=== PATIENT | female | born 1945 | race Caucasian/White ===

== ENCOUNTER → 2016-03-22 | Outpatient (CLI) | payer MEDICARE ==
[2016-03-22 18:31] LABS: Creatine Kinase 44 U/L (30-135)
[2016-03-22 18:34] LABS: Rheumatoid Factor, Qnt <9 IU/mL (<12)
[2016-03-22 19:25] LABS: Vitamin B12 >1000 pg/mL
== END | disposition home or self-care (01) ==
LOC: RADXRMAIN 17:35
PROVIDERS: ATTEND Psychiatry & Neurology Neurology
DX: G62.9 Polyneuropathy, unspecified (principal)
CPT/HCPCS: 82550; 82607; 83036; 84165; 84443; 85652; 86431; 86618

== ENCOUNTER 2016-10-11 14:30 | Emergency (ER) | payer MEDICARE ==
[2016-10-11 15:09] VITALS: RESP 18
--- NOTE | 2016-10-11 15:27 | ED ---
Lower Extremity Injury HPI - General Chief Complaint: Extremity Injury, Lower Stated Complaint: R foot injury Time Seen by Provider: 10/11/16 15:07 Source: patient Mode of arrival: ambulatory Limitations: no limitations - History of Present Illness Initial Comments: 70-year-old female patient presents to emergency department today for evaluation of right fifth toe injury. Patient states that she was walking through her house yesterday when she stubbed it on a table leg. Patient states she has been having pain in that toe since. She states it is painful to walk. She denies any other injuries or concerns. Denies any numbness or tingling. Denies any previous injury to the foot. Patient denies any headache, dizziness , neck pain, chest pain, shortness of breath, abdominal pain, nausea, vomiting, ,fever, or chills. - Related Data Home Medications Medication Instructions Recorded Confirmed Gabapentin 600 mg PO QID 12/26/13 01/21/16 Levothyroxine Sodium [Levoxyl] 50 mcg PO QAM 12/26/13 01/21/16 Simvastatin [Zocor] 20 mg PO HS 12/26/13 01/21/16 Venlafaxine HCl ER [Effexor XR] 150 mg PO DAILY 12/26/13 01/21/16 clonazePAM [KlonoPIN] 0.5 mg PO BID 12/26/13 01/21/16 Cholecalciferol [Vitamin D3] 2,000 unit PO DAILY 11/11/14 01/21/16 Ziprasidone [Geodon] 60 mg PO HS 11/11/14 01/21/16 Mirabegron [Myrbetriq] 50 mg PO DAILY 04/29/15 01/21/16 Calcium Carb-Vit D 500Mg-200Un 1 tab PO BID 11/16/15 01/21/16 [Oscal 500+D] Clobetasol Propionate [Temovate 1 applic TOPICAL BID 11/16/15 01/21/16 0.05% Cream] Ferrous Sulfate [Iron (65 MG 325 mg PO BID 11/16/15 01/21/16 Elemental)] HYDROcodone/APAP 7.5-325MG [[place] 1 tab PO DAILY PRN 11/16/15 01/21/16 7.5-325] Metoprolol Succinate (ER) [Toprol 50 mg PO DAILY 11/16/15 01/21/16 XL] fentaNYL 50MCG/HR PATCH [Duragesic 1 patch TRANSDERM Q72H 11/16/15 01/21/16 50MCG/HR] Biotin( Unknown Dose) 1 tab PO DAILY 01/20/16 01/21/16 Cyanocobalamin [Vitamin B-12] 500 mcg PO DAILY 01/20/16 01/21/16 Multivitamins, Thera [Multivitamin] 1 tab PO DAILY 01/20/16 01/21/16 Previous Rx's Medication Instructions Recorded Cevimeline [Evoxac] 30 mg PO TID cap 11/14/14 Aspirin 81 mg PO DAILY #1 chewable 11/16/15 Allergies Allergy/AdvReac Type Severity Reaction Status Date / Time No Known Allergies Allergy Verified 10/11/16 15:09 Review of Systems ROS Statement: Those systems with pertinent positive or pertinent negative responses have been documented in the HPI. ROS Other: All systems not noted in ROS Statement are negative. Past Medical History Past Medical History: Cancer, Deep Vein Thrombosis (DVT), Fibromyalgia, Hyperlipidemia, Hypertension, Sleep Apnea/CPAP/BIPAP, Thyroid Disorder Additional Past Medical History / Comment(s): HX PARALYZED LT VOCAL CORD, CA OF DALIA EARLOBES, HEART MURMUR, DIVERTICULOSIS, ANEMIA, BLOOD CLOTS DALIA LUNGS AND LEFT AXILLA (NOV 2014),ENVIRONMENTAL ALLERGIES., Hx. of Basal cell CANCER LEFT EARLOBE. Urinary Urgency. Last adm. Hx. of open area on tailbone, states is completely healed. Chipped bone in ankle. History of Any Multi-Drug Resistant Organisms: None Reported Past Surgical History: Hysterectomy, Orthopedic Surgery Additional Past Surgical History / Comment(s): COLONOSCOPY, REPAIR OF PATENT DUCTUS AT 18MOS OF AGE,LAMICECTOMY,FIBROID REMOVED FROM ABDOMINAL AREA, Basal cell REMOVED FROM RIGHT EAR LOBE. Past Anesthesia/Blood Transfusion Reactions: No Reported Reaction Past Psychological History: No Psychological Hx Reported Smoking Status: Unknown if ever smoked Past Alcohol Use History: None Reported Past Drug Use History: None Reported - Past Family History Mother Family Medical History: No Reported History Sister(s) Family Medical History: Diabetes Mellitus General Exam Limitations: no limitations General appearance: alert, in no apparent distress Eye exam: Present: normal appearance, PERRL, EOMI. Absent: scleral icterus, conjunctival injection, periorbital swelling ENT exam: Present: normal exam, mucous membranes moist Neck exam: Present: normal inspection. Absent: tenderness, meningismus, lymphadenopathy Respiratory exam: Present: normal lung sounds bilaterally. Absent: respiratory distress, wheezes, rales, rhonchi, stridor Cardiovascular Exam: Present: regular rate, normal rhythm, normal heart sounds. Absent: systolic murmur, diastolic murmur, rubs, gallop, clicks GI/Abdominal exam: Present: soft, normal bowel sounds. Absent: distended, tenderness, guarding, rebound, rigid Extremities exam: Present: normal inspection, full ROM, tenderness (Right fifth toe tenderness, right fifth metatarsal tenderness. Skin pink, warm, and dry. Cap refill is less than 3 seconds.), normal capillary refill. Absent: pedal edema, joint swelling, calf tenderness Neurological exam: Present: alert, oriented X3, CN II-XII intact Psychiatric exam: Present: normal affect, normal mood Skin exam: Present: warm, dry, intact, normal color. Absent: rash Course Vital Signs 10/11/16 15:06 Temperature 98.0 F Pulse Rate 61 Respiratory 18 Rate Blood Pressure 104/56 O2 Sat by Pulse 97 Oximetry Medical Decision Making - Medical Decision Making 70-year-old female presented for evaluation of right fifth toe injury. X-ray was completed and did show a minimally displaced distal phalanx fracture of the fifth digit. Did beatris tape the fourth and fifth toes together. Skin after beatris taping was pink, warm, and dry. Cap refill remained less than 3 seconds. Did give patient orthopedics for follow-up. Instructed to take Tylenol for pain control. Recommended ice and elevation. Instructed to return for any new , worsening, or concerning symptoms. Patient verbalized understanding and agreed with this plan. - Radiology Data Radiology results: report reviewed, image reviewed Complete x-ray of the right foot shows diffuse osteopenia and severe arthropathy hypertrophic changes at the first MTP joint. There is a deformity of the distal phalanx of the fifth digit. Impression by Dr. vega states to Leela for minimally displaced fracture distal phalanx of digit. Disposition Clinical Impression: Fracture of fifth toe, right, closed Disposition: HOME SELF-CARE Condition: Good Instructions: Toe Fracture (ED) Additional Instructions: Keep the toe beatris taped. Elevate and ice. Take [id number] Tylenol for pain control. Follow up with orthopedics in 1-2 days for recheck. Return for any new, worsening, or concerning symptoms. Referrals: Mario Gabriel DO [Primary Care Provider] - 1-2 days Wilfred Sarah DO [Doctor of Osteopathic Medicine] - 1-2 days Time of Disposition: 15:51
--- NOTE | 2016-10-11 15:40 | XR ---
EXAMINATION TYPE: XR foot complete RT DATE OF EXAM: 10/11/2016 COMPARISON: NONE HISTORY: Right fifth digit pain TECHNIQUE: Three views are submitted. FINDINGS: Diffuse osteopenia and severe arthropathy and hypertrophic change first MTP joint. There is a deformity of the distal phalanx fifth digit. IMPRESSION: 1. Correlate for minimally displaced fracture distal phalanx fifth digit.
[2016-10-11 15:58] VITALS: BP 112/68; PULSE 74; TEMP 98.2
== END 2016-10-11 15:58 | disposition home or self-care (01) ==
LOC: EC 14:30
DX: S92.531A Displaced fracture of distal phalanx of right lesser toe(s), initial encounter for closed fracture (principal); Z86.718 Personal history of other venous thrombosis and embolism; E07.9 Disorder of thyroid, unspecified; E78.5 Hyperlipidemia, unspecified; M79.7 Fibromyalgia; I10 Essential (primary) hypertension; Z85.828 Personal history of other malignant neoplasm of skin; Z79.899 Other long term (current) drug therapy; W22.03XA Walked into furniture, initial encounter; Y93.01 Activity, walking, marching and hiking; Y92.009 Unspecified place in unspecified non-institutional (private) residence as the place of occurrence of the external cause
CPT/HCPCS: 99283

== ENCOUNTER 2016-12-08 15:39 | Emergency (ER) | payer MEDICARE ==
[2016-12-08] MEDS ORDERED: methylPREDNISolone SOD SUCCI 125 MG/2 ML VIAL IV STA (16:36)
[2016-12-08] MEDS ORDERED: ALBUTEROL NEBULIZED 2.5 MG/3 ML INHALATION STA (16:39)
[2016-12-08] MEDS ORDERED: IPRATROPIUM-ALBUTEROL 3 ML NEB INHALATION STA (16:39)
[2016-12-08] MEDS ORDERED: ASPIRIN 81 MG PO STA (16:39)
--- NOTE | 2016-12-08 16:54 | ED ---
General Adult HPI - General Chief complaint: Upper Respiratory Infection Stated complaint: Cough Time Seen by Provider: 12/08/16 16:21 Source: patient Mode of arrival: ambulatory Limitations: no limitations - History of Present Illness Initial comments: Patient is a 71-year-old female with a previous history of skin cancer, and bilateral PEs presents with a chief complaint of cough and congestion. Patient states that this is been going on for about 3 days. She states that over the course of the 3 days, her cough has remained the same. Patient cannot identify any inciting factors, she states that she was at her primary care doctor's office but was not around anybody particularly sick. She states that her cough is nonproductive, and coarse. He cannot identify any aggravating or alleviating factors. She states that she does have pleuritic type chest pain when she coughs. She denies any exertional dyspnea. She further denies any nausea, vomiting, lightheadedness, diaphoresis. Patient states that she is currently not on any anticoagulation therapy, and states that she was only on it for 6 months. - Related Data Home Medications Medication Instructions Recorded Confirmed Gabapentin 600 mg PO TID 12/26/13 12/08/16 Levothyroxine Sodium [Levoxyl] 50 mcg PO QAM 12/26/13 12/08/16 Simvastatin [Zocor] 20 mg PO HS 12/26/13 12/08/16 clonazePAM [KlonoPIN] 0.5 mg PO BID 12/26/13 12/08/16 Cholecalciferol [Vitamin D3] 2,000 unit PO DAILY 11/11/14 12/08/16 Mirabegron [Myrbetriq] 50 mg PO DAILY 04/29/15 12/08/16 Calcium Carb-Vit D 500Mg-200Un 1 tab PO BID 11/16/15 12/08/16 [Oscal 500+D] Ferrous Sulfate [Iron (65 MG 325 mg PO BID 11/16/15 12/08/16 Elemental)] HYDROcodone/APAP 7.5-325MG [[place] 1 tab PO DAILY PRN 11/16/15 12/08/16 7.5-325] Metoprolol Succinate (ER) [Toprol 25 mg PO DAILY 11/16/15 12/08/16 XL] fentaNYL 50MCG/HR PATCH [Duragesic 1 patch TRANSDERM Q72H 11/16/15 12/08/16 50MCG/HR] Cyanocobalamin [Vitamin B-12] 500 mcg PO DAILY 01/20/16 12/08/16 Multivitamins, Thera [Multivitamin] 1 tab PO DAILY 01/20/16 12/08/16 Furosemide [Lasix] 20 mg PO DAILY 12/08/16 12/08/16 Ziprasidone HCl [Geodon] 80 mg PO HS 12/08/16 12/08/16 Previous Rx's Medication Instructions Recorded Cevimeline [Evoxac] 30 mg PO TID cap 11/14/14 Aspirin 81 mg PO DAILY #1 chewable 11/16/15 Albuterol Inhaler [Ventolin Hfa 1 - 2 puff INHALATION Q6HR PRN #1 12/08/16 Inhaler] inhaler Azithromycin 250 mg PO DAILY #6 tab 12/08/16 predniSONE 50 mg PO DAILY #4 tablet 12/08/16 Allergies Allergy/AdvReac Type Severity Reaction Status Date / Time No Known Allergies Allergy Verified 12/08/16 16:02 Review of Systems ROS Statement: Those systems with pertinent positive or pertinent negative responses have been documented in the HPI. ROS Other: All systems not noted in ROS Statement are negative. Constitutional: Reports: chills. Denies: fever Eyes: Denies: vision change ENT: Reports: congestion Respiratory: Reports: cough. Denies: dyspnea Cardiovascular: Denies: chest pain, dyspnea on exertion Endocrine: Denies: fatigue Gastrointestinal: Denies: abdominal pain, nausea, vomiting Genitourinary: Denies: dysuria Musculoskeletal: Denies: back pain Skin: Denies: rash Neurological: Denies: headache Past Medical History Past Medical History: Cancer, Deep Vein Thrombosis (DVT), Fibromyalgia, Hyperlipidemia, Hypertension, Sleep Apnea/CPAP/BIPAP, Thyroid Disorder Additional Past Medical History / Comment(s): HX PARALYZED LT VOCAL CORD, CA OF DALIA EARLOBES, HEART MURMUR, DIVERTICULOSIS, ANEMIA, BLOOD CLOTS DALIA LUNGS AND LEFT AXILLA (NOV 2014),ENVIRONMENTAL ALLERGIES., Hx. of Basal cell CANCER LEFT EARLOBE. Urinary Urgency. Last adm. Hx. of open area on tailbone, states is completely healed. Chipped bone in ankle. History of Any Multi-Drug Resistant Organisms: None Reported Past Surgical History: Hysterectomy, Orthopedic Surgery Additional Past Surgical History / Comment(s): COLONOSCOPY, REPAIR OF PATENT DUCTUS AT 18MOS OF AGE,LAMICECTOMY,FIBROID REMOVED FROM ABDOMINAL AREA, Basal cell REMOVED FROM RIGHT EAR LOBE. Past Anesthesia/Blood Transfusion Reactions: No Reported Reaction Past Psychological History: Anxiety, Depression Smoking Status: Former smoker Past Alcohol Use History: None Reported Past Drug Use History: None Reported - Past Family History Mother Family Medical History: No Reported History Sister(s) Family Medical History: Diabetes Mellitus General Exam Limitations: no limitations General appearance: alert, in no apparent distress Head exam: Present: atraumatic, normocephalic Eye exam: Present: normal appearance ENT exam: Present: normal oropharynx, mucous membranes moist Respiratory exam: Present: wheezes (Patient has bilateral wheezes, and right sided rhonchi.), rhonchi Cardiovascular Exam: Present: regular rate, normal rhythm GI/Abdominal exam: Present: soft. Absent: distended, tenderness Rectal exam: Present: deferred Extremities exam: Present: normal inspection Back exam: Present: normal inspection Neurological exam: Present: alert, oriented X3 Psychiatric exam: Present: normal affect, normal mood Skin exam: Present: warm, dry, intact Course Vital Signs 12/08/16 12/08/16 12/08/16 15:59 16:09 16:47 Temperature 98.4 F Pulse Rate 82 78 Respiratory 16 18 Rate Blood Pressure 117/60 O2 Sat by Pulse 94 L Oximetry 12/08/16 17:17 Temperature Pulse Rate 78 Respiratory Rate Blood Pressure O2 Sat by Pulse Oximetry Medical Decision Making - Medical Decision Making Patient presents with a chief complaint of cough and congestion. History and physical examination most consistent with bronchitis or pneumonia however given the patient's previous medical history PE, we'll send cardiac lab work as well. Patient will have a d-dimer. Currently she is a well score of 1.5 only secondary to previously diagnosed PE. 7:35 PM Level evaluation of this patient is unremarkable. D-dimer is elevated at 1.27 therefore patient will go for computed tomography scan of the chest, and bilateral lower extremity Dopplers. CT was negative for PE. Lower extremity Doppler fails to show evidence of DVTs. On reexamination, patient states that she is feeling improved. She'll be prescribed 4 more days of steroids, and a Z- Inderjit. She is instructed to follow-up with primary care in 4-5 days, or return to the emergency department if her symptoms worsen or change in any way. All of her questions are answered to the best my ability, the patient is stable for discharge - Lab Data Result diagrams: 12/08/16 17:15 12/08/16 17:15 Lab Results 12/08/16 12/08/16 12/08/16 Range/Units 17:15 17:15 17:15 WBC 5.5 (3.8-10.6) k/uL RBC 4.25 (3.80-5.40) m/uL Hgb 13.1 (11.4-16.0) gm/dL Hct 40.7 (34.0-46.0) % MCV 95.6 (80.0-100.0) fL MCH 30.9 (25.0-35.0) pg MCHC 32.3 (31.0-37.0) g/dL RDW 13.0 (11.5-15.5) % Plt Count 355 (150-450) k/uL Neutrophils % 67 % Lymphocytes % 16 % Monocytes % 8 % Eosinophils % 4 % Basophils % 1 % Neutrophils # 3.7 (1.3-7.7) k/uL Lymphocytes # 0.9 L (1.0-4.8) k/uL Monocytes # 0.5 (0-1.0) k/uL Eosinophils # 0.2 (0-0.7) k/uL Basophils # 0.0 (0-0.2) k/uL D-Dimer (<0.60) mg/L FEU Sodium 140 (137-145) mmol/L Potassium 4.9 (3.5-5.1) mmol/L Chloride 103 (98-107) mmol/L Carbon Dioxide 25 (22-30) mmol/L Anion Gap 12 mmol/L BUN 19 H (7-17) mg/dL Creatinine 1.00 (0.52-1.04) mg/dL Est GFR (MDRD) Af Amer >60 (>60 ml/min/1.73 sqM) Est GFR (MDRD) Non-Af 55 (>60 ml/min/1.73 sqM) Glucose 88 (74-99) mg/dL Calcium 9.7 (8.4-10.2) mg/dL Total Bilirubin 0.9 (0.2-1.3) mg/dL AST 46 H (14-36) U/L ALT 35 (9-52) U/L Alkaline Phosphatase 54 (38-126) U/L Total Creatine Kinase 81 (30-135) U/L CK-MB (CK-2) 1.3 (0.0-2.4) ng/mL CK-MB (CK-2) Rel Index 1.6 Troponin I <0.012 (0.000-0.034) ng/mL NT-Pro-B Natriuret Pep pg/mL Total Protein 7.5 (6.3-8.2) g/dL Albumin 4.3 (3.5-5.0) g/dL 12/08/16 12/08/16 Range/Units 17:15 17:15 WBC (3.8-10.6) k/uL RBC (3.80-5.40) m/uL Hgb (11.4-16.0) gm/dL Hct (34.0-46.0) % MCV (80.0-100.0) fL MCH (25.0-35.0) pg MCHC (31.0-37.0) g/dL RDW (11.5-15.5) % Plt Count (150-450) k/uL Neutrophils % % Lymphocytes % % Monocytes % % Eosinophils % % Basophils % % Neutrophils # (1.3-7.7) k/uL Lymphocytes # (1.0-4.8) k/uL Monocytes # (0-1.0) k/uL Eosinophils # (0-0.7) k/uL Basophils # (0-0.2) k/uL D-Dimer 1.27 H (<0.60) mg/L FEU Sodium (137-145) mmol/L Potassium (3.5-5.1) mmol/L Chloride (98-107) mmol/L Carbon Dioxide (22-30) mmol/L Anion Gap mmol/L BUN (7-17) mg/dL Creatinine (0.52-1.04) mg/dL Est GFR (MDRD) Af Amer (>60 ml/min/1.73 sqM) Est GFR (MDRD) Non-Af (>60 ml/min/1.73 sqM) Glucose (74-99) mg/dL Calcium (8.4-10.2) mg/dL Total Bilirubin (0.2-1.3) mg/dL AST (14-36) U/L ALT (9-52) U/L Alkaline Phosphatase (38-126) U/L Total Creatine Kinase (30-135) U/L CK-MB (CK-2) (0.0-2.4) ng/mL CK-MB (CK-2) Rel Index Troponin I (0.000-0.034) ng/mL NT-Pro-B Natriuret Pep 669 pg/mL Total Protein (6.3-8.2) g/dL Albumin (3.5-5.0) g/dL Disposition Clinical Impression: Bronchitis Disposition: HOME SELF-CARE Condition: Good Instructions: Upper Respiratory Infection (ED) Prescriptions: Albuterol Inhaler [Ventolin Hfa Inhaler] 1 - 2 puff INHALATION Q6HR PRN #1 inhaler PRN Reason: shortness of breath Azithromycin 250 mg PO DAILY #6 tab predniSONE 50 mg PO DAILY #4 tablet Referrals: Mario Gabriel DO [Primary Care Provider] - 1-2 days
[2016-12-08 17:29] LABS: Basophils % (A) 1 %; CHCM 31.5; Eosinophils # (A) 0.2 k/uL (0-0.7); Eosinophils % (A) 4 %; HCT 40.7 % (34.0-46.0); HGB 13.1 gm/dL (11.4-16.0); Luc # (Auto) 0.24; Luc % (Auto) 4; Lymphocytes # (A) 0.9 k/uL (1.0-4.8); Lymphocytes % (A) 16 %; MCH 30.9 pg (25.0-35.0); MCHC 32.3 g/dL (31.0-37.0); MCV 95.6 fL (80.0-100.0); Mean Platelet Volume 6.6; Monocytes # (A) 0.5 k/uL (0-1.0); Monocytes % (A) 8 %; Neutrophils # (A) 3.7 k/uL (1.3-7.7); Neutrophils % (A) 67 %; RBC 4.25 m/uL (3.80-5.40); WBC 5.5 k/uL (3.8-10.6); WBC (Perox) 5.45
[2016-12-08 17:37] LABS: ALT 35 U/L (9-52); AST 46 U/L (14-36); Alkaline Phosphatase 54 U/L (38-126); Anion Gap 12 mmol/L; Blood Urea Nitrogen 19 mg/dL (7-17); Calcium 9.7 mg/dL (8.4-10.2); Carbon Dioxide 25 mmol/L (22-30); Chloride 103 mmol/L (98-107); Glucose 88 mg/dL (74-99); Non-African American GFR(MDRD) 55 (>60 ml/min/1.73 sqM); Potassium 4.9 mmol/L (3.5-5.1); Sodium 140 mmol/L (137-145); Total Bilirubin 0.9 mg/dL (0.2-1.3); Total Protein 7.5 g/dL (6.3-8.2)
[2016-12-08] MEDS ORDERED: RX INFO: IV CONTRAST WAS GIVEN 1 EACH MISC MISCELLANE PRN (17:40)
[2016-12-08 17:45] LABS: Creatine Kinase 81 U/L (30-135)
[2016-12-08 17:58] LABS: Creatine Kinase MB 1.3 ng/mL (0.0-2.4); Troponin I <0.012 ng/mL (0.000-0.034)
--- NOTE | 2016-12-08 18:35 | XR ---
EXAMINATION TYPE: XR chest 2V DATE OF EXAM: 12/08/2016 HISTORY: difficulty breathing. REFERENCE: Previous study dated 01/29/2016. FINDINGS: The heart is upper limits of normal in size. There is chronic interstitial change. There is mild vascular congestion. Pleural spaces are clear. IMPRESSION: 1. BORDERLINE CARDIOMEGALY. 2. CHRONIC INTERSTITIAL CHANGE. 3. VASCULAR CONGESTION.
--- NOTE | 2016-12-08 18:45 | CT ---
EXAMINATION TYPE: CT chest angio for PE DATE OF EXAM: 12/08/2016 COMPARISON: NONE HISTORY: Cough and shortness of breath. History of DVT in the Left arm CT DLP: 432 mGycm Automated exposure control for dose reduction was used. CONTRAST: CT Chest for pulmonary embolism performed with with IV Contrast, patient injected with 80 mL of Visip aque 320. FINDINGS: There is atelectasis at the lung bases. There is some groundglass opacity in the apical pos terior segment of the left upper lobe and the posterior segment of the right upper lobe. This may be secondary to alveolitis or pneumonitis. There is no significant axillary, internal mammary, mediastinal or hilar adenopathy. There is no pleu ral or pericardial fluid. There is no evidence of pulmonary embolus. The aortic root is upper limits of normal in size. There is no evidence of aortic dissection. The heart is mildly enlarged. The right main pulmonary artery is prominent. I could not exclude some degree of pulmonary artery hypertension. There are gallstones within the gallbladder. No bony destructive lesion is seen. IMPRESSION: 1. This examination is negative for pulmonary embolus. 2. Cardiomegaly. 3. I could not exclude some degree of pulmonary artery hypertension. 4. Scattered groundglass opacities may reflect ongoing alveolitis or pneumonitis. 5. Cholelithiasis.
--- NOTE | 2016-12-08 19:27 | US ---
EXAMINATION TYPE: US venous doppler duplex LE BI DATE OF EXAM: 12/08/2016 7:14 PM COMPARISON: NONE CLINICAL HISTORY: Pain. SIDE PERFORMED: Bilateral TECHNIQUE: The lower extremity deep venous system is examined utilizing real time linear array sonog thais with graded compression, doppler sonography and color-flow sonography. VESSELS IMAGED: External Iliac Vein (EIV) Common Femoral Vein Deep Femoral Vein Greater Saphenous Vein * Femoral Vein Popliteal Vein Small Saphenous Vein * Proximal Calf Veins (* superficial vessels) Right Leg: Negative for DVT Left Leg: Negative for DVT No evidence of DVT bilateral legs There is no evidence of a popliteal fossa lesion. IMPRESSION: THIS EXAMINATION IS NEGATIVE FOR DVT IN BOTH LEGS.
[2016-12-08 19:50] VITALS: BP 118/84; PULSE 63; RESP 16; TEMP 97.5
== END 2016-12-08 19:49 | disposition home or self-care (01) ==
LOC: EC 15:39
DX: J40 Bronchitis, not specified as acute or chronic (principal); R07.81 Pleurodynia; M79.7 Fibromyalgia; E78.5 Hyperlipidemia, unspecified; I10 Essential (primary) hypertension; E07.9 Disorder of thyroid, unspecified; D64.9 Anemia, unspecified; F41.9 Anxiety disorder, unspecified; F32.9 Major depressive disorder, single episode, unspecified; Z86.718 Personal history of other venous thrombosis and embolism; Z85.828 Personal history of other malignant neoplasm of skin; Z87.891 Personal history of nicotine dependence; Z79.899 Other long term (current) drug therapy
CPT/HCPCS: 99284 ×2; 96374 ×2; 36415; 94640; 93005; 85379; 83880; 80053; 82550; 82553; 84484; 85025; 71020; 93970; 71275; J2930; Q9967

== ENCOUNTER → 2017-03-02 | Outpatient (CLI) | payer MEDICARE ==
[2017-03-02 17:12] LABS: ALT 40 U/L (9-52); AST 47 U/L (14-36); Albumin 5.2 g/dL (3.5-5.0); Alkaline Phosphatase 60 U/L (38-126); Anion Gap 13 mmol/L; Blood Urea Nitrogen 27 mg/dL (7-17); Calcium 10.5 mg/dL (8.4-10.2); Carbon Dioxide 32 mmol/L (22-30); Chloride 98 mmol/L (98-107); Glucose 101 mg/dL (74-99); Potassium 4.9 mmol/L (3.5-5.1); Sodium 143 mmol/L (137-145); Total Bilirubin 0.6 mg/dL (0.2-1.3); Total Protein 8.7 g/dL (6.3-8.2)
--- NOTE | 2017-03-03 08:05 | CT ---
EXAMINATION TYPE: CT angio chest DATE OF EXAM: 03/02/2017 COMPARISON: 12/23/2016 HISTORY: Thoracic Aorta Aneurysm CT DLP: 404.5 mGycm. Automated Exposure Control for Dose Reduction was Utilized. CONTRAST: CTA scan of the thorax is performed with IV Contrast, patient injected with 80 mL of Visipaque 320, p ulmonary embolism protocol. MIP Images are created on CT scanner and reviewed. FINDINGS: LUNGS: The lungs are grossly clear, there is no concerning parenchymal mass or nodule identified. L inear pleural parenchymal scarring is seen at the left lung base. There is no pleural effusion or pne umothorax seen. The tracheobronchial tree is patent. MEDIASTINUM: No intramural hematoma is seen on the unenhanced images. The ascending thoracic aorta is upper limits of normal size measuring 3.7 cm, unchanged from the exam of 2015. The aortic root at th e sinotubular junction measures 3.4 cm and is within normal limits. The descending thoracic aorta roland sures 2.6 cm and is also within normal limits. There is a normal anatomic branch pattern of the great vessels. There is satisfactory enhancement of the pulmonary artery and its branches, there is no CT evidence for pulmonary embolism. The main pulmonary artery is within normal limits measuring 2.8 cm. The right main pulmonary artery is again enlarged measuring up to 3.0 cm. There are no greater than 1 cm hilar or mediastinal lymph nodes. No cardiomegaly or pericardial effusion is seen. Moderate thr ee-vessel coronary artery calcifications are present. OTHER: Incidental note is made of a mild pectus excavatum deformity. Incidental note is again made of cholelithiasis in the upper abdomen. Old fracture deformities of lateral right mid to lower ribs are demonstrated. IMPRESSION: 1. Redemonstration of ascending thoracic aorta ectasia measuring 3.7 cm, unchanged in caliber dating back to 2014. Note this does not fit criteria for ascending thoracic aortic aneurysm. 2. Findings again suggestive of pulmonary arterial hypertension. 3. Cholelithiasis.
== END | disposition home or self-care (01) ==
LOC: RADCTMAIN 16:21
PROVIDERS: ATTEND Internal Medicine Interventional Cardiology
DX: I77.810 Thoracic aortic ectasia (principal); I10 Essential (primary) hypertension; I35.0 Nonrheumatic aortic (valve) stenosis
CPT/HCPCS: 83880; 80053; 71275; 36415; Q9967

== ENCOUNTER → 2017-04-12 | Outpatient (CLI) | payer MEDICARE ==
--- NOTE | 2017-04-12 13:39 | XR ---
EXAMINATION TYPE: XR foot complete LT DATE OF EXAM: 04/12/2017 CLINICAL HISTORY: Nonhealing wound in heel. Pain per order. TECHNIQUE: Frontal, lateral, and oblique images of the left foot are obtained. COMPARISON: None FINDINGS: Osseous structures are demineralized. There is no acute fracture/dislocation evident in the left foot. Flexion in toes is present. The joint spaces in the left foot appear within normal li mits. No suspicious cortical destruction or periosteal reaction is seen with particular attention to calcaneus. The overlying soft tissue appears unremarkable. IMPRESSION: There is no radiographic evidence for acute osteomyelitis.
== END | disposition home or self-care (01) ==
LOC: RADXRMAIN 13:19
PROVIDERS: ATTEND Family Medicine
DX: M79.672 Pain in left foot (principal)

== ENCOUNTER 2017-06-02 12:22 | Emergency (ER) | payer MEDICARE ==
[2017-06-02] MEDS ORDERED: IPRATROPIUM-ALBUTEROL 3 ML NEB INHALATION STA (12:45)
--- NOTE | 2017-06-02 12:49 | ED ---
URI HPI - General Chief Complaint: Upper Respiratory Infection Stated Complaint: Pneumonia Time Seen by Provider: 06/02/17 12:25 Source: patient, EMS, RN notes reviewed Mode of arrival: EMS Limitations: no limitations - History of Present Illness Initial Comments: This a 71-year-old female presents emergency department via EMS chief complaint cough congestion. Patient states she's been sick for last 5-6 days once or primary care physician was placed on an antibiotic prescription that she does not know what it was. Patient states she's been taking medications and has not felt any better. Patient was visited today by her visiting nurse who recommended for the hospital which was not feeling better. She denies chest pain or any current shortness of breath. Patient reports no fever or chills at home which she has low-grade temp here. Patient denies any history of asthma or COPD. Patient denies any sick contacts. Patient does state that she's been treated for an ulcer on her heel and this is why visiting nurse comes to her house. - Related Data Home Medications Medication Instructions Recorded Confirmed Gabapentin 600 mg PO QID 12/26/13 06/02/17 Levothyroxine Sodium [Levoxyl] 50 mcg PO QAM 12/26/13 06/02/17 Simvastatin [Zocor] 20 mg PO HS 12/26/13 06/02/17 clonazePAM [KlonoPIN] 0.5 mg PO BID PRN 12/26/13 06/02/17 Ferrous Sulfate [Iron (65 MG 325 mg PO TID 11/16/15 06/02/17 Elemental)] HYDROcodone/APAP 7.5-325MG [[place] 1 tab PO DAILY PRN 11/16/15 06/02/17 7.5-325] fentaNYL 50MCG/HR PATCH [Duragesic 1 patch TRANSDERM Q72H 11/16/15 06/02/17 50MCG/HR] Ziprasidone HCl [Geodon] 80 mg PO HS 12/08/16 06/02/17 Biotin 5 mg PO DAILY 06/02/17 06/02/17 Magnesium Citrate 100 mg PO DAILY 06/02/17 06/02/17 Metoprolol Tartrate [Lopressor] 50 mg PO DAILY 06/02/17 06/02/17 Mirabegron [Myrbetriq] 50 mg PO DAILY 06/02/17 06/02/17 Venlafaxine HCl [Effexor XR] 150 mg PO DAILY 06/02/17 06/02/17 Previous Rx's Medication Instructions Recorded Cevimeline [Evoxac] 30 mg PO TID cap 11/14/14 Aspirin 81 mg PO DAILY #1 chewable 11/16/15 Allergies Allergy/AdvReac Type Severity Reaction Status Date / Time No Known Allergies Allergy Verified 06/02/17 13:04 Review of Systems ROS Statement: Those systems with pertinent positive or pertinent negative responses have been documented in the HPI. ROS Other: All systems not noted in ROS Statement are negative. Past Medical History Past Medical History: Cancer, Deep Vein Thrombosis (DVT), Fibromyalgia, Hyperlipidemia, Hypertension, Pneumonia, Sleep Apnea/CPAP/BIPAP, Thyroid Disorder Additional Past Medical History / Comment(s): HX PARALYZED LT VOCAL CORD, CA OF DALIA EARLOBES, HEART MURMUR, DIVERTICULOSIS, ANEMIA, BLOOD CLOTS DALIA LUNGS AND LEFT AXILLA (NOV 2014),ENVIRONMENTAL ALLERGIES., Hx. of Basal cell CANCER LEFT EARLOBE. Urinary Urgency. Last adm. Hx. of open area on tailbone, states is completely healed. Chipped bone in ankle. History of Any Multi-Drug Resistant Organisms: None Reported Past Surgical History: Hysterectomy, Orthopedic Surgery Additional Past Surgical History / Comment(s): COLONOSCOPY, REPAIR OF PATENT DUCTUS AT 18MOS OF AGE,LAMICECTOMY,FIBROID REMOVED FROM ABDOMINAL AREA, Basal cell REMOVED FROM RIGHT EAR LOBE. Past Anesthesia/Blood Transfusion Reactions: No Reported Reaction Past Psychological History: Anxiety, Depression Smoking Status: Former smoker Past Alcohol Use History: None Reported Past Drug Use History: None Reported - Past Family History Mother Family Medical History: No Reported History Sister(s) Family Medical History: Diabetes Mellitus General Exam Limitations: no limitations General appearance: alert, in no apparent distress Head exam: Present: atraumatic, normocephalic, normal inspection Eye exam: Present: normal appearance, PERRL, EOMI. Absent: scleral icterus, conjunctival injection, periorbital swelling ENT exam: Present: normal exam, normal oropharynx, mucous membranes moist Neck exam: Present: normal inspection, full ROM. Absent: tenderness, meningismus, lymphadenopathy Respiratory exam: Present: wheezes, rhonchi. Absent: normal lung sounds bilaterally, respiratory distress, rales, stridor Cardiovascular Exam: Present: regular rate, normal rhythm, normal heart sounds. Absent: systolic murmur, diastolic murmur, rubs, gallop, clicks Course Vital Signs 06/02/17 06/02/17 06/02/17 12:29 14:00 14:08 Temperature 99.7 F H Pulse Rate 74 74 77 Respiratory 18 Rate Blood Pressure 114/56 O2 Sat by Pulse 95 Oximetry Medical Decision Making - Medical Decision Making 71-year-old female presented emergency from for cough congestion. Patient has influenza A. Patient's symptoms have been present for 5-7 days. Patient will follow-up with primary care physician. She does feel improved after breathing treatment here. Patient states that she does not want an inhaler to go home with. Patient agrees to be discharged and states that she feels comfortable going home at this time. - Lab Data Result diagrams: 06/02/17 13:05 06/02/17 13:05 Lab Results 06/02/17 06/02/17 06/02/17 Range/Units 13:05 13:05 13:05 WBC (3.8-10.6) k/uL RBC (3.80-5.40) m/uL Hgb (11.4-16.0) gm/dL Hct (34.0-46.0) % MCV (80.0-100.0) fL MCH (25.0-35.0) pg MCHC (31.0-37.0) g/dL RDW (11.5-15.5) % Plt Count (150-450) k/uL Neutrophils % % Lymphocytes % % Monocytes % % Eosinophils % % Basophils % % Neutrophils # (1.3-7.7) k/uL Lymphocytes # (1.0-4.8) k/uL Monocytes # (0-1.0) k/uL Eosinophils # (0-0.7) k/uL Basophils # (0-0.2) k/uL PT (9.0-12.0) sec INR (<1.2) APTT (22.0-30.0) sec Sodium 145 (137-145) mmol/L Potassium 3.6 (3.5-5.1) mmol/L Chloride 100 (98-107) mmol/L Carbon Dioxide 28 (22-30) mmol/L Anion Gap 17 mmol/L BUN 19 H (7-17) mg/dL Creatinine 0.90 (0.52-1.04) mg/dL Est GFR (CKD-EPI)AfAm 75 (>60 ml/min/1.73 sqM) Est GFR (CKD-EPI)NonAf 65 (>60 ml/min/1.73 sqM) Glucose 97 (74-99) mg/dL Plasma Lactic Acid Rudy (0.7-2.0) mmol/L Calcium 9.6 (8.4-10.2) mg/dL Magnesium 2.1 (1.6-2.3) mg/dL Total Bilirubin 0.6 (0.2-1.3) mg/dL AST 29 (14-36) U/L ALT 25 (9-52) U/L Alkaline Phosphatase 65 (38-126) U/L Troponin I (0.000-0.034) ng/mL NT-Pro-B Natriuret Pep 339 pg/mL Total Protein 7.0 (6.3-8.2) g/dL Albumin 4.1 (3.5-5.0) g/dL Influenza Type A RNA Detected H (Not Detectd) Influenza Type B (PCR) Not Detected (Not Detectd) 06/02/17 06/02/17 06/02/17 Range/Units 13:05 13:05 13:05 WBC 8.3 (3.8-10.6) k/uL RBC 4.50 (3.80-5.40) m/uL Hgb 13.9 (11.4-16.0) gm/dL Hct 39.0 (34.0-46.0) % MCV 86.7 (80.0-100.0) fL MCH 30.9 (25.0-35.0) pg MCHC 35.7 (31.0-37.0) g/dL RDW 12.4 (11.5-15.5) % Plt Count 321 (150-450) k/uL Neutrophils % 75 % Lymphocytes % 15 % Monocytes % 6 % Eosinophils % 1 % Basophils % 0 % Neutrophils # 6.2 (1.3-7.7) k/uL Lymphocytes # 1.2 (1.0-4.8) k/uL Monocytes # 0.5 (0-1.0) k/uL Eosinophils # 0.1 (0-0.7) k/uL Basophils # 0.0 (0-0.2) k/uL PT 9.8 (9.0-12.0) sec INR 1.0 (<1.2) APTT 22.9 (22.0-30.0) sec Sodium (137-145) mmol/L Potassium (3.5-5.1) mmol/L Chloride (98-107) mmol/L Carbon Dioxide (22-30) mmol/L Anion Gap mmol/L BUN (7-17) mg/dL Creatinine (0.52-1.04) mg/dL Est GFR (CKD-EPI)AfAm (>60 ml/min/1.73 sqM) Est GFR (CKD-EPI)NonAf (>60 ml/min/1.73 sqM) Glucose (74-99) mg/dL Plasma Lactic Acid Rudy (0.7-2.0) mmol/L Calcium (8.4-10.2) mg/dL Magnesium (1.6-2.3) mg/dL Total Bilirubin (0.2-1.3) mg/dL AST (14-36) U/L ALT (9-52) U/L Alkaline Phosphatase (38-126) U/L Troponin I <0.012 (0.000-0.034) ng/mL NT-Pro-B Natriuret Pep pg/mL Total Protein (6.3-8.2) g/dL Albumin (3.5-5.0) g/dL Influenza Type A RNA (Not Detectd) Influenza Type B (PCR) (Not Detectd) 06/02/17 Range/Units 13:05 WBC (3.8-10.6) k/uL RBC (3.80-5.40) m/uL Hgb (11.4-16.0) gm/dL Hct (34.0-46.0) % MCV (80.0-100.0) fL MCH (25.0-35.0) pg MCHC (31.0-37.0) g/dL RDW (11.5-15.5) % Plt Count (150-450) k/uL Neutrophils % % Lymphocytes % % Monocytes % % Eosinophils % % Basophils % % Neutrophils # (1.3-7.7) k/uL Lymphocytes # (1.0-4.8) k/uL Monocytes # (0-1.0) k/uL Eosinophils # (0-0.7) k/uL Basophils # (0-0.2) k/uL PT (9.0-12.0) sec INR (<1.2) APTT (22.0-30.0) sec Sodium (137-145) mmol/L Potassium (3.5-5.1) mmol/L Chloride (98-107) mmol/L Carbon Dioxide (22-30) mmol/L Anion Gap mmol/L BUN (7-17) mg/dL Creatinine (0.52-1.04) mg/dL Est GFR (CKD-EPI)AfAm (>60 ml/min/1.73 sqM) Est GFR (CKD-EPI)NonAf (>60 ml/min/1.73 sqM) Glucose (74-99) mg/dL Plasma Lactic Acid Rudy 1.1 (0.7-2.0) mmol/L Calcium (8.4-10.2) mg/dL Magnesium (1.6-2.3) mg/dL Total Bilirubin (0.2-1.3) mg/dL AST (14-36) U/L ALT (9-52) U/L Alkaline Phosphatase (38-126) U/L Troponin I (0.000-0.034) ng/mL NT-Pro-B Natriuret Pep pg/mL Total Protein (6.3-8.2) g/dL Albumin (3.5-5.0) g/dL Influenza Type A RNA (Not Detectd) Influenza Type B (PCR) (Not Detectd) Disposition Clinical Impression: Influenza Disposition: HOME SELF-CARE Condition: Stable Instructions: Influenza (ED) Additional Instructions: Please return to the Emergency Department if symptoms worsen or any other concerns. Referrals: Mario Gabriel DO [Primary Care Provider] - 1-2 days Kelly Lynn MD [STAFF PHYSICIAN] - 1-2 days Time of Disposition: 14:26
[2017-06-02 13:22] LABS: Basophils % (A) 0 %; Eosinophils # (A) 0.1 k/uL (0-0.7); Eosinophils % (A) 1 %; HGB 13.9 gm/dL (11.4-16.0); Lymphocytes # (A) 1.2 k/uL (1.0-4.8); Lymphocytes % (A) 15 %; MCH 30.9 pg (25.0-35.0); MCHC 35.7 g/dL (31.0-37.0); MCV 86.7 fL (80.0-100.0); Mean Platelet Volume 6.7; Monocytes # (A) 0.5 k/uL (0-1.0); Monocytes % (A) 6 %; Neutrophils # (A) 6.2 k/uL (1.3-7.7); Neutrophils % (A) 75 %; Platelet Count 321 k/uL (150-450); RDW 12.4 % (11.5-15.5); WBC 8.3 k/uL (3.8-10.6)
[2017-06-02 13:30] LABS: Partial Thromboplastin Time 22.9 sec (22.0-30.0); Prothrombin Time 9.8 sec (9.0-12.0)
[2017-06-02 13:31] LABS: Albumin 4.1 g/dL (3.5-5.0); Calcium 9.6 mg/dL (8.4-10.2); Magnesium 2.1 mg/dL (1.6-2.3); Potassium 3.6 mmol/L (3.5-5.1); Total Bilirubin 0.6 mg/dL (0.2-1.3)
--- NOTE | 2017-06-02 13:58 | XR ---
EXAMINATION TYPE: XR chest 2V DATE OF EXAM: 06/02/2017 COMPARISON: Prior chest x-ray 12/08/2016 HISTORY: Cough TECHNIQUE: Frontal and lateral views of the chest are obtained. FINDINGS: There is no focal air space opacity, pleural effusion, or pneumothorax seen. The cardiac silhouette size is stable. Prominent lung volumes are present in the pulmonary artery remains increa sed in size, the aorta is dense. There may be a spinal curvature. The osseous structures are intact. IMPRESSION: Correlate for pulmonary artery hypertension.
[2017-06-02] MEDS ORDERED: HYDROcodone/APAP 7.5-325MG 1 EACH TAB PO ONE (14:01)
[2017-06-02 14:12] VITALS: PULSE 77
[2017-06-02 15:05] VITALS: BP 108/57; RESP 16; TEMP 98.2
== END 2017-06-02 15:04 | disposition home or self-care (01) ==
LOC: EC 12:22
DX: J10.1 Influenza due to other identified influenza virus with other respiratory manifestations (principal); E78.5 Hyperlipidemia, unspecified; E07.9 Disorder of thyroid, unspecified; I10 Essential (primary) hypertension; F32.9 Major depressive disorder, single episode, unspecified; F41.9 Anxiety disorder, unspecified; Z86.2 Personal history of diseases of the blood and blood-forming organs and certain disorders involving the immune mechanism; Z87.891 Personal history of nicotine dependence; Z79.891 Long term (current) use of opiate analgesic; Z79.899 Other long term (current) drug therapy
CPT/HCPCS: 36415; 71046; 80053; 83605; 83735; 83880; 84484; 85025; 85610; 85730; 87040; 87502; 94640; 99284

== ENCOUNTER 2017-06-23 11:28 | Inpatient (IN) | payer MEDICARE ==
--- NOTE | 2017-06-23 12:26 | ED ---
General Adult HPI - General Chief complaint: Neuro Symptoms/Deficit Stated complaint: Confusion Time Seen by Provider: 06/23/17 12:02 Source: patient Mode of arrival: wheelchair Limitations: no limitations - History of Present Illness Initial comments: Leeann is a 71 yo female who presents to the ED today for evaluation of confusion. Patient lives at home and cares for herself, however she also has a visiting nurse who provides wound care for her stage 2 sacral ulcer. presents to the emergency department today after being evaluated by her home health care nurse who expressed concern that the patient seemed confused and had dilated pupils. Patient reports that she is not quite feeling like herself. She denies any headache, vision change, sore throat, chest pain, cough , shortness of breath, abdominal pain, nausea, vomiting, change in bowel or bladder habits she denies any weakness in one side of the body or the other. She does complain of pain in her sacral decubitus ulcer, however this is unchanged recently. Patient denies any recent change in her medications, she reports that she manages her own medications and believes that she has been compliant with her medications as prescribed. - Related Data Home Medications Medication Instructions Recorded Confirmed Gabapentin 600 mg PO QID 12/26/13 06/23/17 Levothyroxine Sodium [Levoxyl] 50 mcg PO QAM 12/26/13 06/23/17 Simvastatin [Zocor] 20 mg PO HS 12/26/13 06/23/17 clonazePAM [KlonoPIN] 0.5 mg PO BID PRN 12/26/13 06/23/17 Ferrous Sulfate [Iron (65 MG 325 mg PO TID 11/16/15 06/23/17 Elemental)] HYDROcodone/APAP 7.5-325MG [[place] 1 tab PO DAILY PRN 11/16/15 06/23/17 7.5-325] fentaNYL 50MCG/HR PATCH [Duragesic 1 patch TRANSDERM Q72H 11/16/15 06/23/17 50MCG/HR] Biotin 5 mg PO DAILY 06/02/17 06/23/17 Magnesium Citrate 100 mg PO DAILY 06/02/17 06/23/17 Metoprolol Tartrate [Lopressor] 50 mg PO DAILY 06/02/17 06/23/17 Mirabegron [Myrbetriq] 50 mg PO DAILY 06/02/17 06/23/17 Venlafaxine HCl [Effexor XR] 150 mg PO DAILY 06/02/17 06/23/17 Ziprasidone [Geodon] 60 mg PO DAILY 06/23/17 06/23/17 Previous Rx's Medication Instructions Recorded Cevimeline [Evoxac] 30 mg PO TID cap 11/14/14 Aspirin 81 mg PO DAILY #1 chewable 11/16/15 Allergies Allergy/AdvReac Type Severity Reaction Status Date / Time No Known Allergies Allergy Verified 06/23/17 12:30 Review of Systems ROS Statement: Those systems with pertinent positive or pertinent negative responses have been documented in the HPI. ROS Other: All systems not noted in ROS Statement are negative. Constitutional: Denies: fever Eyes: Denies: eye pain, vision change ENT: Denies: ear pain, throat pain Respiratory: Denies: cough, dyspnea Cardiovascular: Denies: chest pain, palpitations Endocrine: Denies: fatigue Gastrointestinal: Denies: abdominal pain, nausea, vomiting, diarrhea, constipation Genitourinary: Denies: urgency, dysuria, frequency Skin: Reports: other (stage 2 sacral decubitus ulcer ). Denies: rash Neurological: Denies: headache, weakness Psychiatric: Denies: anxiety, depression Hematological/Lymphatic: Denies: easy bleeding, easy bruising Past Medical History Past Medical History: Cancer, Deep Vein Thrombosis (DVT), Fibromyalgia, Hyperlipidemia, Hypertension, Pneumonia, Sleep Apnea/CPAP/BIPAP, Thyroid Disorder Additional Past Medical History / Comment(s): HX PARALYZED LT VOCAL CORD, CA OF DALIA EARLOBES, HEART MURMUR, DIVERTICULOSIS, ANEMIA, BLOOD CLOTS DALIA LUNGS AND LEFT AXILLA (NOV 2014),ENVIRONMENTAL ALLERGIES., Hx. of Basal cell CANCER LEFT EARLOBE. Urinary Urgency. Last adm. Hx. of open area on tailbone, states is completely healed. Chipped bone in ankle. History of Any Multi-Drug Resistant Organisms: None Reported Past Surgical History: Hysterectomy, Orthopedic Surgery Additional Past Surgical History / Comment(s): COLONOSCOPY, REPAIR OF PATENT DUCTUS AT 18MOS OF AGE,LAMICECTOMY,FIBROID REMOVED FROM ABDOMINAL AREA, Basal cell REMOVED FROM RIGHT EAR LOBE. Past Anesthesia/Blood Transfusion Reactions: No Reported Reaction Past Psychological History: Anxiety, Depression Smoking Status: Former smoker Past Alcohol Use History: None Reported Past Drug Use History: None Reported - Past Family History Mother Family Medical History: No Reported History Sister(s) Family Medical History: Diabetes Mellitus General Exam Limitations: no limitations General appearance: alert Head exam: Present: atraumatic, normocephalic Eye exam: Present: normal appearance, PERRL (Pupils 5mm and reactive) ENT exam: Present: normal exam Neck exam: Present: normal inspection Respiratory exam: Absent: respiratory distress Cardiovascular Exam: Present: systolic murmur (blowing holosystolic murmur) GI/Abdominal exam: Absent: soft, distended Rectal exam: Present: normal inspection, other Back exam: Present: normal inspection Neurological exam: Present: alert, oriented X3 (Oriented to person, place, time , date, events leading to arrival in the ER, however states she feels confused ) Psychiatric exam: Present: normal affect Skin exam: Present: warm, dry, normal color Course Vital Signs 06/23/17 06/23/17 06/23/17 11:34 13:11 13:43 Temperature 98.6 F Pulse Rate 102 H 115 H 121 H Respiratory 16 20 18 Rate Blood Pressure 112/58 153/70 153/70 O2 Sat by Pulse 97 96 96 Oximetry 06/23/17 14:46 Temperature Pulse Rate 106 H Respiratory 18 Rate Blood Pressure 163/66 O2 Sat by Pulse 96 Oximetry EKG Findings - EKG Comments: EKG Findings:: EKG at 12:06 PM - rate 102, rhythm sinus tachycardia, left axis deviation with evidence of LVH, normal intervals, QTc 521, no acute ST elevations or depressions. Medical Decision Making - Medical Decision Making Patient was seen and evaluated, history was obtained from the patient Patient reports concern that she may be mildly confused, patient is alert and oriented to person, place, day and date. She understands events leading up to hospitalization and has a thorough understanding of her medical history and medications. However she reports that she is feeling off. Home health Care nurse expressed concern with patient's pupils appeared dilated and she seemed confused. Considering the patient's constellation of confusion, pupillary dilation and tachycardia I do have concern for anticholinergic toxidrome In addition considering the patient's history of a sacral decubitus ulcer in mental status change there is concern for infection as underlying cause, a broad range of labs were ordered Labs with multiple electrolyte abnormalities, JUAN, UTI Lactated ringers ordered for rehydration Rocephin for UTI Patient complaining that she feels hot, remains afebrile but appears red and flushed - remain concerned that the patient is experiencing an anticholinergic toxidrome secondary to polypharmacy likely related to Geodon, Effexor and her bladder antispasmodic medication. Patient care was discussed with Dr. Azar who agrees that the patient is likely suffering from mental status change due to polypharmacy and agrees with plan for IV fluid rehydration, antibiotics for urinary tract infection, repeat labs in the morning admission with a consult to psychiatry to evaluate the patient's medications. I expressed to Dr. Azar my concern that the patient may not be safe to care for herself at home. He agrees and states that he will discuss this with psych. - Lab Data Result diagrams: 06/23/17 12:54 06/23/17 12:54 Lab Results 06/23/17 06/23/17 06/23/17 Range/Units 12:54 12:54 12:54 WBC 8.8 (3.8-10.6) k/uL RBC 4.63 (3.80-5.40) m/uL Hgb 14.0 (11.4-16.0) gm/dL Hct 40.7 (34.0-46.0) % MCV 87.8 (80.0-100.0) fL MCH 30.2 (25.0-35.0) pg MCHC 34.4 (31.0-37.0) g/dL RDW 13.0 (11.5-15.5) % Plt Count 382 (150-450) k/uL Neutrophils % 86 % Lymphocytes % 8 % Monocytes % 5 % Eosinophils % 0 % Basophils % 0 % Neutrophils # 7.5 (1.3-7.7) k/uL Lymphocytes # 0.7 L (1.0-4.8) k/uL Monocytes # 0.4 (0-1.0) k/uL Eosinophils # 0.0 (0-0.7) k/uL Basophils # 0.0 (0-0.2) k/uL Sodium 151 H (137-145) mmol/L Potassium 3.3 L (3.5-5.1) mmol/L Chloride 109 H (98-107) mmol/L Carbon Dioxide 17 L (22-30) mmol/L Anion Gap 25 mmol/L BUN 47 H (7-17) mg/dL Creatinine 1.20 H (0.52-1.04) mg/dL Est GFR (CKD-EPI)AfAm 53 (>60 ml/min/1.73 sqM) Est GFR (CKD-EPI)NonAf 46 (>60 ml/min/1.73 sqM) Glucose 118 H (74-99) mg/dL Plasma Lactic Acid Rudy 2.0 (0.7-2.0) mmol/L Calcium 10.5 H (8.4-10.2) mg/dL Magnesium 2.8 H (1.6-2.3) mg/dL Total Bilirubin 0.7 (0.2-1.3) mg/dL AST 55 H (14-36) U/L ALT 25 (9-52) U/L Alkaline Phosphatase 70 (38-126) U/L Total Protein 7.5 (6.3-8.2) g/dL Albumin 4.7 (3.5-5.0) g/dL Urine Color Urine Appearance (Clear) Urine pH (5.0-8.0) Ur Specific [place] (1.001-1.035) Urine Protein (Negative) Urine Glucose (UA) (Negative) Urine Ketones (Negative) Urine Blood (Negative) Urine Nitrite (Negative) Urine Bilirubin (Negative) Urine Urobilinogen (<2.0) mg/dL Ur Leukocyte Esterase (Negative) Urine RBC (0-5) /hpf Urine WBC (0-5) /hpf Ur Squamous Epith Cells (0-4) /hpf Urine Bacteria (None) /hpf WBC Casts (0) /lpf Urine Mucus (None) /hpf Urine Opiates Screen (NotDetected) Ur Oxycodone Screen (NotDetected) Urine Methadone Screen (NotDetected) Ur Propoxyphene Screen (NotDetected) Ur Barbiturates Screen (NotDetected) U Tricyclic Antidepress (NotDetected) Ur Phencyclidine Scrn (NotDetected) Ur Amphetamines Screen (NotDetected) U Methamphetamines Scrn (NotDetected) U Benzodiazepines Scrn (NotDetected) Urine Cocaine Screen (NotDetected) U Marijuana (THC) Screen (NotDetected) 06/23/17 06/23/17 Range/Units 12:54 12:54 WBC (3.8-10.6) k/uL RBC (3.80-5.40) m/uL Hgb (11.4-16.0) gm/dL Hct (34.0-46.0) % MCV (80.0-100.0) fL MCH (25.0-35.0) pg MCHC (31.0-37.0) g/dL RDW (11.5-15.5) % Plt Count (150-450) k/uL Neutrophils % % Lymphocytes % % Monocytes % % Eosinophils % % Basophils % % Neutrophils # (1.3-7.7) k/uL Lymphocytes # (1.0-4.8) k/uL Monocytes # (0-1.0) k/uL Eosinophils # (0-0.7) k/uL Basophils # (0-0.2) k/uL Sodium (137-145) mmol/L Potassium (3.5-5.1) mmol/L Chloride (98-107) mmol/L Carbon Dioxide (22-30) mmol/L Anion Gap mmol/L BUN (7-17) mg/dL Creatinine (0.52-1.04) mg/dL Est GFR (CKD-EPI)AfAm (>60 ml/min/1.73 sqM) Est GFR (CKD-EPI)NonAf (>60 ml/min/1.73 sqM) Glucose (74-99) mg/dL Plasma Lactic Acid Rudy (0.7-2.0) mmol/L Calcium (8.4-10.2) mg/dL Magnesium (1.6-2.3) mg/dL Total Bilirubin (0.2-1.3) mg/dL AST (14-36) U/L ALT (9-52) U/L Alkaline Phosphatase (38-126) U/L Total Protein (6.3-8.2) g/dL Albumin (3.5-5.0) g/dL Urine Color Yellow Urine Appearance Clear (Clear) Urine pH 6.0 (5.0-8.0) Ur Specific [place] 1.019 (1.001-1.035) Urine Protein 1+ H (Negative) Urine Glucose (UA) Negative (Negative) Urine Ketones 2+ H (Negative) Urine Blood Moderate H (Negative) Urine Nitrite Negative (Negative) Urine Bilirubin Negative (Negative) Urine Urobilinogen <2.0 (<2.0) mg/dL Ur Leukocyte Esterase Moderate H (Negative) Urine RBC 5 (0-5) /hpf Urine WBC 9 H (0-5) /hpf Ur Squamous Epith Cells 1 (0-4) /hpf Urine Bacteria Rare H (None) /hpf WBC Casts 3 (0) /lpf Urine Mucus Rare H (None) /hpf Urine Opiates Screen Detected H (NotDetected) Ur Oxycodone Screen Not Detected (NotDetected) Urine Methadone Screen Not Detected (NotDetected) Ur Propoxyphene Screen Not Detected (NotDetected) Ur Barbiturates Screen Not Detected (NotDetected) U Tricyclic Antidepress Not Detected (NotDetected) Ur Phencyclidine Scrn Not Detected (NotDetected) Ur Amphetamines Screen Not Detected (NotDetected) U Methamphetamines Scrn Not Detected (NotDetected) U Benzodiazepines Scrn Not Detected (NotDetected) Urine Cocaine Screen Not Detected (NotDetected) U Marijuana (THC) Screen Not Detected (NotDetected) Disposition Clinical Impression: Medication reaction, Anticholinergic syndrome, Mental status change, UTI ( urinary tract infection), Hypernatremia, Hypermagnesemia Disposition: ADMITTED IP TO THIS HOSP Condition: Good Is patient prescribed a controlled substance at d/c from ED?: No Decision Date: 06/23/17 Decision Time: 14:31
[2017-06-23 13:10] LABS: Basophils % (A) 0 %; Eosinophils % (A) 0 %; HCT 40.7 % (34.0-46.0); Lymphocytes # (A) 0.7 k/uL (1.0-4.8); Lymphocytes % (A) 8 %; MCH 30.2 pg (25.0-35.0); MCHC 34.4 g/dL (31.0-37.0); MCV 87.8 fL (80.0-100.0); Mean Platelet Volume 6.4; Monocytes # (A) 0.4 k/uL (0-1.0); Monocytes % (A) 5 %; Neutrophils # (A) 7.5 k/uL (1.3-7.7); Neutrophils % (A) 86 %; Platelet Count 382 k/uL (150-450); RBC 4.63 m/uL (3.80-5.40); WBC 8.8 k/uL (3.8-10.6)
[2017-06-23 13:15] LABS: Appearance,Urine Clear (Clear); Bacteria,Urine Rare /hpf; Bilirubin,Urine Negative (Negative); Blood,Urine Moderate (Negative); Color,Urine Yellow; Glucose,Urine (UA) Negative (Negative); Ketones,Urine 2+ (Negative); Leukocyte Esterase,Urine Moderate (Negative); Mucus,Urine Rare /hpf; Nitrite,Urine Negative (Negative); Protein,Urine 1+ (Negative); RBC,Urine 5 /hpf (0-5); Specific Gravity,Urine 1.019 (1.001-1.035); Squamous Epithelial Cell,Urine 1 /hpf (0-4); Urobilinogen,Urine <2.0 mg/dL (<2.0); WBC,Urine 9 /hpf (0-5); White Blood Cell Casts,Urine 3 /lpf (0)
[2017-06-23 13:16] LABS: Albumin 4.7 g/dL (3.5-5.0); Calcium 10.5 mg/dL (8.4-10.2); Magnesium 2.8 mg/dL (1.6-2.3); Potassium 3.3 mmol/L (3.5-5.1); Total Bilirubin 0.7 mg/dL (0.2-1.3); Total Protein 7.5 g/dL (6.3-8.2)
[2017-06-23 13:31] LABS: Amphetamine Screen,Urine Not Detected (NotDetected); Barbiturate Screen,Urine Not Detected (NotDetected); Benzodiazepines Screen,Urine Not Detected (NotDetected); Cocaine Screen,Urine Not Detected (NotDetected); Methadone Screen, Urine Not Detected (NotDetected); Opiate Screen,Urine Detected (NotDetected); Oxycodone Screen, Urine Not Detected (NotDetected); Phencyclidine Screen,Urine Not Detected (NotDetected); Tricyclic Antidepressant,Urine Not Detected (NotDetected); Urn Cannabinoid Scrn Not Detected (NotDetected)
[2017-06-23] MEDS ORDERED: cefTRIAXone IN SWFI 1,000 MG/10 ML SYRINGE IVP STA (13:49)
[2017-06-23] MEDS ORDERED: LACTATED RINGERS 1,000 ML IV ONE (13:49)
[2017-06-23] MEDS ORDERED: NALOXONE 0.4 MG/ML 1 ML VIAL IV PRN (14:26)
[2017-06-23] MEDS ORDERED: HYDROcodone/APAP 7.5-325MG 1 EACH TAB PO ONE (14:40)
--- NOTE | 2017-06-23 16:48 | P.CN ---
Psychiatric Consult - . Consult date: 06/23/17 Consult:: 06/23/17 16:28 Identification: Patient is a 71-year-old female who presented to the emergency room for confusion Reason for Consult: Consult was requested for confusion, polypharmacy and safety at home History of Present Illness: Patient's chart was reviewed, the patient was seen and interviewed in her room no family members were present. Patient states that her visiting nurse thought she was confused and suggested that she come to the emergency room. Patient states that she has been confused for 2 days but cannot describe to me what she means by confusion. Patient states that she is taking Geodon and Effexor for pain. Patient states that she has never been treated for depression or anxiety and states that she's never been treated for any psychiatric problems. She states these medications were prescribed by her primary care physician to target her pain. Patient states that she is also on a fentanyl patch for her pain. Patient currently denies that she is having any visual hallucinations, there is no evidence of any psychotic symptoms as the patient denies auditory hallucinations and no paranoid delusions were elicited from the patient. Patient denies that she's ever been treated for any psychiatric problems in the past and has never been admitted to an inpatient psychiatric unit or seen by a psychiatrist. Patient denies any current suicidal ideation and denies any prior suicide attempts. Patient states to me that she was taking these medications for her pain which she cannot tell me why she has so much pain. Patient is a fair to poor historian but in reviewing her record she has been on these medications Geodon and Effexor when she was last seen in the emergency room in May of this year. Patient is also prescribed Klonopin 0.5 mg twice a day when necessary patient states that she uses it infrequently, patient was also on hydrocodone as well as a fentanyl patch at that visit in May. Past Psychiatric History: Patient denies any history of inpatient admissions, outpatient psychiatric care and denies being treated for any psychiatric disorder. Patient denies any suicide attempts Past Medical/Surgical History: Patient has a history of cancer, she could not tell me where or what kind, hyperlipidemia, hypertension, thyroid disorder, DVT and sleep apnea and she states that she no longer uses a CPAP machine. She is status post hysterectomy. Patient states she has a lot of pain and per the record patient has a diagnosis of fibromyalgia. Family History: Patient denies any family history of psychiatric disorders, alcohol or drug use disorders and no completed suicides Social History: Patient states both of her parents are as is her only sibling a sister. 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 She states she is single and has never been and has no children as well as has no extended family at this time. Patient states she lives in her own home and was driving but was feeling shaky and hasn't been recently. She states she does not cook for herself and uses [employer]. Patient states she has not been drinking much water recently. Substance Use History: Patient denies any alcohol, drug use currently or in the past and no tobacco use history Legal History: Patient has no legal history Mental status: Appearance/Attitude: Patient is a very thin female lying on her side complaining of pain during the interview, she makes intermittent eye contact and was cooperative Behavior: Patient did not exhibit any psychomotor agitation or psychomotor retardation Speech/Language: Patient's speech was spontaneous, normal volume and rhythm and she was coherent Thought Process: There was some evidence of thought blocking, patient was goal- directed there is no evidence of loose associations or flight of ideas Thought Content: Patient denied auditory or visual hallucinations and no delusions or paranoid ideation were elicited. Patient states that she is in pain and was requesting that her medication not be discontinued stating that the Geodon was for her pain and that she needed it because it was effective. Patient continued to discuss the fact that her pain is unknown relenting and that she was wearing a fentanyl patch for her pain is well. Patient states that she does not cook for herself and never has, she states that she lives alone and has been for her finances. She states that recently a visiting nurse has been coming to the house to assist her with wound care for a left heel wound Suicidal/Homicidal Ideation: Patient denies any current suicidal or homicidal ideation Sensorium/Cognition: Patient is alert and oriented to person, name of the hospital and city, she knew the year but not the month or season and she knew that the president was Michele. Patient was able to do one serial 7 stated she could not continue doing subtraction. Patient states that she has problem with her memory and states she's been confused for the last 2 days but could not elaborate on what she has been confused about. Further cognitive testing was not done at this time Mood/Affect: Patient's mood was anxious and her affect was appropriate to her mood Insight/Judgment: Patient's insight and judgment were not assessed Assessment: Patient presents to the hospital with a complaint of 2 days of confusion noticed by the visiting nurse. Patient lives alone and has no family states she has one friend who lives near her. Patient denies any prior psychiatric history, she does not endorse any symptoms of depression, no symptoms of psychosis and no visual hallucinations. Patient states that she is being given medication Geodon and Effexor for pain. Patient is unable to tell me why she is in so much pain, per the chart the patient does have a history of fibromyalgia. Patient's UDS was positive for opiates and no evidence of benzodiazepines the patient states she has not been taking the Klonopin on a regular basis. Patient reports no prior history of psychiatric treatment, no psychiatric admissions and no history of suicide attempts. Both the Geodon and Effexor have very little anti-cholinergic side effects, patient is on myrbetric which will have anticholinergic side effects. It is unclear what the cause of this patient's confusion is other than polypharmacy with benzodiazepines, opiate pain medication, and unclear indication for the use of Geodon. Certainly Effexor can be used to assist with the treatment of pain in fibromyalgia. Diagnosis: Delirium secondary to multiple etiologies Plan: I would agree with discontinuing the patient's Geodon and Effexor, with the abrupt discontinuation of Effexor the patient may have some discontinuation symptoms that will be similar to having the flu. This does not mean that we cannot abruptly discontinue it however. I will follow the patient to reassess her need for any psychotropic medication, at this time the patient denies a history of any psychiatric disorders and her only complaint has been pain, and states that this is the reason she is been given these medications. Regarding the patient's safety at home at this time I am unable to assess that due to the patient's confusion and an inability to participate fully in the interview. Patient does not require inpatient psychiatric admission at this time as there is no evidence of a psychotic process, or suicidal or homicidal ideation. I will follow the patient and assess her need for psychotropic medication if any. 06/23/17 16:32 06/23/17 16:43
[2017-06-23] MEDS: ATORVASTATIN 10 MG TAB PO SCH (21:14)
[2017-06-23] MEDS: clonazePAM 0.5 MG TAB PO PRN (21:14)
[2017-06-23] MEDS: CEVIMELINE 30 MG CAP PO SCH (22:47)
[2017-06-23] MEDS: SODIUM CHLORIDE 0.45% 1,000 ML IV SCH (22:47)
--- NOTE | 2017-06-23 23:29 | HP ---
HISTORY AND PHYSICAL DATE OF ADMISSION: 06/23/2017 PRESENTING COMPLAINT: Acute confusion. HISTORY OF PRESENTING COMPLAINT: This is a 71-year-old patient of Dr. Gabriel. Chronic stable medical conditions include fibromyalgia, hyperlipidemia, hypertension, sleep apnea, hypothyroid, left paralyzed vocal cord, aortic stenosis, history of PE. The patient was brought in by a friend being somewhat confused. During the interview patient is rather shaky, jittery, able to answer some questions, but sometimes going off, not able to obtain more detailed history. The patient keeps switching. She talks about a fentanyl patch, then she wants Madison, then she talks about Geodon. REVIEW OF SYSTEMS: CONSTITUTIONAL: Tired. HEENT: Slight blurry vision. RESPIRATORY: None. CARDIOVASCULAR: None. GASTROINTESTINAL: None. GENITOURINARY: None. MUSCULOSKELETAL: None. DERMATOLOGICAL: None. HEMATOLOGIC: None. LYMPHATIC: None. PSYCHIATRY: As above. NEUROLOGICAL: Some tremulousness. PAST MEDICAL HISTORY: DVT, fibromyalgia, hypertension, hyperlipidemia, sleep apnea, hypothyroid, paralyzed left vocal cord, diverticulosis, bilateral PE , environmental allergies, sacral ulcer. 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 PAST PSYCH HISTORY: Anxiety, depression. The patient smoked for about 10 years, stopped in 1970s. No alcohol. The patient never . FAMILY HISTORY: Diabetes. HOME MEDICATIONS: 1. Zocor 20 mg q.h.s. 2. Madison 7.5 one tablet daily p.r.n. 3. Geodon 60 mg p.o. daily. 4. Effexor XR 150 mg p.o. daily. 5. Magnesium citrate 100 mg p.o. daily. 6. Ferrous sulfate 325 p.o. t.i.d. 7. Fentanyl 50 mcg patch every 72 hours. 8. 50 mg p.o. daily. 9. Lopressor 50 mg p.o. daily. 10.Levoxyl 50 mcg p.o. daily. 11.Gabapentin 600 mg q.i.d. 12.Evoxac 30 mg t.i.d. 13.Klonopin 0.5 p.o. b.i.d. p.r.n. 14.Biotin 5 mg a day. 15.Aspirin 81 mg a day. ALLERGIES: None. EXAMINATION: Temperature 98.6, pulse 102, respirations 16, blood pressure 112/58, pulse ox 97% on room air. GENERAL APPEARANCE: Thin built, lying in bed, slightly anxious-appearing. EYES: Pupils slightly dilated. Conjunctivae normal. HEENT: External nose and ears normal. Oral cavity normal. NECK: JVD not raised. Mass not palpable. RESPIRATORY: Effort normal. LUNGS: Fair air entry. CARDIOVASCULAR: First and second sounds normal. No edema. ABDOMEN: Soft, nontender. Liver and spleen not palpable. LYMPHATIC: No lymph nodes palpable in neck or axillae. PSYCHIATRY: The patient is very anxious, jittery, but able to answer questions. NEUROLOGICAL: Pupils dilated to 3. Questionable stiffness in the limbs. INVESTIGATION: White count 8.8, hemoglobin 14. Sodium 151, potassium 3.3, BUN 47, creatinine 1.20. Calcium 10.5. ASSESSMENT: 1. Hypernatremia, likely from free water deficit. 2. Acute renal failure, likely from prerenal. 3. Metabolic acidosis from renal failure. 4. Acute delirium, likely metabolic. 5. Probably side effect of gabapentin in the setting of renal failure. 6. Chronic fibromyalgia. 7. Hyperlipidemia. 8. Hypertension. 9. Hypothyroid. 10.Paralyzed left vocal cord. 11.Diverticulosis. PLAN: The patient will be hydrated. Will hold off the evening dose of gabapentin and cut back to 100 mg 3 times a day. Other medications will be continued. Psychiatry will be consulted with emphasis on side effects of any other medications. Will send off a CPK. Care was discussed with the patient. MMODL / IJN: [id number] /
[2017-06-24] MEDS: LEVOTHYROXINE 50 MCG TAB PO SCH (05:51)
[2017-06-24] MEDS: SODIUM CHLORIDE 0.45% 1,000 ML IV SCH ×2 (05:54→14:07)
[2017-06-24] MEDS: VENLAFAXINE HCL ER 150 MG CAP PO SCH (08:26)
[2017-06-24] MEDS: CEVIMELINE 30 MG CAP PO SCH ×3 (08:26→21:01)
[2017-06-24] MEDS: ZIPRASIDONE 60 MG CAP PO SCH (08:26)
[2017-06-24] MEDS: GABAPENTIN 100 MG CAP PO SCH ×4 (08:26→21:58)
[2017-06-24] MEDS: METOPROLOL TARTRATE 50 MG TAB PO SCH (08:27)
[2017-06-24] MEDS: NON-FORMULARY DRUG (Mirabegron [Myrbetriq] 50 MG) PO SCH (08:27)
[2017-06-24] MEDS: ASPIRIN 81 MG PO SCH (08:27)
[2017-06-24] MEDS: MAGNESIUM OXIDE 400 MG TAB PO SCH (08:27)
[2017-06-24 09:17] LABS: Basophils % (A) 0 %; Eosinophils % (A) 0 %; HGB 12.4 gm/dL (11.4-16.0); Lymphocytes # (A) 1.5 k/uL (1.0-4.8); Lymphocytes % (A) 17 %; MCH 29.4 pg (25.0-35.0); MCHC 33.5 g/dL (31.0-37.0); Mean Platelet Volume 6.6; Monocytes # (A) 0.6 k/uL (0-1.0); Monocytes % (A) 6 %; Neutrophils # (A) 6.2 k/uL (1.3-7.7); Neutrophils % (A) 73 %; Platelet Count 404 k/uL (150-450); RBC 4.21 m/uL (3.80-5.40); WBC 8.5 k/uL (3.8-10.6)
[2017-06-24 10:01] LABS: Calcium 9.6 mg/dL (8.4-10.2); Magnesium 2.2 mg/dL (1.6-2.3)
[2017-06-24] MEDS ORDERED: Potassium Replacement Protocol 1 EACH MISC MISCELLANE PRN ×2 (10:28→15:55)
[2017-06-24] MEDS: HYDROcodone/APAP 7.5-325MG 1 EACH TAB PO PRN (10:45)
[2017-06-24] MEDS: clonazePAM 0.5 MG TAB PO PRN ×2 (10:46→23:24)
[2017-06-24] MEDS: POTASSIUM CHLORIDE ER 20 MEQ TAB.ER PO SCH ×2 (11:23→12:16)
[2017-06-24] MEDS ORDERED: ASPIRIN 325 MG TAB PO STA (16:39)
[2017-06-24] MEDS ORDERED: POTASSIUM CHLORIDE ER 20 MEQ TAB.ER PO SCH (17:00)
[2017-06-24 19:22] LABS: Troponin I 0.509 ng/mL (0.000-0.034)
[2017-06-24] MEDS ORDERED: HEPARIN SODIUM,PORCINE 5,000 UNIT/ML 1 ML VIAL IV ONE (20:05)
[2017-06-24] MEDS ORDERED: HEPARIN SODIUM,PORCINE 5,000 UNIT/ML 1 ML VIAL IV PRN (20:05)
[2017-06-24] MEDS ORDERED: HEPARIN SOD,PORK IN 0.45% NACL 25,000 UNIT in 0.45% NACL 1 500ML.BAG IV SCH (21:00)
[2017-06-24 21:45] LABS: Basophils % (A) 0 %; Eosinophils # (A) 0.1 k/uL (0-0.7); Eosinophils % (A) 1 %; HCT 31.8 % (34.0-46.0); HGB 10.7 gm/dL (11.4-16.0); Lymphocytes # (A) 2.1 k/uL (1.0-4.8); Lymphocytes % (A) 23 %; MCHC 33.6 g/dL (31.0-37.0); MCV 89.2 fL (80.0-100.0); Mean Platelet Volume 7.5; Monocytes # (A) 0.8 k/uL (0-1.0); Monocytes % (A) 9 %; Neutrophils # (A) 5.8 k/uL (1.3-7.7); Neutrophils % (A) 64 %; Platelet Count 299 k/uL (150-450); RBC 3.56 m/uL (3.80-5.40); RDW 13.3 % (11.5-15.5); WBC 9.1 k/uL (3.8-10.6)
[2017-06-24] MEDS: ATORVASTATIN 10 MG TAB PO SCH (21:55)
[2017-06-24 21:56] LABS: INR 1.1 (<1.2); Partial Thromboplastin Time 21.4 sec (22.0-30.0); Prothrombin Time 10.4 sec (9.0-12.0)
--- NOTE | 2017-06-24 22:29 | PN ---
PROGRESS NOTE DATE OF SERVICE: 06/24/2017 PRESENTING COMPLAINT: Acute confusion. INTERVAL HISTORY: This patient presented with acute delirium, including felt to be toxicity with Neurontin in the setting of acute renal failure. This morning patient is doing much better. Per Psychiatry, Geodon and Effexor were held. Earlier today, patient complained of chest pain. I ordered a further workup, including EGD and troponin. REVIEW OF SYSTEMS: Done for constitutional, cardiovascular, GI, pulmonary; relevant findings as above. CURRENT MEDICATIONS: Reviewed. The patient states her pain is well controlled. EXAMINATION: Temperature 98, pulse 80, respirations 16, blood pressure 130/66, pulse ox 97% on room air. GENERAL APPEARANCE: Sitting on bed, far more comfortable, communicating. EYES: Pupils equal. Conjunctivae normal. HEENT: External appearance of nose and ears normal. Oral cavity normal. NECK: JVD not raised. Mass not palpable. RESPIRATORY: Effort normal. Lungs are clear. CARDIOVASCULAR: First and second sounds normal. No edema. ABDOMEN: Soft. Liver and spleen not palpable. PSYCHIATRY: The patient is far more comfortable today, answering questions more appropriately today. NEUROLOGICAL: None. INVESTIGATIONS: Potassium 3, repeat was 3.4, BUN 25, creatinine 0.80. Calcium down to 9.6. Urine culture negative. 1. Hyponatremia, likely from free water deficit, now improved. 2. Acute renal failure, likely prerenal, improving. 3. Metabolic acidosis from renal failure. 4. Acute delirium, multifactorial, improved. 5. Probably side effect of gabapentin in setting of renal failure. 6. Chronic fibromyalgia. 7. Hyperlipidemia. 8. Essential hypertension. 9. Hypothyroid. 10.Paralyzed left vocal cord. 11.Colonic diverticulosis, asymptomatic. PLAN: Will go up on gabapentin to 200 mg 3 times a day a day. The patient seems to be doing well on the current medications. The patient's troponin does come back slightly up; hence, patient was transferred to telemetry. Cardiology was consulted. Follow. MMODL / IJN: [id number] /
[2017-06-24] MEDS: CEPHALEXIN 250 MG CAP PO SCH (22:42)
[2017-06-24] MEDS: NITROGLYCERIN OINT 1 INCH/GM PACKET TOPICAL SCH (22:42)
[2017-06-25 03:46] LABS: Basophils % (A) 0 %; Eosinophils # (A) 0.1 k/uL (0-0.7); Eosinophils % (A) 2 %; HCT 33.1 % (34.0-46.0); HGB 10.8 gm/dL (11.4-16.0); Lymphocytes # (A) 2.5 k/uL (1.0-4.8); Lymphocytes % (A) 31 %; MCH 29.3 pg (25.0-35.0); MCHC 32.7 g/dL (31.0-37.0); MCV 89.8 fL (80.0-100.0); Mean Platelet Volume 6.8; Monocytes # (A) 0.5 k/uL (0-1.0); Monocytes % (A) 7 %; Neutrophils # (A) 4.7 k/uL (1.3-7.7); Neutrophils % (A) 58 %; Platelet Count 289 k/uL (150-450); RBC 3.69 m/uL (3.80-5.40); RDW 13.3 % (11.5-15.5); WBC 8.1 k/uL (3.8-10.6)
[2017-06-25 03:59] LABS: Calcium 8.4 mg/dL (8.4-10.2); Potassium 3.7 mmol/L (3.5-5.1)
[2017-06-25] MEDS: LEVOTHYROXINE 50 MCG TAB PO SCH (06:15)
[2017-06-25] MEDS: NITROGLYCERIN OINT 1 INCH/GM PACKET TOPICAL SCH ×3 (08:15→21:28)
[2017-06-25] MEDS: clonazePAM 0.5 MG TAB PO PRN ×2 (08:16→21:27)
[2017-06-25] MEDS: GABAPENTIN 100 MG CAP PO SCH ×3 (08:17→21:28)
[2017-06-25] MEDS: ZIPRASIDONE 60 MG CAP PO SCH (08:18)
[2017-06-25] MEDS: METOPROLOL TARTRATE 50 MG TAB PO SCH (08:18)
[2017-06-25] MEDS: CEVIMELINE 30 MG CAP PO SCH ×3 (08:18→21:28)
[2017-06-25] MEDS: MAGNESIUM OXIDE 400 MG TAB PO SCH (08:18)
[2017-06-25] MEDS: CEPHALEXIN 250 MG CAP PO SCH ×3 (08:18→21:28)
[2017-06-25] MEDS: VENLAFAXINE HCL ER 150 MG CAP PO SCH (08:18)
[2017-06-25] MEDS: ASPIRIN 81 MG PO SCH (08:18)
[2017-06-25] MEDS: NON-FORMULARY DRUG (Mirabegron [Myrbetriq] 50 MG) PO SCH (08:23)
--- NOTE | 2017-06-25 12:58 | CONS ---
CONSULTATION ATTENDING: Dr. Gabriel. Mrs. Nathan is a 71-year-old female who presented to the hospital with change in mental status that was thought to be related to gabapentin. Cardiology consultation was requested because of an episode of chest discomfort yesterday and a drop in the blood pressure. She had some discomfort lying in bed left-sided that lasted for about an hour subsequently resolved. Her breathing was stable. She had a hypotension that resolved. She denies any dizziness palpitation. She denies any syncope. No PND, orthopnea, or peripheral edema. She has a known history of thoracic aortic aneurysm that has been stable and history of aortic stenosis. She had an abnormal myocardial perfusion imaging in December of 2015 and underwent cardiac catheterization. She has a history of PDA closure as a child. Her cardiac catheterization performed in January 2016 revealed mild coronary disease with a dominant left system with evidence of significant aortic stenosis and a preserved left ventricular size and systolic function. Patient has been followed regarding her aortic valve and that has been stable. Her blood pressure at this time is stable and her symptoms have resolved. Her coronary risk factors are remarkable for hypertension and hyperlipidemia. She is nondiabetic, nonsmoker. MEDICATION: At home include aspirin, metoprolol tartrate 50 mg daily, simvastatin 20 mg daily. REVIEW OF SYSTEMS: Respiratory system: She has no recent wheezing or cough. No history of documented obstructive lung disease. GI system: No recent GI bleed. No peptic ulcer disease. system: No dysuria or hematuria. Nervous system: No history of seizure. Musculoskeletal: She has a history of fibromyalgia. PHYSICAL EXAMINATION: A 71-year-old female, alert, oriented, no apparent distress. Blood pressure 148/60 with a heart rate in 90s. HEAD: Normocephalic. Eyes sclerae icteric. Neck good upstroke. No bruit. LUNGS: Clear to auscultation. Heart regular rate and rhythm S1, S2. No S3 with systolic murmur ejection type heard at the base and 2/6 early peaking. No diastolic murmur. ABDOMEN: Soft, nontender. EXTREMITIES: No edema. LAB DATA: Revealed on admission, hemoglobin of 14, BUN and creatinine 47, 1.2. Potassium 3.3. Her sodium was 151 on presentation, her. Her troponin 0.509 and 0.450. Her BUN and creatinine down to 20 and 0.8, and sodium is 143. Her hemoglobin this morning is 10.8. Her EKG on presentation revealed sinus mechanism with nonspecific ST-T wave changes. Repeat EKG done yesterday revealed no acute changes. IMPRESSION: 1. Mild elevation of troponin of unclear etiology. Patient has no history of significant coronary artery disease. She had a transient hypotension. Some of her symptoms could be related to the aortic stenosis. 2. Change in mental status, improving. 3. History of aortic stenosis. 4. Status post PDA closure. 5. History of aortic aneurysm, thoracic, stable. 6. History of fibromyalgia. RECOMMENDATION: From the cardiac standpoint, I will stop her heparin at this time. I will continue on the aspirin. We will obtain an echocardiogram with Doppler to further evaluate her aortic valve and depending on those findings, further recommendations will be made. Thank you for this consult. We will follow with you. MMODL / IJN: [id number] /
[2017-06-25] MEDS: HYDROcodone/APAP 7.5-325MG 1 EACH TAB PO PRN (21:27)
[2017-06-25] MEDS: ATORVASTATIN 20 MG TAB PO SCH (21:28)
--- NOTE | 2017-06-25 22:10 | PN ---
PROGRESS NOTE DATE OF SERVICE: June 25, 2017. PRESENTING COMPLAINT: Chest pain. INTERVAL HISTORY: This patient presented with acute delirium, felt to be toxicity with Neurontin, dose of which was cut back in the setting of acute renal failure. The patient remarkably improved. The patient has done well even though Geodon and Effexor was continued. The patient had some chest pain and some troponin leak. Cardiology was consulted for the same, [facility]. No further episodes. REVIEW OF SYSTEMS: Done for constitutional, cardiovascular, GI, pulmonary and relevant findings as above. CURRENT MEDICATIONS: Reviewed. PHYSICAL EXAMINATION: Temperature 96.7, pulse 57, respiratory 14, blood pressure 98/50, pulse ox 97% on room air. General appearance: Lying in bed, comfortable. Eyes pupils equal. Conjunctivae normal. HEENT: External appearance of nose and ears normal. Oral cavity normal. Neck JVD not raised. Mass not palpable. Respiratory effort: Lungs are clear. Cardiovascular 1st and 2nd sounds normal. No edema. ABDOMEN: Soft, nontender. Liver and spleen not palpable. Psychiatry: Alert and oriented x3. Mood and affect comfortable. INVESTIGATIONS: White count 8.1, hemoglobin 10.8, potassium 3.7, creatinine 0.8. Troponin 0.5, 0.4. EKG nonspecific changes. ASSESSMENT: 1. Hypernatremia likely from free water deficit improved. 2. Acute renal failure likely prerenal, resolved. 3. Metabolic acidosis from renal failure. 4. Acute delirium multifactorial, primarily from Neurontin toxicity, improved. 5. Neurontin toxicity in the setting of acute renal failure. 6. Chronic fibromyalgia. 7. Hyperlipidemia. 8. Essential hypertension. 9. Hypothyroid. 10.Paralyzed left vocal cord. 11.Colonic diverticulosis asymptomatic. 12.Chest pain with some troponin leak, being followed by Cardiology. PLAN: The patient's Neurontin was increased today to 200 mg 3 times a day. We will keep her on the current dose. Care was discussed with the patient. Follow with Cardiology. Otherwise patient doing much better. She feels she is otherwise mentally back to her baseline. MMODL / IJN: [id number] /
[2017-06-26] MEDS: LEVOTHYROXINE 50 MCG TAB PO SCH (06:12)
[2017-06-26 06:25] LABS: Basophils % (A) 0 %; Eosinophils # (A) 0.3 k/uL (0-0.7); Eosinophils % (A) 3 %; HCT 33.1 % (34.0-46.0); Lymphocytes # (A) 2.6 k/uL (1.0-4.8); Lymphocytes % (A) 29 %; MCH 30.1 pg (25.0-35.0); MCHC 33.1 g/dL (31.0-37.0); Mean Platelet Volume 6.7; Monocytes # (A) 0.5 k/uL (0-1.0); Monocytes % (A) 6 %; Neutrophils # (A) 5.4 k/uL (1.3-7.7); Neutrophils % (A) 59 %; Platelet Count 303 k/uL (150-450); RBC 3.64 m/uL (3.80-5.40); RDW 13.5 % (11.5-15.5); WBC 9.2 k/uL (3.8-10.6)
[2017-06-26 06:35] LABS: Anion Gap 8 mmol/L; Blood Urea Nitrogen 15 mg/dL (7-17); Carbon Dioxide 25 mmol/L (22-30); Chloride 111 mmol/L (98-107); Glucose 91 mg/dL (74-99); Potassium 4.2 mmol/L (3.5-5.1); Sodium 144 mmol/L (137-145)
[2017-06-26] MEDS: CEPHALEXIN 250 MG CAP PO SCH ×3 (08:15→21:54)
[2017-06-26] MEDS: GABAPENTIN 100 MG CAP PO SCH ×3 (08:15→21:54)
[2017-06-26] MEDS: ZIPRASIDONE 60 MG CAP PO SCH (08:15)
[2017-06-26] MEDS: VENLAFAXINE HCL ER 150 MG CAP PO SCH (08:15)
[2017-06-26] MEDS: CEVIMELINE 30 MG CAP PO SCH ×3 (08:15→21:54)
[2017-06-26] MEDS: METOPROLOL TARTRATE 50 MG TAB PO SCH (08:15)
[2017-06-26] MEDS: ASPIRIN 81 MG PO SCH (08:15)
[2017-06-26] MEDS: clonazePAM 0.5 MG TAB PO PRN (08:16)
[2017-06-26] MEDS: NITROGLYCERIN OINT 1 INCH/GM PACKET TOPICAL SCH ×3 (08:21→22:54)
[2017-06-26] MEDS: NON-FORMULARY DRUG (Mirabegron [Myrbetriq] 50 MG) PO SCH (10:29)
--- NOTE | 2017-06-26 11:28 | ECHOF ---
Referral Reason: MEASUREMENTS -------- HEIGHT: 157.5 cm WEIGHT: 56.7 kg BP: 135/59 RVIDd: 2.4 cm (< 3.3) IVSd: 1.3 cm (0.6 - 1.1) LVIDd: 3.7 cm (3.9 - 5.3) LVPWd: 1.3 cm (0.6 - 1.1) IVSs: 1.7 cm LVIDs: 2.2 cm LVPWs: 1.5 cm LA Diam: 3.2 cm (2.7 - 3.8) LAESV Index (A-L): 28.10 ml/m Ao Diam: 3.0 cm (2.0 - 3.7) MV EXCURSION: 10.716 mm (> 18.000) MV EF SLOPE: 51 mm/s (70 - 150) EPSS: 0.6 cm MV E Dandre: 1.21 m/s MV DecT: 212 ms MV A Dandre: 1.10 m/s MV E/A Ratio: 1.11 AV maxP.84 mmHg AV meanP.12 mmHg RAP: 5.00 mmHg RVSP: 33.59 mmHg FINDINGS -------- Sinus rhythm. This was a technically adequate study. The left ventricular size is normal. There is mild concentric left ventricular hypertrophy. Overa ll left ventricular systolic function is normal with, an EF between 55 - 60 %. The right ventricle is normal in size. Normal LA size by volume 22+/-6 ml/m2. The right atrium is normal in size. There is moderate to severe aortic valve sclerosis. There is severe aortic stenosis present. Peak /mean gradient across the Aortic Valve is 67.84mmHg / 44.12mmHg. The mitral valve leaflets are mildly thickened. Mild mitral annular calcification present. Mild m itral regurgitation is present. Mild tricuspid regurgitation present. There is borderline pulmonary hypertension. The right ventr icular systolic pressure, as measured by Doppler, is 33.59mmHg. The pulmonic valve was not well visualized. The aortic root size is normal. Normal inferior vena cava with normal inspiratory collapse consistent with estimated right atrial pre ssure of 5 mmHg. There is no pericardial effusion. CONCLUSIONS -------- 1. Sinus rhythm. 2. This was a technically adequate study. 3. The left ventricular size is normal. 4. There is mild concentric left ventricular hypertrophy. 5. Overall left ventricular systolic function is normal with, an EF between 55 - 60 %. 6. The right ventricle is normal in size. 7. Normal LA size by volume 22+/-6 ml/m2. 8. The right atrium is normal in size. 9. There is moderate to severe aortic valve sclerosis. 10. There is severe aortic stenosis present. 11. Peak/mean gradient across the Aortic Valve is 67.84mmHg / 44.12mmHg. 12. The mitral valve leaflets are mildly thickened. 13. Mild mitral annular calcification present. 14. Mild mitral regurgitation is present. 15. Mild tricuspid regurgitation present. 16. There is borderline pulmonary hypertension. 17. The right ventricular systolic pressure, as measured by Doppler, is 33.59mmHg. 18. The pulmonic valve was not well visualized. 19. The aortic root size is normal. 20. Normal inferior vena cava with normal inspiratory collapse consistent with estimated right atrial pressure of 5 mmHg. 21. There is no pericardial effusion. CUT OFF TENDER GLASS: Juana Pena RDCS
[2017-06-26] MEDS: MAGNESIUM OXIDE 400 MG TAB PO SCH (15:14)
--- NOTE | 2017-06-26 15:22 | P.PN ---
Progress Note - Text Progress Note Date: 06/26/17 Interval History: Patient is a 71-year-old female who is being seen in follow- up after consultation on Monday when she was admitted. Patient has been restarted on her Geodon and Effexor. She states she was placed on Geodon for nerves but cannot describe any further what she meant by that and has been on it for 1-2 years. Patient states she is on Effexor because she was low but again is unable to elaborate further. When I asked her if she had been depressed in the past, having suicidal ideation she did not endorse any of the symptoms. Patient states that she is feeling better. She states that she has never attempted suicide and has no current suicidal thoughts. Patient has no idea why she is on Geodon and Effexor. 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 She does not cook using [employer] and lost 30 pounds on it. Patient did not endorse any prior psychiatric history or treatment. Mental Status: Appearance/Attitude: Patient is lying on her side a hospital bed in no acute distress, makes good eye contact and is cooperative Behavior: Patient does not exhibit any psychomotor agitation and there is still some evidence of psychomotor slowing when she is responding to questions Speech/Language: Patient's speech is spontaneous but not elaborative, in a soft voice with normal rhythm and she is coherent Thought Process: Patient is goal-directed but her responses are brief and non- elaborative Thought Content: Patient denies auditory or visual hallucinations no delusions or paranoid ideation were elicited. Patient states she was placed on Geodon for her nerves but cannot tell me what that means and states that she was placed on Effexor for feeling low but again cannot describe what she means by that. Patient states that she is also unaware of how she had the ulcer on her heel and denies that she was staying in bed or lying on a couch during the day. Patient states that she is been able to pay her own bills, drive a car as well as do chores around the house however the patient has not been cooking for self using [employer] and lost 30 pounds on the system. Patient did not endorse any symptoms of depression. Suicidal/Homicidal Ideation: Patient denies any current suicidal or homicidal ideation. Sensorium/Cognition: Patient is alert and oriented to person, place and date she was unable to do serial sevens again only subtracting one set. Patient could recall 3 objects after 5 minutes. Mood/Affect: Patient's mood is pleasant and her affect is appropriate Insight/Judgment: Patient's insight and judgment are limited Assessment: Patient states that she does need assistance at home, but is unable to tell me and what fashion as she states that she is been taking care of the chores at home and still driving. Patient was restarted on her Geodon and Effexor and it is still unclear to me why these medications were ever started as the patient states that they were started for nerves and her feeling low. Patient is unable to endorse any symptoms of a major depression currently or in the past. Patient has no evidence of any psychotic symptoms. It is unclear to me if the patient is capable of caring for herself without any assistance in the home, she is unable to tell me how she got the ulcer on her foot. Plan: Consideration of home health if the patient does not go to a subacute rehab to assess how well she is able to care for herself in her own home. Patient is stating that she is doing well now that her meds have been restarted. We will sign off the case as patient states she is feeling well and there is no evidence of a psychotic process, depressive symptoms or manic symptoms.
--- NOTE | 2017-06-26 15:34 | P.PN ---
Subjective Progress Note Date: 06/26/17 This is 71-year-old female who presented to the hospital with mental status changes that was initially thought to be secondary to use of gabapentin. Cardiology consultation was requested because of an episode of chest discomfort as well as a drop in blood pressure. Breathing overall has been stable, she denied any dizziness or palpitations, no syncope, patient does have a history of aortic stenosis. Patient had an abnormal myocardial perfusion imaging in December 2015 and underwent a cardiac catheterization at that time. Cardiac catheterization revealed mild coronary artery disease with evidence of significant aortic stenosis and a preserved left ventricular systolic function. And examined this morning, denies any chest discomfort, breathing is stable. Blood pressure 134/60 with a heart rate in the 70s, 100% on room air. White blood cell count 9.2, hemoglobin 11.0, platelet count 303. Sodium 144, potassium 4.2, BUN 15, creatinine 0.6. Echocardiogram with Doppler study was performed which revealed an ejection fraction of 55-60%. Moderate to severe aortic valve sclerosis with severe aortic stenosis. Peak/mean gradient across aortic valve is 67.84 mmhg/44.12 mmhg . Objective - Vital Signs Vital signs: Vital Signs Temp 97.0 F L 06/26/17 12:00 Pulse 61 06/26/17 12:00 Resp 16 06/26/17 12:00 BP 99/45 06/26/17 12:00 Pulse Ox 96 06/26/17 12:00 Intake & Output 06/25/17 06/26/17 06/26/17 18:59 06:59 18:59 Intake Total 362.128 290 240 Output Total 300 Balance 62.128 290 240 Weight 57.1 kg Intake: Intake, IV Titration 122.128 Amount Heparin Sod,Pork in 0.45% 122.128 NaCl 25,000 unit In 0.45 % NaCl 1 500ml.bag @ 12 UNITS/KG/HR 13.06 mls/hr IV .Q24H YANET Rx#: [id number] Oral 240 290 240 Output: Urine 300 Other: Voiding Method Bedside Commode Bedside Commode # Voids 1 2 0 # Bowel Movements 0 0 - Exam PHYSICAL EXAMINATION: HEENT: Head is atraumatic, normocephalic. Pupils equal, round. Neck is supple. There is no elevated jugular venous pressure. HEART EXAMINATION: Heart S1 and S2 systolic ejection murmur is heard. CHEST EXAMINATION: Lungs are clear to auscultation and precussion. No chest wall tenderness is noted on palpation or with deep breathing. ABDOMEN: Soft, nontender. Bowel sounds are heard. No organomegaly noted. EXTREMITIES: 2+ peripheral pulses with no evidence of peripheral edema and no calf tenderness noted. NEUROLOGIC patient is awake, alert and oriented -3. . - Labs CBC & Chem 7: 06/26/17 05:55 06/26/17 05:55 Labs: Abnormal Lab Results - Last 24 Hours (Table) 06/26/17 06/26/17 Range/Units 05:55 05:55 RBC 3.64 L (3.80-5.40) m/uL Hgb 11.0 L (11.4-16.0) gm/dL Hct 33.1 L (34.0-46.0) % Chloride 111 H (98-107) mmol/L Microbiology - Last 24 Hours (Table) 06/23/17 12:54 Blood Culture - Preliminary Blood No Growth after 72 hours Assessment and Plan Plan: Assessment and plan #1 mental status changes, improving #2 mild elevation of troponin, unclear etiology. Patient did have cardiac catheterization in 2016 which did not reveal any significant obstructive coronary artery disease. She did have a transient episode of hypotension which could be the cause. Patient also has severe aortic stenosis. #3 severe aortic stenosis #4 status post PDA closure #5 history of aortic aneurysm, thoracic, stable Plan From cardiology's perspective patient may be discharged once cleared by primary. We will make her a two-week follow-up appointment with Dr. Miranda in the office post discharge. DNP note has been reviewed, I agree with a documented findings and plan of care. Patient was seen and examined.
[2017-06-26] MEDS: ATORVASTATIN 20 MG TAB PO SCH (20:07)
--- NOTE | 2017-06-26 22:05 | PN ---
PROGRESS NOTE DATE OF SERVICE: 06/26/2017 PRESENTING COMPLAINT: Chest pain. INTERVAL HISTORY: Patient presented with acute delirium, felt to be toxicity from Neurontin in the setting of renal failure. Patient has done well. Tolerating Geodon and Effexor rather well. Patient was found to have severe aortic stenosis; to follow up with Cardiology as an outpatient. Patient is now pending placement to rehab. REVIEW OF SYSTEMS: Done for constitutional, cardiovascular, GI, pulmonary; relevant findings as above. CURRENT MEDICATIONS: Reviewed. PHYSICAL EXAMINATION: Temperature 97, pulse 64, respiration 16, blood pressure 99/45, pulse ox 96% on room air. GENERAL APPEARANCE: Lying in bed, awake. EYES: Pupils equal. Conjunctivae normal. HEENT: External appearance of nose and ears normal. Oral cavity normal. NECK: JVD not raised. Mass not palpable. RESPIRATORY: Effort normal. Lungs are clear. CARDIOVASCULAR: First and second sounds normal. No edema. ABDOMEN: Soft, nontender. Liver and spleen not palpable. PSYCHIATRY: Alert and oriented x3. Mood and affect normal. INVESTIGATIONS: White count 9.2, potassium 4.2. Two-D echo shows severe aortic stenosis. ASSESSMENT: 1. Hypernatremia, likely from free water deficit, resolved. 2. Acute renal failure, likely prerenal, resolved. 3. Metabolic acidosis from renal failure, improved. 4. Acute delirium, multifactorial, primarily from Neurontin toxicity, improved. 5. Neurontin toxicity in the setting of acute renal failure. 6. Chronic fibromyalgia. 7. Severe aortic stenosis, likely non-rheumatic. 8. Hyperlipidemia. 9. Essential hypertension. 10.Hypothyroid. 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 12.Chronic diverticulosis, asymptomatic. PLAN: Cardiology will follow the patient as an outpatient. Will keep the patient on the current dose of Neurontin. Patient to be continued on Geodon and Effexor. Looking at inpatient placement. Given the half-life of Geodon and patient was actually sleepy this morning after breakfast when she got the Geodon, will cut back the dose to 20 mg twice a day as opposed to daily dose of 60 mg once a day. MMODL / IJN: [id number] /
[2017-06-27] MEDS: LEVOTHYROXINE 50 MCG TAB PO SCH (06:28)
[2017-06-27 07:47] LABS: Basophils % (A) 0 %; Eosinophils # (A) 0.2 k/uL (0-0.7); Eosinophils % (A) 2 %; HCT 33.9 % (34.0-46.0); HGB 11.3 gm/dL (11.4-16.0); Lymphocytes % (A) 22 %; MCH 30.2 pg (25.0-35.0); MCHC 33.4 g/dL (31.0-37.0); MCV 90.5 fL (80.0-100.0); Mean Platelet Volume 7.2; Monocytes # (A) 0.6 k/uL (0-1.0); Monocytes % (A) 7 %; Neutrophils # (A) 6.1 k/uL (1.3-7.7); Neutrophils % (A) 66 %; Platelet Count 317 k/uL (150-450); RBC 3.74 m/uL (3.80-5.40); RDW 13.3 % (11.5-15.5); WBC 9.2 k/uL (3.8-10.6)
[2017-06-27] MEDS: CEVIMELINE 30 MG CAP PO SCH ×3 (07:59→20:31)
[2017-06-27] MEDS: METOPROLOL TARTRATE 50 MG TAB PO SCH (07:59)
[2017-06-27] MEDS: VENLAFAXINE HCL ER 150 MG CAP PO SCH (07:59)
[2017-06-27] MEDS: MAGNESIUM OXIDE 400 MG TAB PO SCH (07:59)
[2017-06-27] MEDS: clonazePAM 0.5 MG TAB PO PRN (07:59)
[2017-06-27] MEDS: ASPIRIN 81 MG PO SCH (08:00)
[2017-06-27] MEDS: GABAPENTIN 100 MG CAP PO SCH ×3 (08:00→20:31)
[2017-06-27] MEDS: ZIPRASIDONE 20 MG CAP PO SCH ×2 (08:00→20:31)
[2017-06-27] MEDS: NON-FORMULARY DRUG (Mirabegron [Myrbetriq] 50 MG) PO SCH (08:00)
[2017-06-27] MEDS: CEPHALEXIN 250 MG CAP PO SCH ×3 (08:00→20:31)
[2017-06-27] MEDS: NITROGLYCERIN OINT 1 INCH/GM PACKET TOPICAL SCH ×2 (08:00→16:09)
[2017-06-27 08:01] LABS: Anion Gap 9 mmol/L; Blood Urea Nitrogen 19 mg/dL (7-17); Calcium 8.9 mg/dL (8.4-10.2); Carbon Dioxide 27 mmol/L (22-30); Chloride 106 mmol/L (98-107); Glucose 90 mg/dL (74-99); Potassium 4.1 mmol/L (3.5-5.1); Sodium 142 mmol/L (137-145)
[2017-06-27] MEDS: HYDROcodone/APAP 7.5-325MG 1 EACH TAB PO PRN (09:44)
--- NOTE | 2017-06-27 16:17 | P.PN ---
Progress Note - Text Progress Note Date: 06/27/17 Interval History: Patient is a 71-year-old female who I was asked to reconsult on as the patient had been agreeing to go to rehab from the hospital but now is saying that she will not. When I spoke with the patient today she told me that she can't go to rehab because she has 2 dogs at home. She states that her dogs are being cared for by the neighbors currently. Patient again could not tell me why she has an ulcer on her heel or her coccyx, she states no one knows why she has them. Patient states that she is not able to drive currently, she does not cook for herself she uses [employer], she states she is not able to go shopping on her own and stated that she was walking here in the halls but was accompanied by staff. When I asked the patient if she would go to rehab and thinks that it would be beneficial she said that she thought that it would be helpful but doesn't want to go because of her 2 dogs. Patient stated that she doesn't spend a lot of time lying around at home but could not tell me what she did with her time at home. Mental Status: Appearance/Attitude: Patient is a thin female lying in bed in no acute distress makes good eye contact and was cooperative Behavior: Patient does not exhibit any psychomotor agitation or retardation Speech/Language: Patient responds to questions, she speaks in a soft voice normal rhythm and is coherent Thought Process: Patient responds briefly to questions with little elaboration is no evidence of loose association or flight of ideas Thought Content: Patient denies auditory or visual hallucinations and no delusions or paranoid ideation were elicited. Patient is unable to explain to me how she will be able to care for herself at home since she is unable to drive , unable to go shopping on her own, has been walking in the hospital using a walker but with a staff member present. Patient states that she doesn't know why she has the decubitus ulcer on her heel or on her coccyx and states that she doesn't spend a lot of time lying around at home. Patient states that she is not able to drive at this time. She felt that going to rehab would be beneficial but doesn't want to go due to her 2 dogs. She states that her dogs are being cared for by her neighbors currently. Suicidal/Homicidal Ideation: Patient denies any current suicidal or homicidal ideation Sensorium/Cognition: Patient is alert and she was given a [place] cognitive assessment with a total score 24 out of 30, patient could not recall more than 2 objects out of 5, she had difficulty again with serial sevens performing only one subtraction, she could not name more than 5 words that began with the letter F in 1 minute. Mood/Affect: Patient's mood is pleasant and her affect is appropriate Insight/Judgment: Patient is not able to manipulate medical information, she agrees that she requires rehabilitation as she is not able to drive, go shopping , but states that she can't go to rehab because of her 2 dogs. Patient is unable to tell me how she will resolve her inability to care for herself at home and the fact that we've and with the visiting nurse she returned to the hospital. Assessment: Patient has evidence of impairment with her delayed recall, she is unable to tell me how she is going to caring for herself without being able to drive, not being able to go shopping and stated that she ambulates here with a walker and a staff member present and states she can hold onto [place] at home. Patient is agreeable that rehabilitation would be beneficial for her but is declining due to the fact that she has dogs at home. Patient is unable to tell me how she will be able to care for herself at home, she had a visiting nurse prior to her admission and required another admission due to confusion. Patient also is unable to tell me how she has 2 decubitus ulcers stating that she is not lying on her recliner or in her bed all day long. Plan: Patient does require rehabilitation to improve her level of functioning and assess whether she is able to care for herself independently, patient has 2 decubitus ulcers and even with the visiting nurse required readmission, she states she is not able to drive, she is not able to shop for herself and has not been cooking for herself. Patient is refusing to go to rehab due to her dogs but agrees that she does need rehab. She was confused on admission and it is unclear how well she was functioning at home. I would recommend a guardian be appointed, that the patient go to rehabilitation and the patient can be assessed at that time about her ability to live independently. I spoke with the child welfare social worker regarding the patient's concern about her dogs, her statement that a neighbor was caring for them at this time.
[2017-06-27] MEDS: ATORVASTATIN 20 MG TAB PO SCH (20:31)
--- NOTE | 2017-06-27 20:59 | PN ---
PROGRESS NOTE DATE OF SERVICE: 06/27/2017 PRESENTING COMPLAINT: Tired. INTERVAL HISTORY: This patient presented with acute delirium, felt to be toxicity from Neurontin in the setting of renal failure. The patient's renal failure since has resolved. The patient's dose of Geodon was cut back a bit yesterday. The patient is somewhat tired and not able also a lot of questions in detail. The patient also found severe aortic stenosis and follows as an outpatient. REVIEW OF SYSTEMS: Done for constitutional, cardiovascular, GI, pulmonary; relevant findings as above. CURRENT MEDICATIONS: Reviewed. 1. Geodon dose has been cut back further to 20 mg twice a day. 2. The patient is also on Effexor and. 3. Evoxac. EXAMINATION: Temperature 98.2 pulse 62, respirations 16, blood pressure 114/53, pulse ox 95% on room AIR. GENERAL APPEARANCE: Lying in bed, awake, tired-appearing. EYES: Pupils equal. Conjunctivae normal. HEENT: External nose and ears normal. Oral cavity normal. NECK: JVD not raised. Mass not palpable. RESPIRATORY: Effort normal. Lungs are clear. CARDIOVASCULAR: First and second heart sounds normal. No edema. ABDOMEN: Soft, nontender. Liver and spleen not palpable. PSYCHIATRY: The patient is awake answering questions, but sometimes gets held back on detailed answers. See more in psych evaluation. INVESTIGATIONS: White count 9.2, hemoglobin 11.3. Potassium 4.1. ASSESSMENT: 1. Hyponatremia, likely from free water deficit, resolved. 2. Acute renal failure, likely prerenal, resolved. 3. Metabolic acidosis from renal failure. 4. Acute delirium, multifactorial, including that from Neurontin, improved. 5. Neurontin toxicity in the setting of acute renal failure. 6. Chronic fibromyalgia. 7. Severe aortic stenosis, likely nonrheumatic, for outpatient followup. 8. Hyperlipidemia. 9. Essential hypertension. 10.Hypothyroid. 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 12.Chronic diverticulosis, asymptomatic. PLAN: Patient was seen by Dr. Schwartz earlier and because of concern of her decision-making capacity at this point, she has asked for a legal guardian. The patient's dose of Geodon has been cut back. I think the patient's dose of Duragesic patch is rather significant for her age. Will cut back the dose of the same. MMODL / IJN: [id number] /
[2017-06-28] MEDS: LEVOTHYROXINE 50 MCG TAB PO SCH (06:03)
[2017-06-28 08:27] LABS: Basophils % (A) 0 %; Eosinophils # (A) 0.3 k/uL (0-0.7); Eosinophils % (A) 3 %; Lymphocytes # (A) 2.4 k/uL (1.0-4.8); Lymphocytes % (A) 23 %; MCH 29.7 pg (25.0-35.0); MCHC 32.4 g/dL (31.0-37.0); MCV 91.6 fL (80.0-100.0); Mean Platelet Volume 7.4; Monocytes # (A) 0.7 k/uL (0-1.0); Monocytes % (A) 7 %; Neutrophils # (A) 6.9 k/uL (1.3-7.7); Neutrophils % (A) 66 %; Platelet Count 351 k/uL (150-450); RBC 4.05 m/uL (3.80-5.40); RDW 13.6 % (11.5-15.5); WBC 10.5 k/uL (3.8-10.6)
[2017-06-28 08:41] LABS: Anion Gap 11 mmol/L; Blood Urea Nitrogen 21 mg/dL (7-17); Calcium 9.1 mg/dL (8.4-10.2); Carbon Dioxide 25 mmol/L (22-30); Chloride 105 mmol/L (98-107); Glucose 87 mg/dL (74-99); Potassium 4.1 mmol/L (3.5-5.1); Sodium 141 mmol/L (137-145)
[2017-06-28] MEDS: GABAPENTIN 100 MG CAP PO SCH ×3 (08:52→21:02)
[2017-06-28] MEDS: HYDROcodone/APAP 7.5-325MG 1 EACH TAB PO PRN (08:52)
[2017-06-28] MEDS: MAGNESIUM OXIDE 400 MG TAB PO SCH (08:53)
[2017-06-28] MEDS: CEVIMELINE 30 MG CAP PO SCH ×3 (08:53→21:03)
[2017-06-28] MEDS: ASPIRIN 81 MG PO SCH (08:53)
[2017-06-28] MEDS: CEPHALEXIN 250 MG CAP PO SCH ×3 (08:53→21:03)
[2017-06-28] MEDS: ZIPRASIDONE 20 MG CAP PO SCH ×2 (08:53→21:03)
[2017-06-28] MEDS: VENLAFAXINE HCL ER 150 MG CAP PO SCH (08:53)
[2017-06-28] MEDS: METOPROLOL TARTRATE 50 MG TAB PO SCH (08:53)
[2017-06-28] MEDS: NON-FORMULARY DRUG (Mirabegron [Myrbetriq] 50 MG) PO SCH (08:54)
[2017-06-28 12:44] VITALS: BMI 23.0
--- NOTE | 2017-06-28 12:44 | CDI ---
Last Revision, February 2017 Documentation Clarification Form Date: 06/28/2017 12:41:00 PM From: Zulema HairstonMartinJANELL, CCDS Admit Date: 06/23/2017 2:29:00 PM Patient Name: Leeann Walls Visit Number: [id number] Discharge Date: ATTENTION: The Clinical Documentation Specialists (CDI) and [facility] Coding Staff appreciate your assistance in clarifying documentation. Please respond to the clarification below the line at the bottom and electronically sign. The CDI & [facility] Coding staff will review the response and follow-up if needed. Please note: Queries are made part of the Legal Health Record. If you have any questions, please contact the author of this message via ITS. Dr. Len Azar: There is conflicting documentation in the record. Per the History & Physical: the patient is admitted with hypernatremia, likely from free water deficit. Per the 06/27 Attending Progress Note: the patient is diagnosed with hyponatremia , likely from free water deficit, resolved. Clinical Indicators: Patient presented to the ED with confusion and dilated pupils. Lives alone, has VN for wound care to Stage II sacral ulcer. There was concern for anticholinergic medication reaction. Lab findings: Na 151 on admission. Na 141 06/28. Treatment: IV fluids, IV Rocephin. Psych consult. In your professional opinion, can you please clarify: Hypernatremia Hyponatremia Other, please specify Unable to determine Please continue to document in your progress notes and discharge summary in order to capture severity of illness and risk of mortality. Include clinical findings that support your diagnosis. MTDD
[2017-06-28] MEDS: clonazePAM 0.5 MG TAB PO PRN (18:49)
--- NOTE | 2017-06-28 19:15 | PN ---
PROGRESS NOTE DATE OF SERVICE: June 28, 2017. PRESENT COMPLAINT: Tired. INTERVAL HISTORY: The patient presented with acute delirium, felt to be toxicity from Neurontin, and acute renal failure. The patient overall is much better. As per Psychiatry patient is lacking decision-making capacity awaiting a court-appointed guardian. The patient also diagnosed with severe aortic stenosis for outpatient followup. The patient is comfortable tolerating a diet. REVIEW OF SYSTEMS: Done for constitutional, cardiovascular, GI, pulmonary; relevant findings as above. CURRENT MEDICATIONS: Reviewed. EXAMINATION: Temperature 98.7, pulse 66, respiratory rate 16, blood pressure 106/55, pulse ox 93% on room air. General appearance: Lying in bed, awake. Eyes pupils equal. Conjunctivae normal. HEENT external appearance of nose and ears normal. Oral cavity normal. Neck JVD not raised. Mass not palpable. Respiratory effort normal. Lungs are clear. Cardiovascular 1st and 2nd sounds normal. No edema. ABDOMEN: Soft, nontender. Liver and spleen not palpable. Psychiatry: Awake, answering questions. INVESTIGATIONS: White count 10.5, hemoglobin 12, potassium 4.1. ASSESSMENT: 1. Hypernatremia likely from free water deficit present on admission resolved. 2. Not hyponatremia as documented before. 3. Acute renal failure likely prerenal resolved. 4. Metabolic acidosis from renal failure. 5. Acute delirium multifactorial including that from Neurontin, improved. 6. Neurontin toxicity in the setting of acute renal failure. 7. Chronic fibromyalgia. 8. Severe aortic stenosis, likely nonrheumatic for outpatient followup. 9. Hyperlipidemia. 10.Essential hypertension. 11.Hypothyroid. 12.Paralyzed left vocal cord. 13.Chronic diverticulosis asymptomatic. 14.Lacking decision-making capacity per Psychiatry. PLAN: Continue current medication and treatment plan. Awaiting court-appointed legal guardian. This will happen on Monday. MMODL / IJN: [id number] /
[2017-06-28] MEDS: ATORVASTATIN 20 MG TAB PO SCH (21:03)
[2017-06-29] MEDS: LEVOTHYROXINE 50 MCG TAB PO SCH (06:10)
[2017-06-29 07:10] LABS: Basophils % (A) 0 %; Eosinophils # (A) 0.4 k/uL (0-0.7); Eosinophils % (A) 3 %; HCT 34.5 % (34.0-46.0); HGB 11.3 gm/dL (11.4-16.0); Lymphocytes # (A) 2.6 k/uL (1.0-4.8); Lymphocytes % (A) 25 %; MCH 29.5 pg (25.0-35.0); MCHC 32.7 g/dL (31.0-37.0); MCV 90.4 fL (80.0-100.0); Mean Platelet Volume 6.5; Monocytes # (A) 0.6 k/uL (0-1.0); Monocytes % (A) 6 %; Neutrophils # (A) 6.4 k/uL (1.3-7.7); Neutrophils % (A) 62 %; Platelet Count 368 k/uL (150-450); RBC 3.82 m/uL (3.80-5.40); RDW 13.7 % (11.5-15.5); WBC 10.3 k/uL (3.8-10.6)
[2017-06-29] MEDS: HYDROcodone/APAP 7.5-325MG 1 EACH TAB PO PRN (08:10)
[2017-06-29] MEDS: CEVIMELINE 30 MG CAP PO SCH ×3 (08:12→21:27)
[2017-06-29] MEDS: CEPHALEXIN 250 MG CAP PO SCH ×3 (08:12→21:27)
[2017-06-29] MEDS: ASPIRIN 81 MG PO SCH (08:12)
[2017-06-29] MEDS: METOPROLOL TARTRATE 50 MG TAB PO SCH (08:13)
[2017-06-29] MEDS: MAGNESIUM OXIDE 400 MG TAB PO SCH (08:13)
[2017-06-29] MEDS: NON-FORMULARY DRUG (Mirabegron [Myrbetriq] 50 MG) PO SCH (08:13)
[2017-06-29] MEDS: GABAPENTIN 100 MG CAP PO SCH ×3 (08:13→21:27)
[2017-06-29] MEDS: ZIPRASIDONE 20 MG CAP PO SCH ×2 (08:14→21:27)
[2017-06-29] MEDS: VENLAFAXINE HCL ER 150 MG CAP PO SCH (08:14)
[2017-06-29] MEDS: clonazePAM 0.5 MG TAB PO PRN ×2 (09:59→21:30)
[2017-06-29] MEDS ORDERED: MAGNESIUM CITRATE 296 ML BOTTLE PO ONE (15:59)
--- NOTE | 2017-06-29 20:43 | PN ---
PROGRESS NOTE DATE OF SERVICE: 06/29/17 PRESENTING COMPLAINT: Tired. INTERVAL HISTORY: This patient presented initially with acute delirium, felt to be toxicity from Neurontin and acute renal failure. The patient overall doing much better. Per psychiatry patient lacking decision-making capacity. Awaiting a court-appointed guardian on Monday. Because of tiredness, patient dose of Duragesic patch was cut back. The patient has been up and about in the hallway. Doing better. Tolerating a diet. REVIEW OF SYSTEMS: Done for constitutional, cardiovascular, GI, pulmonary; relevant findings as above. CURRENT MEDICATIONS: Reviewed. EXAMINATION: Temperature 98, pulse 67, respiratory 18, blood pressure 94/54, pulse ox 96% on room air. General appearance: Lying in bed, comfortable. Eyes pupils equal. Conjunctivae normal. HEENT external appearance of nose and ears normal. Oral cavity normal. Neck JVD not raised. Mass not palpable. Respiratory effort lungs are clear. Cardiovascular 1st and 2nd sounds normal. No edema. ABDOMEN: Soft, nontender. Liver and spleen not palpable. Psychiatry awake, able to carry out a conversation. INVESTIGATIONS: White count 10.3. ASSESSMENT: 1. Hyponatremia, likely from free water deficit present on admission, resolved. 2. Not hyponatremia as documented earlier that was a typo. 3. Acute renal failure likely prerenal resolved. 4. Metabolic renal failure improved. 5. Acute delirium multifactorial including that from Neurontin toxicity present on admission, greatly resolved. 6. Neurontin toxicity in the setting of acute renal failure. 7. Chronic fibromyalgia. 8. Severe aortic stenosis, likely nonrheumatic for outpatient followup. 9. Hyperlipidemia. 10.Essential hypertension. 11.Hypothyroid. 12.Paralyzed left vocal cord. 13.Chronic diverticulosis, asymptomatic. 14.Lacking decision-making capacity per Psychiatry. Awaiting a court-appointed guardian. PLAN: Continue current medication and treatment plan. Care was discussed with the patient. MMODL / IJN: [id number] /
[2017-06-29] MEDS: ATORVASTATIN 20 MG TAB PO SCH (21:27)
[2017-06-30] MEDS: LEVOTHYROXINE 50 MCG TAB PO SCH (06:03)
[2017-06-30] MEDS: NON-FORMULARY DRUG (Mirabegron [Myrbetriq] 50 MG) PO SCH (08:40)
[2017-06-30] MEDS: VENLAFAXINE HCL ER 150 MG CAP PO SCH (08:42)
[2017-06-30] MEDS: GABAPENTIN 100 MG CAP PO SCH ×3 (08:42→21:18)
[2017-06-30] MEDS: METOPROLOL TARTRATE 50 MG TAB PO SCH (08:42)
[2017-06-30] MEDS: ZIPRASIDONE 20 MG CAP PO SCH ×2 (08:42→21:18)
[2017-06-30] MEDS: CEPHALEXIN 250 MG CAP PO SCH ×3 (08:42→21:18)
[2017-06-30] MEDS: ASPIRIN 81 MG PO SCH (08:42)
[2017-06-30] MEDS: CEVIMELINE 30 MG CAP PO SCH ×3 (08:42→21:18)
[2017-06-30] MEDS: MAGNESIUM OXIDE 400 MG TAB PO SCH (08:42)
[2017-06-30] MEDS: HYDROcodone/APAP 7.5-325MG 1 EACH TAB PO PRN (08:43)
[2017-06-30] MEDS: clonazePAM 0.5 MG TAB PO PRN (14:39)
--- NOTE | 2017-06-30 14:56 | P.PN ---
Progress Note - Text Progress Note Date: 06/30/17 Interval History: Patient is a 71-year-old female, height been following her and Dr. saleem asked me to return to reevaluate the patient. Patient was seen today and she reports that she's feeling much better and continues to insist that she is ready to go home. She states that she wants to get back to her dogs because she feels that she is damaging one of them psychologically. Patient states that she has been walking in the halls with a walker but with someone with her but has been able to go to the bathroom on her own. Patient states that she has been eating only so-so because the food doesn't taste good. She reports that she is sleeping fairly well. Patient stated to me that she has been practicing her serial sevens and wanted to show me that she could do them. She does not think that she needs to go to any rehab facility. Mental Status: Appearance/Attitude: Patient is lying in a hospital bed, makes good eye contact and is cooperative Behavior: Patient does not exhibit any psychomotor agitation or retardation. Speech/Language: Patient's speech is spontaneous of normal volume and rhythm and she is coherent Thought Process: Patient is goal-directed there is no evidence of loose association or flight of ideas Thought Content: Patient denies auditory or visual hallucinations and there is no evidence of any delusional or paranoid ideation. Patient states that she continues to want to go home and not go to rehab because of HER-2 dogs, stating that she is causing psychological damage to one of them. Patient states that she has been eating only so-so because food doesn't taste good. Patient states that she has been walking in the hallway using a walker but someone has been accompanying her. Patient states that she is sleeping fairly well. Suicidal/Homicidal Ideation: Patient denies suicidal or homicidal ideation at this time Sensorium/Cognition: Patient is alert and oriented to person, place, and time and she was able to perform serial sevens today but states that she is been practicing for me. When patient was asked to recall 3 objects patient could only recall 2. Patient continues to insist that she can return home due to causing psychological damage to one of her dogs, stating that she is able to care for herself. Mood/Affect: Patient's mood was pleasant and her affect was appropriate Insight/Judgment: Patient's insight and judgment are fair, patient reports that she is able to care for herself without assistance and needs to return home to be able to care for HER-2 dogs. Assessment: Patient and I again discussed her decubitus ulcers and she stated that she spends time during the day in a recliner and sleeps flat on her back at night. Patient insists that she is able to care for her activities of daily living on her own and states she needs to return home to care for HER-2 dogs. Patient has been walking to the bathroom by herself but when she is ambulating in the [place] with a walker someone his assisting her. Patient states she's only been eating so-so because things aren't tasting well. Patient discussed with me that maybe she should on a temporary basis have someone living with her to help her. Plan: Patient's mentation has continued to improve, as she has been practicing serial sevens she continues to have some difficulties with her memory, however the patient continues to insist that she is able to care for herself, she is walking with a walker in the hospital with someone with her and she does not feel that any subacute rehab would be beneficial for her, does not see the need to improve her strength. Patient reports that she is only eating so-so in the hospital. I continue to recommend that the patient go to subacute rehab so that her level of functioning can be assessed, as well her ability to live independently can be assessed. Guardianship hearing is on Monday, I discussed this with the patient.
--- NOTE | 2017-06-30 19:02 | PN ---
PROGRESS NOTE DATE OF SERVICE: 06/30/2017 PRESENTING COMPLAINT: Tired. INTERVAL HISTORY: Patient initially presented with acute delirium, felt to be toxicity from Neurontin and acute renal failure. I also decreased the patient's Duragesic patch. Patient has been rather comfortable, walking in the hallway, doing better, tolerating a diet. Insisting on going home. She does not want to get a legal guardian. Requesting to be assessed again by psychiatrist Dr. Schwartz. REVIEW OF SYSTEMS: Done for constitutional, cardiovascular, GI, pulmonary; relevant findings as above. CURRENT MEDICATIONS: Reviewed. PHYSICAL EXAMINATION: Temperature 98.1, pulse 58, respiration 18, blood pressure 135/61, pulse ox 98% on room air. GENERAL APPEARANCE: Sitting up, eating lunch. Comfortable. EYES: Pupils equal. Conjunctivae normal. HEENT: External appearance of nose and ears normal. Oral cavity normal. NECK: JVD not raised. Mass not palpable. RESPIRATORY: Effort normal. Lungs are clear. CARDIOVASCULAR: First and second sounds normal. No edema. ABDOMEN: Soft, nontender. Liver and spleen not palpable/ PSYCHIATRY: Awake. Able to rather recently carry out a simple conversation. INVESTIGATIONS: No blood work from today. ASSESSMENT: 1. Hypernatremia, likely from free water deficit, present on admission, resolved. 2. Acute renal failure, likely prerenal, resolved. 3. Metabolic encephalopathy from renal failure, improved. 4. Acute delirium, multifactorial, including from Neurontin toxicity, present on admission, resolved. 5. Neurontin toxicity in the setting of acute renal failure. 6. Chronic fibromyalgia. 7. Severe aortic stenosis, likely non-rheumatic, with outpatient followup. 8. Hyperlipidemia. 9. Essential hypertension. 10.Hypothyroid. 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 12.Chronic diverticulosis, asymptomatic. 13.Decision-making capacity lacking as per Dr. Schwartz from Psychiatry. Patient is awaiting a court hearing on Monday. PLAN: As per patient request, I did speak to Dr. Schwartz to re-evaluate the patient to see about her decision-making capacity. In the meantime, continue medication and treatment plan. The patient clinically otherwise is stable. MMODL / IJN: [id number] /
[2017-06-30] MEDS: HYDROcodone/APAP 5-325MG 1 EACH TAB PO PRN (19:46)
[2017-06-30] MEDS: ATORVASTATIN 20 MG TAB PO SCH (21:18)
[2017-07-01] MEDS: LEVOTHYROXINE 50 MCG TAB PO SCH (06:21)
[2017-07-01] MEDS: HYDROcodone/APAP 5-325MG 1 EACH TAB PO PRN ×2 (08:22→17:09)
[2017-07-01] MEDS: METOPROLOL TARTRATE 50 MG TAB PO SCH (08:23)
[2017-07-01] MEDS: CEPHALEXIN 250 MG CAP PO SCH ×3 (08:23→22:43)
[2017-07-01] MEDS: GABAPENTIN 100 MG CAP PO SCH ×3 (08:23→22:42)
[2017-07-01] MEDS: MAGNESIUM OXIDE 400 MG TAB PO SCH (08:23)
[2017-07-01] MEDS: CEVIMELINE 30 MG CAP PO SCH ×3 (08:23→22:42)
[2017-07-01] MEDS: ASPIRIN 81 MG PO SCH (08:23)
[2017-07-01] MEDS: NON-FORMULARY DRUG (Mirabegron [Myrbetriq] 50 MG) PO SCH (08:24)
[2017-07-01] MEDS: VENLAFAXINE HCL ER 150 MG CAP PO SCH (08:24)
[2017-07-01] MEDS: ZIPRASIDONE 20 MG CAP PO SCH ×2 (08:24→22:42)
[2017-07-01 09:12] VITALS: RESP 16
--- NOTE | 2017-07-01 10:03 | P.HPIM ---
History of Present Illness Patient is 71-year-old female was brought to the emergency department with compensative shortness of breath. Patient is saturating well now does have good air entry into bilateral lung mcghee no wheezing was appreciated. Patient is found to have influenza B was diagnosed as pneumonia in the right lower lung mcghee although patient does not have any bronchophony egophony or crackles on clinical exam. No chest x-rays available will obtain a chest x-ray a chest x- ray doesn't show any pneumonic process patient will be discharged on doxycycline and patient does have complaints of fever chills cough with the a little brownish sputum production. Symptoms has been going on since last on her way here from [place]. Patient appears to have influenza bronchitis although Tamiflu will not help because of the symptom duration which is longer than 48 hours. Although there is a concern for secondary bacterial bronchitis, patient will be discharged on that setting as the and will be discontinued. It appears patient's main concern is cough. Review of Systems REVIEW OF SYSTEMS: CONSTITUTIONAL: No fever, no malaise, no fatigue. HEENT: No recent visual problems or hearing problems. Denied any sore throat. CARDIOVASCULAR: No chest pain, orthopnea, PND, no palpitations, no syncope. PULMONARY: As mentioned in HPI GASTROINTESTINAL: No diarrhea, no nausea, no vomiting, no abdominal pain. Normoactive bowel sounds. NEUROLOGICAL: No headaches, no weakness, no numbness. HEMATOLOGICAL: Denies any bleeding or petechiae. GENITOURINARY: Denies any burning micturition, frequency, or urgency. MUSCULOSKELETAL/RHEUMATOLOGICAL: Denies any joint pain, swelling, or any muscle pain. ENDOCRINE: Denies any polyuria or polydipsia. The rest of the 14-point review of systems is negative. 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 SACRAL ULCER, HAD PNE VACCINE AFTER AGE 65 NOT SURE OF DATE AND DR BENITO SHORT UNABLE TO VERIFY DATE. History of Any Multi-Drug Resistant Organisms: None Reported Past Surgical History: Heart Catheterization, Hysterectomy, Orthopedic Surgery Additional Past Surgical History / Comment(s): COLONOSCOPY, REPAIR OF PATENT DUCTUS AT 18MOS OF AGE,LAMICECTOMY,UTERINE FIBROID REMOVED , Basal cell REMOVED FROM RIGHT EAR LOBE. RT KNEE SX, LASIK EYE SX, Past Anesthesia/Blood Transfusion Reactions: No Reported Reaction Past Psychological History: Anxiety, Depression Smoking Status: Former smoker Past Alcohol Use History: None Reported Additional Past Alcohol Use History / Comment(s): QUIT SMOKING IN S SMOKED FOR APPROX. 10 YEARS. SMOKED 1PPD Past Drug Use History: None Reported - Past Family History Mother Family Medical History: No Reported History Sister(s) Family Medical History: Diabetes Mellitus Medications and Allergies Home Medications Medication Instructions Recorded Confirmed Type Gabapentin 600 mg PO QID 12/26/13 06/23/17 History Levothyroxine Sodium [Levoxyl] 50 mcg PO QAM 12/26/13 06/23/17 History Simvastatin [Zocor] 20 mg PO HS 12/26/13 06/23/17 History clonazePAM [KlonoPIN] 0.5 mg PO BID PRN 12/26/13 06/23/17 History Cevimeline [Evoxac] 30 mg PO TID cap 11/14/14 06/23/17 Rx Aspirin 81 mg PO DAILY #1 chewable 11/16/15 06/23/17 Rx Ferrous Sulfate [Iron (65 MG 325 mg PO TID 11/16/15 06/23/17 History Elemental)] HYDROcodone/APAP 7.5-325MG [[place] 1 tab PO DAILY PRN 11/16/15 06/23/17 History 7.5-325] fentaNYL 50MCG/HR PATCH [Duragesic 1 patch TRANSDERM Q72H 11/16/15 06/23/17 History 50MCG/HR] Biotin 5 mg PO DAILY 06/02/17 06/23/17 History Magnesium Citrate 100 mg PO DAILY 06/02/17 06/23/17 History Metoprolol Tartrate [Lopressor] 50 mg PO DAILY 06/02/17 06/23/17 History Mirabegron [Myrbetriq] 50 mg PO DAILY 06/02/17 06/23/17 History Venlafaxine HCl [Effexor XR] 150 mg PO DAILY 06/02/17 06/23/17 History Ziprasidone [Geodon] 60 mg PO DAILY 06/23/17 06/23/17 History Allergies Allergy/AdvReac Type Severity Reaction Status Date / Time No Known Allergies Allergy Verified 06/23/17 12:30 Physical Exam Vitals: Vital Signs Temp Pulse Resp BP BP Pulse Ox 07/01/17 08:05 98.0 F 81 16 123/70 96 06/30/17 20:44 98.0 F 62 18 120/58 94 L 06/30/17 14:25 98.2 F 66 18 123/58 93 L Intake and Output 06/30/17 07/01/17 07/01/17 22:59 06:59 14:59 Other: Voiding Method Toilet Toilet # Voids 2 2 PHYSICAL EXAMINATION: GENERAL: The patient is alert and oriented x3, not in any acute distress. Well developed, well nourished. HEENT: Pupils are round and equally reacting to light. EOMI. No scleral icterus. No conjunctival pallor. Normocephalic, atraumatic. Patient does have mild pharyngeal erythema without any transudate or exudate. No thyromegaly. CARDIOVASCULAR: S1 and S2 present. No murmurs, rubs, or gallops. PULMONARY: Chest is clear to auscultation, no wheezing or crackles. ABDOMEN: Soft, nontender, nondistended, normoactive bowel sounds. No palpable organomegaly. MUSCULOSKELETAL: No joint swelling or deformity. EXTREMITIES: No cyanosis, clubbing, or pedal edema. NEUROLOGICAL: Gross neurological examination did not reveal any focal deficits. SKIN: No rashes. Results CBC & Chem 7: 06/29/17 06:46 06/28/17 07:48 Thrombosis Risk Factor Assmnt - Choose All That Apply Each Risk Factor Represents 2 Points: Age 61-74 years Each Risk Factor Represents 3 Points: History of DVT/PE Thrombosis Risk Factor Assessment Total Risk Factor Score: 5 Thrombosis Risk Factor Assessment Level: High Risk Assessment and Plan Plan: -Bronchitis: Secondary to influenza my suspicion is low for bacterial pneumonia. -Shortness of breath secondary to bronchitis, cannot completely rule out secondary bacterial infection. -Hypertension -Hyperlipidemia -Hypothyroidism -Hypokalemia: Secondary to Lasix potassium will be supplemented will be discharged on 10 mg of oral potassium supplementation because patient is taking 20 mg of Lasix at home Patient will be discharged today on doxycycline albuterol inhaler
--- NOTE | 2017-07-01 10:08 | P.PN ---
Subjective Patient was admitted secondary to acute delirium and Neurontin toxicity and acute renal failure all of which improved. Patient is presently clinically doing well confusion improved patient is also being treated for urinary tract infection. Patient is awaiting hailing from the Court for competency. Psychiatry is addressing her competency issues. Objective - Vital Signs Vital signs: Vital Signs Temp 98.0 F 07/01/17 08:05 Pulse 81 07/01/17 08:05 Resp 16 07/01/17 08:05 BP 123/70 07/01/17 08:05 Pulse Ox 96 07/01/17 08:05 Intake & Output 06/30/17 07/01/17 07/01/17 18:59 06:59 18:59 Other: Voiding Method Toilet Toilet # Voids 4 2 # Bowel Movements 1 - Exam PHYSICAL EXAMINATION: GENERAL: The patient is alert and oriented x3, not in any acute distress. Well developed, well nourished. HEENT: Pupils are round and equally reacting to light. EOMI. No scleral icterus. No conjunctival pallor. Normocephalic, atraumatic. No pharyngeal erythema. No thyromegaly. CARDIOVASCULAR: S1 and S2 present. No murmurs, rubs, or gallops. PULMONARY: Chest is clear to auscultation, no wheezing or crackles. ABDOMEN: Soft, nontender, nondistended, normoactive bowel sounds. No palpable organomegaly. MUSCULOSKELETAL: No joint swelling or deformity. EXTREMITIES: No cyanosis, clubbing, or pedal edema. NEUROLOGICAL: Gross neurological examination did not reveal any focal deficits. SKIN: No rashes. - Labs CBC & Chem 7: 06/29/17 06:46 06/28/17 07:48 Assessment and Plan Plan: -Metabolic encephalopathy secondary to hypernatremia and dehydration which improved -Acute renal failure prerenal L azotemia which improved. -Hypernatremia: Hypokalemia which improved now -Neurontin toxicity which resolved -Fibromyalgia -History of severe aortic stenosis -Hyperlipidemia -Hypertension Abdomen hypothyroidism -Diverticulosis history
[2017-07-01] MEDS: clonazePAM 0.5 MG TAB PO PRN (20:00)
[2017-07-01] MEDS: ATORVASTATIN 20 MG TAB PO SCH (20:01)
[2017-07-02] MEDS: LEVOTHYROXINE 50 MCG TAB PO SCH (06:16)
[2017-07-02] MEDS: HYDROcodone/APAP 5-325MG 1 EACH TAB PO PRN ×2 (06:16→15:34)
[2017-07-02] MEDS: GABAPENTIN 100 MG CAP PO SCH ×3 (08:42→21:10)
[2017-07-02] MEDS: MAGNESIUM OXIDE 400 MG TAB PO SCH (08:42)
[2017-07-02] MEDS: ZIPRASIDONE 20 MG CAP PO SCH ×2 (08:42→21:11)
[2017-07-02] MEDS: ASPIRIN 81 MG PO SCH (08:42)
[2017-07-02] MEDS: VENLAFAXINE HCL ER 150 MG CAP PO SCH (08:42)
[2017-07-02] MEDS: METOPROLOL TARTRATE 50 MG TAB PO SCH (08:42)
[2017-07-02] MEDS: CEPHALEXIN 250 MG CAP PO SCH ×3 (08:43→21:10)
[2017-07-02] MEDS: NON-FORMULARY DRUG (Mirabegron [Myrbetriq] 50 MG) PO SCH (08:43)
[2017-07-02] MEDS: CEVIMELINE 30 MG CAP PO SCH ×3 (08:43→21:10)
[2017-07-02] MEDS ORDERED: SENNOSIDES 8.6 MG TAB PO STA (10:58)
--- NOTE | 2017-07-02 11:00 | P.PN ---
Subjective Patient was admitted secondary to acute delirium and Neurontin toxicity and acute renal failure all of which improved. Patient is presently clinically doing well confusion improved patient is also being treated for urinary tract infection. Patient is awaiting hailing from the Court for competency. Psychiatry is addressing her competency issues. 07/02/2017 Patient mental status improved significantly today and patient is alert oriented 3, in my opinion patient is not incompetent patient can make her own decisions clearly. Patient is willing to go to subacute rehabilitation. Constitutional: Denied any fatigue denied any fever. Cardio vascular: denied any chest pain, palpitations Gastrointestinal denied any nausea vomiting Pulmonary: Denied any shortness of breath cough Neurologic denied any new focal deficits Objective - Vital Signs Vital signs: Vital Signs Temp 99.7 F H 07/02/17 08:00 Pulse 89 07/02/17 08:00 Resp 16 07/02/17 08:00 BP 102/63 07/02/17 08:00 Pulse Ox 97 07/02/17 08:00 Intake & Output 07/01/17 07/02/17 07/02/17 18:59 06:59 18:59 Intake Total 400 350 Balance 400 350 Weight 57.1 kg Intake: Oral 400 350 Other: Voiding Method Toilet Toilet # Voids 1 - Exam PHYSICAL EXAMINATION: GENERAL: The patient is alert and oriented x3, not in any acute distress. Well developed, well nourished. HEENT: Pupils are round and equally reacting to light. EOMI. No scleral icterus. No conjunctival pallor. Normocephalic, atraumatic. No pharyngeal erythema. No thyromegaly. CARDIOVASCULAR: S1 and S2 present. No murmurs, rubs, or gallops. PULMONARY: Chest is clear to auscultation, no wheezing or crackles. ABDOMEN: Soft, nontender, nondistended, normoactive bowel sounds. No palpable organomegaly. MUSCULOSKELETAL: No joint swelling or deformity. EXTREMITIES: No cyanosis, clubbing, or pedal edema. NEUROLOGICAL: Gross neurological examination did not reveal any focal deficits. SKIN: No rashes. - Labs CBC & Chem 7: 06/29/17 06:46 06/28/17 07:48 Assessment and Plan Plan: -Metabolic encephalopathy secondary to hypernatremia and dehydration which improved. Patient has significant improvement even since yesterday and I believe patient is totally competent to make her own decisions -Acute renal failure prerenal azotemia which improved. -Hypernatremia: Hypokalemia which improved now -Neurontin toxicity which resolved -Fibromyalgia -History of severe aortic stenosis -Hyperlipidemia -Hypertension Abdomen hypothyroidism -Diverticulosis history
[2017-07-02] MEDS: clonazePAM 0.5 MG TAB PO PRN ×2 (11:47→19:16)
[2017-07-02] MEDS: ATORVASTATIN 20 MG TAB PO SCH (21:10)
[2017-07-03] MEDS: HYDROcodone/APAP 5-325MG 1 EACH TAB PO PRN ×3 (00:27→16:34)
[2017-07-03] MEDS: LEVOTHYROXINE 50 MCG TAB PO SCH (06:14)
[2017-07-03] MEDS: MAGNESIUM OXIDE 400 MG TAB PO SCH (08:33)
[2017-07-03] MEDS: CEVIMELINE 30 MG CAP PO SCH ×2 (08:33→16:36)
[2017-07-03] MEDS: CEPHALEXIN 250 MG CAP PO SCH ×2 (08:34→16:36)
[2017-07-03] MEDS: GABAPENTIN 100 MG CAP PO SCH ×2 (08:34→16:36)
[2017-07-03] MEDS: ASPIRIN 81 MG PO SCH (08:34)
[2017-07-03] MEDS: ZIPRASIDONE 20 MG CAP PO SCH (08:34)
[2017-07-03] MEDS: NON-FORMULARY DRUG (Mirabegron [Myrbetriq] 50 MG) PO SCH (08:34)
[2017-07-03] MEDS: METOPROLOL TARTRATE 50 MG TAB PO SCH (08:34)
[2017-07-03] MEDS: VENLAFAXINE HCL ER 150 MG CAP PO SCH (08:34)
[2017-07-03 09:17] LABS: HCT 40.7 % (34.0-46.0); HGB 13.2 gm/dL (11.4-16.0); MCH 30.2 pg (25.0-35.0); MCHC 32.5 g/dL (31.0-37.0); MCV 92.8 fL (80.0-100.0); Mean Platelet Volume 6.7; Platelet Count 440 k/uL (150-450); RBC 4.38 m/uL (3.80-5.40); RDW 13.6 % (11.5-15.5)
[2017-07-03 09:49] LABS: Calcium 9.8 mg/dL (8.4-10.2); Potassium 3.7 mmol/L (3.5-5.1)
[2017-07-03] MEDS: clonazePAM 0.5 MG TAB PO PRN (10:39)
--- NOTE | 2017-07-03 14:41 | P.DS ---
Providers Date of admission: 06/23/17 14:29 Attending physician: Len Azar Consults: 06/23/17 14:27 Consult Physician Urgent Consulting Provider: Luisana Schwartz Consult Reason/Comments: anticholinergic effects of polypharmacy, concern for patient safety at home Do you want consulting provider notified?: Yes 06/24/17 19:52 Consult Physician Stat Consulting Provider: Michele Miranda Consult Reason/Comments: elevated troponin Do you want consulting provider notified?: Yes Primary care physician: Mario [facility] Course: Patient was admitted secondary to acute delirium and Neurontin toxicity and acute renal failure all of which improved. Patient is presently clinically doing well confusion improved patient is also being treated for urinary tract infection. Patient is awaiting hailing from the Court for competency. Psychiatry is addressing her competency issues. 07/02/2017 Patient mental status improved significantly today and patient is alert oriented 3, in my opinion patient is not incompetent patient can make her own decisions clearly. Patient is willing to go to subacute rehabilitation. 07/03/2017 Patient's delirium is secondary to excessive narcotics and opiates, my suspicion is low that patient has urinary tract infection and patient anyways completed course of antibiotics for UTI. Coated denied guardianship for the patient. Patient is competent to make her own durations patient right now is not requiring any subacute rehabilitation either. Patient will be discharged home with home care although patient is high risk for readmission extensive counseling regarding excessive narcotic use was provided but my suspicion is that patient may use opiates and narcotics at home again. Cutting down the dose of fentanyl although she is requesting me to increase the dose of fentanyl to 75 from 50. Patient does not appear to be in significant pain at this time Neurontin dose was decreased to 200 3 times a day. GENERAL: The patient is alert and oriented x3, not in any acute distress. Well developed, well nourished. HEENT: Pupils are round and equally reacting to light. EOMI. No scleral icterus. No conjunctival pallor. Normocephalic, atraumatic. No pharyngeal erythema. No thyromegaly. CARDIOVASCULAR: S1 and S2 present. No murmurs, rubs, or gallops. PULMONARY: Chest is clear to auscultation, no wheezing or crackles. ABDOMEN: Soft, nontender, nondistended, normoactive bowel sounds. No palpable organomegaly. MUSCULOSKELETAL: No joint swelling or deformity. EXTREMITIES: No cyanosis, clubbing, or pedal edema. NEUROLOGICAL: Gross neurological examination did not reveal any focal deficits. SKIN: No rashes. Assessment and Plan Plan: -My suspicion is low that the patient has metabolic encephalopathy patient has toxic encephalopathy secondary to excessive narcotic use. Patient has significant improvement even since yesterday and I believe patient is totally competent to make her own decisions -Acute renal failure prerenal azotemia which improved. -Hypernatremia: Hypokalemia which improved now -Neurontin toxicity which resolved -Fibromyalgia -History of severe aortic stenosis -Hyperlipidemia -Hypertension Abdomen hypothyroidism -Diverticulosis history Patient Condition at Discharge: Good Plan - Discharge Summary Discharge Rx Participant: Yes New Discharge Prescriptions: New fentaNYL 25MCG/HR PATCH [Duragesic 25MCG/HR] 1 patch TRANSDERM Q72H #1 patch Gabapentin [Neurontin] 200 mg PO TID #30 cap Ziprasidone [Geodon] 20 mg PO BID #20 cap Continue clonazePAM [KlonoPIN] 0.5 mg PO BID PRN PRN Reason: Anxiety Levothyroxine Sodium [Levoxyl] 50 mcg PO QAM Simvastatin [Zocor] 20 mg PO HS Cevimeline [Evoxac] 30 mg PO TID cap HYDROcodone/APAP 7.5-325MG [[place] 7.5-325] 1 tab PO DAILY PRN PRN Reason: Pain Ferrous Sulfate [Iron (65 MG Elemental)] 325 mg PO TID Aspirin 81 mg PO DAILY #1 chewable Biotin 5 mg PO DAILY Magnesium Citrate 100 mg PO DAILY Metoprolol Tartrate [Lopressor] 50 mg PO DAILY Mirabegron [Myrbetriq] 50 mg PO DAILY Venlafaxine HCl [Effexor XR] 150 mg PO DAILY Discontinued Gabapentin 600 mg PO QID fentaNYL 50MCG/HR PATCH [Duragesic 50MCG/HR] 1 patch TRANSDERM Q72H Ziprasidone [Geodon] 60 mg PO DAILY Discharge Medication List Levothyroxine Sodium [Levoxyl] 50 mcg PO QAM 12/26/13 [History] Simvastatin [Zocor] 20 mg PO HS 12/26/13 [History] clonazePAM [KlonoPIN] 0.5 mg PO BID PRN 12/26/13 [History] Cevimeline [Evoxac] 30 mg PO TID cap 09/11/15 [Rx] Aspirin 81 mg PO DAILY #1 chewable 11/16/15 [Rx] Ferrous Sulfate [Iron (65 MG Elemental)] 325 mg PO TID 11/16/15 [History] HYDROcodone/APAP 7.5-325MG [[place] 7.5-325] 1 tab PO DAILY PRN 11/16/15 [History] Biotin 5 mg PO DAILY 06/02/17 [History] Magnesium Citrate 100 mg PO DAILY 06/02/17 [History] Metoprolol Tartrate [Lopressor] 50 mg PO DAILY 06/02/17 [History] Mirabegron [Myrbetriq] 50 mg PO DAILY 06/02/17 [History] Venlafaxine HCl [Effexor XR] 150 mg PO DAILY 06/02/17 [History] Gabapentin [Neurontin] 200 mg PO TID #30 cap 07/03/17 [Rx] Ziprasidone [Geodon] 20 mg PO BID #20 cap 07/03/17 [Rx] fentaNYL 25MCG/HR PATCH [Duragesic 25MCG/HR] 1 patch TRANSDERM Q72H #1 patch [Rx] Follow up Appointment(s)/Referral(s): Mario Gabriel DO [Primary Care Provider] - 3 Days Patient Instructions/Handouts: Altered Mental Status (GEN) Activity/Diet/Wound Care/Special Instructions: Home Care - Visiting Nurse - [phone] Discharge Disposition: HOME WITH HOME HEALTH SERVICES
[2017-07-03 15:34] VITALS: BP 126/61; PULSE 69; TEMP 98.2
== END 2017-07-03 17:25 | disposition home health service (06) | DRG 682 ==
LOC: EC 11:28 → 5MS5E 14:29 → 4MS4W 14:52 → 6SEL 06-24 20:42 → 5MS5E 06-26 16:35
PROVIDERS: ADMIT Hospitalist; ATTEND Hospitalist
DX: N17.9 Acute kidney failure, unspecified (principal); G92 Toxic encephalopathy; L89.152 Pressure ulcer of sacral region, stage 2; E87.0 Hyperosmolality and hypernatremia; I95.9 Hypotension, unspecified; E87.2 Acidosis; F05 Delirium due to known physiological condition; E83.41 Hypermagnesemia; J38.00 Paralysis of vocal cords and larynx, unspecified; N39.0 Urinary tract infection, site not specified; I35.0 Nonrheumatic aortic (valve) stenosis; M79.7 Fibromyalgia; E03.9 Hypothyroidism, unspecified; E78.5 Hyperlipidemia, unspecified; G47.30 Sleep apnea, unspecified; K57.30 Diverticulosis of large intestine without perforation or abscess without bleeding; F32.9 Major depressive disorder, single episode, unspecified; F41.9 Anxiety disorder, unspecified; I10 Essential (primary) hypertension; R77.8 Other specified abnormalities of plasma proteins; T40.2X5A Adverse effect of other opioids, initial encounter; E87.6 Hypokalemia; T42.6X5A Adverse effect of other antiepileptic and sedative-hypnotic drugs, initial encounter; L89.609 Pressure ulcer of unspecified heel, unspecified stage; R01.1 Cardiac murmur, unspecified; Z86.79 Personal history of other diseases of the circulatory system; Z87.891 Personal history of nicotine dependence; Z83.3 Family history of diabetes mellitus; Z86.711 Personal history of pulmonary embolism; Z86.718 Personal history of other venous thrombosis and embolism; Z85.828 Personal history of other malignant neoplasm of skin; Z90.710 Acquired absence of both cervix and uterus; Z79.899 Other long term (current) drug therapy; Z79.82 Long term (current) use of aspirin; Z79.891 Long term (current) use of opiate analgesic
CPT/HCPCS: 36415; 80048; 80053; 80306; 81001; 82550; 82553; 83605; 83735; 84132; 84484; 85025; 85027; 85610; 85730; 87040; 87086; 93005; 93306; 96361; 96374; 99285

== ENCOUNTER 2017-09-25 18:40 | Observation (INO) | payer MEDICARE ==
[2017-09-25] MEDS ORDERED: SODIUM CHLORIDE 0.9% 1,000 ML IV STA ×2 (19:39)
--- NOTE | 2017-09-25 19:42 | ED ---
General Adult HPI - General Chief complaint: Recheck/Abnormal Lab/Rx Stated complaint: Shaky, cannot walk Time Seen by Provider: 09/25/17 19:24 Source: patient, family, RN notes reviewed Mode of arrival: wheelchair Limitations: no limitations - History of Present Illness Initial comments: This is a 71-year-old female was brought in for evaluation and falling. She states that 3 days ago she fell after she got up her knees buckled. She states she fell on her left shoulder she complains left shoulder scapular area pain. Just complains some pain in her right knee. She states she's afraid to get up she is afraid she will fall again she's had decreased oral intake that she has been able to use the bathroom at home. No fevers chills sweats are reported at this time. She does have a history of urinary tract infections and believes she may have another one. She does states she did have some shakes. - Related Data Home Medications Medication Instructions Recorded Confirmed Levothyroxine Sodium [Levoxyl] 50 mcg PO QAM 12/26/13 06/23/17 Simvastatin [Zocor] 20 mg PO HS 12/26/13 06/23/17 clonazePAM [KlonoPIN] 0.5 mg PO BID PRN 12/26/13 06/23/17 Ferrous Sulfate [Iron (65 MG 325 mg PO TID 11/16/15 06/23/17 Elemental)] HYDROcodone/APAP 7.5-325MG [[place] 1 tab PO DAILY PRN 11/16/15 06/23/17 7.5-325] Biotin 5 mg PO DAILY 06/02/17 06/23/17 Magnesium Citrate 100 mg PO DAILY 06/02/17 06/23/17 Metoprolol Tartrate [Lopressor] 50 mg PO DAILY 06/02/17 06/23/17 Mirabegron [Myrbetriq] 50 mg PO DAILY 06/02/17 06/23/17 Venlafaxine HCl [Effexor XR] 150 mg PO DAILY 06/02/17 06/23/17 Previous Rx's Medication Instructions Recorded Cevimeline [Evoxac] 30 mg PO TID cap 11/14/14 Aspirin 81 mg PO DAILY #1 chewable 11/16/15 Gabapentin [Neurontin] 200 mg PO TID #30 cap 07/03/17 Ziprasidone [Geodon] 20 mg PO BID #20 cap 07/03/17 fentaNYL 25MCG/HR PATCH [Duragesic 1 patch TRANSDERM Q72H #1 patch 07/03/17 25MCG/HR] Allergies Allergy/AdvReac Type Severity Reaction Status Date / Time lidocaine [From LidoPatch] Allergy Rash/Hives Verified 09/25/17 19:07 menthol [From LidoPatch] Allergy Rash/Hives Verified 09/25/17 19:07 Review of Systems ROS Statement: Those systems with pertinent positive or pertinent negative responses have been documented in the HPI. ROS Other: All systems not noted in ROS Statement are negative. 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 SACRAL ULCER, HAD PNE VACCINE AFTER AGE 65 NOT SURE OF DATE AND DR BENITO SHORT UNABLE TO VERIFY DATE. History of Any Multi-Drug Resistant Organisms: None Reported Past Surgical History: Heart Catheterization, Hysterectomy, Orthopedic Surgery Additional Past Surgical History / Comment(s): COLONOSCOPY, REPAIR OF PATENT DUCTUS AT 18MOS OF AGE,LAMICECTOMY,UTERINE FIBROID REMOVED , Basal cell REMOVED FROM RIGHT EAR LOBE. RT KNEE SX, LASIK EYE SX, Past Anesthesia/Blood Transfusion Reactions: No Reported Reaction Past Psychological History: Anxiety, Depression Smoking Status: Former smoker Past Alcohol Use History: None Reported Past Drug Use History: None Reported - Past Family History Mother Family Medical History: No Reported History Sister(s) Family Medical History: Diabetes Mellitus General Exam - General Exam Comments Initial Comments: Is a well-developed asthenic appearing female who is awake alert oriented 3 Limitations: no limitations General appearance: alert, in no apparent distress Head exam: Present: atraumatic, normocephalic, normal inspection Eye exam: Present: normal appearance, PERRL, EOMI. Absent: scleral icterus, conjunctival injection, periorbital swelling ENT exam: Present: mucous membranes dry Neck exam: Present: normal inspection. Absent: tenderness, meningismus, lymphadenopathy Respiratory exam: Present: normal lung sounds bilaterally. Absent: respiratory distress, wheezes, rales, rhonchi, stridor Cardiovascular Exam: Present: regular rate, normal rhythm, normal heart sounds. Absent: systolic murmur, diastolic murmur, rubs, gallop, clicks GI/Abdominal exam: Present: soft, normal bowel sounds. Absent: distended, tenderness, guarding, rebound, rigid Extremities exam: Present: full ROM, tenderness (Tenderness palpation over the left shoulder and left scapula no step-off or crepitation small area of ecchymosis noted over the posterior lateral shoulder.), normal capillary refill. Absent: pedal edema, joint swelling, calf tenderness Back exam: Present: normal inspection Neurological exam: Present: alert, oriented X3, CN II-XII intact Psychiatric exam: Present: normal affect, normal mood Skin exam: Present: warm, dry, intact, normal color. Absent: rash Course Vital Signs 09/25/17 09/25/17 19:03 20:55 Temperature 98.2 F Pulse Rate 75 75 Respiratory 18 16 Rate Blood Pressure 95/59 148/85 O2 Sat by Pulse 97 100 Oximetry EKG Findings - EKG Results: EKG: interpreted by ERMRob, sinus rhythm (Sinus rhythm rate 71. Interval 158 QRS duration 90 QT since QTC 420/465 left exodeviation nonspecific septal changes.) Medical Decision Making - Medical Decision Making Reevaluation patient reveals she still feels shaky additionally she feels weak and still has some dysuria. Thus far lab work is not shown evidence of UTI though she does have evidence of urethritis. After discussion with the patient family patient be admitted for observation tonight with IV fluids IV antibiotics. - Lab Data Result diagrams: 09/25/17 19:52 09/25/17 19:52 Lab Results 09/25/17 09/25/17 09/25/17 Range/Units 19:52 19:52 19:52 WBC 9.0 (3.8-10.6) k/uL RBC 4.69 (3.80-5.40) m/uL Hgb 12.6 (11.4-16.0) gm/dL Hct 39.4 (34.0-46.0) % MCV 84.0 (80.0-100.0) fL MCH 27.0 (25.0-35.0) pg MCHC 32.1 (31.0-37.0) g/dL RDW 12.3 (11.5-15.5) % Plt Count 355 (150-450) k/uL Neutrophils % 72 % Lymphocytes % 17 % Monocytes % 7 % Eosinophils % 2 % Basophils % 0 % Neutrophils # 6.4 (1.3-7.7) k/uL Lymphocytes # 1.5 (1.0-4.8) k/uL Monocytes # 0.6 (0-1.0) k/uL Eosinophils # 0.2 (0-0.7) k/uL Basophils # 0.0 (0-0.2) k/uL Sodium 139 (137-145) mmol/L Potassium 4.2 (3.5-5.1) mmol/L Chloride 100 (98-107) mmol/L Carbon Dioxide 31 H (22-30) mmol/L Anion Gap 8 mmol/L BUN 34 H (7-17) mg/dL Creatinine 1.00 (0.52-1.04) mg/dL Est GFR (CKD-EPI)AfAm 66 (>60 ml/min/1.73 sqM) Est GFR (CKD-EPI)NonAf 57 (>60 ml/min/1.73 sqM) Glucose 85 (74-99) mg/dL Calcium 9.4 (8.4-10.2) mg/dL Magnesium 2.3 (1.6-2.3) mg/dL Total Bilirubin 0.2 (0.2-1.3) mg/dL AST 24 (14-36) U/L ALT 27 (9-52) U/L Alkaline Phosphatase 60 (38-126) U/L Total Creatine Kinase 27 L (30-135) U/L CK-MB (CK-2) 0.9 (0.0-2.4) ng/mL CK-MB (CK-2) Rel Index 3.3 Troponin I <0.012 (0.000-0.034) ng/mL Total Protein 6.5 (6.3-8.2) g/dL Albumin 4.0 (3.5-5.0) g/dL Urine Color Urine Appearance (Clear) Urine pH (5.0-8.0) Ur Specific [place] (1.001-1.035) Urine Protein (Negative) Urine Glucose (UA) (Negative) Urine Ketones (Negative) Urine Blood (Negative) Urine Nitrite (Negative) Urine Bilirubin (Negative) Urine Urobilinogen (<2.0) mg/dL Ur Leukocyte Esterase (Negative) Urine RBC (0-5) /hpf Urine WBC (0-5) /hpf Ur Squamous Epith Cells (0-4) /hpf Urine Mucus (None) /hpf 09/25/17 Range/Units 20:49 WBC (3.8-10.6) k/uL RBC (3.80-5.40) m/uL Hgb (11.4-16.0) gm/dL Hct (34.0-46.0) % MCV (80.0-100.0) fL MCH (25.0-35.0) pg MCHC (31.0-37.0) g/dL RDW (11.5-15.5) % Plt Count (150-450) k/uL Neutrophils % % Lymphocytes % % Monocytes % % Eosinophils % % Basophils % % Neutrophils # (1.3-7.7) k/uL Lymphocytes # (1.0-4.8) k/uL Monocytes # (0-1.0) k/uL Eosinophils # (0-0.7) k/uL Basophils # (0-0.2) k/uL Sodium (137-145) mmol/L Potassium (3.5-5.1) mmol/L Chloride (98-107) mmol/L Carbon Dioxide (22-30) mmol/L Anion Gap mmol/L BUN (7-17) mg/dL Creatinine (0.52-1.04) mg/dL Est GFR (CKD-EPI)AfAm (>60 ml/min/1.73 sqM) Est GFR (CKD-EPI)NonAf (>60 ml/min/1.73 sqM) Glucose (74-99) mg/dL Calcium (8.4-10.2) mg/dL Magnesium (1.6-2.3) mg/dL Total Bilirubin (0.2-1.3) mg/dL AST (14-36) U/L ALT (9-52) U/L Alkaline Phosphatase (38-126) U/L Total Creatine Kinase (30-135) U/L CK-MB (CK-2) (0.0-2.4) ng/mL CK-MB (CK-2) Rel Index Troponin I (0.000-0.034) ng/mL Total Protein (6.3-8.2) g/dL Albumin (3.5-5.0) g/dL Urine Color Yellow Urine Appearance Clear (Clear) Urine pH 6.5 (5.0-8.0) Ur Specific [place] 1.011 (1.001-1.035) Urine Protein Negative (Negative) Urine Glucose (UA) Negative (Negative) Urine Ketones Negative (Negative) Urine Blood Negative (Negative) Urine Nitrite Negative (Negative) Urine Bilirubin Negative (Negative) Urine Urobilinogen <2.0 (<2.0) mg/dL Ur Leukocyte Esterase Trace H (Negative) Urine RBC <1 (0-5) /hpf Urine WBC 2 (0-5) /hpf Ur Squamous Epith Cells <1 (0-4) /hpf Urine Mucus Rare H (None) /hpf - Radiology Data Radiology results: report reviewed (I did review the imaging and reports no acute findings are seen.), image reviewed Disposition Clinical Impression: Dehydration, Urethritis, Failure to thrive Disposition: ADMITTED IP TO THIS [facility] Condition: Stable Referrals: Mario Gabriel DO [Primary Care Provider] - 1-2 days
[2017-09-25 20:03] LABS: Basophils % (A) 0 %; Eosinophils # (A) 0.2 k/uL (0-0.7); Eosinophils % (A) 2 %; HCT 39.4 % (34.0-46.0); HGB 12.6 gm/dL (11.4-16.0); Lymphocytes # (A) 1.5 k/uL (1.0-4.8); Lymphocytes % (A) 17 %; MCHC 32.1 g/dL (31.0-37.0); Monocytes # (A) 0.6 k/uL (0-1.0); Monocytes % (A) 7 %; Neutrophils # (A) 6.4 k/uL (1.3-7.7); Neutrophils % (A) 72 %; Platelet Count 355 k/uL (150-450); RBC 4.69 m/uL (3.80-5.40); RDW 12.3 % (11.5-15.5)
[2017-09-25 20:17] LABS: Calcium 9.4 mg/dL (8.4-10.2); Magnesium 2.3 mg/dL (1.6-2.3); Potassium 4.2 mmol/L (3.5-5.1); Total Bilirubin 0.2 mg/dL (0.2-1.3); Total Protein 6.5 g/dL (6.3-8.2)
[2017-09-25 20:19] LABS: Creatine Kinase 27 U/L (30-135)
[2017-09-25 20:31] LABS: Creatine Kinase MB 0.9 ng/mL (0.0-2.4); Troponin I <0.012 ng/mL (0.000-0.034)
--- NOTE | 2017-09-25 20:42 | XR ---
EXAMINATION TYPE: XR chest 2V DATE OF EXAM: 09/25/2017 COMPARISON: 06/02/2017 HISTORY: Weakness TECHNIQUE: Frontal and lateral views of the chest are obtained. FINDINGS: There is no heart failure nor confluent pneumonic infiltrate. Thoracic aorta is atheromato us. There is no pleural effusion. Bony thorax is intact. IMPRESSION: No active cardiopulmonary disease. No change.
--- NOTE | 2017-09-25 20:43 | XR ---
EXAMINATION TYPE: XR shoulder complete LT DATE OF EXAM: 09/25/2017 COMPARISON: NONE HISTORY: Weakness and shaking fall. TECHNIQUE: 3 views FINDINGS: There is no fracture nor dislocation. Joint spaces are normal. There are no pathologic calc ifications. IMPRESSION: Negative left shoulder exam.
--- NOTE | 2017-09-25 20:44 | XR ---
EXAMINATION TYPE: XR scapula LT DATE OF EXAM: 09/25/2017 COMPARISON: NONE HISTORY: Weakness and shaking TECHNIQUE: 2 views FINDINGS: There is no fracture nor dislocation. Glenohumeral joint is anatomic. IMPRESSION: Negative left scapula exam.
[2017-09-25 21:05] LABS: Appearance,Urine Clear (Clear); Bilirubin,Urine Negative (Negative); Blood,Urine Negative (Negative); Color,Urine Yellow; Glucose,Urine (UA) Negative (Negative); Ketones,Urine Negative (Negative); Leukocyte Esterase,Urine Trace (Negative); Mucus,Urine Rare /hpf; Nitrite,Urine Negative (Negative); PH, Urine 6.5 (5.0-8.0); Protein,Urine Negative (Negative); RBC,Urine <1 /hpf (0-5); Specific Gravity,Urine 1.011 (1.001-1.035); Squamous Epithelial Cell,Urine <1 /hpf (0-4); Urobilinogen,Urine <2.0 mg/dL (<2.0); WBC,Urine 2 /hpf (0-5)
[2017-09-25] MEDS ORDERED: NALOXONE 0.4 MG/ML 1 ML VIAL IV PRN (21:48)
[2017-09-25] MEDS ORDERED: ONDANSETRON 4 MG/2 ML VIAL IVP PRN (21:48)
[2017-09-25] MEDS ORDERED: cefTRIAXone IN SWFI 1,000 MG/10 ML SYRINGE IVP STA (21:48)
--- NOTE | 2017-09-25 21:48 | ED ---
Medical Decision Making - Lab Data Result diagrams: 09/25/17 19:52 09/25/17 19:52 Lab Results 09/25/17 09/25/17 09/25/17 Range/Units 19:52 19:52 19:52 WBC 9.0 (3.8-10.6) k/uL RBC 4.69 (3.80-5.40) m/uL Hgb 12.6 (11.4-16.0) gm/dL Hct 39.4 (34.0-46.0) % MCV 84.0 (80.0-100.0) fL MCH 27.0 (25.0-35.0) pg MCHC 32.1 (31.0-37.0) g/dL RDW 12.3 (11.5-15.5) % Plt Count 355 (150-450) k/uL Neutrophils % 72 % Lymphocytes % 17 % Monocytes % 7 % Eosinophils % 2 % Basophils % 0 % Neutrophils # 6.4 (1.3-7.7) k/uL Lymphocytes # 1.5 (1.0-4.8) k/uL Monocytes # 0.6 (0-1.0) k/uL Eosinophils # 0.2 (0-0.7) k/uL Basophils # 0.0 (0-0.2) k/uL Sodium 139 (137-145) mmol/L Potassium 4.2 (3.5-5.1) mmol/L Chloride 100 (98-107) mmol/L Carbon Dioxide 31 H (22-30) mmol/L Anion Gap 8 mmol/L BUN 34 H (7-17) mg/dL Creatinine 1.00 (0.52-1.04) mg/dL Est GFR (CKD-EPI)AfAm 66 (>60 ml/min/1.73 sqM) Est GFR (CKD-EPI)NonAf 57 (>60 ml/min/1.73 sqM) Glucose 85 (74-99) mg/dL Calcium 9.4 (8.4-10.2) mg/dL Magnesium 2.3 (1.6-2.3) mg/dL Total Bilirubin 0.2 (0.2-1.3) mg/dL AST 24 (14-36) U/L ALT 27 (9-52) U/L Alkaline Phosphatase 60 (38-126) U/L Total Creatine Kinase 27 L (30-135) U/L CK-MB (CK-2) 0.9 (0.0-2.4) ng/mL CK-MB (CK-2) Rel Index 3.3 Troponin I <0.012 (0.000-0.034) ng/mL Total Protein 6.5 (6.3-8.2) g/dL Albumin 4.0 (3.5-5.0) g/dL Urine Color Urine Appearance (Clear) Urine pH (5.0-8.0) Ur Specific [place] (1.001-1.035) Urine Protein (Negative) Urine Glucose (UA) (Negative) Urine Ketones (Negative) Urine Blood (Negative) Urine Nitrite (Negative) Urine Bilirubin (Negative) Urine Urobilinogen (<2.0) mg/dL Ur Leukocyte Esterase (Negative) Urine RBC (0-5) /hpf Urine WBC (0-5) /hpf Ur Squamous Epith Cells (0-4) /hpf Urine Mucus (None) /hpf 09/25/17 Range/Units 20:49 WBC (3.8-10.6) k/uL RBC (3.80-5.40) m/uL Hgb (11.4-16.0) gm/dL Hct (34.0-46.0) % MCV (80.0-100.0) fL MCH (25.0-35.0) pg MCHC (31.0-37.0) g/dL RDW (11.5-15.5) % Plt Count (150-450) k/uL Neutrophils % % Lymphocytes % % Monocytes % % Eosinophils % % Basophils % % Neutrophils # (1.3-7.7) k/uL Lymphocytes # (1.0-4.8) k/uL Monocytes # (0-1.0) k/uL Eosinophils # (0-0.7) k/uL Basophils # (0-0.2) k/uL Sodium (137-145) mmol/L Potassium (3.5-5.1) mmol/L Chloride (98-107) mmol/L Carbon Dioxide (22-30) mmol/L Anion Gap mmol/L BUN (7-17) mg/dL Creatinine (0.52-1.04) mg/dL Est GFR (CKD-EPI)AfAm (>60 ml/min/1.73 sqM) Est GFR (CKD-EPI)NonAf (>60 ml/min/1.73 sqM) Glucose (74-99) mg/dL Calcium (8.4-10.2) mg/dL Magnesium (1.6-2.3) mg/dL Total Bilirubin (0.2-1.3) mg/dL AST (14-36) U/L ALT (9-52) U/L Alkaline Phosphatase (38-126) U/L Total Creatine Kinase (30-135) U/L CK-MB (CK-2) (0.0-2.4) ng/mL CK-MB (CK-2) Rel Index Troponin I (0.000-0.034) ng/mL Total Protein (6.3-8.2) g/dL Albumin (3.5-5.0) g/dL Urine Color Yellow Urine Appearance Clear (Clear) Urine pH 6.5 (5.0-8.0) Ur Specific [place] 1.011 (1.001-1.035) Urine Protein Negative (Negative) Urine Glucose (UA) Negative (Negative) Urine Ketones Negative (Negative) Urine Blood Negative (Negative) Urine Nitrite Negative (Negative) Urine Bilirubin Negative (Negative) Urine Urobilinogen <2.0 (<2.0) mg/dL Ur Leukocyte Esterase Trace H (Negative) Urine RBC <1 (0-5) /hpf Urine WBC 2 (0-5) /hpf Ur Squamous Epith Cells <1 (0-4) /hpf Urine Mucus Rare H (None) /hpf Disposition Clinical Impression: Dehydration, Urethritis, Failure to thrive, Shoulder contusion, Fall Disposition: ADMITTED IP TO THIS [facility] Condition: Stable Referrals: Mario Gabriel DO [Primary Care Provider] - 1-2 days
[2017-09-25] MEDS ORDERED: HYDROcodone/APAP 7.5-325MG 1 EACH TAB PO PRN (21:50)
[2017-09-25] MEDS ORDERED: clonazePAM 0.5 MG TAB PO PRN (21:50)
[2017-09-25] MEDS ORDERED: SODIUM CHLORIDE 0.9% 500 ML IV STA (21:52)
[2017-09-25] MEDS: GABAPENTIN 100 MG CAP PO SCH (23:20)
[2017-09-25] MEDS: CEVIMELINE 30 MG CAP PO SCH (23:20)
[2017-09-25] MEDS: FERROUS SULFATE 325 MG TAB PO SCH (23:20)
[2017-09-26] MEDS: SODIUM CHLORIDE 0.9% 1,000 ML IV SCH (01:59)
[2017-09-26] MEDS: LEVOTHYROXINE 50 MCG TAB PO SCH (06:45)
[2017-09-26] MEDS ORDERED: cefTRIAXone IN SWFI 1,000 MG/10 ML SYRINGE IVP SCH (09:00)
[2017-09-26] MEDS ORDERED: NON-FORMULARY DRUG (Biotin [Biotin] 5 MG) PO SCH (09:00)
[2017-09-26] MEDS ORDERED: VENLAFAXINE HCL ER 150 MG CAP PO SCH ×2 (09:00→21:00)
[2017-09-26] MEDS: LORATADINE 10 MG TAB PO SCH (09:01)
[2017-09-26] MEDS: GABAPENTIN 100 MG CAP PO SCH ×3 (09:02→21:42)
[2017-09-26] MEDS: CEVIMELINE 30 MG CAP PO SCH ×3 (09:02→21:41)
[2017-09-26] MEDS: FERROUS SULFATE 325 MG TAB PO SCH ×3 (09:02→21:41)
[2017-09-26] MEDS: ZIPRASIDONE 20 MG CAP PO SCH ×2 (09:03→21:41)
[2017-09-26] MEDS: METOPROLOL TARTRATE 50 MG TAB PO SCH ×2 (09:07→09:23)
[2017-09-26] MEDS: ASPIRIN 81 MG PO SCH (09:07)
[2017-09-26] MEDS: Mirabegron [Myrbetriq] PO SCH (09:08)
--- NOTE | 2017-09-26 14:57 | P.HPIM ---
History of Present Illness 71-year-old admitted with complaints of fall and knee knees buckling patient underwent evaluation with scapular, shoulder, chest x-ray without any significant abnormality patient was comparing of dysuria because of which patient was believed to have urinary tract infection although urease is not impressive for UTI. Patient was started on anti-medics which will be discontinued. Patient was comparing of shoulder pain. Patient is bit dehydrated with elevated BUN/creatinine although creatinine is 1 be in his 34 patient was started on IV fluids will be continued will obtain PT and OT consultation possibility of discharge tomorrow if antibiotics will be discontinued. Review of Systems REVIEW OF SYSTEMS: CONSTITUTIONAL: No fever, no malaise, no fatigue. HEENT: No recent visual problems or hearing problems. Denied any sore throat. CARDIOVASCULAR: No chest pain, orthopnea, PND, no palpitations, no syncope. PULMONARY: No shortness of breath, no cough, no hemoptysis. GASTROINTESTINAL: No diarrhea, no nausea, no vomiting, no abdominal pain. Normoactive bowel sounds. NEUROLOGICAL: No headaches, no weakness, no numbness. HEMATOLOGICAL: Denies any bleeding or petechiae. GENITOURINARY: Denies any burning micturition, frequency, or urgency. MUSCULOSKELETAL/RHEUMATOLOGICAL: Denies any joint pain, swelling, or any muscle pain. ENDOCRINE: Denies any polyuria or polydipsia. The rest of the 14-point review of systems is negative. 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 SACRAL ULCER, HAD PNE VACCINE AFTER AGE 65 NOT SURE OF DATE AND DR BENITO SHORT UNABLE TO VERIFY DATE. 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 RT KNEE SX, LASIK EYE SX, Past Anesthesia/Blood Transfusion Reactions: No Reported Reaction Past Psychological History: Anxiety, Depression Smoking Status: Former smoker Past Alcohol Use History: None Reported Additional Past Alcohol Use History / Comment(s): QUIT SMOKING IN 1970'S SMOKED FOR APPROX. 10 YEARS. SMOKED 1PPD Past Drug Use History: None Reported - Past Family History Mother Family Medical History: No Reported History Sister(s) Family Medical History: Diabetes Mellitus Medications and Allergies Home Medications Medication Instructions Recorded Confirmed Type Simvastatin [Zocor] 20 mg PO HS 12/26/13 09/25/17 History Cevimeline [Evoxac] 30 mg PO TID cap 11/14/14 09/25/17 Rx Aspirin 81 mg PO DAILY #1 chewable 11/16/15 09/25/17 Rx Ferrous Sulfate [Iron (65 MG 325 mg PO BID 11/16/15 09/25/17 History Elemental)] Biotin 5 mg PO DAILY 06/02/17 09/25/17 History Mirabegron [Myrbetriq] 50 mg PO HS 06/02/17 09/25/17 History Ziprasidone [Geodon] 20 mg PO BID #20 cap 07/03/17 09/25/17 Rx Furosemide [Lasix] 20 mg PO DAILY 09/25/17 09/25/17 History Gabapentin [Neurontin] 300 mg PO TID 09/25/17 09/25/17 History L.acidoph,Paracasei, B.lactis 1 cap PO DAILY 09/25/17 09/25/17 History [Probiotic] Levothyroxine Sodium [Synthroid] 75 mcg PO DAILY 09/25/17 09/25/17 History Meloxicam 15 mg PO HS 09/25/17 09/25/17 History hydrOXYzine PAMOATE [Vistaril] 50 mg PO QID 09/25/17 09/25/17 History Beyond [employer]otics Ultra Blend 1 cap PO DAILY 09/26/17 History Grown [employer] Powder 1 scoop PO DAILY 09/26/17 History Loratadine [Claritin] 10 mg PO DAILY 09/26/17 09/26/17 History Metoprolol Succinate (ER) [Toprol 25 mg PO DAILY 09/26/17 09/26/17 History Xl] [place] Xl 4 cap PO DAILY 09/26/17 09/26/17 History fentaNYL 75MCG/HR PATCH [Duragesic 1 patch TRANSDERM Q72H 09/26/17 09/26/17 History 75MCG/HR] Allergies Allergy/AdvReac Type Severity Reaction Status Date / Time lidocaine [From LidoPatch] Allergy Rash/Hives Verified 09/25/17 21:52 menthol [From LidoPatch] Allergy Rash/Hives Verified 09/25/17 21:52 Physical Exam Vitals: Vital Signs Temp Pulse Pulse Resp BP BP Pulse Ox 09/26/17 05:54 97.0 F L 76 18 113/51 94 L 09/26/17 01:38 97.1 F L 74 16 127/67 93 L 09/25/17 20:55 75 16 148/85 100 09/25/17 19:03 98.2 F 75 18 95/59 97 Intake and Output 09/25/17 09/26/17 09/26/17 22:59 06:59 14:59 Intake Total 120 Balance 120 Intake: Oral 120 Other: Voiding Method Bedside Commode # Voids 1 3 # Bowel Movements 1 Weight 54.431 kg PHYSICAL EXAMINATION: GENERAL: The patient is alert and oriented x3, not in any acute distress. Well developed, well nourished. HEENT: Pupils are round and equally reacting to light. EOMI. No scleral icterus. No conjunctival pallor. Normocephalic, atraumatic. No pharyngeal erythema. No thyromegaly. CARDIOVASCULAR: S1 and S2 present. No murmurs, rubs, or gallops. PULMONARY: Chest is clear to auscultation, no wheezing or crackles. ABDOMEN: Soft, nontender, nondistended, normoactive bowel sounds. No palpable organomegaly. MUSCULOSKELETAL: No joint swelling or deformity. EXTREMITIES: No cyanosis, clubbing, or pedal edema. NEUROLOGICAL: Gross neurological examination did not reveal any focal deficits. SKIN: No rashes. Results CBC & Chem 7: 09/25/17 19:52 09/25/17 19:52 Labs: Abnormal Lab Results - Last 24 Hours (Table) 09/25/17 09/25/17 09/25/17 Range/Units 19:52 19:52 20:49 Carbon Dioxide 31 H (22-30) mmol/L BUN 34 H (7-17) mg/dL Total Creatine Kinase 27 L (30-135) U/L Ur Leukocyte Esterase Trace H (Negative) Urine Mucus Rare H (None) /hpf Thrombosis Risk Factor Assmnt - Choose All That Apply Any of the Below Risk Factors Present?: No Other Risk Factors: Yes Each Risk Factor Represents 2 Points: Age 61-74 years Other congenital or acquired thrombophilia - If yes, enter type in comment: No Thrombosis Risk Factor Assessment Total Risk Factor Score: 2 Thrombosis Risk Factor Assessment Level: Low Risk Assessment and Plan Plan: -Fall: Secondary to generalized deconditioning probably osteoarthritis. Patient will need physical therapy PT and OT was consulted. There may be a contribution of mild dehydration. My suspicion is extremely low that patient has urinary tract infection and medics will be discontinued -Possible mild acute renal failure prerenal azotemia expected to improve with IV fluids -Fibromyalgia -History of severe aortic stenosis next and-hyperlipidemia -Hypertension next line-hypothyroidism -Diverticulosis history. -Depression continue the venlafaxine
[2017-09-26] MEDS ORDERED: ATORVASTATIN 10 MG TAB PO SCH (21:00)
[2017-09-26] MEDS: ACETAMINOPHEN TAB 325 MG TAB PO PRN (21:43)
[2017-09-26 23:16] VITALS: TEMP 97.1
[2017-09-27] MEDS: LEVOTHYROXINE 50 MCG TAB PO SCH (06:32)
[2017-09-27] MEDS: SODIUM CHLORIDE 0.9% 1,000 ML IV SCH ×3 (06:33→09:21)
[2017-09-27] MEDS: ACETAMINOPHEN TAB 325 MG TAB PO PRN (06:34)
[2017-09-27] MEDS: CEVIMELINE 30 MG CAP PO SCH ×2 (08:39→15:27)
[2017-09-27] MEDS: ASPIRIN 81 MG PO SCH (08:39)
[2017-09-27] MEDS: LORATADINE 10 MG TAB PO SCH (08:39)
[2017-09-27] MEDS: GABAPENTIN 100 MG CAP PO SCH ×2 (08:39→15:27)
[2017-09-27] MEDS: ZIPRASIDONE 20 MG CAP PO SCH (08:39)
[2017-09-27] MEDS: FERROUS SULFATE 325 MG TAB PO SCH ×2 (08:39→15:27)
[2017-09-27] MEDS: Mirabegron [Myrbetriq] PO SCH (08:40)
[2017-09-27 08:46] VITALS: BP 147/74; PULSE 72; RESP 18
[2017-09-27] MEDS ORDERED: METOPROLOL TARTRATE 25 MG TAB PO SCH (09:00)
--- NOTE | 2017-09-27 16:03 | P.DS ---
Providers Date of admission: 09/25/17 21:47 Attending physician: Aviva Johnson Primary care physician: [facility] Course: Patient was admitted secondary to fall from generalized weakness declined to go to subacute rehab PT and OT here evaluated the patient patient is okay with home intermediate and home PT which will be provided to the patient patient will follow with PCP. Patient was using diuretic therapy at home for bilateral pedal edema, patient has mild acute renal failure secondary to intravascular depletion and dehydration because of which I'm discontinuing Lasix patient was asked to his compression socks for pedal edema. PHYSICAL EXAMINATION: GENERAL: The patient is alert and oriented x3, not in any acute distress. Well developed, well nourished. HEENT: Pupils are round and equally reacting to light. EOMI. No scleral icterus. No conjunctival pallor. Normocephalic, atraumatic. No pharyngeal erythema. No thyromegaly. CARDIOVASCULAR: S1 and S2 present. No murmurs, rubs, or gallops. PULMONARY: Chest is clear to auscultation, no wheezing or crackles. ABDOMEN: Soft, nontender, nondistended, normoactive bowel sounds. No palpable organomegaly. MUSCULOSKELETAL: No joint swelling or deformity. EXTREMITIES: No cyanosis, clubbing, or pedal edema. NEUROLOGICAL: Gross neurological examination did not reveal any focal deficits. SKIN: No rashes. Assessment and Plan Plan: -Fall: Secondary to generalized deconditioning probably osteoarthritis. -Possible mild acute renal failure prerenal azotemia expected to improve with IV fluids -Fibromyalgia -History of severe aortic stenosis -hyperlipidemia -Hypertension -hypothyroidism -Diverticulosis history. -Depression continue the venlafaxine Patient Condition at Discharge: Stable Plan - Discharge Summary New Discharge Prescriptions: Discontinued Furosemide [Lasix] 20 mg PO DAILY No Action Simvastatin [Zocor] 20 mg PO HS Cevimeline [Evoxac] 30 mg PO TID cap Ferrous Sulfate [Iron (65 MG Elemental)] 325 mg PO BID Aspirin 81 mg PO DAILY #1 chewable Biotin 5 mg PO DAILY Mirabegron [Myrbetriq] 50 mg PO HS Ziprasidone [Geodon] 20 mg PO BID #20 cap hydrOXYzine PAMOATE [Vistaril] 50 mg PO QID Meloxicam 15 mg PO HS L.acidoph,Paracasei, B.lactis [Probiotic] 1 cap PO DAILY Levothyroxine Sodium [Synthroid] 75 mcg PO DAILY Gabapentin [Neurontin] 300 mg PO TID Loratadine [Claritin] 10 mg PO DAILY Alpine Xl 4 cap PO DAILY Metoprolol Succinate (ER) [Toprol Xl] 25 mg PO DAILY Grown Brazilian Superfood Powder 1 scoop PO DAILY Beyond Biotics Ultra Blend 1 cap PO DAILY fentaNYL 75MCG/HR PATCH [Duragesic 75MCG/HR] 1 patch TRANSDERM Q72H Discharge Medication List Simvastatin [Zocor] 20 mg PO HS 12/26/13 [History] Cevimeline [Evoxac] 30 mg PO TID cap 11/14/14 [Rx] Aspirin 81 mg PO DAILY #1 chewable 11/16/15 [Rx] Ferrous Sulfate [Iron (65 MG Elemental)] 325 mg PO BID 11/16/15 [History] Biotin 5 mg PO DAILY 06/02/17 [History] Mirabegron [Myrbetriq] 50 mg PO HS 06/02/17 [History] Ziprasidone [Geodon] 20 mg PO BID #20 cap 07/03/17 [Rx] Gabapentin [Neurontin] 300 mg PO TID 09/25/17 [History] L.acidoph,Paracasei, B.lactis [Probiotic] 1 cap PO DAILY 09/25/17 [History] Levothyroxine Sodium [Synthroid] 75 mcg PO DAILY 09/25/17 [History] Meloxicam 15 mg PO HS 09/25/17 [History] hydrOXYzine PAMOATE [Vistaril] 50 mg PO QID 09/25/17 [History] Beyond Biotics Ultra Blend 1 cap PO DAILY 09/26/17 [History] Grown Brazilian Superfood Powder 1 scoop PO DAILY 09/26/17 [History] Loratadine [Claritin] 10 mg PO DAILY 09/26/17 [History] Metoprolol Succinate (ER) [Toprol Xl] 25 mg PO DAILY 09/26/17 [History] Alpine Xl 4 cap PO DAILY 09/26/17 [History] fentaNYL 75MCG/HR PATCH [Duragesic 75MCG/HR] 1 patch TRANSDERM Q72H 09/26/17 [ History] Follow up Appointment(s)/Referral(s): Mario Gabriel DO [Primary Care Provider] - 10/09/17 3:00 pm Patient Instructions/Handouts: Dehydration (DC) Activity/Diet/Wound Care/Special Instructions: activity as tolerated heart healthy diet [facility] [phone] Discharge Disposition: HOME WITH HOME HEALTH SERVICES
== END 2017-09-27 15:46 | disposition home health service (06) ==
LOC: EC 18:40 → 4MS4W 21:47
PROVIDERS: ADMIT Hospitalist; ATTEND Hospitalist
DX: R53.1 Weakness (principal); R53.81 Other malaise; S40.019A Contusion of unspecified shoulder, initial encounter; R62.7 Adult failure to thrive; E86.0 Dehydration; E86.9 Volume depletion, unspecified; R30.0 Dysuria; M79.7 Fibromyalgia; K57.90 Diverticulosis of intestine, part unspecified, without perforation or abscess without bleeding; I35.0 Nonrheumatic aortic (valve) stenosis; I10 Essential (primary) hypertension; E78.5 Hyperlipidemia, unspecified; E03.9 Hypothyroidism, unspecified; F32.9 Major depressive disorder, single episode, unspecified; F41.9 Anxiety disorder, unspecified; R79.89 Other specified abnormal findings of blood chemistry; G47.30 Sleep apnea, unspecified; Z99.89 Dependence on other enabling machines and devices; M25.561 Pain in right knee; W19.XXXA Unspecified fall, initial encounter; Z79.82 Long term (current) use of aspirin; Z79.890 Hormone replacement therapy; Z79.891 Long term (current) use of opiate analgesic; Z79.899 Other long term (current) drug therapy; N17.9 Acute kidney failure, unspecified; E07.9 Disorder of thyroid, unspecified; Z79.1 Long term (current) use of non-steroidal anti-inflammatories (NSAID); Z88.4 Allergy status to anesthetic agent; Z86.718 Personal history of other venous thrombosis and embolism; Z85.828 Personal history of other malignant neoplasm of skin; Z87.440 Personal history of urinary (tract) infections; Z86.711 Personal history of pulmonary embolism; Z87.01 Personal history of pneumonia (recurrent); Z87.74 Personal history of (corrected) congenital malformations of heart and circulatory system; Z87.891 Personal history of nicotine dependence; Z90.89 Acquired absence of other organs; Z90.710 Acquired absence of both cervix and uterus; Z83.3 Family history of diabetes mellitus
CPT/HCPCS: 99285 ×2; 96374 ×2; 96361 ×7; 96376; 36415; 93005; 97162; 80053; 82550; 82553; 83735; 84484; 85025; 81001; 87040; 73030; 73010; 71046; G0378 ×3; J0696 ×2

== ENCOUNTER 2017-12-08 15:47 | Inpatient (IN) | payer MEDICARE ==
[2017-12-08] MEDS ORDERED: LORazepam 2 MG/ML INJ IV STA (16:21)
--- NOTE | 2017-12-08 16:33 | ED ---
SOB HPI - General Source: patient, RN notes reviewed Mode of arrival: EMS Limitations: no limitations <Shelby Mcintyre - Last Filed: 12/08/17 19:20> <King Ayala - Last Filed: 12/10/17 16:23> - General Chief Complaint: Shortness of Breath Stated Complaint: ERNESTINA Time Seen by Provider: 12/08/17 16:01 - History of Present Illness Initial Comments: This is a 72-year-old female who presents to the emergency department with chief complaint of shortness of breath. Patient is a very poor historian and appears confused. She states that prior to arrival she was sitting in her massage chair. She states that during the massage she became short of breath. She denies any fevers or chills, chest pain, abdominal pain, nausea or vomiting. (Shelby Mcintyre) - Related Data Home Medications Medication Instructions Recorded Confirmed Simvastatin [Zocor] 20 mg PO HS 12/26/13 12/08/17 Ferrous Sulfate [Iron (65 MG 325 mg PO BID 11/16/15 12/08/17 Elemental)] Biotin 5 mg PO DAILY 06/02/17 12/08/17 Mirabegron [Myrbetriq] 50 mg PO HS 06/02/17 12/08/17 Gabapentin [Neurontin] 300 mg PO TID 09/25/17 12/08/17 L.acidoph,Paracasei, B.lactis 1 cap PO DAILY 09/25/17 12/08/17 [Probiotic] Levothyroxine Sodium [Synthroid] 75 mcg PO DAILY 09/25/17 12/08/17 Meloxicam 15 mg PO HS 09/25/17 12/08/17 hydrOXYzine PAMOATE [Vistaril] 50 mg PO QID 09/25/17 12/08/17 Beyond Biotics Ultra Blend 1 cap PO DAILY 09/26/17 12/08/17 Grown [place]ambian Superfood Powder 1 scoop PO DAILY 09/26/17 12/08/17 Loratadine [Claritin] 10 mg PO DAILY 09/26/17 12/08/17 Metoprolol Succinate (ER) [Toprol 25 mg PO DAILY 09/26/17 12/08/17 Xl] [place] Xl 4 cap PO DAILY 09/26/17 12/08/17 fentaNYL 75MCG/HR PATCH [Duragesic 1 patch TRANSDERM Q72H 09/26/17 12/08/17 75MCG/HR] traZODone HCL [Desyrel] 100 mg PO HS 12/08/17 12/08/17 Previous Rx's Medication Instructions Recorded Cevimeline [Evoxac] 30 mg PO TID cap 11/14/14 Aspirin 81 mg PO DAILY #1 chewable 11/16/15 Allergies Allergy/AdvReac Type Severity Reaction Status Date / Time lidocaine [From LidoPatch] Allergy Rash/Hives Verified 12/08/17 18:32 menthol [From LidoPatch] Allergy Rash/Hives Verified 12/08/17 18:32 Review of Systems ROS Other: All systems not noted in ROS Statement are negative. <Shelby Mcintyre - Last Filed: 12/08/17 19:20> ROS Other: All systems not noted in ROS Statement are negative. <King Ayala - Last Filed: 12/10/17 16:23> ROS Statement: Those systems with pertinent positive or pertinent negative responses have been documented in the HPI. 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 SACRAL ULCER, HAD PNE VACCINE AFTER AGE 65 NOT SURE OF DATE AND DR EBNITO SHORT UNABLE TO VERIFY DATE. 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 RT KNEE SX, LASIK EYE SX, Past Anesthesia/Blood Transfusion Reactions: No Reported Reaction Past Psychological History: Anxiety, Depression Smoking Status: Former smoker Past Alcohol Use History: None Reported Past Drug Use History: None Reported - Past Family History Mother Family Medical History: No Reported History Sister(s) Family Medical History: Diabetes Mellitus <Miguelina,Shelby M - Last Filed: 12/08/17 19:20> General Exam Limitations: no limitations <Shelby Mcintyre - Last Filed: 12/08/17 19:20> General appearance: alert, in no apparent distress, anxious Head exam: Present: atraumatic, normocephalic, normal inspection Eye exam: Present: normal appearance, PERRL, EOMI. Absent: scleral icterus, conjunctival injection, periorbital swelling ENT exam: Present: normal exam, mucous membranes moist Neck exam: Present: normal inspection. Absent: tenderness, meningismus, lymphadenopathy Respiratory exam: Present: normal lung sounds bilaterally. Absent: respiratory distress, wheezes, rales, rhonchi, stridor Cardiovascular Exam: Present: normal rhythm, bradycardia, normal heart sounds. Absent: systolic murmur, diastolic murmur, rubs, gallop, clicks GI/Abdominal exam: Present: soft, normal bowel sounds. Absent: distended, tenderness, guarding, rebound, rigid Extremities exam: Present: normal inspection, full ROM, normal capillary refill. Absent: tenderness, pedal edema, joint swelling, calf tenderness Back exam: Present: normal inspection Neurological exam: Present: alert, oriented X3, CN II-XII intact Psychiatric exam: Present: normal affect, normal mood Skin exam: Present: warm, dry, intact, normal color. Absent: rash <King Ayala B - Last Filed: 12/10/17 16:23> - General Exam Comments Initial Comments: General: Awake and alert, well-developed; very anxious. Hyperventilating. Repeating herself. HEENT: Head atraumatic, normocephalic. Pupils are equal, round and reactive to light. Extraocular movements intact. Oropharynx moist without erythema or exudate. Neck: Supple. Normal ROM. Cardiovascular: Regular rate and rhythm. No murmurs, rubs or gallops. Chest symmetrical. Respiratory: Lungs clear to auscultation bilaterally. No wheezes, rales or rhonchi. Normal respiratory effort with no use of accessory muscles. Abdomen: Soft, non-tender, non-distended. No rigidity, rebound or guarding. Musculoskeletal: Normal ROM, no tenderness, strength 5/5 bilateral upper and lower extremities. Skin: Reform, warm and dry without rashes or lesions. Neurological: Alert and oriented x3. CN II-XII grossly intact. Speech is fluent. No focal neuro deficits. (Shelby Mcintyre) Course <Shelby Mcintyre - Last Filed: 12/08/17 19:20> <King Ayala - Last Filed: 12/10/17 16:23> Vital Signs 12/08/17 12/08/17 12/08/17 15:59 18:10 18:20 Temperature 97.9 F Pulse Rate 59 L 84 84 Respiratory 18 18 18 Rate Blood Pressure 169/86 154/90 154/90 O2 Sat by Pulse 95 102 H 98 Oximetry - Reevaluation(s) Reevaluation #1: 12/08/17 17:56 Medical records thoroughly thoroughly reviewed including prior heart catheterization 2 years ago (King Ayala) Reevaluation #2: 12/08/17 17:56 Patient at this time is without significant complaint, denies chest pain, denies chest pain throughout ER stay, shortness of breath is and has been resolved (King Ayala) Reevaluation #3: 12/08/17 17:56 Spoke with cardiology, well aware of patient for minor with patient, will be in emergency room to see patient (King Ayala) Medical Decision Making - Lab Data Result diagrams: 12/08/17 16:40 12/08/17 16:40 - Radiology Data Radiology results: report reviewed, image reviewed <Shelby Mcintyre - Last Filed: 12/08/17 19:20> - Lab Data Result diagrams: 12/10/17 05:30 12/10/17 05:30 - Radiology Data Radiology results: report reviewed (Chest x-rays negative for acute disease), image reviewed <King Ayala - Last Filed: 12/10/17 16:23> - Medical Decision Making This is a 72-year-old female who presented to the emergency department with chief complaint of shortness of breath. Patient is a poor historian, appears confused and has difficulty answering questions. She is repeating herself consistently. EKG revealed sinus rhythm with occasional PVCs. EKG was taken almost an hour after patient arrival. It was reviewed by myself and Dr. Ayala. Patient denied any chest pain. Troponin came back at 4.8. Dr. Ayala was in contact with cardiology. Patient will be admitted to Dr. Azar with consult to cardiology. Vitals have been stable. Patient sent to cardiac catheterization technologist. (ConnerShelby) 72 female who was seen and evaluated emergency, for shortness of breath, patient remained asymptomatic throughout ER stay. Patient does have positive EKG changes, elevated troponin, patient will transfer to Real Estate Account Executive (King Ayala) - Lab Data Lab Results 12/08/17 12/08/17 12/08/17 Range/Units 16:40 16:40 16:40 WBC 17.3 H (3.8-10.6) k/uL RBC 4.68 (3.80-5.40) m/uL Hgb 13.4 (11.4-16.0) gm/dL Hct 40.2 (34.0-46.0) % MCV 85.9 (80.0-100.0) fL MCH 28.6 (25.0-35.0) pg MCHC 33.3 (31.0-37.0) g/dL RDW 14.9 (11.5-15.5) % Plt Count 286 (150-450) k/uL Neutrophils % 89 % Lymphocytes % 5 % Monocytes % 4 % Eosinophils % 0 % Basophils % 0 % Neutrophils # 15.3 H (1.3-7.7) k/uL Lymphocytes # 0.9 L (1.0-4.8) k/uL Monocytes # 0.8 (0-1.0) k/uL Eosinophils # 0.0 (0-0.7) k/uL Basophils # 0.0 (0-0.2) k/uL PT 9.9 (9.0-12.0) sec INR 1.0 (<1.2) APTT 20.0 L (22.0-30.0) sec D-Dimer 0.40 (<0.60) mg/L FEU Sodium 141 (137-145) mmol/L Potassium 4.4 (3.5-5.1) mmol/L Chloride 103 (98-107) mmol/L Carbon Dioxide 22 (22-30) mmol/L Anion Gap 16 mmol/L BUN 25 H (7-17) mg/dL Creatinine 0.89 (0.52-1.04) mg/dL Est GFR (CKD-EPI)AfAm 75 (>60 ml/min/1.73 sqM) Est GFR (CKD-EPI)NonAf 65 (>60 ml/min/1.73 sqM) Glucose 118 H (74-99) mg/dL Calcium 10.3 H (8.4-10.2) mg/dL Magnesium 2.0 (1.6-2.3) mg/dL Total Bilirubin 1.1 (0.2-1.3) mg/dL AST 81 H (14-36) U/L ALT 26 (9-52) U/L Alkaline Phosphatase 74 (38-126) U/L Troponin I (0.000-0.034) ng/mL Total Protein 7.5 (6.3-8.2) g/dL Albumin 4.5 (3.5-5.0) g/dL 12/08/17 Range/Units 16:40 WBC (3.8-10.6) k/uL RBC (3.80-5.40) m/uL Hgb (11.4-16.0) gm/dL Hct (34.0-46.0) % MCV (80.0-100.0) fL MCH (25.0-35.0) pg MCHC (31.0-37.0) g/dL RDW (11.5-15.5) % Plt Count (150-450) k/uL Neutrophils % % Lymphocytes % % Monocytes % % Eosinophils % % Basophils % % Neutrophils # (1.3-7.7) k/uL Lymphocytes # (1.0-4.8) k/uL Monocytes # (0-1.0) k/uL Eosinophils # (0-0.7) k/uL Basophils # (0-0.2) k/uL PT (9.0-12.0) sec INR (<1.2) APTT (22.0-30.0) sec D-Dimer (<0.60) mg/L FEU Sodium (137-145) mmol/L Potassium (3.5-5.1) mmol/L Chloride (98-107) mmol/L Carbon Dioxide (22-30) mmol/L Anion Gap mmol/L BUN (7-17) mg/dL Creatinine (0.52-1.04) mg/dL Est GFR (CKD-EPI)AfAm (>60 ml/min/1.73 sqM) Est GFR (CKD-EPI)NonAf (>60 ml/min/1.73 sqM) Glucose (74-99) mg/dL Calcium (8.4-10.2) mg/dL Magnesium (1.6-2.3) mg/dL Total Bilirubin (0.2-1.3) mg/dL AST (14-36) U/L ALT (9-52) U/L Alkaline Phosphatase (38-126) U/L Troponin I 4.800 H* (0.000-0.034) ng/mL Total Protein (6.3-8.2) g/dL Albumin (3.5-5.0) g/dL - EKG Data EKG Comments: 16:47:11. Sinus rhythm with occasional premature ventricular complexes. Left anterior fascicular block. Minimal voltage criteria for LVH, may be normal variant. Possible inferior infarct, age undetermined. Anterior infarct, age undetermined. Ventricular rate 100 bpm, NE interval 144, QRS duration 82, QT/ QTC 336/433 (Shelby Mcintyre) - Radiology Data Chest x-ray impression: No active cardiopulmonary disease. No change. (Shelby Mcintyre) Critical Care Time Critical Care Time: Yes Total Critical Care Time: 31 <King Ayala - Last Filed: 12/10/17 16:23> Disposition Is patient prescribed a controlled substance at d/c from ED?: No Time of Disposition: 17:40 <Shelby Mcintyre - Last Filed: 12/08/17 19:20> Is patient prescribed a controlled substance at d/c from ED?: No <King Ayala - Last Filed: 12/10/17 16:23> Clinical Impression: NSTEMI (non-ST elevated myocardial infarction), ACS (acute coronary syndrome), Mental status change Disposition: ADMITTED IP TO THIS HOSP Condition: Critical
[2017-12-08 16:54] LABS: Basophils % (A) 0 %; Eosinophils % (A) 0 %; HCT 40.2 % (34.0-46.0); HGB 13.4 gm/dL (11.4-16.0); Lymphocytes # (A) 0.9 k/uL (1.0-4.8); Lymphocytes % (A) 5 %; MCH 28.6 pg (25.0-35.0); MCHC 33.3 g/dL (31.0-37.0); MCV 85.9 fL (80.0-100.0); Mean Platelet Volume 6.6; Monocytes # (A) 0.8 k/uL (0-1.0); Monocytes % (A) 4 %; Neutrophils # (A) 15.3 k/uL (1.3-7.7); Neutrophils % (A) 89 %; Platelet Count 286 k/uL (150-450); RBC 4.68 m/uL (3.80-5.40); RDW 14.9 % (11.5-15.5); WBC 17.3 k/uL (3.8-10.6)
[2017-12-08 17:03] LABS: Albumin 4.5 g/dL (3.5-5.0); Calcium 10.3 mg/dL (8.4-10.2); Potassium 4.4 mmol/L (3.5-5.1); Total Bilirubin 1.1 mg/dL (0.2-1.3); Total Protein 7.5 g/dL (6.3-8.2)
--- NOTE | 2017-12-08 17:04 | XR ---
EXAMINATION TYPE: XR chest 2V DATE OF EXAM: 12/08/2017 COMPARISON: 09/25/2017 HISTORY: Difficulty breathing TECHNIQUE: Frontal and lateral views of the chest are obtained. FINDINGS: There is no heart failure nor confluent pneumonic infiltrate. Costophrenic angles are josh r. There is atheromatous change in the thoracic aorta. Bony thorax appears intact. There is mild pect us excavatum chest deformity. IMPRESSION: No active cardiopulmonary disease. No change.
[2017-12-08 17:15] LABS: D-Dimer 0.4 mg/L FEU (<0.60); Prothrombin Time 9.9 sec (9.0-12.0)
[2017-12-08] MEDS ORDERED: ASPIRIN 81 MG PO STA (17:23)
[2017-12-08] MEDS ORDERED: HEPARIN SODIUM,PORCINE 5,000 UNIT/ML 1 ML VIAL IV PRN (17:31)
[2017-12-08] MEDS ORDERED: HEPARIN SODIUM,PORCINE 5,000 UNIT/ML 1 ML VIAL IV ONE (17:31)
[2017-12-08] MEDS ORDERED: NITROGLYCERIN SL TABS 0.4 MG TAB SUBLINGUAL PRN ×2 (17:31→19:36)
[2017-12-08] MEDS ORDERED: HEPARIN SOD,PORK IN 0.45% NACL 25,000 UNIT in 0.45% NACL 1 500ML.BAG IV SCH (17:45)
[2017-12-08] MEDS ORDERED: SODIUM CHLORIDE 0.9% 1,000 ML IV SCH ×2 (17:45→19:45)
[2017-12-08] MEDS ORDERED: METOPROLOL TARTRATE 5 MG/5 ML VIAL IVP STA (18:12)
[2017-12-08] MEDS ORDERED: SODIUM CHLORIDE 0.9% 1,000 ML IV ONE (18:33)
[2017-12-08] MEDS ORDERED: fentaNYL (PF) 50 MCG/ML 2 ML AMP ONE (18:49)
[2017-12-08] MEDS ORDERED: fentaNYL (PF) 50 MCG/ML 2 ML AMP IVP ONE (18:50)
[2017-12-08] MEDS ORDERED: CHLOROPROCAINE 3% 30 MG/ML 20 ML VIAL MISCELLANE ONE (18:52)
[2017-12-08] MEDS: NITROGLYCERIN 1000MCG/10ML SYRINGE INTRACORON ONE ×2 (18:57→19:15)
[2017-12-08] MEDS ORDERED: BIVALIRUDIN BOLUS 250 MG/50 ML IV ONE (19:05)
[2017-12-08] MEDS ORDERED: TICAGRELOR 90 MG TAB ONE (19:05)
[2017-12-08] MEDS ORDERED: BIVALIRUDIN 250 MG in SODIUM CHLORIDE 0.9% 50 ML IV ONE (19:06)
[2017-12-08] MEDS ORDERED: TICAGRELOR 90 MG TAB PO ONE (19:07)
[2017-12-08] MEDS ORDERED: IOPAMIDOL-370 125ML BTL INJ ONE ×2 (19:08→19:24)
[2017-12-08] MEDS ORDERED: MAG HYDROX/AL HYDROX/SIMETH 30 ML CUP PO PRN (19:36)
[2017-12-08] MEDS ORDERED: ATROPINE SULFATE 0.1 MG/ML 10ML SYRINGE IV PRN (19:36)
[2017-12-08] MEDS ORDERED: ZOLPIDEM 5 MG TAB PO PRN (19:36)
[2017-12-08] MEDS ORDERED: RX INFO: IV CONTRAST WAS GIVEN 1 EACH MISC MISCELLANE PRN (19:36)
[2017-12-08 19:50] LABS: Glucose,Whole Blood 113 mg/dL (75-99)
[2017-12-08] MEDS: GABAPENTIN 300 MG CAP PO SCH (21:01)
[2017-12-08] MEDS: hydrOXYzine PAMOATE 25 MG CAP PO SCH (21:01)
[2017-12-08] MEDS: LISINOPRIL 5 MG TAB PO SCH (21:01)
[2017-12-08] MEDS: FERROUS SULFATE 325 MG TAB PO SCH (21:02)
[2017-12-08] MEDS: Mirabegron [Myrbetriq] 50 MG PO SCH (21:04)
[2017-12-08] MEDS: traZODone HCL 100 MG TAB PO SCH (21:10)
[2017-12-08] MEDS: CEVIMELINE 30 MG CAP PO SCH (22:46)
--- NOTE | 2017-12-08 22:53 | CONS ---
CONSULTATION Mrs. Walls is a 72-year-old female with known history of hypertension, hyperlipidemia, history of mild coronary artery disease by cardiac catheterization in 2016, moderate severe aortic stenosis, who presented to the emergency room with symptoms of dyspnea. She felt that her dyspnea was related to sitting on a massage chair. She was feeling well, according to the ER physician, but subsequently at a later time an EKG was done that showed ST-segment elevation anteriorly and her troponin came back to 4. At the time of my evaluation she is awake, confused at times. She denies any chest pain. She denies any dyspnea at this time. She denies any dizziness or palpitation. Patient underwent cardiac catheterization in January 2016 and at that time had mild disease involving the left coronary system with a dominant left system with normal left ventricular size and systolic function. She had aortic valve disease but has elected not to proceed with surgical intervention. She denies any PND, orthopnea or peripheral edema. Coronary risk factors are remarkable for hypertension and hyperlipidemia. She is non-diabetic, a nonsmoker. HOME MEDICATIONS: 1. Simvastatin 20 mg daily. 2. Geodon. 3. Duragesic. 4. Vistaril. 5. Toprol-XL 25 mg daily. 6. Meloxicam. 7. Claritin. 8. Synthroid. 9. Neurontin. 10.Aspirin. REVIEW OF SYSTEMS: RESPIRATORY SYSTEM: She had dyspnea on exertion. She denies any recent cough or fever. She denies any wheezing. GI SYSTEM: No recent GI bleeding. No peptic ulcer disease. SYSTEM: No dysuria or hematuria. NERVOUS SYSTEM: She has prior history of confusion, history of fibromyalgia. PHYSICAL EXAMINATION: She is a 72-year-old female, alert, confused at times, although could recognize me. Blood pressure running in 140 to 160 with a heart rate in the 60s. HEAD: Normocephalic. EYES: Sclerae anicteric. NECK: Good carotid upstroke. No bruit. No jugular venous distention, with transmitted murmur. LUNGS: Clear to auscultation. HEART: Regular rate and rhythm. S1, S2. No S3, with systolic murmur 3/6 heard at the mid sternum. No diastolic murmur. ABDOMEN: Soft, nontender. Positive bowel sounds. No organomegaly. EXTREMITIES: No edema. Intact distal pulses. LAB DATA: Her EKG revealed a sinus mechanism with ST-segment elevation anteriorly consistent with an acute myocardial infarction in the anterior leads with left axis deviation. Her chest x-ray shows no acute infiltrate. Her white blood cells 17.3. BUN and creatinine are 25 and 0.89. Troponin 4.8. IMPRESSION: 1. Acute anterior myocardial infarction. Patient's troponin is already elevated and she had the ST-segment elevation. Initially when she came in, no EKG was done. 2. History of coronary artery disease, mild by cardiac catheterization in January 2016. 3. History of aortic stenosis. 4. History of hypertension. 5. Hyperlipidemia. RECOMMENDATIONS: I have discussed with the patient the options, including proceeding with coronary angiography to further evaluate her status and guide her treatment versus medical therapy. She is in agreement to proceed with a cardiac catheterization. The rationale behind the procedure, its risks and complication were discussed with the patient, who is in full understanding and agreement. Depending on her progress, further recommendation will be made. Thank you for this consult. Will follow with you. NAIMA / MAYN: [id number] /
--- NOTE | 2017-12-08 23:19 | CC ---
CARDIAC CATHETERIZATION REPORT Mrs. Nathan is a 72-year-old female with known history of aortic stenosis, history of mild coronary artery disease, history of hypertension, hyperlipidemia, who presented to the emergency room with symptoms of dyspnea. According to the note to the emergency room she was somewhat confused at times, but she was feeling well. No EKG was done initially. Subsequently when the EKG was done, she was found to have ST-segment elevation anteriorly and her troponin was 4. In view of that, recommendation made regarding cardiac catheterization. The procedure as well as risks and complications were discussed with the patient who is in full understanding and agreement. PROCEDURE: Patient was brought to factory laborer after receiving fentanyl and Benadryl and achieving moderate conscious sedated state. Using Xylocaine anesthesia and Seldinger technique, a 6-[place]amb[place] sheath was introduced in the right femoral artery. Selective left coronary angiography was performed using 6-[place] 4 bend FL4 guiding catheter. After obtaining images of the left coronary system, angioplasty and stenting of the LAD was performed. No images of the right coronary artery were performed. It was known in the past that it was a small nondominant vessel. Following the angioplasty and stenting, catheter and sheaths were removed. Hemostasis was obtained with deployment of an Angio-Seal. There was no immediate complication. Patient was returned to his room in stable condition. FINDINGS: FLUOROSCOPY: There was significant calcification involving the aortic valve. CORONARY ANGIOGRAPHY FINDINGS: Left main: This is a short size vessel bifurcating left circumflex, left anterior descending artery left main coronary artery has no evidence of high-grade stenosis. LEFT ANTERIOR DESCENDING ARTERY: This vessel is tortuous, has mild to moderate disease proximally of 20-30 percent in the mid segment, has 99% stenosis. The vessel beyond that is small in caliber. There is a very is proximal branch coming out of the left main that appears to be in the diagonal territory. Left circumflex: This is a large dominant vessel bifurcating distally PDA and posterolateral segment branches. The left circumflex gives rise to 2 obtuse marginal branch. The first one is small in caliber. The second one is large in caliber. The left circumflex has mild intimal disease without any evidence of high-grade stenosis. LEFT VENTRICULOGRAM: Left ventriculogram was not performed. CONCLUSION: After reviewing the images, compared with the old images performed in 2016, the lesion in the mid LAD appears to be acute. In view of that, recommendations were made regarding angioplasty and stenting. The procedures, risks and complications were discussed with the patient and she is in full understanding and agreement. MMODL / IJN: [id number] /
--- NOTE | 2017-12-09 00:20 | PTCA ---
PERCUTANEOUSTRANS CORORONARY ANGIOGRAPHY Mrs. Nathan is a 72-year-old female who presented with an acute myocardial infarction. Initially her symptoms were dyspnea. The EKG was done at a later time and was found to have ST-segment elevation. She underwent a cardiac catheterization, was found to have critical stenosis involving the mid LAD. In view of that, recommendation made regarding coronary angioplasty and stenting. The procedures, risks and complications were discussed with the patient who is in full understanding and agreement. PROCEDURE: Using the 6-[place] FR4 guiding catheter a 0.014 balanced medium weight J-wire was advanced across the lesion, positioned distally. Then a 2.25 x 12 mm Trek balloon was advanced. One inflation at 8 atmospheres was done. Following that the balloon was removed and a 2.0 x 18 mm Resolute Rhett stent was deployed. It was dilated at 14 atmospheres. After the last inflation, after appropriate wait, the balloon and the guidewire was withdrawn back in the guiding catheter. Images were obtained, repeated. Those images reveal stable successful stenting. At that point, the guiding catheter, the balloon and the guidewire were removed. The sheath was removed. Hemostasis was obtained with deployment of an Angio-Seal. There were no immediate complication. The patient was returned to his room in stable condition. Of note, the patient had no chest discomfort or dyspnea at the end of procedure. Her ST-segment elevation persisted. The patient received Angiomax per protocol as well as oral loading dose of Brilinta. RESULTS: Successful stenting of the mid LAD with reduction of stenosis from 99% to 0%. The vessel beyond that is small in caliber. RECOMMENDATION: Patient be continued on aspirin, Brilinta, rayo inhibitor and statin. The importance of dual antiplatelet treatment were discussed with the patient who is in full understanding and agreement. Duration of procedure: 33 minutes. MMODL / IJN: [id number] /
[2017-12-09 05:08] LABS: Basophils % (A) 0 %; Eosinophils # (A) 0.2 k/uL (0-0.7); Eosinophils % (A) 1 %; HCT 35.1 % (34.0-46.0); Lymphocytes # (A) 1.7 k/uL (1.0-4.8); Lymphocytes % (A) 12 %; MCH 29.5 pg (25.0-35.0); MCHC 34.2 g/dL (31.0-37.0); MCV 86.1 fL (80.0-100.0); Mean Platelet Volume 6.3; Monocytes # (A) 0.9 k/uL (0-1.0); Monocytes % (A) 6 %; Neutrophils # (A) 11.1 k/uL (1.3-7.7); Neutrophils % (A) 77 %; Platelet Count 274 k/uL (150-450); RBC 4.08 m/uL (3.80-5.40); RDW 15.5 % (11.5-15.5); WBC 14.5 k/uL (3.8-10.6)
[2017-12-09 05:23] LABS: Anion Gap 11 mmol/L; Blood Urea Nitrogen 22 mg/dL (7-17); Calcium 8.9 mg/dL (8.4-10.2); Carbon Dioxide 23 mmol/L (22-30); Chloride 107 mmol/L (98-107); Glucose 87 mg/dL (74-99); Potassium 3.7 mmol/L (3.5-5.1); Sodium 141 mmol/L (137-145)
[2017-12-09] MEDS: LEVOTHYROXINE 75 MCG TAB PO SCH (05:37)
[2017-12-09 06:56] LABS: Appearance,Urine Clear (Clear); Bacteria,Urine Occasional /hpf; Bilirubin,Urine Negative (Negative); Blood,Urine Small (Negative); Color,Urine Light Yellow; Glucose,Urine (UA) Negative (Negative); Ketones,Urine 2+ (Negative); Leukocyte Esterase,Urine Negative (Negative); Mucus,Urine Rare /hpf; Nitrite,Urine Negative (Negative); PH, Urine 6.5 (5.0-8.0); Protein,Urine 1+ (Negative); RBC,Urine 86 /hpf (0-5); Squamous Epithelial Cell,Urine 1 /hpf (0-4); Urobilinogen,Urine <2.0 mg/dL (<2.0); WBC,Urine 2 /hpf (0-5)
[2017-12-09] MEDS ORDERED: ATORVASTATIN 80 MG TAB PO SCH (09:00)
[2017-12-09] MEDS ORDERED: ASPIRIN 325 MG TAB PO SCH (09:00)
[2017-12-09] MEDS: hydrOXYzine PAMOATE 25 MG CAP PO SCH ×4 (09:07→20:39)
[2017-12-09] MEDS: LISINOPRIL 5 MG TAB PO SCH (09:07)
[2017-12-09] MEDS: SPIRONOLACTONE 25 MG TAB PO SCH (09:08)
[2017-12-09] MEDS: FERROUS SULFATE 325 MG TAB PO SCH ×2 (09:09→20:38)
[2017-12-09] MEDS: TICAGRELOR 90 MG TAB PO SCH ×2 (09:09→20:37)
[2017-12-09] MEDS: GABAPENTIN 300 MG CAP PO SCH ×3 (09:09→20:37)
[2017-12-09] MEDS: ASPIRIN 81 MG PO SCH (09:09)
[2017-12-09] MEDS: METOPROLOL SUCCINATE (ER) 25 MG TAB.ER.24H PO SCH (09:09)
[2017-12-09] MEDS: LORATADINE 10 MG TAB PO SCH (09:10)
[2017-12-09] MEDS: CEVIMELINE 30 MG CAP PO SCH ×3 (09:10→20:38)
[2017-12-09] MEDS ORDERED: Potassium Replacement Protocol 1 EACH MISC MISCELLANE PRN (09:22)
[2017-12-09] MEDS ORDERED: POTASSIUM CHLORIDE ER 20 MEQ TAB.ER PO SCH (10:00)
[2017-12-09 11:04] VITALS: BMI 21.2
[2017-12-09] MEDS: SODIUM CHLORIDE 0.9% 250 ML IV SCH ×6 (12:37→18:49)
--- NOTE | 2017-12-09 15:11 | ECHOF ---
Referral Reason:mi MEASUREMENTS -------- HEIGHT: 157.5 cm WEIGHT: 52.6 kg BP: 102/68 IVSd: 1.7 cm (0.6 - 1.1) LVIDd: 2.9 cm (3.9 - 5.3) LVPWd: 1.4 cm (0.6 - 1.1) IVSs: 1.8 cm LVIDs: 2.0 cm LVPWs: 1.6 cm MV EXCURSION: 16.920 mm (> 18.000) MV EF SLOPE: 73 mm/s (70 - 150) EPSS: 0.5 cm MV E Dandre: 0.34 m/s MV DecT: 220 ms MV A Dandre: 0.94 m/s MV E/A Ratio: 0.36 AV maxP.86 mmHg AV meanP.08 mmHg RAP: 5.00 mmHg RVSP: 43.24 mmHg FINDINGS -------- Undetermined rhythm. This was a techncally difficult study with suboptimal views, , Lumason utilized for enhancement of im ages. There is severe concentric left ventricular hypertrophy. Overall left ventricular systolic function is mildly impaired with, an EF between 45 - 50 %. [place] Hypokinesis. The right ventricle is normal in size. The left atrial size is normal. The right atrial size is normal. 5.0mg OF Lumason UTLIZED: 2 OR MORE WALL SEGMENTS NOT VISUALIZED. The aortic valve was not well visualized. There is severe aortic valve sclerosis. There is severe aortic stenosis present. Peak/mean gradient across the Aortic Valve is 60.86mmHg / 31.08mmHg. Mild mitral annular calcification present. Mild mitral regurgitation is present. Mild tricuspid regurgitation present. There is mild pulmonary hypertension. The right ventricular systolic pressure, as measured by Doppler, is 43.24mmHg. There is no pulmonic regurgitation present. The aortic root size is normal. There is no pericardial effusion. CONCLUSIONS -------- 1. This was a techncally difficult study with suboptimal views, , Lumason utilized for enhancement of images. 2. There is severe concentric left ventricular hypertrophy. 3. Overall left ventricular systolic function is mildly impaired with, an EF between 45 - 50 %. 4. [place] Hypokinesis. 5. The right ventricle is normal in size. 6. The left atrial size is normal. 7. The right atrial size is normal. 8. 5.0mg OF Lumason UTLIZED: 2 OR MORE WALL SEGMENTS NOT VISUALIZED. 9. The aortic valve was not well visualized. 10. There is severe aortic valve sclerosis. 11. There is severe aortic stenosis present. 12. Peak/mean gradient across the Aortic Valve is 60.86mmHg / 31.08mmHg. 13. Mild mitral annular calcification present. 14. Mild mitral regurgitation is present. 15. Mild tricuspid regurgitation present. 16. There is mild pulmonary hypertension. 17. The right ventricular systolic pressure, as measured by Doppler, is 43.24mmHg. 18. There is no pulmonic regurgitation present. 19. The aortic root size is normal. 20. There is no pericardial effusion. TAMPING MACHINE OPERATOR ROAD FORMS: Janet Motley RDCS
--- NOTE | 2017-12-09 18:45 | PN ---
PROGRESS NOTE Leeann is a 72-year-old lady who was admitted to hospital with acute myocardial infarction and underwent cardiac catheterization and angioplasty of the LAD. She also has severe aortic stenosis. This morning, patient is feeling better. Denies any chest pain. She has had an episode of hypotension. I gave her a fluid bolus and I am going to decrease the dose of lisinopril to 2.5 mg daily, continue the Toprol-XL that she is on. EXAM: She is comfortable at rest. Afebrile. Heart rate is 90 beats per minute. Blood pressure is 90/52. Respirations 18. Chest exam reveals good air entry bilaterally. Heart exam reveals first and second heart sounds. Ejection systolic murmur in the aortic area. ABDOMEN: Soft. Exam of the extremities did not reveal any edema. Peripheral pulses are felt. ASSESSMENT: 1. Acute anterior wall myocardial infarction status post catheterization and angioplasty. 2. Severe aortic stenosis. 3. Hypertension. PLAN: Continue the aspirin, Brilinta, beta blockers, LOPEZ inhibitors and Aldactone as tolerated because of the blood pressure. MMODL / IJN: [id number] /
--- NOTE | 2017-12-09 20:15 | HP ---
HISTORY AND PHYSICAL DATE OF ADMISSION: 12/08/2017. PRESENT COMPLAINT: Short of breath. HISTORY OF PRESENTING COMPLAINT: This is a 72-year-old patient of Dr. Gabriel. Chronic stable medical conditions include severe aortic stenosis, sclerosis, hyperlipidemia, hypertension, hypothyroid, left vocal cord paralysis, diverticulosis, fibromyalgia. The patient, yesterday evening became really short of breath, tired. No perspiration. No chest pain. No palpitation. No tachycardia. Decided to present to the ER. The patient's initial troponin was 4.8, and patient ruled in for an acute ST-elevation myocardial infarction. The patient is taken to the cardiac terrazzo laborer and stent was placed to the LAD by Dr. Miranda. The patient is currently in the ICU symptom-free. REVIEW OF SYSTEMS: CONSTITUTIONAL: Tired. HEENT none. RESPIRATORY as above. CARDIOVASCULAR as above. GASTROINTESTINAL none. GENITOURINARY none. MUSCULOSKELETAL: Some pain in the joints. DERMATOLOGICAL, HEMATOLOGIC, LYMPHATIC: None. PSYCHIATRY: Anxiety present. NEUROLOGICAL: None. PAST MEDICAL HISTORY: Severe aortic stenosis/sclerosis, hyperlipidemia, hypertension, hypothyroid, left vocal cord paralysis, colonic diverticulosis, DVT, PE, fibromyalgia, obstructive sleep apnea does not use CPAP, anxiety, depression. PAST SURGICAL HISTORY: Appendectomy, cardiac cath, colonoscopy, repair of patent ductus at 18 months of age, laminectomy, uterine fibroid removed, basal cell removed from right ear lobe. PSYCH HISTORY: Anxiety and depression. SOCIAL HISTORY: The patient smoked for about 10 years in the 70s. No alcohol. Lives by herself. FAMILY HISTORY: Diabetes. HOME MEDICATIONS: 1. Desyrel 200 mg q.h.s. 2. Vistaril 50 mg p.o. q.i.d. 3. Fentanyl patch every 72 hours. 4. Zocor 20 mg q.h.s. 5. [place] XL 4 capsules p.o. daily. 6. Myrbetriq 50 mg q.h.s. 7. Toprol-XL 25 mg a day. 8. Meloxicam 50 mg p.o. daily. 9. Claritin 10 mg p.o. daily. 10.Synthroid 75 mcg a day. 11.Probiotic 1 capsule p.o. daily. 12. Dutch Super food powder 1 scoop daily. 13.Neurontin 300 mg p.o. t.i.d. 14.Iron 325 p.o. b.i.d. 15. 30 mg t.i.d. 16.Biotin 5 mg p.o. daily p.r.n. 17. 1 capsule p.o. daily. 18.Aspirin 81 mg p.o. daily. ALLERGIES: TO LIDOCAINE. [place]. PHYSICAL EXAMINATION: VITAL SIGNS: Vital signs on presentation, temperature 97.9, pulse 59, respiratory 18, blood pressure 169/86, pulse ox 95% on room air. GENERAL APPEARANCE: Thin build, lying in bed, awake, slightly anxious. EYES: Pupils equal. Conjunctivae normal. HEENT: External appearance of nose and ears normal. Oral cavity normal. NECK JVD not raised. Mass not palpable. RESPIRATORY effort normal. Lungs fair entry. CARDIOVASCULAR: First and second sounds normal. No edema. ABDOMEN: Soft, nontender. Liver and spleen not palpable. LYMPHATICS: No lymph nodes palpable in the neck and axilla. PSYCHIATRY: Alert and oriented times three. Mood and affect slightly anxious-appearing. NEUROLOGICAL: Pupils equal. Cranial nerves grossly intact. Power and sensation grossly intact. INVESTIGATIONS: White count 7.3, hemoglobin 4.4. BUN 25, creatinine 0.89. Troponin 4.8, 5.2, 4.6. EKG tracing personally reviewed by me shows ST elevation in the anterior leads. Chest x-ray film, personally reviewed by me shows tubular heart, tubular fullness of the left renard. 2D echocardiogram shows the EF of 45-50 percent with apical hypokinesis, severe concentric left ventricular hypertrophy. ASSESSMENT: 1. Acute ST-elevation myocardial infarction in the anterior wall with emergent stent placed to the LAD. 2. Hypertensive heart disease. 3. Severe aortic stenosis with sclerosis nonrheumatic. 4. Chronic congestive heart failure from systolic dysfunction, EF 45-50 percent, likely acute. 5. Essential hypertension. 6. Hyperlipidemia. 7. Hyperthyroidism. 8. Left vocal cord paralysis. 9. Chronic fibromyalgia. 10.Colonic diverticulosis. PLAN: The patient is currently in the ICU. The patient's medications include aspirin, lisinopril, Toprol-XL. Current care was discussed with the patient. The patient was seen by Dr. Miranda from Cardiology. Copy to Dr. Gabriel. MMODL / IJN: [id number] /
[2017-12-09] MEDS: traZODone HCL 100 MG TAB PO SCH (20:38)
[2017-12-09] MEDS: Mirabegron [Myrbetriq] 50 MG PO SCH (21:28)
[2017-12-09 23:41] LABS: Glucose,Whole Blood 115 mg/dL (75-99)
[2017-12-10] MEDS ORDERED: NALOXONE 0.4 MG/ML 10 ML VIAL IVP PRN
--- NOTE | 2017-12-10 00:29 | CT ---
EXAMINATION TYPE: CT brain wo con DATE OF EXAM: 12/10/2017 COMPARISON: 11/16/2015 HISTORY: AMS CT DLP: 1024.6 mGycm Automated exposure control for dose reduction was used. FINDINGS: There is some cerebral cortical atrophy. There is hypodensity in the periventricular white matter. Th ere is no mass effect or midline shift. There is moderate frontal lobe atrophy. Calvarium is intact. IMPRESSION: CEREBRAL ATROPHY AND CHRONIC SMALL VESSEL ISCHEMIA. NO SIGNIFICANT CHANGE COMPARED TO OLD EXAM.
[2017-12-10] MEDS ORDERED: NALOXONE 0.4 MG/ML 1 ML VIAL ONE ×2 (00:30→05:58)
[2017-12-10] MEDS: SODIUM CHLORIDE 0.9% 250 ML IV SCH ×6 (02:21→21:01)
[2017-12-10 05:57] LABS: Calcium 8.7 mg/dL (8.4-10.2); Magnesium 2.2 mg/dL (1.6-2.3); Potassium 4.4 mmol/L (3.5-5.1)
[2017-12-10 05:58] LABS: ABG Base Excess 1.4 mmol/L; ABG HCO3 25 mmol/L (21-25); ABG Oxygen Saturation 96.3 % (94-97); ABG PCO2 37 mmHg (35-45); ABG PH 7.45 (7.35-7.45); ABG PO2 71 mmHg (83-108); ABG TCO2 27 mmol/L (19-24)
[2017-12-10 06:12] LABS: Basophils % (A) 0 %; Eosinophils # (A) 0.1 k/uL (0-0.7); Eosinophils % (A) 1 %; HCT 31.1 % (34.0-46.0); HGB 10.7 gm/dL (11.4-16.0); Lymphocytes # (A) 0.9 k/uL (1.0-4.8); Lymphocytes % (A) 7 %; MCH 29.6 pg (25.0-35.0); MCHC 34.4 g/dL (31.0-37.0); Mean Platelet Volume 6.5; Monocytes # (A) 0.7 k/uL (0-1.0); Monocytes % (A) 5 %; Neutrophils # (A) 10.2 k/uL (1.3-7.7); Neutrophils % (A) 84 %; Platelet Count 278 k/uL (150-450); RBC 3.62 m/uL (3.80-5.40); RDW 15.6 % (11.5-15.5); WBC 12.2 k/uL (3.8-10.6)
[2017-12-10] MEDS: LEVOTHYROXINE 75 MCG TAB PO SCH (06:23)
[2017-12-10] MEDS: hydrOXYzine PAMOATE 25 MG CAP PO SCH ×4 (08:57→21:42)
[2017-12-10] MEDS: FERROUS SULFATE 325 MG TAB PO SCH ×2 (09:07→19:28)
[2017-12-10] MEDS: ASPIRIN 81 MG PO SCH (09:07)
[2017-12-10] MEDS: SPIRONOLACTONE 25 MG TAB PO SCH (09:07)
[2017-12-10] MEDS: GABAPENTIN 300 MG CAP PO SCH ×3 (09:07→21:39)
[2017-12-10] MEDS: METOPROLOL SUCCINATE (ER) 25 MG TAB.ER.24H PO SCH (09:08)
[2017-12-10] MEDS: TICAGRELOR 90 MG TAB PO SCH ×2 (09:08→19:28)
[2017-12-10] MEDS: LORATADINE 10 MG TAB PO SCH (09:08)
[2017-12-10] MEDS: CEVIMELINE 30 MG CAP PO SCH ×3 (09:09→21:39)
[2017-12-10 09:12] VITALS: RESP 18
[2017-12-10] MEDS: LISINOPRIL 2.5 MG TAB PO SCH (12:18)
--- NOTE | 2017-12-10 13:35 | P.PN ---
Subjective Progress Note Date: 12/10/17 This is a 72-year-old female patient who presented to the emergency department with shortness of breath and lethargy. On admission, the patient was found to have an acute NSTEMI. She underwent cardiac catheter fission and successful angioplasty of the LAD. Last night, the patient was found to be unresponsive. Her vital signs were stable at that time. She did receive a bolus of IV fluids and a dose of Narcan and she became arousable. Her fentanyl patch was removed at that time. Later in the night, a similar episode was experienced and the patient once again received Narcan. The patient is seen alert, awake and oriented 3. Questioning the events that happened last night. She denies any chest discomfort, shortness breath or palpitations. She has been up to the bathroom without any difficulties. Blood pressure is stable this morning. She remains in a normal sinus mechanism on the monitor. Objective - Vital Signs Vital signs: Vital Signs Temp 97.8 F 12/10/17 08:00 Pulse 100 12/10/17 08:00 Resp 18 12/10/17 08:00 BP 98/61 12/10/17 08:00 Pulse Ox 96 12/10/17 08:00 Intake & Output 12/09/17 12/10/17 12/10/17 18:59 06:59 18:59 Intake Total 600 Output Total 500 Balance 100 Weight 52.8 kg 53 kg Intake: Intake, IV Titration 250 Amount Sodium Chloride 0.9% 250 250 ml @ 999 mls/hr IV .Q16M [facility] Rx#:[id number] Oral 350 Output: Urine 500 Other: Voiding Method Bedpan Bedpan Bedpan Incontinent Incontinent Incontinent # Voids 1 - Exam Gen.: The patient is alert and oriented, seen lying in bed in no acute distress Lungs: Clear to auscultation, no wheezes rales or rhonchi appreciated Heart: Is regular rate and rhythm, 3/6 murmur of aortic stenosis Extremities: No lower extremity edema is noted, pupils are palpable bilaterally Neuro: Patient is alert and oriented 3, no tremors noted. - Labs CBC & Chem 7: 12/10/17 05:30 12/10/17 05:30 Labs: Abnormal Lab Results - Last 24 Hours (Table) 12/09/17 12/10/17 12/10/17 Range/Units 23:30 05:30 05:30 WBC 12.2 H (3.8-10.6) k/uL RBC 3.62 L (3.80-5.40) m/uL Hgb 10.7 L (11.4-16.0) gm/dL Hct 31.1 L (34.0-46.0) % RDW 15.6 H (11.5-15.5) % Neutrophils # 10.2 H (1.3-7.7) k/uL Lymphocytes # 0.9 L (1.0-4.8) k/uL ABG pO2 (83-108) mmHg ABG Total CO2 (19-24) mmol/L Chloride 115 H (98-107) mmol/L BUN 20 H (7-17) mg/dL Glucose 113 H (74-99) mg/dL POC Glucose (mg/dL) 115 H (75-99) mg/dL 12/10/17 Range/Units 05:56 WBC (3.8-10.6) k/uL RBC (3.80-5.40) m/uL Hgb (11.4-16.0) gm/dL Hct (34.0-46.0) % RDW (11.5-15.5) % Neutrophils # (1.3-7.7) k/uL Lymphocytes # (1.0-4.8) k/uL ABG pO2 71 L (83-108) mmHg ABG Total CO2 27 H (19-24) mmol/L Chloride (98-107) mmol/L BUN (7-17) mg/dL Glucose (74-99) mg/dL POC Glucose (mg/dL) (75-99) mg/dL Assessment and Plan Assessment: Acute anterior wall PR status post cardiac catheterization and PCI with stenting to the LAD Severe aortic stenosis Hypertension Episode of unresponsiveness related to fentanyl patch Plan: Echocardiogram showed severe concentric LVH with ejection fraction of 45-50%. Severe aortic stenosis with peak/mean gradient of 60.86 mmHg/31.08 mmHg. The patient remains hemodynamically stable, chest pain-free. Episodes of unresponsiveness last night was associated with the patient's fentanyl patch. Her vital signs were stable during each episode. She was not found to be hypotensive. Continue with Toprol, Aldactone, aspirin and brilinta. We will continue to monitor her closely.
[2017-12-10] MEDS ORDERED: MELATONIN 1 MG TAB PO SCH (21:00)
--- NOTE | 2017-12-10 21:01 | PN ---
PROGRESS NOTE DATE OF SERVICE: December 10, 2017. PRESENTING COMPLAINT: Lethargic. INTERVAL HISTORY: This is a patient with ST-elevation myocardial infarction status post emergent stent to the LAD. The patient overnight had become very lethargic and the patient's Duragesic patch was discontinued and then patient woke up, became hyperactive. Started becoming jittery. The patient's Duragesic patch was then placed later and patient again became lethargic. I was then called. I decided to take the patch off for 2 to 3 hours, then put the patient on the lower strength 50 mcg. The patient is much better controlled with that. No chest pain or shortness of breath. REVIEW OF SYSTEMS: Done for constitutional, cardiovascular, GI, pulmonary and relevant findings as above. CURRENT MEDICATIONS: Reviewed that include Duragesic patch now 50 mcg. PHYSICAL EXAMINATION: VITAL SIGNS: Temperature 97.8, pulse 80, respiratory 18, blood pressure 109/59, pulse ox 96% on room air. GENERAL APPEARANCE: Sitting up awake, less anxious. EYES: Pupils equal. Conjunctivae normal. HEENT: External appearance of nose and ears normal. Oral cavity normal. NECK JVD not raised. Mass not palpable. RESPIRATORY: Effort normal. Lungs fair entry. CARDIOVASCULAR: First and second sounds normal. No edema. ABDOMEN: Soft, nontender. Liver and spleen not palpable. PSYCHIATRY: Alert and oriented x3. Mood and affect very slightly anxious. INVESTIGATIONS: White count 12.2, hemoglobin 10.7, potassium 4.4. ASSESSMENT: 1. Acute ST-elevation myocardial infarction, anterior wall with emergent stent to the LAD. 2. Hypertensive heart disease. 3. Severe aortic stenosis and sclerosis nonrheumatic. 4. Chronic congestive heart failure from systolic dysfunction, EF 45-50 percent, likely acute. 5. Acute metabolic encephalopathy from a patient on a high dose of Duragesic with withdrawal symptoms after removing the same. 6. Essential hypertension. 7. Hyperlipidemia. 8. Hypothyroidism. 9. Left vocal cord paralysis. 10.Chronic fibromyalgia. 11.Colonic diverticulosis. PLAN: After the 50 mcg patch was placed, patient was saying that she needs more pain medication. I did speak to her at length given a small frame. This is a very high dose of Duragesic and body easily gets custom as she is having side affects and afraid this could even shut her breathing down. The patient ready to try alternative medications for pain. Also the patient is on trazodone 100 mg at night. We will decrease patient's Ambien at night to 2.5 mg and also DC patient's Claritin in the morning. Also I wish to check if patient being over replaced with Synthroid given small frame and significant dose of Synthroid that she takes. NAIMA / MAYN: [id number] /
[2017-12-10] MEDS: Mirabegron [Myrbetriq] 50 MG PO SCH (21:39)
[2017-12-10] MEDS: traZODone HCL 100 MG TAB PO SCH (21:39)
[2017-12-11] MEDS: LEVOTHYROXINE 75 MCG TAB PO SCH (06:09)
[2017-12-11 06:57] LABS: Basophils % (A) 0 %; Eosinophils # (A) 0.3 k/uL (0-0.7); Eosinophils % (A) 3 %; HCT 35.3 % (34.0-46.0); HGB 11.4 gm/dL (11.4-16.0); Lymphocytes # (A) 2.1 k/uL (1.0-4.8); Lymphocytes % (A) 24 %; MCH 28.6 pg (25.0-35.0); MCHC 32.4 g/dL (31.0-37.0); MCV 88.1 fL (80.0-100.0); Mean Platelet Volume 6.4; Monocytes # (A) 0.5 k/uL (0-1.0); Monocytes % (A) 5 %; Neutrophils # (A) 5.6 k/uL (1.3-7.7); Neutrophils % (A) 63 %; Platelet Count 310 k/uL (150-450); RDW 15.6 % (11.5-15.5); WBC 8.9 k/uL (3.8-10.6)
[2017-12-11] MEDS: FERROUS SULFATE 325 MG TAB PO SCH (09:02)
[2017-12-11] MEDS: hydrOXYzine PAMOATE 25 MG CAP PO SCH ×3 (09:02→16:25)
[2017-12-11] MEDS: METOPROLOL SUCCINATE (ER) 25 MG TAB.ER.24H PO SCH (09:02)
[2017-12-11] MEDS: ASPIRIN 81 MG PO SCH (09:03)
[2017-12-11] MEDS: LISINOPRIL 2.5 MG TAB PO SCH (09:03)
[2017-12-11] MEDS: SPIRONOLACTONE 25 MG TAB PO SCH (09:03)
[2017-12-11] MEDS: CEVIMELINE 30 MG CAP PO SCH ×2 (09:03→15:41)
[2017-12-11] MEDS: TICAGRELOR 90 MG TAB PO SCH (09:04)
[2017-12-11] MEDS: GABAPENTIN 300 MG CAP PO SCH ×2 (09:04→15:41)
[2017-12-11 10:43] VITALS: TEMP 96.9
--- NOTE | 2017-12-11 12:19 | P.PN ---
Subjective Progress Note Date: 12/11/17 This is a 72-year-old female who presented to the hospital with an anterior ST elevation [place] , she underwent cardiac catheterization with subsequent stenting of the LAD. Through the night last night, patient slept well, awake, alert and oriented 3 this morning. Hemodynamically stable. Denies any chest discomfort, no difficulty in breathing, no palpitations. She' s been up to the bathroom without any difficulty. Blood pressure 122/60 with a heart rate in the 90s, 99% on room air. White blood cell count 8.9, hemoglobin 11.4, platelet count 310. Objective - Vital Signs Vital signs: Vital Signs Temp 96.9 F L 12/11/17 08:45 Pulse 93 12/11/17 08:45 Resp 18 12/11/17 08:45 BP 123/64 12/11/17 08:45 Pulse Ox 99 12/11/17 08:45 Intake & Output 12/10/17 12/11/17 12/11/17 18:59 06:59 18:59 Intake Total 180 Balance 180 Weight 51.7 kg Intake: Oral 180 Other: Voiding Method Toilet Toilet Toilet Incontinent Incontinent Incontinent # Voids 2 1 - Exam PHYSICAL EXAMINATION: GENERAL: 72-year-old female in no acute distress at the time of my examination HEENT: Head is atraumatic, normocephalic. Pupils equal, round. Sclera anicteric. Conjunctiva are clear. Mucous membranes of the mouth are moist. Neck is supple. There is no elevated jugular venous pressure. No carotid bruit is heard. HEART EXAMINATION: Heart S1 S2 1 systolic murmur, 3/6 heard at the mid sternum CHEST EXAMINATION: Lungs are clear to auscultation and precussion. No chest wall tenderness is noted on palpation or with deep breathing. ABDOMEN: Soft, nontender. Bowel sounds are heard. No organomegaly noted. EXTREMITIES: 2+ peripheral pulses with no evidence of peripheral edema and no calf tenderness noted.Right groin soft, no evidence of any hematoma. NEUROLOGIC patient is awake, alert and oriented X3 . - Labs CBC & Chem 7: 12/11/17 06:19 12/10/17 05:30 Labs: Abnormal Lab Results - Last 24 Hours (Table) 12/11/17 Range/Units 06:19 RDW 15.6 H (11.5-15.5) % Assessment and Plan Plan: Assessment and plan #1 acute anterior wall myocardial infarction, status post stenting of the LAD #2 severe aortic stenosis #3 hypertension #4 episode of unresponsiveness secondary to fentanyl patch Plan From cardiology's perspective, patient may be able to be discharged home today on dual antiplatelet therapy along with statin, beta micah, LOPEZ inhibitor, and Aldactone along with sublingual nitroglycerin. Follow-up appointment with Dr. Miranda in the office post discharge. DNP note has been reviewed, I agree with a documented findings and plan of care. Patient was seen and examined.
[2017-12-11 13:41] VITALS: BP 139/68; PULSE 85
--- NOTE | 2017-12-19 20:07 | DS ---
DISCHARGE SUMMARY DATE OF ADMISSION: 12/08/2017 DATE OF DISCHARGE: 12/11/2017 FINAL DIAGNOSES: 1. Acute ST-elevation myocardial infarction, anterior wall, with emergent stent to the left anterior descending coronary artery. 2. Hypertensive heart disease. 3. Severe aortic stenosis and sclerosis, non-rheumatic. 4. Chronic congestive heart failure from systolic dysfunction, ejection fraction 40% to 45%, from underlying coronary artery disease. 5. Acute metabolic encephalopathy from a high dose of Duragesic patch. 6. Essential hypertension. 7. Hyperlipidemia. 8. Hypothyroidism. 9. Chronic left vocal cord paralysis. 10.Chronic fibromyalgia. 11.Chronic diverticulosis. HOSPITAL COURSE: This patient presented with shortness of breath, and was found to have acute ST- elevation [place]. Stent to the LAD was placed. Two-D echo showed an EF of 45% to 50% with some hypokinesia. The patient was rather lethargic and dose of Duragesic was cut back. The patient was explained at length why the dose of Duragesic patch had to be cut back, as this was making her lethargic. She did understand. Patient was symptom-free, up and about at the time of discharge. CONSULTATIONS: 1. Dr. Carmella Ernandez from Cardiology. 2. Dr. Miranda from Interventional Cardiology. DISCHARGE MEDICATIONS: 1. Evoxac 30 mg p.o. t.i.d. 2. Aspirin 81 mg a day. 3. Iron 325 p.o. b.i.d. 4. Biotin 5 mg p.o. daily. 5. Myrbetriq 50 mg p.o. at bedtime. 6. Neurontin 300 mg p.o. t.i.d. 7. Probiotic 1 capsule p.o. daily. 8. Synthroid 75 mcg p.o. daily. 9. Vistaril 50 mg p.o. q.i.d. 10.Ultra Blend 1 capsule p.o. daily. 11.Grown [place] Superfood Powder 1 scoop daily. 12.Toprol-XL 25 mg p.o. daily. 13.[place] XL 4 capsules p.o. daily. 14.Desyrel 100 mg p.o. at bedtime. 15.Lipitor 80 mg p.o. daily. 16.Zestril 2.5 mg p.o. daily. 17.Nitrostat 0.4 sublingually q.5 p.r.n. 18.Aldactone 25 mg p.o. daily. 19.Brilinta 90 mg p.o. b.i.d. 20.Duragesic 50 mcg patch q.72 hours; new dose, reduced. Discussion and discharge planning more than 35 minutes. PHYSICAL EXAMINATION: Temperature 96.9, pulse 93, respiration 18, blood pressure 120/64, pulse ox 99% on room air. CARDIOVASCULAR: First and second sounds normal. LUNGS: Fair air entry. Follow up with Dr. Miranda on 12/18/2017. Follow up with Dr. Gabriel on 12/15/2017. MMODL / IJN: [id number] /
== END 2017-12-11 17:29 | disposition home health service (06) | DRG 246 ==
LOC: EC 15:47 → 6SEL 17:31 → 6ICU 19:36 → 6SEL 12-09 17:01
PROVIDERS: ADMIT Hospitalist; ATTEND Hospitalist
PROC: B2111ZZ Fluoroscopy of Multiple Coronary Arteries using Low Osmolar Contrast (ICD-10-PCS; principal; 2017-12-08 18:27)
PROC: 4A023N7 Measurement of Cardiac Sampling and Pressure, Left Heart, Percutaneous Approach (ICD-10-PCS; principal; 2017-12-08 18:27)
PROC: 027034Z Dilation of Coronary Artery, One Artery with Drug-eluting Intraluminal Device, Percutaneous Approach (ICD-10-PCS; principal; 2017-12-08 18:27)
DX: I21.09 ST elevation (STEMI) myocardial infarction involving other coronary artery of anterior wall (principal); G92 Toxic encephalopathy; F11.23 Opioid dependence with withdrawal; I50.22 Chronic systolic (congestive) heart failure; E03.9 Hypothyroidism, unspecified; E05.90 Thyrotoxicosis, unspecified without thyrotoxic crisis or storm; E78.5 Hyperlipidemia, unspecified; G47.33 Obstructive sleep apnea (adult) (pediatric); T40.2X5A Adverse effect of other opioids, initial encounter; I11.0 Hypertensive heart disease with heart failure; I25.10 Atherosclerotic heart disease of native coronary artery without angina pectoris; I35.0 Nonrheumatic aortic (valve) stenosis; I49.3 Ventricular premature depolarization; J38.01 Paralysis of vocal cords and larynx, unilateral; K57.30 Diverticulosis of large intestine without perforation or abscess without bleeding; M79.7 Fibromyalgia; Z79.82 Long term (current) use of aspirin; Z79.899 Other long term (current) drug therapy; Z83.3 Family history of diabetes mellitus; Z85.828 Personal history of other malignant neoplasm of skin; Z87.891 Personal history of nicotine dependence; Z90.710 Acquired absence of both cervix and uterus; Z79.890 Hormone replacement therapy; F32.9 Major depressive disorder, single episode, unspecified; F41.9 Anxiety disorder, unspecified; Z88.8 Allergy status to other drugs, medicaments and biological substances
CPT/HCPCS: 36415; 36600; 70450; 71046; 80048; 80053; 81001; 82805; 83605; 83735; 84484; 85025; 85379; 85610; 85730; 93005; 93306; 93458; 96365; 96374; 96375; 96376; 99291

== ENCOUNTER 2017-12-28 13:42 | Inpatient (IN) | payer MEDICARE ==
[2017-12-28] MEDS ORDERED: SODIUM CHLORIDE 0.9% 1,000 ML IV STA ×2 (14:37)
[2017-12-28] MEDS ORDERED: IPRATROPIUM-ALBUTEROL 3 ML NEB INHALATION STA (14:37)
--- NOTE | 2017-12-28 14:55 | ED ---
SOB HPI - General Chief Complaint: Shortness of Breath Stated Complaint: poss dehydration Time Seen by Provider: 12/28/17 14:15 Source: patient, RN notes reviewed, old records reviewed Mode of arrival: wheelchair Limitations: no limitations - History of Present Illness Initial Comments: This is a 72-year-old female the ER for evaluation of shortness of breath patient had episode of shortness of breath just prior to arrival multiple weak and dizzy. A she has significant history of heart disease with recent hospital admission for same. Patient denies any significant recent change in medications no fever, mild cough no congestion. Does complain of shortness of breath over that is resolved MD Complaint: shortness of breath, cough -: days(s) Improves With: nothing Worsens With: exertion Associated Symptoms: denies other symptoms Treatments Prior to Arrival: none - Related Data Home Medications Medication Instructions Recorded Confirmed Ferrous Sulfate [Iron (65 MG 325 mg PO BID 11/16/15 12/08/17 Elemental)] Biotin 5 mg PO DAILY 06/02/17 12/08/17 Mirabegron [Myrbetriq] 50 mg PO HS 06/02/17 12/08/17 Gabapentin [Neurontin] 300 mg PO TID 09/25/17 12/08/17 L.acidoph,Paracasei, B.lactis 1 cap PO DAILY 09/25/17 12/08/17 [Probiotic] Levothyroxine Sodium [Synthroid] 75 mcg PO DAILY 09/25/17 12/08/17 hydrOXYzine PAMOATE [Vistaril] 50 mg PO QID 09/25/17 12/08/17 [employer] Ultra Blend 1 cap PO DAILY 09/26/17 12/08/17 Grown French [employer] Powder 1 scoop PO DAILY 09/26/17 12/08/17 Metoprolol Succinate (ER) [Toprol 25 mg PO DAILY 09/26/17 12/08/17 XL] [place] Xl 4 cap PO DAILY 09/26/17 12/08/17 traZODone HCL [Desyrel] 100 mg PO HS 12/08/17 12/08/17 Previous Rx's Medication Instructions Recorded Cevimeline [Evoxac] 30 mg PO TID cap 11/14/14 Aspirin 81 mg PO DAILY #1 chewable 11/16/15 Atorvastatin Calcium [Lipitor] 80 mg PO DAILY #30 tablet 12/11/17 Lisinopril [Zestril] 2.5 mg PO DAILY #30 tab 12/11/17 Nitroglycerin Sl Tabs [Nitrostat] 0.4 mg SUBLINGUAL Q5M PRN #25 tab 12/11/17 Spironolactone [Aldactone] 25 mg PO DAILY #30 tab 12/11/17 Ticagrelor [Brilinta] 90 mg PO BID #60 tab 12/11/17 fentaNYL 50MCG/HR PATCH [Duragesic 1 patch TRANSDERM Q72H #3 patch 12/11/17 50MCG/HR] Allergies Allergy/AdvReac Type Severity Reaction Status Date / Time lidocaine [From LidoPatch] Allergy Rash/Hives Verified 12/28/17 15:19 menthol [From LidoPatch] Allergy Rash/Hives Verified 12/28/17 15:19 Review of Systems ROS Statement: Those systems with pertinent positive or pertinent negative responses have been documented in the HPI. ROS Other: All systems not noted in ROS Statement are negative. 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 SACRAL ULCER, HAD PNE VACCINE AFTER AGE 65 NOT SURE OF DATE AND DR BENITO CLOSED UNABLE TO VERIFY DATE. 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 RT KNEE SX, LASIK EYE SX, Past Anesthesia/Blood Transfusion Reactions: No Reported Reaction Past Psychological History: Anxiety, Depression Smoking Status: Former smoker Past Alcohol Use History: None Reported Past Drug Use History: None Reported - Past Family History Mother Family Medical History: No Reported History Sister(s) Family Medical History: Diabetes Mellitus General Exam Limitations: no limitations General appearance: alert, in no apparent distress Head exam: Present: atraumatic, normocephalic, normal inspection Eye exam: Present: normal appearance, PERRL, EOMI. Absent: scleral icterus, conjunctival injection, periorbital swelling ENT exam: Present: normal exam, mucous membranes moist Neck exam: Present: normal inspection. Absent: tenderness, meningismus, lymphadenopathy Respiratory exam: Present: normal lung sounds bilaterally. Absent: respiratory distress, wheezes, rales, rhonchi, stridor Cardiovascular Exam: Present: regular rate, normal rhythm, normal heart sounds. Absent: systolic murmur, diastolic murmur, rubs, gallop, clicks GI/Abdominal exam: Present: soft, normal bowel sounds. Absent: distended, tenderness, guarding, rebound, rigid Extremities exam: Present: normal inspection, full ROM, normal capillary refill. Absent: tenderness, pedal edema, joint swelling, calf tenderness Back exam: Present: normal inspection Neurological exam: Present: alert, oriented X3, CN II-XII intact Psychiatric exam: Present: normal affect, normal mood Skin exam: Present: warm, dry, intact, normal color. Absent: rash Course Vital Signs 12/28/17 12/28/17 14:07 15:11 Temperature 98.5 F Pulse Rate 79 Respiratory 24 16 Rate Blood Pressure 88/46 O2 Sat by Pulse 97 Oximetry - Reevaluation(s) Reevaluation #1: 12/28/17 15:21 Medical record is reviewed Reevaluation #2: 12/28/17 15:21 STEMI is rate is paged patient on EKG criteria, no chest pain Medical Decision Making - Medical Decision Making 72 female the ER for evaluation of her shortness of breath. No current chest pain, patient of prior similars history and presentation with positive ST elevation and sent her LAD. Patient be admitted, cardiac evaluation and treatment - EKG Data -: EKG Interpreted by Me (EKG shows positive ST elevation in V3 and V4.) EKG shows normal: sinus rhythm - Radiology Data Radiology results: report reviewed (Chest x-rays negative for acute disease), image reviewed Critical Care Time Critical Care Time: Yes Total Critical Care Time: 31 Disposition Clinical Impression: ACS (acute coronary syndrome) Disposition: ADMITTED IP TO THIS [facility] Condition: Serious Is patient prescribed a controlled substance at d/c from ED?: No Referrals: Mario Gabriel DO [Primary Care Provider] - 1-2 days
[2017-12-28] MEDS ORDERED: HEPARIN SODIUM,PORCINE 5,000 UNIT/ML 1 ML VIAL IV ONE (15:18)
[2017-12-28] MEDS ORDERED: MORPHINE SULFATE 4 MG/ML SYRINGE IV PRN (15:18)
[2017-12-28] MEDS ORDERED: NITROGLYCERIN SL TABS 0.4 MG TAB SUBLINGUAL PRN (15:18)
[2017-12-28] MEDS ORDERED: HEPARIN SODIUM,PORCINE 5,000 UNIT/ML 1 ML VIAL IV PRN (15:18)
[2017-12-28] MEDS ORDERED: ASPIRIN 81 MG PO STA (15:24)
[2017-12-28] MEDS: ATORVASTATIN 80 MG TAB PO SCH (15:25)
[2017-12-28] MEDS ORDERED: HEPARIN SOD,PORK IN 0.45% NACL 25,000 UNIT in 0.45% NACL 1 500ML.BAG IV SCH (15:30)
[2017-12-28 15:34] LABS: Basophils # (A) 0.1 k/uL (0-0.2); Basophils % (A) 0 %; Eosinophils # (A) 0.1 k/uL (0-0.7); Eosinophils % (A) 0 %; HCT 35.4 % (34.0-46.0); HGB 11.4 gm/dL (11.4-16.0); Lymphocytes # (A) 1.5 k/uL (1.0-4.8); Lymphocytes % (A) 8 %; MCHC 32.1 g/dL (31.0-37.0); MCV 90.4 fL (80.0-100.0); Mean Platelet Volume 6.5; Monocytes # (A) 0.6 k/uL (0-1.0); Monocytes % (A) 3 %; Neutrophils # (A) 16.8 k/uL (1.3-7.7); Neutrophils % (A) 87 %; Platelet Count 323 k/uL (150-450); RBC 3.92 m/uL (3.80-5.40); RDW 14.9 % (11.5-15.5); WBC 19.3 k/uL (3.8-10.6)
--- NOTE | 2017-12-28 15:41 | XR ---
EXAMINATION TYPE: XR chest 1V portable DATE OF EXAM: 12/08/2017 HISTORY: Shortness of breath. COMPARISON: None. TECHNIQUE: Single view of the chest is submitted. FINDINGS: Demonstrated are scattered senescent parenchymal change. There is no evidence for focal infiltrate. The heart is stable. Hilar and mediastinal structures are within normal limits. Degenerative changes are seen of the dorsal spine. IMPRESSION: 1. Chronic changes without evidence for acute pulmonary disease.
[2017-12-28 15:50] LABS: Prothrombin Time 9.5 sec (9.0-12.0)
[2017-12-28 16:05] LABS: Albumin 4.3 g/dL (3.5-5.0); Calcium 9.4 mg/dL (8.4-10.2); Magnesium 2.9 mg/dL (1.6-2.3); Potassium 4.9 mmol/L (3.5-5.1); Total Bilirubin 0.6 mg/dL (0.2-1.3); Total Protein 7.2 g/dL (6.3-8.2)
[2017-12-28 16:12] LABS: Creatine Kinase MB 1.5 ng/mL (0.0-2.4)
[2017-12-28 16:13] LABS: Troponin I 0.307 ng/mL (0.000-0.034)
--- NOTE | 2017-12-28 16:24 | P.CRDCN ---
History of Present Illness Consult date: 12/28/17 Requesting physician: Len Azar Consult reason: shortness of breath Chief complaint: shortness of breath History of present illness: This is a 72-year-old female who was recently in the hospital on the fifth of this month with which time she presented to the hospital with an acute myocardial infarction and underwent LAD stenting.patient also has known severe aortic stenosis, hypertension, hyperlipidemia. She presented to the hospital on this occasion with symptoms of shortness of breath, and her visiting nurse also found her to be hypotensive. It was unclear to get an exact history from the patient in the emergency room, as she was stated she feels short of breath like her usual, but in the next treatment with stated that she feels much more short of breath than usual similar to her presentation at the beginning of the month. Her EKG showed a normal sinus rhythm with ST-T wave changes in the anterior lateral leads. Patient's ST elevation from her prior admission had remained elevated to a certain degree.Initially a STEMI was called, no labs were back yet at that time.the decision was ultimately made for the patient to be admitted, we will await the results of troponins and further recommendations then will be made. Her white blood cell count on admission here 19.3, hemoglobin 11.4, platelet count 323.sodium 139, potassium 4.9, chloride is 105, CO2 20, BUN 54, creatinine 2.1. BNP level 7730.No troponin not available.Chest x-ray performed on arrival here did not reveal any acute changes. 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 SACRAL ULCER, HAD PNE VACCINE AFTER AGE 65 NOT SURE OF DATE AND DR BENITO SHORT UNABLE TO VERIFY DATE. 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 RT KNEE SX, LASIK EYE SX, Past Anesthesia/Blood Transfusion Reactions: No Reported Reaction Past Psychological History: Anxiety, Depression Smoking Status: Former smoker Past Alcohol Use History: None Reported Past Drug Use History: None Reported - Past Family History Mother Family Medical History: No Reported History Sister(s) Family Medical History: Diabetes Mellitus Medications and Allergies Home Medications Medication Instructions Recorded Confirmed Type Cevimeline [Evoxac] 30 mg PO TID cap 11/14/14 12/28/17 Rx Aspirin 81 mg PO DAILY #1 chewable 11/16/15 12/28/17 Rx Ferrous Sulfate [Iron (65 MG 325 mg PO BID 11/16/15 12/28/17 History Elemental)] Biotin 5 mg PO DAILY 06/02/17 12/28/17 History Mirabegron [Myrbetriq] 50 mg PO HS 06/02/17 12/28/17 History L.acidoph,Paracasei, B.lactis 1 cap PO DAILY 09/25/17 12/28/17 History [Probiotic] Levothyroxine Sodium [Synthroid] 75 mcg PO DAILY 09/25/17 12/28/17 History hydrOXYzine PAMOATE [Vistaril] 50 mg PO QID 09/25/17 12/28/17 History Metoprolol Succinate (ER) [Toprol 25 mg PO DAILY 09/26/17 12/28/17 History XL] [place] Xl 3 cap PO DAILY 09/26/17 12/28/17 History Atorvastatin Calcium [Lipitor] 80 mg PO DAILY #30 tablet 12/11/17 12/28/17 Rx Lisinopril [Zestril] 2.5 mg PO DAILY #30 tab 12/11/17 12/28/17 Rx Nitroglycerin Sl Tabs [Nitrostat] 0.4 mg SUBLINGUAL Q5M PRN #25 tab 12/11/17 Rx Spironolactone [Aldactone] 25 mg PO DAILY #30 tab 12/11/17 12/28/17 Rx fentaNYL 50MCG/HR PATCH [Duragesic 1 patch TRANSDERM Q72H #3 patch 12/11/17 Rx 50MCG/HR] Clopidogrel [Plavix] 75 mg PO DAILY 12/28/17 12/28/17 History Gabapentin [Neurontin] 400 mg PO TID 12/28/17 12/28/17 History Mirtazapine [Remeron] 15 mg PO HS 12/28/17 12/28/17 History Allergies Allergy/AdvReac Type Severity Reaction Status Date / Time lidocaine [From LidoPatch] Allergy Rash/Hives Verified 12/28/17 15:19 menthol [From LidoPatch] Allergy Rash/Hives Verified 12/28/17 15:19 Physical Exam Vitals: Vital Signs Temp Pulse Resp BP Pulse Ox 12/28/17 15:33 75 18 104/63 99 12/28/17 15:11 16 12/28/17 14:07 98.5 F 79 24 88/46 97 Intake and Output 12/28/17 12/28/17 12/28/17 06:59 14:59 22:59 Other: Weight 50.802 kg PHYSICAL EXAMINATION: GENERAL:2-year-old female in no acute distress at the time of my examination HEENT: Head is atraumatic, normocephalic. Pupils equal, round. Sclera anicteric. Conjunctiva are clear. Mucous membranes of the mouth are moist. Neck is supple. There is no elevated jugular venous pressure.No carotid bruit is heard. HEART EXAMINATION:heart S1 S2 1 systolic murmur 3/6 heard in the midsternalregion] CHEST EXAMINATION:[ Lungs are clear to auscultation and precussion. No chest wall tenderness is noted on palpation or with deep breathing.] ABDOMEN: [ Soft, nontender. Bowel sounds are heard. No organomegaly noted]. EXTREMITIES:[ 2+ peripheral pulses with no evidence of peripheral edema and no calf tenderness noted]. NEUROLOGIC [patient is awake, alert and oriented X3.] . Results 12/28/17 15:02 12/28/17 15:02 Cardiac Enzymes 12/28/17 Range/Units 15:02 AST 31 (14-36) U/L Coagulation 12/28/17 Range/Units 15:02 PT 9.5 (9.0-12.0) sec APTT 21.0 L (22.0-30.0) sec CBC 12/28/17 Range/Units 15:02 WBC 19.3 H (3.8-10.6) k/uL RBC 3.92 (3.80-5.40) m/uL Hgb 11.4 (11.4-16.0) gm/dL Hct 35.4 (34.0-46.0) % Plt Count 323 (150-450) k/uL Comprehensive Metabolic Panel 12/28/17 Range/Units 15:02 Sodium 139 (137-145) mmol/L Potassium 4.9 (3.5-5.1) mmol/L Chloride 105 (98-107) mmol/L Carbon Dioxide 20 L (22-30) mmol/L BUN 54 H (7-17) mg/dL Creatinine 2.10 H (0.52-1.04) mg/dL Glucose 125 H (74-99) mg/dL Calcium 9.4 (8.4-10.2) mg/dL AST 31 (14-36) U/L ALT 27 (9-52) U/L Alkaline Phosphatase 43 (38-126) U/L Total Protein 7.2 (6.3-8.2) g/dL Albumin 4.3 (3.5-5.0) g/dL Current Medications Generic Name Dose Route Start Last Admin Trade Name Freq PRN Reason Stop Dose Admin Aspirin 325 mg 12/29/17 09:00 Aspirin PO DAILY [facility] Atorvastatin Calcium 80 mg 12/29/17 09:00 12/28/17 15:25 Lipitor PO 80 mg DAILY [facility] Administration Heparin Sodium (Porcine) 0 unit 12/28/17 15:18 Heparin IV Q6HR PRN Low PTT Protocol Sodium Chloride 1,000 mls @ 100 mls/hr 12/28/17 14:37 Saline 0.9% IV 12/29/17 00:36 .Q10H STA Heparin Sodium/Sodium Chloride 500 mls @ 12.19 mls/hr 12/28/17 15:30 25,000 unit/ Sodium Chloride IV .Q24H [facility] Protocol 12 UNITS/KG/HR Metoprolol Tartrate 25 mg 12/28/17 21:00 Lopressor PO BID YANET Morphine Sulfate 4 mg 12/28/17 15:18 Morphine Sulfate (Inj) IV Q4HR PRN Chest Pain Nitroglycerin 0.4 mg 12/28/17 15:18 Nitrostat SUBLINGUAL Q5M PRN Chest Pain Intake and Output 12/28/17 12/28/17 12/28/17 06:59 14:59 22:59 Other: Weight 50.802 kg Patient Weight 12/29/17 06:59 Weight 50.802 kg 12/28/17 15:02 12/28/17 15:02 EKG Interpretations (text) EKG shows a normal sinus rhythm with ST-T wave changes noted in the anterior lateral leads. Assessment and Plan Plan: assessment and plan #1 symptoms of shortness of breath, EKG shows normal sinus rhythm with ST-T wave changes in the anterior leads. No troponins available. #2 recent anterior wall myocardial infarction with stenting of the LAD, persistent mildST elevation on discharge noted. #3 aortic stenosis #4 hypertension #5 hyperlipidemia #6acute on chronic renal failure Plan We will admit the patient, obtain 3 sets of troponins, hold lisinopriland Aldactone because of the abnormal renal function. Continue aspirin and Plavix. Continue statin.administer IV fluids at 100 mL per hour check lytes BUN and creatinine in the morning. Further recommendations to follow. DNP note has been reviewed, I agree with a documented findings and plan of care. Patient was seen and examined.
[2017-12-28 16:26] LABS: Glucose,Whole Blood 125 mg/dL (75-99)
[2017-12-28 18:56] LABS: Appearance,Urine Clear (Clear); Bacteria,Urine Occasional /hpf; Bilirubin,Urine Negative (Negative); Blood,Urine Negative (Negative); Color,Urine Light Yellow; Glucose,Urine (UA) Negative (Negative); Hyaline Casts,Urine 1 /lpf (0-2); Ketones,Urine Negative (Negative); Leukocyte Esterase,Urine Trace (Negative); Mucus,Urine Rare /hpf; Nitrite,Urine Negative (Negative); PH, Urine 5.5 (5.0-8.0); Protein,Urine Negative (Negative); RBC,Urine 1 /hpf (0-5); Specific Gravity,Urine 1.008 (1.001-1.035); Squamous Epithelial Cell,Urine <1 /hpf (0-4); Urobilinogen,Urine <2.0 mg/dL (<2.0); WBC,Urine 2 /hpf (0-5)
[2017-12-28 21:05] LABS: Creatine Kinase MB 2.3 ng/mL (0.0-2.4)
[2017-12-28 21:07] LABS: Troponin I 0.274 ng/mL (0.000-0.034)
[2017-12-28] MEDS: FERROUS SULFATE 325 MG TAB PO SCH (21:34)
[2017-12-28] MEDS: METOPROLOL TARTRATE 25 MG TAB PO SCH (21:40)
[2017-12-28] MEDS: MIRTAZAPINE 15 MG TAB PO SCH (21:42)
--- NOTE | 2017-12-28 22:42 | HP ---
HISTORY AND PHYSICAL DATE OF ADMISSION AND SERVICE: 12/28/2017 PRESENTING COMPLAINT: Dizzy, lightheaded. HISTORY OF PRESENTING COMPLAINT: This is a very pleasant 72-year-old patient who was here in the hospital not too long ago. She was admitted on 12/08/2017 and discharged on 12/19/2017. At that time the patient had an acute ST-elevation myocardial infarction, had an emergent stent placed to the LAD. Patient's other chronic stable conditions included severe hypertensive heart disease, severe aortic stenosis and sclerosis, congestive heart failure, EF 40% to 45%, hyperlipidemia, hypothyroid, left true vocal cord paralysis, chronic fibromyalgia and chronic diverticulosis. Because patient used to get easily lethargic, the dose of Duragesic patch was cut back. The patient now takes oil called [facility] for her fibromyalgia pain. The patient is due to see her occupational health physician at [facility] for her severe aortic stenosis shortly. The patient got up this morning and felt a bit tired, a little bit woozy and a little bit confused; her legs kind of buckled. The visiting nurse took her blood pressure; it was hovering around 80 systolic. Hence the patient was sent down to the ER. Patient had questionably some shortness of breath. There was no chest pain. In the ER, the patient had a troponin of 0.3. Patient's EKG did show some ST elevation in V2 to V4; no associated flipped T-wave. Patient was taken to the cardiac garden labourer. Per verbal report, there was no acute occlusion. Patient was admitted to the ICU. Patient's 2D echocardiogram from 2 weeks ago did show an EF of 45% to 50% with severe concentric left ventricular hypertrophy. REVIEW OF SYSTEMS: CONSTITUTIONAL: Tired. HEENT: None. RESPIRATORY: As above. CARDIOVASCULAR: None. GASTROINTESTINAL: None. GENITOURINARY: None. MUSCULOSKELETAL: Chronic pain in the joints. DERMATOLOGICAL: None. HEMATOLOGICAL: None. LYMPHATICS: None. PSYCHIATRY: Some anxiety. NEUROLOGICAL: None. PAST MEDICAL HISTORY: 1. Severe aortic stenosis, sclerosis. 2. Hyperlipidemia. 3. Hypertension. 4. Hypothyroid. 5. Left vocal cord paralysis. 6. Colonic diverticulosis. 7. DVT, PE. 8. Fibromyalgia. 9. Obstructive sleep apnea. Does not use CPAP. 10.Anxiety. 11.Depression. 12.Coronary artery disease with stent to the LAD. PAST SURGICAL HISTORY: 1. Appendectomy. 2. Cardiac cath with stent. 3. Colonoscopy. 4. Repair of patent ductus at 18 months of age. 5. Laminectomy. 6. Uterine fibroid removed. 7. Basal cell removed from the right earlobe. PSYCH HISTORY: Anxiety and depression. SOCIAL HISTORY: The patient smoked for about 10 years in the '70s. No alcohol. Lives by herself. Has a visiting nurse. FAMILY HISTORY: Diabetes. HOME MEDICATIONS: 1. Fentanyl patch 50 mcg every 72 hours. 2. Aldactone 25 mg a day. 3. Nitrostat 0.4 sublingually q.5 p.r.n. 4. Remeron 15 mg at bedtime. 5. Myrbetriq 50 mg at bedtime. 6. Toprol-XL 25 mg at bedtime. 7. Zestril 2.5 mg p.o. daily. 8. Synthroid 75 mcg p.o. daily. 9. Neurontin 400 mg p.o. t.i.d. 10.Iron 325 p.o. b.i.d. 11.Plavix 75 mg p.o. daily. 12.Evoxac 30 mg t.i.d. 13.CBD oil 3 drops sublingually daily. 14.Biotin 5 mg p.o. daily. 15.Lipitor 80 mg p.o. daily. 16.Aspirin 81 mg p.o. daily. ALLERGIES: LIDOCAINE and MENTHOL. PHYSICAL EXAMINATION: VITAL SIGNS ON PRESENTATION: Temperature 98.5, pulse 79, respiration 20, blood pressure 88/46, pulse ox 97% on room air. GENERAL APPEARANCE: Thin build. Lying in bed, somewhat anxious. EYES: Pupils equal. Conjunctivae normal. HEENT: External appearance of nose and ears normal. Oral cavity normal. NECK: JVD not raised. Mass not palpable. RESPIRATORY: Effort normal. Lungs are clear. CARDIOVASCULAR: Ejection systolic murmur in the aortic area. No edema. ABDOMEN: Soft, nontender. Liver and spleen not palpable. LYMPHATIC: No lymph node palpable in neck or axillae. PSYCHIATRY: Alert and oriented x3. Mood and affect slightly anxious-appearing. NEUROLOGICAL: Pupils equal. Cranial nerves grossly intact. Power and sensation grossly intact. INVESTIGATIONS: White count 19.3, hemoglobin 11.4, potassium 4.9, BUN 54, creatinine 2.10. Troponin 0.3, 0.2. ProBNP 7730. UA positive for leukocyte esterase and trace of bacteria. Patient's BUN and creatinine were 20 and 0.93 on 12/10/2017. ASSESSMENT: 1. Acute hypotension in the setting of acute renal failure, probably from volume contraction and patient being on Aldactone and Zestril, causing her symptoms. 2. Emergent cardiac catheterization; full report not available. No acute coronary blockage. 3. Acute ST-elevation myocardial infarction, anterior wall, with emergent stent to the left anterior descending coronary artery about more than 2 weeks ago. 4. Hypertensive heart disease. 5. Severe aortic stenosis and sclerosis, non-rheumatic. 6. Chronic congestive heart failure from systolic dysfunction, ejection fraction 40% to 45%, from coronary artery disease. 7. Essential hypertension. 8. Hyperlipidemia. 9. Hypothyroidism. 10.Chronic left vocal cord paralysis. 11.Chronic fibromyalgia. 12. diverticulosis. 13.Acute renal failure, likely prerenal. 14.Symptomatic urinary tract infection, probably from cystitis. Will add Keflex for the same. PLAN: Patient will be hydrated gently. Will hold off patient's LOPEZ inhibitor and Aldactone for right now. Review labs in the morning. Care was discussed with the patient. Patient was seen by Dr. Medeiros from Cardiology. Patient's leukocytosis is likely from volume contraction. No clinical evidence of it, though the patient may have a bit of a UTI. MMODL / IJN: [id number] /
[2017-12-28] MEDS: GABAPENTIN 400 MG CAP PO SCH (22:59)
[2017-12-28] MEDS: CEVIMELINE 30 MG CAP PO SCH (22:59)
[2017-12-28] MEDS: LACTATED RINGERS 1,000 ML IV SCH (23:00)
[2017-12-28] MEDS: CEPHALEXIN 250 MG CAP PO SCH (23:00)
[2017-12-29 05:51] LABS: HCT 29.7 % (34.0-46.0); MCH 29.2 pg (25.0-35.0); MCHC 32.2 g/dL (31.0-37.0); MCV 90.7 fL (80.0-100.0); Mean Platelet Volume 6.8; Platelet Count 271 k/uL (150-450); RBC 3.28 m/uL (3.80-5.40); RDW 15.1 % (11.5-15.5); WBC 10.5 k/uL (3.8-10.6)
[2017-12-29 06:12] LABS: HGB 9.6 gm/dL (11.4-16.0)
[2017-12-29 06:15] LABS: Calcium 8.3 mg/dL (8.4-10.2); Potassium 5.2 mmol/L (3.5-5.1)
[2017-12-29 06:30] LABS: Magnesium 2.6 mg/dL (1.6-2.3); Phosphorus 2.7 mg/dL (2.5-4.5)
[2017-12-29] MEDS: LEVOTHYROXINE 75 MCG TAB PO SCH (07:06)
--- NOTE | 2017-12-29 07:24 | P.PN ---
Subjective Progress Note Date: 12/29/17 Principal diagnosis: Coronary artery disease/aortic stenosis This is a pleasant 72-year-old female patient with coronary artery disease and status post a stenting of the LAD recently, known severe aortic stenosis, as well as hypertension, dyslipidemia, was brought to the hospital by her visiting nurse with shortness of breath. The initial impression was acute anterior ST patient myocardial infarction but after reviewing the EKG and comparing the EKG to the old one before she was discharged from the hospital there was no major changes. Because of that we called the STEMI off and the patient was treated medically. On follow-up with her today, December 292017, she denies having any chest pain or discomfort. She continues to have shortness of breath with exertion but this is same as before. She does have severe aortic stenosis and according to her she has been seen by a surgeon at [facility] for possible pursuing transcutaneous aortic valve replacement. Hemodynamically she continues to be stable. The hemoglobin is 9.6 and the creatinine is slightly elevated and her baseline creatinine is within normal limits. She has been maintaining normal sinus mechanism. From the cardiovascular standpoint overview the patient can be transferred to selective unit for possible discharge in the next 12-24 hours. Objective - Vital Signs Vital signs: Vital Signs Temp 98.6 F 12/29/17 04:00 Pulse 66 12/29/17 07:01 Resp 16 12/29/17 07:01 BP 100/52 12/29/17 07:01 Pulse Ox 94 L 12/29/17 07:01 Intake & Output 12/28/17 12/29/17 12/29/17 18:59 06:59 18:59 Intake Total 220 538.942 Output Total 250 1200 Balance -30 -661.058 Weight 55.2 kg 59.8 kg Intake: IV 220 200 Sodium Chloride 0.9% 1, 220 200 000 ml @ 20 mls/hr IV . Q24H STA Rx#:[id number] Intake, IV Titration 98.942 Amount Heparin Sod,Pork in 0.45% 98.942 NaCl 25,000 unit In 0.45 % NaCl 1 500ml.bag @ 12 UNITS/KG/HR 12.19 mls/hr IV .Q24H YANET Rx#: [id number] Oral 240 Tube Feeding 0 Output: Urine 250 1200 Other: Voiding Method Toilet Bedside Commode # Voids 4 - Constitutional General appearance: Present: no acute distress - Respiratory Respiratory: bilateral: rales - Cardiovascular Rhythm: regular Heart sounds: normal: S1 Abnormal Heart Sounds: Present: systolic murmur - Labs CBC & Chem 7: 12/29/17 05:23 12/29/17 05:23 Labs: Abnormal Lab Results - Last 24 Hours (Table) 12/28/17 12/28/17 12/28/17 Range/Units 15:02 15:02 15:02 WBC 19.3 H (3.8-10.6) k/uL RBC (3.80-5.40) m/uL Hgb (11.4-16.0) gm/dL Hct (34.0-46.0) % Neutrophils # 16.8 H (1.3-7.7) k/uL APTT (22.0-30.0) sec Potassium (3.5-5.1) mmol/L Chloride (98-107) mmol/L Carbon Dioxide 20 L (22-30) mmol/L BUN 54 H (7-17) mg/dL Creatinine 2.10 H (0.52-1.04) mg/dL Glucose 125 H (74-99) mg/dL POC Glucose (mg/dL) (75-99) mg/dL Calcium (8.4-10.2) mg/dL Magnesium 2.9 H (1.6-2.3) mg/dL Troponin I 0.307 H* (0.000-0.034) ng/mL Ur Leukocyte Esterase (Negative) Urine Bacteria (None) /hpf Urine Mucus (None) /hpf 12/28/17 12/28/17 12/28/17 Range/Units 15:02 16:24 18:40 WBC (3.8-10.6) k/uL RBC (3.80-5.40) m/uL Hgb (11.4-16.0) gm/dL Hct (34.0-46.0) % Neutrophils # (1.3-7.7) k/uL APTT 21.0 L (22.0-30.0) sec Potassium (3.5-5.1) mmol/L Chloride (98-107) mmol/L Carbon Dioxide (22-30) mmol/L BUN (7-17) mg/dL Creatinine (0.52-1.04) mg/dL Glucose (74-99) mg/dL POC Glucose (mg/dL) 125 H (75-99) mg/dL Calcium (8.4-10.2) mg/dL Magnesium (1.6-2.3) mg/dL Troponin I (0.000-0.034) ng/mL Ur Leukocyte Esterase Trace H (Negative) Urine Bacteria Occasional H (None) /hpf Urine Mucus Rare H (None) /hpf 12/28/17 12/29/17 12/29/17 Range/Units 20:12 01:25 05:23 WBC (3.8-10.6) k/uL RBC 3.28 L (3.80-5.40) m/uL Hgb 9.6 L D (11.4-16.0) gm/dL Hct 29.7 L (34.0-46.0) % Neutrophils # (1.3-7.7) k/uL APTT 33.6 H (22.0-30.0) sec Potassium (3.5-5.1) mmol/L Chloride (98-107) mmol/L Carbon Dioxide (22-30) mmol/L BUN (7-17) mg/dL Creatinine (0.52-1.04) mg/dL Glucose (74-99) mg/dL POC Glucose (mg/dL) (75-99) mg/dL Calcium (8.4-10.2) mg/dL Magnesium (1.6-2.3) mg/dL Troponin I 0.274 H* (0.000-0.034) ng/mL Ur Leukocyte Esterase (Negative) Urine Bacteria (None) /hpf Urine Mucus (None) /hpf 12/29/17 12/29/17 Range/Units 05:23 05:23 WBC (3.8-10.6) k/uL RBC (3.80-5.40) m/uL Hgb (11.4-16.0) gm/dL Hct (34.0-46.0) % Neutrophils # (1.3-7.7) k/uL APTT (22.0-30.0) sec Potassium 5.2 H (3.5-5.1) mmol/L Chloride 114 H (98-107) mmol/L Carbon Dioxide 19 L (22-30) mmol/L BUN 44 H (7-17) mg/dL Creatinine 1.31 H (0.52-1.04) mg/dL Glucose (74-99) mg/dL POC Glucose (mg/dL) (75-99) mg/dL Calcium 8.3 L (8.4-10.2) mg/dL Magnesium 2.6 H (1.6-2.3) mg/dL Troponin I (0.000-0.034) ng/mL Ur Leukocyte Esterase (Negative) Urine Bacteria (None) /hpf Urine Mucus (None) /hpf Assessment and Plan Assessment: Assessment #1 shortness of breath, which is chronic, without any chest pain or chest discomfort #2 known coronary artery disease and status post PCI of the LAD few weeks ago #3 known severe aortic stenosis in process of having aortic valve replacement surgically or percutaneously #4 hypertension #5 dyslipidemia Plan #1 continue the current medical regimen including dual antiplatelet therapy #2 restart the patient's back on Aldactone once the creatinine is back to normal. The creatinine is still slightly deviated and her baseline creatinine is normal #3 follow-up with the patient #4 anticipate discharge in the next 12-24 hours.
[2017-12-29] MEDS ORDERED: ASPIRIN 325 MG TAB PO SCH (09:00)
--- NOTE | 2017-12-29 09:31 | XR ---
EXAMINATION TYPE: XR chest 1V DATE OF EXAM: 12/29/2017 COMPARISON: 12/28/2017 INDICATION: Cardiopulmonary issues on admission TECHNIQUE: Single frontal view of the chest is obtained. FINDINGS: The heart size is mildly prominent. The pulmonary vasculature is normal. The lungs are clear. IMPRESSION: 1. Mild stable cardiomegaly.
[2017-12-29] MEDS: FERROUS SULFATE 325 MG TAB PO SCH ×2 (10:12→21:01)
[2017-12-29] MEDS: ASPIRIN 81 MG PO SCH (10:12)
[2017-12-29] MEDS: GABAPENTIN 400 MG CAP PO SCH ×3 (10:12→21:02)
[2017-12-29] MEDS: ATORVASTATIN 80 MG TAB PO SCH (10:12)
[2017-12-29] MEDS: METOPROLOL TARTRATE 25 MG TAB PO SCH ×2 (10:12→21:02)
[2017-12-29] MEDS: CLOPIDOGREL 75 MG TAB PO SCH (10:16)
[2017-12-29] MEDS: CEVIMELINE 30 MG CAP PO SCH ×3 (10:17→21:02)
[2017-12-29] MEDS: CEPHALEXIN 250 MG CAP PO SCH ×3 (10:17→21:02)
[2017-12-29] MEDS: LACTATED RINGERS 1,000 ML IV SCH (10:18)
--- NOTE | 2017-12-29 11:44 | ECHOF ---
Referral Reason:cad MEASUREMENTS -------- HEIGHT: 157.5 cm WEIGHT: 54.9 kg BP: 108/58 RVIDd: 2.3 cm (< 3.3) IVSd: 1.1 cm (0.6 - 1.1) LVIDd: 3.6 cm (3.9 - 5.3) LVPWd: 1.2 cm (0.6 - 1.1) IVSs: 1.4 cm LVIDs: 2.4 cm LVPWs: 1.5 cm LA Diam: 3.0 cm (2.7 - 3.8) LAESV Index (A-L): 27.77 ml/m Ao Diam: 3.1 cm (2.0 - 3.7) AV Cusp: 1.3 cm (1.5 - 2.6) EPSS: 0.8 cm MV E Dandre: 0.93 m/s MV DecT: 291 ms MV A Dandre: 1.22 m/s MV E/A Ratio: 0.76 AV maxP.26 mmHg AV meanP.67 mmHg RAP: 5.00 mmHg RVSP: 35.34 mmHg MV EF SLOPE: 73.18 mm/s (70 - 150) MV EXCURSION: 1.56 cm (> 18.000) FINDINGS -------- Sinus rhythm. This was a technically adequate study. The left ventricular size is normal. There is borderline concentric left ventricular hypertrophy. Overall left ventricular systolic function is low-normal with, an EF between 50 - 55 %. Apical ant erior LV wall motion is hypokinetic. Apical lateral LV wall motion is hypokinetic. Apical infer ior LV wall motion is hypokinetic. Apical septum LV wall motion is hypokinetic. The right ventricle is normal in size. Normal LA size by volume 22+/-6 ml/m2. The right atrium is normal in size. 3 ml of Lumason was utilized for enhancement of images. There is severe aortic valve sclerosis. There is severe aortic stenosis present. Peak/mean gradie nt across the Aortic Valve is 78.26mmHg / 47.67mmHg. The mitral valve leaflets are mildly thickened. Mild mitral annular calcification present. Mild m itral regurgitation is present. Mild tricuspid regurgitation present. There is mild pulmonary hypertension. The right ventricular systolic pressure, as measured by Doppler, is 35.34mmHg. The pulmonic valve was not well visualized. The aortic root size is normal. Normal inferior vena cava with normal inspiratory collapse consistent with estimated right atrial pre ssure of 5 mmHg. There is no pericardial effusion. CONCLUSIONS -------- 1. Sinus rhythm. 2. This was a technically adequate study. 3. The left ventricular size is normal. 4. There is borderline concentric left ventricular hypertrophy. 5. Overall left ventricular systolic function is low-normal with, an EF between 50 - 55 %. 6. Apical anterior LV wall motion is hypokinetic. 7. Apical lateral LV wall motion is hypokinetic. 8. Apical inferior LV wall motion is hypokinetic. 9. Apical septum LV wall motion is hypokinetic. 10. The right ventricle is normal in size. 11. Normal LA size by volume 22+/-6 ml/m2. 12. The right atrium is normal in size. 13. 3 ml of Lumason was utilized for enhancement of images. 14. There is severe aortic valve sclerosis. 15. There is severe aortic stenosis present. 16. Peak/mean gradient across the Aortic Valve is 78.26mmHg / 47.67mmHg. 17. The mitral valve leaflets are mildly thickened. 18. Mild mitral annular calcification present. 19. Mild mitral regurgitation is present. 20. Mild tricuspid regurgitation present. 21. There is mild pulmonary hypertension. 22. The right ventricular systolic pressure, as measured by Doppler, is 35.34mmHg. 23. The pulmonic valve was not well visualized. 24. The aortic root size is normal. 25. Normal inferior vena cava with normal inspiratory collapse consistent with estimated right atrial pressure of 5 mmHg. 26. There is no pericardial effusion. WIRELESS TEAM MEMBER: CIRILO Duran
[2017-12-29] MEDS ORDERED: SODIUM CHLORIDE 0.9% 1,000 ML IV SCH (22:00)
[2017-12-29] MEDS: MIRTAZAPINE 15 MG TAB PO SCH (22:41)
--- NOTE | 2017-12-30 03:46 | PN ---
PROGRESS NOTE DATE OF SERVICE: December 29, 2017. PRESENT COMPLAINT: Dizzy and lightheaded. INTERVAL HISTORY: This patient presented with dizzy, lightheaded and hypotension from acute renal failure. Patient is feeling better today. Did tolerate some diet. Sitting up on a bed. REVIEW OF SYSTEMS: Done for constitutional, cardiovascular, GI, pulmonary and relevant findings as above. CURRENT MEDICATIONS: Reviewed including IV fluids. PHYSICAL EXAMINATION: VITAL SIGNS: Temperature 97.8, pulse 77, respiratory rate 16, blood pressure 118/61. GENERAL APPEARANCE: Lying in bed, more awake. EYES: Pupils equal. Conjunctivae normal. HEENT: External appearance of nose and ears normal. Oral cavity normal. NECK: JVD not raised. Mass not palpable. RESPIRATORY: Effort normal. LUNGS: Are clear. CARDIOVASCULAR: Ejection systolic murmur. No edema. ABDOMEN: Soft, nontender. Liver and spleen not palpable. PSYCHIATRY: Alert and oriented x3. Mood and affect normal. INVESTIGATIONS: White count 10.5, hemoglobin 9.6, potassium 5.2. BUN 44, creatinine 1.31. ASSESSMENT: 1. Acute hypotension in a setting of acute renal failure probably from volume contraction. I had incorrectly documented yesterday that the patient had a cardiac catheterization as the patient informed me the patient did not have a cardiac catheterization. 2. Acute ST-elevation myocardial infarction anterior wall with emergent stent to the LAD more than 2 weeks ago. 3. Hypertensive heart disease. 4. Severe aortic stenosis, nonrheumatic. 5. Chronic congestive heart failure from systolic dysfunction, EF 40-45 percent, coronary artery disease. 6. Essential hypertension. 7. Hyperlipidemia. 8. Hypothyroidism. 9. Chronic left vocal cord paralysis. 10.Chronic fibromyalgia. 11.Chronic diverticulosis. 12.Acute renal failure, likely prerenal, improving. 13.Symptomatic urinary tract infection from cystitis. PLAN: Patient doing much better. Getting IV fluids. Repeat electrolytes in the morning. Care was discussed with the patient. Because of a bit of hyperkalemia, we will switch over to normal saline. MMODL / IJN: [id number] /
[2017-12-30 05:04] LABS: Basophils % (A) 0 %; Eosinophils # (A) 0.3 k/uL (0-0.7); Eosinophils % (A) 4 %; HCT 30.3 % (34.0-46.0); HGB 9.8 gm/dL (11.4-16.0); Lymphocytes # (A) 2.2 k/uL (1.0-4.8); Lymphocytes % (A) 28 %; MCH 29.4 pg (25.0-35.0); MCHC 32.3 g/dL (31.0-37.0); MCV 91.1 fL (80.0-100.0); Mean Platelet Volume 6.6; Monocytes # (A) 0.4 k/uL (0-1.0); Monocytes % (A) 5 %; Neutrophils # (A) 4.6 k/uL (1.3-7.7); Neutrophils % (A) 59 %; Platelet Count 262 k/uL (150-450); RBC 3.33 m/uL (3.80-5.40); WBC 7.7 k/uL (3.8-10.6)
[2017-12-30 05:15] LABS: Calcium 8.6 mg/dL (8.4-10.2); Phosphorus 2.2 mg/dL (2.5-4.5); Potassium 4.9 mmol/L (3.5-5.1)
[2017-12-30] MEDS: LEVOTHYROXINE 75 MCG TAB PO SCH (05:30)
[2017-12-30] MEDS: CEPHALEXIN 250 MG CAP PO SCH (09:00)
[2017-12-30] MEDS: CEVIMELINE 30 MG CAP PO SCH (09:01)
[2017-12-30] MEDS: FERROUS SULFATE 325 MG TAB PO SCH (09:04)
[2017-12-30] MEDS: CLOPIDOGREL 75 MG TAB PO SCH (09:04)
[2017-12-30] MEDS: GABAPENTIN 400 MG CAP PO SCH (09:05)
[2017-12-30] MEDS: METOPROLOL TARTRATE 25 MG TAB PO SCH (09:05)
[2017-12-30] MEDS: ASPIRIN 81 MG PO SCH (09:05)
--- NOTE | 2017-12-30 11:17 | PN ---
PROGRESS NOTE Mrs. Walls is a 72-year-old female with a history of coronary artery disease, history of severe aortic stenosis, status post PDA closure as a child, who came in with an episode of dyspnea. She is feeling better since. Her main complaint is related to her fibromyalgia. She is scheduled to undergo ROBER at [facility] on Monday for evaluation for possible TAVR. She denies any nausea or vomiting. She continues to be on aspirin once a day, Plavix 75 mg daily, Lipitor 80 mg daily, metoprolol tartrate 25 mg twice a day. PHYSICAL EXAMINATION: Blood pressure 124/50 with a heart rate in the 80s. LUNGS: Clear. HEART: Regular rate and rhythm. S1, S2. No S3, with systolic murmur 3/6 heard at the base. Late peaking. No diastolic murmur. ABDOMEN: Soft, nontender. Positive bowel sounds. No organomegaly. EXTREMITIES: No edema. LAB DATA: BUN and creatinine of 28 and 1.01, potassium 4.9, hemoglobin of 9.8. IMPRESSION: 1. Status post recent myocardial infarction with no evidence of stent closure. 2. Severe aortic stenosis, being evaluated for TAVR at [facility]. 3. History of hyperlipidemia. 4. Status post closure of PDA in the past. RECOMMENDATIONS: From the cardiac standpoint, I will increase her level activity. I would expect she should be able to be discharged home today and follow up with her physician at [facility] to undergo the ROBER and subsequently undergo TAVR as indicated. MMODL / IJN: [id number] /
[2017-12-30 13:18] VITALS: BP 105/56; PULSE 76; RESP 14; TEMP 98
--- NOTE | 2017-12-31 09:45 | DS ---
DISCHARGE SUMMARY DATE OF ADMISSION: December 28, 2017. DATE OF DISCHARGE: December 30, 2017. FINAL DIAGNOSES: 1. Acute renal failure leading to hypotension. 2. Acute ST-elevation myocardial infarction of the anterior wall with emergent stent to the LAD more than 2 weeks ago. 3. Hypertensive heart disease. 4. Severe aortic stenosis, nonrheumatic. 5. Chronic congestive heart failure from systolic dysfunction EF 40-45 percent from underlying coronary artery disease. 6. Essential hypertension. 7. Hyperlipidemia. 8. Hypothyroidism. 9. Chronic left vocal cord paralysis. 10.Chronic fibromyalgia. 11.Colonic diverticulosis. 12.Acute renal failure likely prerenal from medications. 13.Symptomatic urinary tract infection from cystitis. HOSPITAL COURSE: This patient presented dizzy, lightheaded. The patient's creatinine had gone up from 0.93 from 2 weeks ago to 2.10. The patient's diuretics, LOPEZ inhibitor was discontinued. The patient is given IV fluids to which she responded well. Troponin leak was felt to be in the setting of renal failure. No acute ischemia. The patient's creatinine did come down nicely to 1.01. The patient is feeling much better. The patient has severe aortic stenosis due to follow up ROBER at [facility] on Monday and for possible TAVR. PHYSICAL EXAMINATION: Temperature 98, pulse 75, respiration 23, blood pressure 100/60. LUNGS: Fair air entry. LABS: White count 7.7, hemoglobin 9.8, potassium 4.9, BUN 28, creatinine 1.01. DISCHARGE MEDICATIONS: 1. Evoxac 30 mg p.o. t.i.d. 2. Aspirin 81 mg a day. 3. Iron 325 mg b.i.d. 4. Biotin 5 mg a day. 5. Myrbetriq 50 mg q.h.s. 6. Synthroid 75 mcg a day. 7. Lipitor 80 mg a day. 8. Nitrostat 0.4 sublingual q.5 p.r.n. 9. Duragesic patch 50 every 72 hours. 10.The patient does use CBD oil 3 times daily. 11.Plavix 75 mg p.o. daily. 12.Neurontin 400 mg t.i.d. 13.Remeron 50 mg q.h.s. 14.Keflex 250 mg p.o. t.i.d. for 10 capsules. 15.Lopressor 25 mg p.o. b.i.d. 16.Aldactone 12.5 mg p.o. daily. FOLLOWUP: With a news technical director on Monday. Follow up with Dr. Gabriel in 1 week. Follow up with the local news technical director as planned. Copy to Dr. Gabriel. MMEFRENL / IJN: [id number] /
--- NOTE | 2018-01-03 08:17 | CDI ---
Last Revision, February 2017 Documentation Clarification Form Date: 01/03/18 From: Nuvia Stanley Phone: If you have a question regarding this query, please contact Mala Fernández at [phone] between 8am and 5pm. Admit Date: 12/28/2017 3:18:00 PM Patient Name: Leeann Walls Visit Number: [id number] Discharge Date: 12/30/17 ATTENTION: The Clinical Documentation Specialists (CDI) and [facility] Coding Staff appreciate your assistance in clarifying documentation. Please respond to the clarification below the line at the bottom and electronically sign. The CDI & [facility] Coding staff will review the response and follow-up if needed. Please note: Queries are made part of the Legal Health Record. If you have any questions, please contact the author of this message via ITS. Len Fernando MD Acute Renal failure is documented in the H&P, discharge summary and 12/29 progress note. History Risk factors/Other underlying illness: Patient has a history of hypertensive cardiovascular disease, previous STEMI with stent placement earliery this monthy, CAD and aortic valve stenosis. Clinical Indicators: Shortness of breath. Patient presents with a BUN/CR and GFR of: 54/2.12/26 Patients discharge BUN/CR and GFR: 28/1. Urinalysis: Trace leukocyte esterase, occassional bacteria, rare mucus, hyaline casts 1 Treatment: Sodium Chloride IV 1,000 mls @999 mls/hr then 1,000 mls @20 mls/hr In your professional opinion, can you please clarify if the condition can be further specified? Acute Renal Failure with Acute Tubular Necrosis Acute Renal Failure with Renal Cortical Necrosis Acute Renal Failure with other specified pathological cause, please specify Acute Renal Failure with other cause, please specify Unable to determine Other, please specify ACUTE RENAL FAILURE DUE TO PRERENAL/VOLUME LOSS MTDD
== END 2017-12-30 15:33 | disposition home or self-care (01) | DRG 683 ==
LOC: EC 13:42 → 2SICU 15:18
PROVIDERS: ADMIT Hospitalist; ATTEND Hospitalist
DX: N17.9 Acute kidney failure, unspecified (principal); I50.22 Chronic systolic (congestive) heart failure; I95.9 Hypotension, unspecified; I11.0 Hypertensive heart disease with heart failure; J38.01 Paralysis of vocal cords and larynx, unilateral; N30.90 Cystitis, unspecified without hematuria; I35.0 Nonrheumatic aortic (valve) stenosis; E03.9 Hypothyroidism, unspecified; E78.5 Hyperlipidemia, unspecified; G47.33 Obstructive sleep apnea (adult) (pediatric); I25.10 Atherosclerotic heart disease of native coronary artery without angina pectoris; I25.2 Old myocardial infarction; K57.30 Diverticulosis of large intestine without perforation or abscess without bleeding; M79.7 Fibromyalgia; F32.9 Major depressive disorder, single episode, unspecified; F41.9 Anxiety disorder, unspecified; M25.50 Pain in unspecified joint; Z79.02 Long term (current) use of antithrombotics/antiplatelets; Z79.82 Long term (current) use of aspirin; Z79.899 Other long term (current) drug therapy; Z79.890 Hormone replacement therapy; Z88.8 Allergy status to other drugs, medicaments and biological substances; Z95.5 Presence of coronary angioplasty implant and graft; Z90.710 Acquired absence of both cervix and uterus; Z87.891 Personal history of nicotine dependence; Z85.828 Personal history of other malignant neoplasm of skin; Z90.49 Acquired absence of other specified parts of digestive tract; Z86.718 Personal history of other venous thrombosis and embolism; Z86.711 Personal history of pulmonary embolism; Z87.01 Personal history of pneumonia (recurrent); Z83.3 Family history of diabetes mellitus
CPT/HCPCS: 36415; 71045; 80048; 80053; 80061; 81001; 82550; 82553; 83735; 83880; 84100; 84484; 85025; 85027; 85049; 85610; 85730; 93306; 96374; 99291

== ENCOUNTER → 2018-01-30 | Outpatient (CLI) | payer MEDICARE ==
--- NOTE | 2018-01-30 19:44 | US ---
EXAMINATION TYPE: US venous doppler duplex LE RT DATE OF EXAM: 01/30/2018 7:05 PM COMPARISON: NONE CLINICAL HISTORY: Calf pain M79.669 RLE. right leg pain and edema. SIDE PERFORMED: Right TECHNIQUE: The lower extremity deep venous system is examined utilizing real time linear array sonog thais with graded compression, doppler sonography and color-flow sonography. VESSELS IMAGED: External Iliac Vein (EIV) Common Femoral Vein Deep Femoral Vein Greater Saphenous Vein * Femoral Vein Popliteal Vein Small Saphenous Vein * Proximal Calf Veins (* superficial vessels) FINDINGS: Grayscale, color doppler, spectral doppler imaging performed of the deep veins of the lowe r extremities. There is normal flow, compressibility, vascular waveforms. IMPRESSION: NEGATIVE FOR DVT RIGHT LOWER EXTREMITY.
== END | disposition home or self-care (01) ==
LOC: RADUSMAIN 18:08
PROVIDERS: ATTEND Family Medicine
DX: M79.661 Pain in right lower leg (principal)

== ENCOUNTER → 2018-03-19 | Outpatient (CLI) | payer MEDICARE ==
[2018-03-19 17:04] LABS: Appearance,Urine Clear (Clear); Basophils % (A) 0 %; Bilirubin,Urine Negative (Negative); Blood,Urine Negative (Negative); Color,Urine Yellow; Eosinophils # (A) 0.1 k/uL (0-0.7); Eosinophils % (A) 1 %; Glucose,Urine (UA) Negative (Negative); HCT 33.8 % (34.0-46.0); HGB 10.1 gm/dL (11.4-16.0); Hypochromasia Marked; Ketones,Urine Negative (Negative); Leukocyte Esterase,Urine Negative (Negative); Lymphocytes # (A) 1.1 k/uL (1.0-4.8); Lymphocytes % (A) 11 %; MCH 29.8 pg (25.0-35.0); MCV 99.3 fL (80.0-100.0); Mean Platelet Volume 6.1; Monocytes # (A) 0.5 k/uL (0-1.0); Monocytes % (A) 5 %; Neutrophils # (A) 7.8 k/uL (1.3-7.7); Neutrophils % (A) 78 %; Nitrite,Urine Negative (Negative); PH, Urine 6.5 (5.0-8.0); Platelet Count 311 k/uL (150-450); Protein,Urine Negative (Negative); RDW 13.1 % (11.5-15.5); Specific Gravity,Urine 1.008 (1.001-1.035); Urobilinogen,Urine <2.0 mg/dL (<2.0)
[2018-03-19 17:09] LABS: INR 0.9 (<1.2); Prothrombin Time 9.6 sec (9.0-12.0)
[2018-03-20 03:48] LABS: Albumin 4.3 g/dL (3.80-4.90); Albumin/Globulin Ratio 2.69 (1.20-2.10); Calcium 9.2 mg/dL (8.7-10.3); Globulin 1.6 g/dL (1.6-3.3); Magnesium 2.2 mg/dL (1.5-2.4); Total Bilirubin 0.5 mg/dL (0.3-1.2); Total Protein 5.9 g/dL (6.2-8.2)
== END ==
LOC: LABWHC1 16:18
PROVIDERS: ATTEND Student in an Organized Health Care Education/Training Program
DX: I35.0 Nonrheumatic aortic (valve) stenosis (principal)
CPT/HCPCS: 36415; 80053; 81003; 83735; 83880; 85025; 85610

== ENCOUNTER → 2018-05-04 | Outpatient (CLI) | payer MEDICARE ==
--- NOTE | 2018-05-07 09:28 | MM ---
Reason for exam: screening (asymptomatic). Last mammogram was performed 3 years ago. History: Patient is postmenopausal, history of other cancer, and is nulliparous. Took estrogen for 10 years. Physical Findings: A clinical breast exam by your physician is recommended on an annual basis and results should be correlated with mammographic findings. MG 3D Screening Mammo W/Cad Bilateral CC and MLO view(s) were taken. Prior study comparison: May 05, 2015, bilateral MG 3d screening mammo w/cad. January 14, 2014, bilateral MG screening mammo w CAD. The breast tissue is heterogeneously dense. This may lower the sensitivity of mammography. No suspicious abnormality. No significant changes when compared with prior studies. ASSESSMENT: Negative, BI-RAD 1 RECOMMENDATION: Routine screening mammogram of both breasts in 1 year.
== END ==
LOC: RADMAMWWP 14:10
PROVIDERS: ATTEND Family Medicine
DX: Z12.31 Encounter for screening mammogram for malignant neoplasm of breast (principal)
CPT/HCPCS: 77063; 77067

== ENCOUNTER → 2019-01-17 | Outpatient (CLI) | payer MEDICARE ==
--- NOTE | 2019-01-17 21:10 | CONS ---
CONSULTATION DATE OF SERVICE: 01/17/2019 This patient is a 73-year-old lady who has [facility] for obstructive sleep apnea-hypopnea syndrome. HISTORY OF PRESENT ILLNESS/SLEEP-WAKE EVALUATION: Patient was diagnosed with obstructive sleep apnea about 10 years ago in [place] and was started on treatment with CPAP, but she had discomfort with CPAP and quit using it in 2009, about 9 years ago. About 6 months ago, because of oxygen desaturation during sleep, she was started on additional oxygen at night. At present her sleep schedule is from 12:30 or 1 a.m. until 7 to 11 a.m. Usually no problems with falling asleep, especially while she is using sleeping pills. She has a TV set in the bedroom. She wakes up from sleep 2 times with nocturia. No history of hypnagogic hallucinations, sleep paralysis or cataplexy. Also during the night the patient has episodes of dry mouth. In the morning the patient wakes up tired, has problems with memory and concentration. For 2 years, no significant leg movements at night. 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 PAST SURGICAL HISTORY: 1. Patent ductus surgery at 18 months of age. 2. Tonsillectomy. 3. Laminectomy. 4. Total hysterectomy in 1988. 5. 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 6. Heart stent insertion in 2017. 7. Aortic valve replacement surgery in March of 2018. MEDICATIONS: 1. Aspirin. 2. Atorvastatin. 3. Biotin. 4. Cevimeline. 5. Clopidogrel. 6. Fentanyl patch. 7. Iron supplement. 8. Levothyroxine. 9. Meloxicam. 10.Metoprolol. 11.Mirabegron. 12.Mirtazapine. 13.Nitroglycerin on a p.r.n. basis. 14.Lyrica. SOCIAL HISTORY: Positive for smoking for only 4 years. Quit 25 years ago. FAMILY HISTORY: Heart problems, hyperlipidemia, sinus problems, sleep apnea, diabetes, thyroid problems. REVIEW OF SYSTEMS: Awakenings from sleep, tiredness during the day. PHYSICAL EXAMINATION: GENERAL: A pleasant lady without distress. VITAL SIGNS: BP 104/88, HR 80, RR 16 height 5 feet 2 inches, weight 131, body mass index 23.9, temperature 97.7, oxygen saturation at room air 92%. HEENT: EMANIRAUGUSTINA, EOMI. Evaluation of oropharynx showed tongue protrudes midline. Extremely low position of soft palate. Mallampati IV. Retrognathia about 5 mm. NECK: Supple. No JVD. Thyroid is not palpable. Neck measures 12-1/4 inches in circumference. LUNGS: Clear to percussion and to auscultation. Good air exchange. No wheezing or rhonchi. HEART: S1, S2 regular. No murmurs, gallops or rubs. ABDOMEN: Soft and nontender. Bowel sounds are present. No organomegaly. EXTREMITIES: No clubbing or cyanosis. CONSULTING ENGINEER: Awake, alert, and oriented X3. Cranial nerves 2 to 7 intact. There is no fasciculation or atrophy. noted. No focal deficits observed. IMPRESSION: 1. History of obstructive sleep apnea-hypopnea syndrome diagnosed in 2009 in another institution. At present the patient continues to have awakenings from sleep and feeling tired in the morning after awakening from sleep, extremely low position of soft palate, Mallampati IV, significant retrognathia; obstructive sleep apnea- hypopnea syndrome. 2. Patient is on treatment on fentanyl patch, which may increase the risk for central sleep apnea. 3. Hypertension. 4. Coronary artery disease, status post heart attack in 2018, status post stent insertion. 5. Status post aortic valve replacement in March of 2018. 6. History of deep venous thrombosis several times with pulmonary embolism. 7. History of fibromyalgia. 8. History of skin carcinoma of right ear with surgical treatment, including reconstruction of right ear. 9. Status post total hysterectomy. 10.Status post laminectomy. 11.Status post surgery on the left knee. 12.Status post tonsillectomy. 13.Status post heart surgery for patient's ductus arteriosus (?) at the age of 18 months. PLAN: 1. Polysomnography for evaluation of patient's breathing during sleep. 2. CPAP/BiPAP titration if sleep study confirms obstructive sleep apnea-hypopnea syndrome. 3. Preferable position during sleep on the side. 4. No driving if patient feels any sleepiness. 5. I will see patient for follow up visit to explain results of testing and following plan. Thank you very much for referring this patient for evaluation. Sincerely, Darion Salomon MD, PhD, FAASM Diplomat of [place] [employer] [place] [employer] Business Assistant of [facility] [place] MMODReza / JENNIFER: [id number] /
== END | disposition home or self-care (01) ==
LOC: SLEEP 15:30
PROVIDERS: ATTEND Internal Medicine
DX: M26.19 Other specified anomalies of jaw-cranial base relationship (principal); I10 Essential (primary) hypertension; I25.10 Atherosclerotic heart disease of native coronary artery without angina pectoris; Z86.718 Personal history of other venous thrombosis and embolism; Z87.39 Personal history of other diseases of the musculoskeletal system and connective tissue; Z85.828 Personal history of other malignant neoplasm of skin; Z86.79 Personal history of other diseases of the circulatory system; Z95.4 Presence of other heart-valve replacement; Z90.710 Acquired absence of both cervix and uterus; Z90.89 Acquired absence of other organs; Z98.890 Other specified postprocedural states; Z96.652 Presence of left artificial knee joint; Z87.891 Personal history of nicotine dependence; Z79.82 Long term (current) use of aspirin; Z79.1 Long term (current) use of non-steroidal anti-inflammatories (NSAID); Z79.899 Other long term (current) drug therapy
CPT/HCPCS: 99211

== ENCOUNTER 2019-02-21 11:15 | Day surgery (SDC) | payer MEDICARE ==
[2019-02-20 12:16] VITALS: BMI 23.2
[~2019-02-21 11:15] MED LIST: LACTATED RINGERS 1,000 ML IV SCH; LIDOCAINE 1% 20 ML VIAL (10MG/ML) FOR IV START INTRADERMA PRN
[2019-02-21 12:00] VITALS: TEMP 98.1
[2019-02-21] MEDS ORDERED: LIDOCAINE 1% INJ 10MG/ML (20 ML MDV) ONE (12:48)
[2019-02-21] MEDS ORDERED: PROPOFOL 10 MG/ML 20 ML VIAL IV ONE (12:48)
--- NOTE | 2019-02-21 12:56 | P.PCN ---
Date of Procedure: 02/21/19 Procedure(s) Performed: BRIEF HISTORY: Patient is a 73-year-old, pleasant, white female, scheduled for an upper endoscopywith possible dilation as part of evaluation of intermittent dysphagia to solids for the last 1 year duration.. PROCEDURE PERFORMED: Esophagogastroduodenoscopy with biopsy and dilation. PREOPERATIVE DIAGNOSIS: intermittent dysphagia to solids. IV sedation per anesthesia. PROCEDURE: After informed consent was obtained, the patient was brought into the endoscopy unit. IV sedation was administered by Anesthesia under continuous monitoring. Initially the Olympus GIF-140 video endoscope was inserted into the mouth. Esophagus intubated without any difficulty. It was gradually advanced into the stomach and duodenum and carefully examined. The bulb and the second part of the duodenum appeared normal. The scope at this time was withdrawn to the stomach, adequately insufflated with air, and upon careful examination, mucosa of the antrum, body, cardia and the fundus appeared normal. The scope was then withdrawn into the esophagus. The GE junction was located at 39 cm from the incisors. there was a distal esophageal stricture identified with normal appearing mucosa. At this time the suture was dilated using 12 mm TTS balloon for total of 30 seconds. The esophagus appeared normal. There were no erosions or ulcerations seenbiopsies were done from the distal esophagus and the patient tolerated the procedure well. IMPRESSION: 1..Distal esophageal stricture status post balloon dilation using 12 mm TTS balloon as described above RECOMMENDATIONS: The findings of this examination were discussed with the patient as well as her family. She was advised to remain on a clear liquid diet for lunch today. She will follow with the biopsy results and she'll be seen in office in 3-4 weeks.. 73
[2019-02-21 13:08] VITALS: RESP 16
[2019-02-21 13:21] VITALS: BP 133/75; PULSE 81
== END 2019-02-21 13:47 | disposition home or self-care (01) ==
LOC: ORWHC2ENDO 11:15
PROVIDERS: ATTEND Internal Medicine Gastroenterology
DX: K22.2 Esophageal obstruction (principal); I10 Essential (primary) hypertension; E78.5 Hyperlipidemia, unspecified; I26.99 Other pulmonary embolism without acute cor pulmonale; R01.1 Cardiac murmur, unspecified; G47.33 Obstructive sleep apnea (adult) (pediatric); Z99.89 Dependence on other enabling machines and devices; E07.9 Disorder of thyroid, unspecified; Z85.828 Personal history of other malignant neoplasm of skin; M79.7 Fibromyalgia; J38.01 Paralysis of vocal cords and larynx, unilateral; M19.90 Unspecified osteoarthritis, unspecified site; F41.9 Anxiety disorder, unspecified; F32.9 Major depressive disorder, single episode, unspecified; F10.21 Alcohol dependence, in remission; K57.90 Diverticulosis of intestine, part unspecified, without perforation or abscess without bleeding; Z79.82 Long term (current) use of aspirin; Z79.891 Long term (current) use of opiate analgesic; Z79.890 Hormone replacement therapy; Z79.02 Long term (current) use of antithrombotics/antiplatelets; Z79.899 Other long term (current) drug therapy; Z88.4 Allergy status to anesthetic agent
CPT/HCPCS: 88305; 43239; 43249; J2001; J2704; C1726

== ENCOUNTER 2019-08-09 16:09 | Emergency (ER) | payer MEDICARE ==
[2019-08-09 16:25] VITALS: BP 130/73; PULSE 74; RESP 18; TEMP 98.8
[2019-08-09] MEDS ORDERED: APIXABAN 5 MG TAB PO STA (16:44)
--- NOTE | 2019-08-09 16:44 | ED ---
General Adult HPI - General Chief complaint: Recheck/Abnormal Lab/Rx Stated complaint: DVT Time Seen by Provider: 08/09/19 16:27 Source: patient Mode of arrival: ambulatory Limitations: no limitations - History of Present Illness Initial comments: Patient is a 73-year-old female with history of DVT presenting to emergency Department with a chief complaint of a blood clot. Patient reports she has noticed some swelling on the right lower extremity. Also reports tenderness along the anterior aspect of the right distal thigh. Reports there is a "lump". States she had an ultrasound performed this morning and was found to have a DVT. States she was advised to come to the emergency department for further management. States she takes Plavix and aspirin. Does report occasional shortness of breath for the past 2 years ever since stent placement. Shortness of breath at baseline, not worse than usual. Denies any chest pain nausea vomiting at this time. - Related Data Home Medications Medication Instructions Recorded Confirmed Ferrous Sulfate [Iron (65 MG 325 mg PO BID 11/16/15 02/21/19 Elemental)] Biotin 5 mg PO DAILY 06/02/17 02/21/19 Mirabegron [Myrbetriq] 50 mg PO HS 06/02/17 02/21/19 Levothyroxine Sodium [Synthroid] 75 mcg PO QAM 09/25/17 02/21/19 Clopidogrel [Plavix] 75 mg PO DAILY 12/28/17 02/21/19 Hemp Extract 1 cap PO BID 01/23/19 02/21/19 Metoprolol Tartrate [Lopressor] 12.5 mg PO BID 01/23/19 02/21/19 Mirtazapine [Remeron] 45 mg PO HS 01/23/19 02/21/19 Pregabalin [Lyrica] 50 mg PO BID 01/23/19 02/21/19 QUEtiapine [SEROquel] 25 mg PO HS 01/23/19 02/21/19 Sertraline [Zoloft] 100 mg PO QAM 01/23/19 02/21/19 fentaNYL 50MCG/HR PATCH [Duragesic 50 mcg TRANSDERM Q72H 02/20/19 02/21/19 50MCG/HR] Previous Rx's Medication Instructions Recorded Cevimeline [Evoxac] 30 mg PO TID cap 11/14/14 Aspirin 81 mg PO DAILY #1 chewable 11/16/15 Atorvastatin Calcium [Lipitor] 80 mg PO DAILY #30 tablet 12/11/17 Nitroglycerin Sl Tabs [Nitrostat] 0.4 mg SUBLINGUAL Q5M PRN #25 tab 12/11/17 Apixaban [Eliquis Starter Pack 0 mg PO DIRECTED 30 Days #1 pack 08/09/19 (for VTE)] Allergies Allergy/AdvReac Type Severity Reaction Status Date / Time lidocaine [From LidoPatch] Allergy Rash/Hives Verified 08/09/19 16:25 menthol [From LidoPatch] Allergy Rash/Hives Verified 08/09/19 16:25 Review of Systems ROS Statement: Those systems with pertinent positive or pertinent negative responses have been documented in the HPI. ROS Other: All systems not noted in ROS Statement are negative. Past Medical History Past Medical History: Cancer, Deep Vein Thrombosis (DVT), Fibromyalgia, Hyperlipidemia, Hypertension, Myocardial Infarction (CT), Pneumonia, Sleep Apnea/CPAP/BIPAP, Thyroid Disorder Additional Past Medical History / Comment(s): HX PARALYZED LT VOCAL CORD,SKIN CANCER RT EARLOBE, HEART MURMUR, DIVERTICULOSIS, ANEMIA, BLOOD CLOTS DALIA LUNGS AND LEFT AXILLA (NOV 2014),ENVIRONMENTAL ALLERGIES.SKIN LESION REMOVED LT EAR LOBE. SACRAL ULCER, HAD PNE VACCINE AFTER AGE 65 NOT SURE OF DATE AND DR BENITO SHORT UNABLE TO VERIFY DATE.bridges upper/lower Last Myocardial Infarction Date:: 12-08-17 History of Any Multi-Drug Resistant Organisms: None Reported Past Surgical History: Appendectomy, Heart Catheterization, Heart Catheterization With Stent, Hysterectomy, Orthopedic Surgery Additional Past Surgical History / Comment(s): COLONOSCOPY, REPAIR OF PATENT DUCTUS AT 18MOS OF AGE,LAMICECTOMY,UTERINE FIBROID REMOVED , Basal cell REMOVED FROM RIGHT EAR LOBE. RT KNEE SX, LASIK EYE SX, Past Anesthesia/Blood Transfusion Reactions: No Reported Reaction Date of Last Stent Placement:: 12-08-17 Past Psychological History: Anxiety, Depression Smoking Status: Former smoker - Past Family History Mother Family Medical History: No Reported History Father Family Medical History: Cancer Sister(s) Family Medical History: Cancer General Exam Limitations: no limitations General appearance: alert, in no apparent distress Head exam: Present: atraumatic, normocephalic, normal inspection Eye exam: Present: normal appearance, PERRL, EOMI Pupils: Present: normal accommodation ENT exam: Present: normal exam, normal oropharynx, mucous membranes moist Neck exam: Present: normal inspection, full ROM Respiratory exam: Present: normal lung sounds bilaterally. Absent: respiratory distress, wheezes, rales Cardiovascular Exam: Present: regular rate, normal rhythm, normal heart sounds Extremities exam: Present: full ROM. Absent: normal inspection (Tenderness with a mild regional swelling approximately 2 cm in diameter on the anterior aspect of the right distal thigh. Doesn't is noted.) Back exam: Present: normal inspection, full ROM Neurological exam: Present: alert, oriented X3 Psychiatric exam: Present: normal affect, normal mood Skin exam: Present: warm, dry, intact, normal color Course Vital Signs 08/09/19 16:22 Temperature 98.8 F Pulse Rate 74 Respiratory 18 Rate Blood Pressure 130/73 O2 Sat by Pulse 97 Oximetry Medical Decision Making - Medical Decision Making Patient is 73-year-old female history of DVT presenting to the emergency department with a chief complaint of a blood clot. Patient had an ultrasound performed this morning in the right lower extremity which revealed a femoral DVT and an SVT. Ultrasound results reviewed. Patient started on Eliquis in the emergency department and will be discharged with a 30 day course of Eliquis for DVT. Patient our he has an appointment scheduled with her primary care in 5 days. She has intermittent shortness of breath at baseline for the past 2 years. Denies any chest pain. She was advised to apply warm compress in the region of tenderness where the SVT located. Return parameters thoroughly discussed the patient is understanding and agreeable. Case discussed with physician. Disposition Clinical Impression: Acute superficial venous thrombosis of right lower extremity, DVT (deep venous thrombosis) Disposition: HOME SELF-CARE Condition: Stable Instructions (If sedation given, give patient instructions): Deep Vein Thrombosis (DC) Additional Instructions: Take prescribed medication as directed. Use the provided coupon for Eliquis. Follow-up with her primary care. Apply warm compress at the region of tenderness. Return to emergency department if symptoms worsen. Prescriptions: Apixaban [Eliquis Starter Pack (for VTE)] 0 mg PO DIRECTED 30 Days #1 pack Is patient prescribed a controlled substance at d/c from ED?: No Referrals: Mario Gabriel DO [Primary Care Provider] - 1-2 days Time of Disposition: 17:04
== END 2019-08-09 17:36 | disposition home or self-care (01) ==
LOC: EC 16:09
DX: I82.811 Embolism and thrombosis of superficial veins of right lower extremity (principal); I82.411 Acute embolism and thrombosis of right femoral vein; M79.7 Fibromyalgia; I10 Essential (primary) hypertension; I25.2 Old myocardial infarction; E07.9 Disorder of thyroid, unspecified; F41.9 Anxiety disorder, unspecified; F32.9 Major depressive disorder, single episode, unspecified; G47.30 Sleep apnea, unspecified; Z99.89 Dependence on other enabling machines and devices; Z85.828 Personal history of other malignant neoplasm of skin; Z95.818 Presence of other cardiac implants and grafts; Z95.5 Presence of coronary angioplasty implant and graft; Z87.891 Personal history of nicotine dependence; Z79.890 Hormone replacement therapy; Z79.02 Long term (current) use of antithrombotics/antiplatelets; Z79.891 Long term (current) use of opiate analgesic; Z79.899 Other long term (current) drug therapy; Z88.4 Allergy status to anesthetic agent; Z88.8 Allergy status to other drugs, medicaments and biological substances
CPT/HCPCS: 99283

== ENCOUNTER → 2019-08-09 | Outpatient (CLI) | payer MEDICARE ==
--- NOTE | 2019-08-09 15:55 | US ---
EXAMINATION TYPE: US venous doppler duplex LE RT DATE OF EXAM: 08/09/2019 3:27 PM COMPARISON: NONE CLINICAL HISTORY: M79.89. lump and pain just above right knee for 2 weeks. Patient states she is on P lavix. SIDE PERFORMED: right TECHNIQUE: The lower extremity deep venous system is examined utilizing real time linear array sonog thais with graded compression, doppler sonography and color-flow sonography. VESSELS IMAGED: External Iliac Vein (EIV) Common Femoral Vein Deep Femoral Vein Greater Saphenous Vein * Femoral Vein Popliteal Vein Small Saphenous Vein * Proximal Calf Veins (* superficial vessels) Right Leg: *Positive for DVT right femoral vein extending into popliteal vein. superficial thrombus noted within area of lump right knee IMPRESSION: Positive deep venous thrombosis in the right femoral vein extending into the popliteal v ein. Superficial thrombus is also seen in the palpable abnormality around the right knee. Findings we re discussed with the ordering physician's office (GABRIEL[facility] Montes) by Chayo Gallegos project administrator on 08/09/2019. The patient was subsequently taken to the ER.
== END | disposition home or self-care (01) ==
LOC: RADUSWWP 14:49
PROVIDERS: ATTEND Nurse Practitioner Family
DX: I82.411 Acute embolism and thrombosis of right femoral vein (principal); I82.401 Acute embolism and thrombosis of unspecified deep veins of right lower extremity

== ENCOUNTER → 2019-09-02 | Outpatient (CLI) | payer MEDICARE | END | disposition home or self-care (01) | LOC: LABWHC1 07:48 | PROVIDERS: ATTEND Family Medicine | DX: R06.02 Shortness of breath (principal) ==

== ENCOUNTER 2019-09-05 12:29 | Inpatient (IN) | payer MEDICARE ==
[2019-09-05] MEDS ORDERED: IPRATROPIUM-ALBUTEROL 3 ML NEB INHALATION STA (13:17)
[2019-09-05 13:50] LABS: Albumin 3.1 g/dL (3.5-5.0); Anisocytosis Slight; Basophils % (A) 0 %; Calcium 8.4 mg/dL (8.4-10.2); Eosinophils # (A) 0.1 k/uL (0-0.7); Eosinophils % (A) 1 %; Hypochromasia Marked; Lymphocytes # (A) 0.7 k/uL (1.0-4.8); Lymphocytes % (A) 7 %; MCHC 28.1 g/dL (31.0-37.0); MCV 99.7 fL (80.0-100.0); Macrocytosis Slight; Magnesium 2.5 mg/dL (1.6-2.3); Mean Platelet Volume 7.7; Monocytes # (A) 0.6 k/uL (0-1.0); Monocytes % (A) 6 %; Neutrophils # (A) 8.6 k/uL (1.3-7.7); Neutrophils % (A) 83 %; Platelet Count 403 k/uL (150-450); Poikilocytosis Slight; Potassium 4.1 mmol/L (3.5-5.1); RBC 1.86 m/uL (3.80-5.40); RDW 17.6 % (11.5-15.5); Total Bilirubin 0.3 mg/dL (0.2-1.3); Total Protein 5.6 g/dL (6.3-8.2); WBC 10.3 k/uL (3.8-10.6)
[2019-09-05 14:01] LABS: HCT 18.5 % (34.0-46.0); HGB 5.2 gm/dL (11.4-16.0)
[2019-09-05 14:02] LABS: Partial Thromboplastin Time 22.3 sec (22.0-30.0); Prothrombin Time 10.6 sec (9.0-12.0)
[2019-09-05 14:22] LABS: Polychromasia Present
--- NOTE | 2019-09-05 14:22 | CT ---
EXAMINATION TYPE: CT chest angio for PE DATE OF EXAM: 09/05/2019 COMPARISON: 03/02/2017 HISTORY: Shortness of breath for [address] DLP: 272.5 mGycm CONTRAST: CT chest with contrast and 3D reconstruction with MIP imaging is performed with IV Contrast, patient injected with 58 mL of Isovue 300. Contrast-enhanced CT of the chest was performed through the course of the pulmonary arteries with rola g and mediastinal window settings submitted. 3D reconstruction with MIP imaging was also performed. PULMONARY ARTERIES: The pulmonary arteries and their major tributaries are patent. I do not see jenelle dence for sizable filling defect to suggest pulmonary embolic process. Pulmonary arterial hypertensio n noted. Proximal aortic stent. LUNGS: Moderate groundglass infiltrate right upper lobe small bilateral pleural effusions. Small area s of groundglass infiltrate within the right middle lobe and left upper lobe. Correlate for Covid 19 pneumonia. Mild linear basilar atelectasis.. MEDIASTINUM: Thoracic aorta is of normal caliber,however, evaluation is limited given timing of the contrast bolus. If there is concern for thoracic aortic pathology consider ROBER. Correlate clinicall y . The heart is not enlarged. No evidence for mediastinal mass. No mediastinal lymph nodes greater than 1cm. HILAR STRUCTURES: No evidence for mass. No hilar lymph nodes greater than 1 cm. UPPER ABDOMEN: No significant abnormality is seen. IMPRESSION: 1. No evidence for Pulmonary embolism at this time. 2.Correlate for Covid 19 pneumonia.
[2019-09-05] MEDS ORDERED: NALOXONE 0.4 MG/ML 1 ML VIAL IV PRN (15:20)
[2019-09-05] MEDS ORDERED: NITROGLYCERIN SL TABS 0.4 MG TAB SUBLINGUAL PRN (15:20)
[2019-09-05] MEDS ORDERED: SODIUM CHLORIDE 0.9% 500 ML 500 ML IV ONE (15:45)
--- NOTE | 2019-09-05 15:51 | ED ---
General Adult HPI - General Chief complaint: Shortness of Breath Stated complaint: SOB, weakness Time Seen by Provider: 09/05/19 12:48 Source: patient, RN notes reviewed, old records reviewed Mode of arrival: ambulatory - History of Present Illness Initial comments: 73-year-old female patient with past history significant for fibromyalgia, hypertension, prior HI, DVT one month ago presents to ED for chief complaint approximate 9 days of progressive dyspnea. Patient reports that she dyspnea on exertion. She is also having some mild coughing. She denies any chest pain. Patient denies any tarry or melanotic stools. She reports that she was tested by her primary care provider for coronavirus on Monday and was negative. Denies any other complaints. Systemic: Pt denies fever/chills, rash. Pt denies weakness, night sweats, weight loss. Neuro: Pt denies headache, visual disturbances, syncope or pre-syncope. HEENT: Pt denies ocular discharge or irritation, otalgia, rhinorrhea, pharyngitis or notable lymphadenopathy. Cardiopulmonary: Pt denies chest pain, heart palpitations, dyspnea on exertion. Abdominal/GI: Pt denies abdominal pain, n/v/d. : Pt denies dysuria, burning w/ urination, frequency/urgency. Denies new onset urinary or bowel incontinence. MSK: Pt denies myalgia, loss of strength or function in extremities. Neuro: Pt denies new onset weakness, paresthesias. - Related Data Home Medications Medication Instructions Recorded Confirmed Ferrous Sulfate [Iron (65 MG 325 mg PO BID 11/16/15 02/21/19 Elemental)] Biotin 5 mg PO DAILY 06/02/17 02/21/19 Mirabegron [Myrbetriq] 50 mg PO HS 06/02/17 02/21/19 Levothyroxine Sodium [Synthroid] 75 mcg PO QAM 09/25/17 02/21/19 Clopidogrel [Plavix] 75 mg PO DAILY 12/28/17 02/21/19 Hemp Extract 1 cap PO BID 01/23/19 02/21/19 Metoprolol Tartrate [Lopressor] 12.5 mg PO BID 01/23/19 02/21/19 Mirtazapine [Remeron] 45 mg PO HS 01/23/19 02/21/19 Pregabalin [Lyrica] 50 mg PO BID 01/23/19 02/21/19 QUEtiapine [SEROquel] 25 mg PO HS 01/23/19 02/21/19 Sertraline [Zoloft] 100 mg PO QAM 01/23/19 02/21/19 fentaNYL 50MCG/HR PATCH [Duragesic 50 mcg TRANSDERM Q72H 02/20/19 02/21/19 50MCG/HR] Previous Rx's Medication Instructions Recorded Cevimeline [Evoxac] 30 mg PO TID cap 11/14/14 Aspirin 81 mg PO DAILY #1 chewable 11/16/15 Atorvastatin Calcium [Lipitor] 80 mg PO DAILY #30 tablet 12/11/17 Nitroglycerin Sl Tabs [Nitrostat] 0.4 mg SUBLINGUAL Q5M PRN #25 tab 12/11/17 Apixaban [Eliquis Starter Pack 0 mg PO DIRECTED 30 Days #1 pack 08/09/19 (for VTE)] Allergies Allergy/AdvReac Type Severity Reaction Status Date / Time lidocaine [From LidoPatch] Allergy Rash/Hives Verified 08/09/19 16:25 menthol [From LidoPatch] Allergy Rash/Hives Verified 08/09/19 16:25 Review of Systems ROS Statement: Those systems with pertinent positive or pertinent negative responses have been documented in the HPI. ROS Other: All systems not noted in ROS Statement are negative. Past Medical History Past Medical History: Cancer, Deep Vein Thrombosis (DVT), Fibromyalgia, Hyperlipidemia, Hypertension, Myocardial Infarction (HI), Pneumonia, Sleep Apnea/CPAP/BIPAP, Thyroid Disorder Additional Past Medical History / Comment(s): HX PARALYZED LT VOCAL CORD,SKIN CANCER RT EARLOBE, HEART MURMUR, DIVERTICULOSIS, ANEMIA, BLOOD CLOTS DALIA LUNGS AND LEFT AXILLA (NOV 2014),ENVIRONMENTAL ALLERGIES.SKIN LESION REMOVED LT EAR LOBE. SACRAL ULCER, HAD PNE VACCINE AFTER AGE 65 NOT SURE OF DATE AND DR BENITO SHORT UNABLE TO VERIFY DATE.bridges upper/lower Last Myocardial Infarction Date:: 12-08-17 History of Any Multi-Drug Resistant Organisms: None Reported Past Surgical History: Appendectomy, Heart Catheterization, Heart Catheterization With Stent, Hysterectomy, Orthopedic Surgery Additional Past Surgical History / Comment(s): COLONOSCOPY, REPAIR OF PATENT DUCTUS AT 18MOS OF AGE,LAMICECTOMY,UTERINE FIBROID REMOVED , Basal cell REMOVED FROM RIGHT EAR LOBE. RT KNEE SX, LASIK EYE SX, Past Anesthesia/Blood Transfusion Reactions: No Reported Reaction Date of Last Stent Placement:: 12-08-17 Past Psychological History: Anxiety, Depression Smoking Status: Former smoker Past Alcohol Use History: None Reported Past Drug Use History: None Reported - Past Family History Mother Family Medical History: No Reported History Father Family Medical History: Cancer Sister(s) Family Medical History: Cancer General Exam - General Exam Comments Initial Comments: Constitutional: NAD, AOX3, Pt has pleasant affect. HEENT: NC/AT, trachea midline, neck supple, External ears appear normal, without discharge. Mucous membranes moist. Eyes PERRLA, EOM intact. There is no scleral icterus. No pallor noted. Cardiopulmonary: RRR, no murmurs, rubs or gallops, no JVD noted. Mild wheezing noted anteriorly along mcghee. There are breathing treatment.. No peripheral edema. Abdominal exam: Abdomen soft and non-distended. Abdomen non-tender to palpation in all 4 quadrants. Bowel sounds active in LLQ. No hepatosplenomegaly. No ecchymosis Neuro: CN II-XII intact. No nuchal rigidity. No raccon eyes, no akers sign. NIH 0. MSK: No posterior calf tenderness bilaterally, homans sign negative bilaterally. Posterior tibialis and radial pulse +2 bilaterally. Sensation intact in upper and lower extremities. Full active ROM in upper and lower extremities, 5/5 stregnth. Course Vital Signs 09/05/19 09/05/19 09/05/19 12:36 13:41 13:48 Temperature 98.7 F Pulse Rate 82 83 82 Respiratory 18 Rate Blood Pressure 107/50 O2 Sat by Pulse 95 Oximetry 09/05/19 09/05/19 14:47 16:01 Temperature Pulse Rate 90 90 Respiratory 18 18 Rate Blood Pressure 144/65 115/53 O2 Sat by Pulse 94 L 96 Oximetry Medical Decision Making - Medical Decision Making 72-year-old female patient with the chief complaint shortness of breath. Patient vital signs are stable. Physical exam displayed mild wheezing noted, improved after Breathing treatment. Laboratory investigations do reveal hemoglobin of 5.2. Troponin elevated. CT displayed no evidence for pulmonary embolism correlate for COVID 19 pneumonia. Blood transfusion is initiated of 2 units. Patient will be admitted to the ICU for further evaluation. Case discussed in depth with Dr. Ayala. - Lab Data Result diagrams: 09/05/19 13:00 09/05/19 13:00 Lab Results 09/05/19 09/05/19 09/05/19 Range/Units 13:00 13:00 13:00 WBC 10.3 (3.8-10.6) k/uL RBC 1.86 L (3.80-5.40) m/uL Hgb 5.2 L* (11.4-16.0) gm/dL Hct 18.5 L* (34.0-46.0) % MCV 99.7 (80.0-100.0) fL MCH 28.0 (25.0-35.0) pg MCHC 28.1 L (31.0-37.0) g/dL RDW 17.6 H (11.5-15.5) % Plt Count 403 (150-450) k/uL Neutrophils % 83 % Lymphocytes % 7 % Monocytes % 6 % Eosinophils % 1 % Basophils % 0 % Neutrophils # 8.6 H (1.3-7.7) k/uL Lymphocytes # 0.7 L (1.0-4.8) k/uL Monocytes # 0.6 (0-1.0) k/uL Eosinophils # 0.1 (0-0.7) k/uL Basophils # 0.0 (0-0.2) k/uL Manual Slide Review Performed Polychromasia Present Hypochromasia Marked Poikilocytosis Slight Anisocytosis Slight Macrocytosis Slight PT 10.6 (9.0-12.0) sec INR 1.0 (<1.2) APTT 22.3 (22.0-30.0) sec Sodium 140 (137-145) mmol/L Potassium 4.1 (3.5-5.1) mmol/L Chloride 110 H (98-107) mmol/L Carbon Dioxide 20 L (22-30) mmol/L Anion Gap 10 mmol/L BUN 36 H (7-17) mg/dL Creatinine 1.11 H (0.52-1.04) mg/dL Est GFR (CKD-EPI)AfAm 57 (>60 ml/min/1.73 sqM) Est GFR (CKD-EPI)NonAf 50 (>60 ml/min/1.73 sqM) Glucose 112 H (74-99) mg/dL Calcium 8.4 (8.4-10.2) mg/dL Magnesium 2.5 H (1.6-2.3) mg/dL Total Bilirubin 0.3 (0.2-1.3) mg/dL AST 30 (14-36) U/L ALT 12 (4-34) U/L Alkaline Phosphatase 60 (38-126) U/L Troponin I (0.000-0.034) ng/mL NT-Pro-B Natriuret Pep pg/mL Total Protein 5.6 L (6.3-8.2) g/dL Albumin 3.1 L (3.5-5.0) g/dL Stool Occult Blood (Negative) 09/05/19 09/05/19 09/05/19 Range/Units 13:00 13:00 15:20 WBC (3.8-10.6) k/uL RBC (3.80-5.40) m/uL Hgb (11.4-16.0) gm/dL Hct (34.0-46.0) % MCV (80.0-100.0) fL MCH (25.0-35.0) pg MCHC (31.0-37.0) g/dL RDW (11.5-15.5) % Plt Count (150-450) k/uL Neutrophils % % Lymphocytes % % Monocytes % % Eosinophils % % Basophils % % Neutrophils # (1.3-7.7) k/uL Lymphocytes # (1.0-4.8) k/uL Monocytes # (0-1.0) k/uL Eosinophils # (0-0.7) k/uL Basophils # (0-0.2) k/uL Manual Slide Review Polychromasia Hypochromasia Poikilocytosis Anisocytosis Macrocytosis PT (9.0-12.0) sec INR (<1.2) APTT (22.0-30.0) sec Sodium (137-145) mmol/L Potassium (3.5-5.1) mmol/L Chloride (98-107) mmol/L Carbon Dioxide (22-30) mmol/L Anion Gap mmol/L BUN (7-17) mg/dL Creatinine (0.52-1.04) mg/dL Est GFR (CKD-EPI)AfAm (>60 ml/min/1.73 sqM) Est GFR (CKD-EPI)NonAf (>60 ml/min/1.73 sqM) Glucose (74-99) mg/dL Calcium (8.4-10.2) mg/dL Magnesium (1.6-2.3) mg/dL Total Bilirubin (0.2-1.3) mg/dL AST (14-36) U/L ALT (4-34) U/L Alkaline Phosphatase (38-126) U/L Troponin I 0.799 H* (0.000-0.034) ng/mL NT-Pro-B Natriuret Pep 74393 pg/mL Total Protein (6.3-8.2) g/dL Albumin (3.5-5.0) g/dL Stool Occult Blood Negative (Negative) - EKG Data -: EKG Interpreted by Me (and Dr. Ayala ) EKG Comments: Ventricular 83, when necessary for 182, care is 132, QT/QTc 424/190. Normal sinus rhythm. left anterior fascicular block. Right bundle branch block. No concern for acute ischemia at this time. Disposition Clinical Impression: Symptomatic anemia, Elevated troponin Disposition: ADMITTED IP TO THIS HOSP Condition: Stable Referrals: Mario Gabriel DO [Primary Care Provider] - 1-2 days
[2019-09-05 17:48] LABS: Glucose,Whole Blood 126 mg/dL (75-99)
[2019-09-05] MEDS ORDERED: FUROSEMIDE 10 MG/ML 4 ML VIAL IV STA (19:34)
[2019-09-05] MEDS ORDERED: FUROSEMIDE 10 MG/ML 4 ML VIAL IV PRN (19:35)
[2019-09-05] MEDS: IPRATROPIUM-ALBUTEROL 3 ML NEB INHALATION PRN ×2 (20:19→23:35)
[2019-09-05] MEDS: METOPROLOL TARTRATE 12.5 MG TAB PO SCH (20:51)
[2019-09-05] MEDS: ATORVASTATIN 80 MG TAB PO SCH (20:52)
[2019-09-05] MEDS: PREGABALIN 50 MG CAP PO SCH (21:07)
[2019-09-05] MEDS: MIRTAZAPINE 45 MG TABLET PO SCH (21:07)
[2019-09-05] MEDS: CEVIMELINE 30 MG CAP PO SCH (21:07)
[2019-09-05] MEDS: NON FORMULARY DRUG (Mirabegron [Myrbetriq] 50 MG) PO SCH (21:08)
[2019-09-05] MEDS ORDERED: DEXAMETHASONE SOD PHOSPHATE 4 MG/ML 1 ML VIAL IV STA (23:31)
[2019-09-06] MEDS ORDERED: FUROSEMIDE 10 MG/ML 4 ML VIAL IV ONE (01:00)
[2019-09-06 04:28] LABS: Cholesterol 98 mg/dL (<200); HDL Cholesterol 32 mg/dL (40-60); LDL Cholesterol,Calculated 47 mg/dL (0-99); Triglycerides 93 mg/dL (<150)
[2019-09-06 06:11] LABS: Anisocytosis Slight; Basophils % (A) 0 %; Eosinophils % (A) 0 %; Hypochromasia Marked; Lymphocytes # (A) 0.5 k/uL (1.0-4.8); Lymphocytes % (A) 5 %; MCHC 30.6 g/dL (31.0-37.0); Macrocytosis Slight; Mean Platelet Volume 7.5; Monocytes # (A) 0.4 k/uL (0-1.0); Monocytes % (A) 4 %; Neutrophils # (A) 9.5 k/uL (1.3-7.7); Neutrophils % (A) 90 %; Platelet Count 356 k/uL (150-450); Poikilocytosis Moderate; RBC 2.97 m/uL (3.80-5.40); WBC 10.5 k/uL (3.8-10.6)
[2019-09-06 06:19] LABS: HGB 8.6 gm/dL (11.4-16.0)
[2019-09-06 06:20] LABS: MCV 94.6 fL (80.0-100.0)
[2019-09-06 06:21] LABS: Calcium 8.2 mg/dL (8.4-10.2); Potassium 3.4 mmol/L (3.5-5.1); Total Bilirubin 0.6 mg/dL (0.2-1.3); Total Protein 5.5 g/dL (6.3-8.2)
[2019-09-06] MEDS: PANTOPRAZOLE 40 MG TABLET PO SCH ×2 (06:33→17:00)
[2019-09-06] MEDS: LEVOTHYROXINE 75 MCG TAB PO SCH (06:33)
[2019-09-06] MEDS: POTASSIUM CHLORIDE ER 20 MEQ TAB.ER PO SCH ×2 (06:48→08:24)
--- NOTE | 2019-09-06 08:12 | XR ---
EXAMINATION TYPE: XR chest 1V portable DATE OF EXAM: 09/06/2019 Comparison: 12/29/[address] 09/05/2019 Clinical History: 73-year-old female rule out pneumonia Findings: Endovascular aortic valve replacement. Heart is enlarged. Focal airspace opacity in the right upper l obe. No sizable pleural effusion. Right hilar prominence. Impression: 1. Cardiomegaly and pulmonary arterial hypertension. 2. Focal airspace disease right upper lobe suggests pneumonia. Note the pattern on recent CT suggesti ng atypical pneumonia.
[2019-09-06] MEDS: PIPERACILLIN-TAZOBACTAM 3.375 GM in SODIUM CHLORIDE 0.9% 100 ML IVPB SCH ×3 (08:24→23:13)
[2019-09-06] MEDS: CEVIMELINE 30 MG CAP PO SCH ×2 (08:25→21:43)
[2019-09-06] MEDS: METOPROLOL TARTRATE 12.5 MG TAB PO SCH ×2 (08:25→20:52)
[2019-09-06] MEDS: PREGABALIN 50 MG CAP PO SCH ×2 (08:25→20:55)
[2019-09-06] MEDS: SERTRALINE 100 MG TAB PO SCH (08:26)
--- NOTE | 2019-09-06 09:38 | P.CRDCN ---
History of Present Illness Consult date: 09/06/19 History of present illness: This is a 73-year-old female with history of hypertension, hyperlipidemia, coronary artery disease and aortic stenosis. Patient had stent placement of the LAD done by Dr. Miranda in 2018 and had aortic valve replacement in 2019. Patient is now admitted to the hospital with complaints of progressive shortness of breath for the last couple weeks. Patient was found to be severely anemic. There is no obvious source of bleeding. She was diagnosed to have DVT about 4 weeks ago and has been on anticoagulation therapy along with Plavix. Though there is no evidence of obvious GI bleeding, it is felt that most probably anemia secondary to GI loss. GI evaluation is pending. She also has history of DVT involving the left axillary and brachial veins and pulmonary embolism in the past. Given that history, patient was advised to be on anticoagulation therapy for life. On admission her chest x-ray showed evidence of CHF and possible aty pical pneumonia. Her proBNP was elevated. Her troponins are mildly elevated but the pattern is not consistent with acute coronary syndrome. Most probably is related to demand supply mismatch. Patient also did not complain of any chest pain. At the time of my examination patient is quite comfortable. She received IV Lasix and also steroids, last night. I will get an echocardiogram. Continue current medical therapy. Waiting for GI evaluation. A vascular consult is also requested for possible filter placement. However, we may have to consider the history of having DVT involving the left upper arm. Review of Systems As per the chart Past Medical History Past Medical History: Cancer, Deep Vein Thrombosis (DVT), Fibromyalgia, Hyperlipidemia, Hypertension, Myocardial Infarction ([place]), Pneumonia, Sleep Apnea/CPAP/BIPAP, Thyroid Disorder Additional Past Medical History / Comment(s): HX PARALYZED LT VOCAL CORD,SKIN CANCER RT EARLOBE, HEART MURMUR, Stent placement, DIVERTICULOSIS, ANEMIA, BLOOD CLOTS DALIA LUNGS AND LEFT AXILLA (NOV 2014) Last Myocardial Infarction Date:: 12-08-17 History of Any Multi-Drug Resistant Organisms: None Reported Past Surgical History: Appendectomy, Cardiac Valve Replacement, Heart Heidi terization, Heart Catheterization With Stent, Hysterectomy, Orthopedic Surgery Additional Past Surgical History / Comment(s): COLONOSCOPY, REPAIR OF PATENT DUCTUS AT 18MOS OF AGE,LAMICECTOMY,UTERINE FIBROID REMOVED , Basal cell REMOVED FROM RIGHT EAR LOBE. RT KNEE SX, LASIK EYE SX, Past Anesthesia/Blood Transfusion Reactions: No Reported Reaction Date of Last Stent Placement:: 12-08-17 Past Psychological History: Anxiety, Depression Additional Psychological History / Comment(s): no medical equipment.pt lives alone in own home. stated has [facility]. Smoking Status: Former smoker Past Alcohol Use History: None Reported Additional Past Alcohol Use History / Comment(s): QUIT SMOKING IN S SMOKED FOR APPROX. 10 YEARS. SMOKED 1PPD. 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 Past Drug Use History: None Reported - Past Family History Mother Family Medical History: No Reported History Father Family Medical History: Cancer Sister(s) Family Medical History: Cancer Medications and Allergies Home Medications Medication Instructions Recorded Confirmed Type Aspirin 81 mg PO DAILY #1 chewable 11/16/15 09/05/19 Rx Ferrous Sulfate [Iron (65 MG 325 mg PO DAILY 11/16/15 09/05/19 History Elemental)] Biotin 10 mg PO DAILY 06/02/17 09/05/19 History Levothyroxine Sodium [Synthroid] 75 mcg PO DAILY 09/25/17 09/05/19 History Nitroglycerin Sl Tabs [Nitrostat] 0.4 mg SUBLINGUAL Q5M PRN #25 tab 12/11/17 09/05/19 Rx Clopidogrel [Plavix] 75 mg PO DAILY 12/28/17 09/05/19 History Hemp Extract 1 cap PO BID 01/23/19 09/05/19 History Metoprolol Tartrate [Lopressor] 12.5 mg PO BID 01/23/19 09/05/19 History Mirtazapine [Remeron] 45 mg PO HS 01/23/19 09/05/19 History Pregabalin [Lyrica] 50 mg PO BID 01/23/19 09/05/19 History fentaNYL 50MCG/HR PATCH [Duragesic 1 patch TRANSDERM Q72H 02/20/19 09/05/19 History 50MCG/HR] Apixaban [Eliquis] 5 mg PO BID 09/05/19 09/05/19 History Atorvastatin Calcium [Lipitor] 80 mg PO HS 09/05/19 09/05/19 History Cevimeline [Evoxac] 30 mg PO BID 09/05/19 09/05/19 History Furosemide [Lasix] 20 mg PO DAILY 09/05/19 09/05/19 History Mirabegron [Myrbetriq] 50 mg PO HS 09/05/19 09/05/19 History Omeprazole [PriLOSEC] 20 mg PO DAILY 09/05/19 09/05/19 History Sertraline [Zoloft] 100 mg PO HS 09/05/19 09/05/19 History Allergies Allergy/AdvReac Type Severity Reaction Status Date / Time lidocaine [From LidoPatch] Allergy Rash/Hives Verified 09/05/19 16:27 menthol [From LidoPatch] Allergy Rash/Hives Verified 09/05/19 16:27 Physical Exam Vitals: Vital Signs Temp Pulse Resp BP Pulse Ox 09/06/19 09:00 80 18 101/54 98 09/06/19 08:00 97.6 F 82 23 105/54 98 09/06/19 07:00 84 19 106/48 99 09/06/19 06:00 81 20 107/59 98 09/06/19 05:00 84 13 111/58 98 09/06/19 04:00 98.4 F 84 15 107/56 97 09/06/19 03:00 85 16 121/69 97 09/06/19 02:00 87 21 121/85 96 09/06/19 01:00 91 19 139/83 97 09/06/19 00:00 98.4 F 95 24 137/85 96 09/05/19 23:45 99 09/05/19 23:42 98.4 F 94 26 H 137/85 95 09/05/19 23:38 96 09/05/19 23:00 94 22 144/82 93 L 09/05/19 22:30 93 18 124/65 95 09/05/19 22:00 89 23 139/69 93 L 09/05/19 21:30 97 24 140/68 97 09/05/19 21:00 98 26 H 146/62 96 09/05/19 20:42 98.9 F 98 26 H 143/62 96 09/05/19 20:30 104 H 26 H 131/84 95 09/05/19 20:26 99 09/05/19 20:20 96 09/05/19 20:13 99.1 F 95 24 131/84 97 09/05/19 20:12 99.1 F 104 H 26 H 131/84 95 09/05/19 20:02 99.1 F 95 24 137/63 97 09/05/19 19:45 98.5 F 91 22 130/67 09/05/19 17:52 98.7 F 92 24 121/79 97 09/05/19 17:30 98.7 F 90 20 123/68 96 09/05/19 17:23 99.5 F 90 18 132/64 96 09/05/19 17:22 98.9 F 93 18 119/66 96 09/05/19 17:12 99.5 F 90 18 132/64 96 09/05/19 17:00 90 19 120/58 100 09/05/19 16:01 90 18 115/53 96 09/05/19 14:47 90 18 144/65 94 L 09/05/19 13:48 82 09/05/19 13:41 83 09/05/19 12:36 98.7 F 82 18 107/50 95 Intake and Output 09/05/19 09/06/19 09/06/19 22:59 06:59 14:59 Intake Total 550 0 100 Output Total 1150 2700 160 Balance -600 -2700 -60 Intake: IV 100 Piperacillin-Tazobactam 3 100 .375 gm In Sodium Chloride 0.9% 100 ml @ 25 mls/hr IVPB Q8HR [facility] Rx# :[id number] Oral 240 Blood Product 310 0 Rc As-1 Unit 310 [id number] Rc As-1 Unit 0 0 [id number] Output: Urine 1150 2700 160 Other: Voiding Method Bedpan Indwelling Catheter Indwelling Catheter Weight 60.781 kg 60.6 kg GENERAL EXAM: Patient is alert and oriented and doesn't appear to be in any acute distress HEENT: Normocephalic. Normal reaction of pupils, equal size, normal range of extraocular motion. No erythema or exudates in the throat. NECK: No masses, no nuchal rigidity. CHEST: No chest wall deformity. LUNGS: Equal air entry with no crackles or wheeze. HEART: S1 and S2 normal with no audible mumurs or gallops. Regular rhythm, femorals equal on both sides.. ABDOMEN: No hepatosplenomegaly, normal bowel sounds, no guarding or rigidity. SKIN: No rashes CENTRAL NERVOUS SYSTEM: No focal deficits. EXTREMITIES: No cyanosis, clubbing or edema. Results 09/06/19 05:22 09/06/19 05:22 Cardiac Enzymes 09/05/19 09/05/19 09/05/19 Range/Units 13:00 13:00 16:25 AST 30 (14-36) U/L Troponin I 0.799 H* 0.718 H* (0.000-0.034) ng/mL 09/05/19 09/06/19 Range/Units 19:55 05:22 AST 34 (14-36) U/L Troponin I 1.050 H* (0.000-0.034) ng/mL Coagulation 09/05/19 Range/Units 13:00 PT 10.6 (9.0-12.0) sec APTT 22.3 (22.0-30.0) sec Lipids 09/05/19 Range/Units 13:00 Triglycerides 93 (<150) mg/dL Cholesterol 98 (<200) mg/dL HDL Cholesterol 32 L (40-60) mg/dL CBC 09/05/19 09/06/19 Range/Units 13:00 05:22 WBC 10.3 10.5 (3.8-10.6) k/uL RBC 1.86 L 2.97 L (3.80-5.40) m/uL Hgb 5.2 L* 8.6 L D (11.4-16.0) gm/dL Hct 18.5 L* 28.0 L (34.0-46.0) % Plt Count 403 356 (150-450) k/uL Comprehensive Metabolic Panel 09/05/19 09/06/19 Range/Units 13:00 05:22 Sodium 140 141 (137-145) mmol/L Potassium 4.1 3.4 L (3.5-5.1) mmol/L Chloride 110 H 103 (98-107) mmol/L Carbon Dioxide 20 L 28 (22-30) mmol/L BUN 36 H 28 H (7-17) mg/dL Creatinine 1.11 H 1.05 H (0.52-1.04) mg/dL Glucose 112 H 129 H (74-99) mg/dL Calcium 8.4 8.2 L (8.4-10.2) mg/dL AST 30 34 (14-36) U/L ALT 12 13 (4-34) U/L Alkaline Phosphatase 60 62 (38-126) U/L Total Protein 5.6 L 5.5 L (6.3-8.2) g/dL Albumin 3.1 L 3.0 L (3.5-5.0) g/dL Current Medications Generic Name Dose Route Start Last Admin Trade Name Freq PRN Reason Stop Dose Admin Acetaminophen 650 mg 09/05/19 15:20 Tylenol Tab PO Q4HR PRN Fever and/or Mild Pain Albuterol/Ipratropium 3 ml 09/05/19 15:20 09/05/19 23:35 Duoneb 0.5 Mg-3 Mg/3 Ml Soln INHALATION 3 ml RT-Q4H PRN Administration Shortness Of Breath Or Wheezing Atorvastatin Calcium 80 mg 09/05/19 21:00 09/05/19 20:52 Lipitor PO 80 mg HS YANET Administration Cevimeline HCl 30 mg 09/05/19 21:00 09/06/19 08:25 Evoxac PO 30 mg BID YANET Administration Fentanyl 1 patch 09/06/19 09:00 09/06/19 08:25 Duragesic 50mcg/Hr Patch TRANSDERM 1 patch Q72H YANET Administration Furosemide 40 mg 09/05/19 19:35 09/05/19 23:09 Lasix IV 40 mg ONCE PRN Administration following blood Piperacillin Sod/Tazobactam 100 mls @ 25 mls/hr 09/06/19 08:15 09/06/19 08:24 Sod 3.375 gm/ Sodium Chloride IVPB 25 mls/hr Q8HR YANET Administration Levothyroxine Sodium 75 mcg 09/06/19 06:30 09/06/19 06:33 Synthroid PO 75 mcg DAILY@0630 YANET Administration Metoprolol Tartrate 12.5 mg 09/05/19 21:00 09/06/19 08:25 Lopressor PO 12.5 mg BID YANET Administration Mirtazapine 45 mg 09/05/19 21:00 09/05/19 21:07 Remeron PO 45 mg HS YANET Administration Naloxone HCl 0.2 mg 09/05/19 15:20 Narcan IV Q2M PRN Opioid Reversal Nitroglycerin 0.4 mg 09/05/19 15:20 Nitrostat SUBLINGUAL Q5M PRN Chest Pain Non-Formulary Medication 50 mg 09/05/19 21:00 09/05/19 21:08 Mirabegron [Myrbetriq] PO Not Given HS YANET Pantoprazole Sodium 40 mg 09/06/19 07:30 09/06/19 06:33 Protonix PO 40 mg AC-BID YANET Administration Pregabalin 50 mg 09/05/19 21:00 09/06/19 08:25 Lyrica PO 50 mg BID YANET Administration Sertraline HCl 100 mg 09/06/19 09:00 09/06/19 08:26 Zoloft PO 100 mg DAILY YANET Administration Intake and Output 09/05/19 09/06/19 09/06/19 22:59 06:59 14:59 Intake Total 550 0 100 Output Total 1150 2700 160 Balance -600 -2700 -60 Intake: IV 100 Piperacillin-Tazobactam 3 100 .375 gm In Sodium Chloride 0.9% 100 ml @ 25 mls/hr IVPB Q8HR [facility] Rx# :[id number] Oral 240 Blood Product 310 0 Rc As-1 Unit 310 [id number] Rc As-1 Unit 0 0 [id number] Output: Urine 1150 2700 160 Other: Voiding Method Bedpan Indwelling Catheter Indwelling Catheter Weight 60.781 kg 60.6 kg 09/06/19 05:22 09/06/19 05:22 EKG Interpretations (text) Sinus rhythm with bifascicular block Assessment and Plan (1) History of coronary artery disease Current Visit: Yes Status: Acute Code(s): Z86.79 - PERSONAL HISTORY OF OTHER DISEASES OF THE CIRCULATORY SYSTEM SNOMED Code(s): 340166829 (2) Elevated troponin Current Visit: Yes Status: Acute Code(s): R79.89 - OTHER SPECIFIED ABNORMAL FINDINGS OF BLOOD CHEMISTRY SNOMED Code(s): 523947096 (3) Symptomatic anemia Current Visit: Yes Status: Acute Code(s): D64.9 - ANEMIA, UNSPECIFIED SNOMED Code(s): 875069851 (4) DVT (deep venous thrombosis) Current Visit: No Status: Acute Code(s): I82.409 - ACUTE EMBOLISM AND THOMBOS UNSP DEEP VN UNSP LOWER EXTREMITY SNOMED Code(s): 062884959 (5) History of aortic valve replacement Current Visit: Yes Status: Acute Code(s): Z95.2 - PRESENCE OF PROSTHETIC HEART VALVE SNOMED Code(s): 0084524104227 Plan: Continue current medical therapy, echocardiogram. Vascular consult. GI consult. Resume anticoagulations when cleared by GI department.
--- NOTE | 2019-09-06 11:58 | P.CNPUL ---
History of Present Illness Consult date: 09/06/19 Requesting physician: Len Azar Reason for consult: pneumonia, DVT, other (Anemia) Chief complaint: Weakness and shortness of breath. History of present illness: This is a 73-year-old female with history of multiple medical problems including hypertension, fibromyalgia, previous IA, and about a month ago the patient was diagnosed with deep vein thrombosis. Patient was placed on Eliquis, patient presented yesterday with almost 1 week history of progressive dyspnea. Her dyspnea is described mostly dyspnea on exertion, minimal cough, no wheezing, no fever, no chills, no hemoptysis, no chest pain. Patient denied any nausea vomiting abdominal pain melena or hematemesis. Workup in the ER included a CBC that showed extremely low hemoglobin of 5.2. However patient had negative Hemoccult stools. CT angiogram of the chest was done, there was no evidence of thromboembolic disease, however there was evidence of moderate to groundglass infiltrate in the right upper lobe small bilateral pleural effusions, small area of groundglass infiltrate in the right middle lobe and left upper lobe. Considering the findings, the radiologist raised the possibility of Covid 19 pneumonia. Recent PCR for lynn virus was negative according to the patient and this was done by her primary care physician. Patient was admitted, given 2 units of packed RBCs for her low hemoglobin, and an hemoglobin today is 8.6. Last night, the patient had episodes of intermittent cough and wheezing, she is known to have history of vocal cord paralysis, and I recommended Decadron, patient was given Lasix after blood transfusion, however this morning the patient is feeling much better. Previous a lot easier, and she has no pulmonary complaints. No cough no wheezing no fever no chills no hemoptysis. Chest x-ray did show evidence of infiltrate in the right upper lobe. Otherwise no significant findings noted. Considering the patient has low hemoglobin, and obviously she has most likely some sort of GI bleeding, I recommended a vascular surgery consultation for a filter placement, patient obviously has absolute contraindication to anticoagulation. Looking back at her history, the patient is known to have history of aortic stenosis and coronary artery disease, she had previous stent placement of the LAD in 2018, and she had history of aortic valve replacement in 2019. Review of Systems Constitutional: Negative Eyes negative HEENT: Negative except she does have history of left vocal cord paralysis. Pulmonary: As noted in HPI. GI: Negative, known history of diverticulosis, but no previous episodes of GI bleeding. Cardiac: As noted in HPI, patient is relatively asymptomatic today. Genitourinary: Negative Musculoskeletal: History of fibromyalgia and Sjogren's syndrome. Skin: Negative Hematologic: History of DVT and patient has been on Eliquis and Plavix. Neurologic: Negative Psychiatric: Negative Past Medical History Past Medical History: Cancer, Deep Vein Thrombosis (DVT), Fibromyalgia, Hyperlipidemia, Hypertension, Myocardial Infarction ([place]), Pneumonia, Sleep Apnea/CPAP/BIPAP, Thyroid Disorder Additional Past Medical History / Comment(s): HX PARALYZED LT VOCAL CORD,SKIN CANCER RT EARLOBE, HEART MURMUR, Stent placement, DIVERTICULOSIS, ANEMIA, BLOOD CLOTS DALIA LUNGS AND LEFT AXILLA (NOV 2014) Last Myocardial Infarction Date:: 12-08-17 History of Any Multi-Drug Resistant Organisms: None Reported Past Surgical History: Appendectomy, Cardiac Valve Replacement, Heart Catheterization, Heart Catheterization With Stent, Hysterectomy, Orthopedic Surgery Additional Past Surgical History / Comment(s): COLONOSCOPY, REPAIR OF PATENT DUCTUS AT 18MOS OF AGE,LAMICECTOMY,UTERINE FIBROID REMOVED , Basal cell REMOVED FROM RIGHT EAR LOBE. RT KNEE SX, LASIK EYE SX, Past Anesthesia/Blood Transfusion Reactions: No Reported Reaction Date of Last Stent Placement:: 12-08-17 Past Psychological History: Anxiety, Depression Additional Psychological History / Comment(s): no medical equipment.pt lives alone in own home. stated has [facility]. Smoking Status: Former smoker Past Alcohol Use History: None Reported Additional Past Alcohol Use History / Comment(s): QUIT SMOKING IN S SMOKED FOR APPROX. 10 YEARS. SMOKED 1PPD. 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 Past Drug Use History: None Reported - Past Family History Mother Family Medical History: No Reported History Father Family Medical History: Cancer Sister(s) Family Medical History: Cancer Medications and Allergies Home Medications Medication Instructions Recorded Confirmed Type Aspirin 81 mg PO DAILY #1 chewable 11/16/15 09/05/19 Rx Ferrous Sulfate [Iron (65 MG 325 mg PO DAILY 11/16/15 09/05/19 History Elemental)] Biotin 10 mg PO DAILY 06/02/17 09/05/19 History Levothyroxine Sodium [Synthroid] 75 mcg PO DAILY 09/25/17 09/05/19 History Nitroglycerin Sl Tabs [Nitrostat] 0.4 mg SUBLINGUAL Q5M PRN #25 tab 12/11/17 09/05/19 Rx Clopidogrel [Plavix] 75 mg PO DAILY 12/28/17 09/05/19 History Hemp Extract 1 cap PO BID 01/23/19 09/05/19 History Metoprolol Tartrate [Lopressor] 12.5 mg PO BID 01/23/19 09/05/19 History Mirtazapine [Remeron] 45 mg PO HS 01/23/19 09/05/19 History Pregabalin [Lyrica] 50 mg PO BID 01/23/19 09/05/19 History fentaNYL 50MCG/HR PATCH [Duragesic 1 patch TRANSDERM Q72H 02/20/19 09/05/19 H istory 50MCG/HR] Apixaban [Eliquis] 5 mg PO BID 09/05/19 09/05/19 History Atorvastatin Calcium [Lipitor] 80 mg PO HS 09/05/19 09/05/19 History Cevimeline [Evoxac] 30 mg PO BID 09/05/19 09/05/19 History Furosemide [Lasix] 20 mg PO DAILY 09/05/19 09/05/19 History Mirabegron [Myrbetriq] 50 mg PO HS 09/05/19 09/05/19 History Omeprazole [PriLOSEC] 20 mg PO DAILY 09/05/19 09/05/19 History Sertraline [Zoloft] 100 mg PO HS 09/05/19 09/05/19 History Allergies Allergy/AdvReac Type Severity Reaction Status Date / Time lidocaine [From LidoPatch] Allergy Rash/Hives Verified 09/05/19 16:27 menthol [From LidoPatch] Allergy Rash/Hives Verified 09/05/19 16:27 Physical Exam Vitals: Vital Signs Temp Pulse Resp BP Pulse Ox 09/06/19 10:00 80 17 97/48 95 09/06/19 09:00 80 18 101/54 98 09/06/19 08:00 97.6 F 82 23 105/54 98 09/06/19 07:00 84 19 106/48 99 09/06/19 06:00 81 20 107/59 98 09/06/19 05:00 84 13 111/58 98 09/06/19 04:00 98.4 F 84 15 107/56 97 09/06/19 03:00 85 16 121/69 97 09/06/19 02:00 87 21 121/85 96 09/06/19 01:00 91 19 139/83 97 09/06/19 00:00 98.4 F 95 24 137/85 96 09/05/19 23:45 99 09/05/19 23:42 98.4 F 94 26 H 137/85 95 09/05/19 23:38 96 09/05/19 23:00 94 22 144/82 93 L 09/05/19 22:30 93 18 124/65 95 09/05/19 22:00 89 23 139/69 93 L 09/05/19 21:30 97 24 140/68 97 09/05/19 21:00 98 26 H 146/62 96 09/05/19 20:42 98.9 F 98 26 H 143/62 96 09/05/19 20:30 104 H 26 H 131/84 95 09/05/19 20:26 99 09/05/19 20:20 96 09/05/19 20:13 99.1 F 95 24 131/84 97 09/05/19 20:12 99.1 F 104 H 26 H 131/84 95 09/05/19 20:02 99.1 F 95 24 137/63 97 09/05/19 19:45 98.5 F 91 22 130/67 09/05/19 17:52 98.7 F 92 24 121/79 97 09/05/19 17:30 98.7 F 90 20 123/68 96 09/05/19 17:23 99.5 F 90 18 132/64 96 09/05/19 17:22 98.9 F 93 18 119/66 96 09/05/19 17:12 99.5 F 90 18 132/64 96 09/05/19 17:00 90 19 120/58 100 09/05/19 16:01 90 18 115/53 96 09/05/19 14:47 90 18 144/65 94 L 09/05/19 13:48 82 02 13:41 83 09/05/19 12:36 98.7 F 82 18 107/50 95 Intake and Output 09/05/19 09/06/19 09/06/19 22:59 06:59 14:59 Intake Total 550 0 100 Output Total 1150 2700 160 Balance -600 -2700 -60 Intake: IV 100 Piperacillin-Tazobactam 3 100 .375 gm In Sodium Chloride 0.9% 100 ml @ 25 mls/hr IVPB Q8HR [facility] Rx# :[id number] Oral 240 Blood Product 310 0 Rc As-1 Unit 310 [id number] Rc As-1 Unit 0 0 [id number] Output: Urine 1150 2700 160 Other: Voiding Method Bedpan Indwelling Catheter Indwelling Catheter Weight 60.781 kg 60.6 kg Physical Exam: Revealed 73-year-old female, pleasant, in no distress. Head: Atraumatic, normocephalic. HEENT:[Neck is supple.] [No neck masses.] [No thyromegaly.] [No JVD.] Chest: [Clear throughout, no crackles, no rhonchi, no wheezes.] Symmetrical chest expansion. Cardiac Exam: [Normal S1 and S2, no S3 gallop, 2/6 systolic murmur thought the precordium. Abdomen: [Soft, nontender, no megaly, no rebound, no guarding, normal bowel sounds.] Extremities: [No clubbing, no edema, no cyanosis.] Neurological Exam: [No focal neurologic deficit.] Alert oriented 3. Psychiatric: Normal mood, affect and normal mental status examination Results - Laboratory Findings CBC and BMP: 09/06/19 05:22 09/06/19 05:22 PT/INR, D-dimer PT 10.6 sec (9.0-12.0) 09/05/19 13:00 INR 1.0 (<1.2) 09/05/19 13:00 Abnormal lab findings: Abnormal Labs 09/05/19 09/05/19 09/05/19 13:00 13:00 13:00 RBC 1.86 L Hgb 5.2 L* Hct 18.5 L* MCHC 28.1 L RDW 17.6 H Neutrophils # 8.6 H Lymphocytes # 0.7 L Potassium Chloride 110 H Carbon Dioxide 20 L BUN 36 H Creatinine 1.11 H Glucose 112 H POC Glucose (mg/dL) Calcium Magnesium 2.5 H Troponin I 0.799 H* Total Protein 5.6 L Albumin 3.1 L HDL Cholesterol Crossmatch 09/05/19 09/05/19 09/05/19 13:00 14:35 16:25 RBC Hgb Hct MCHC RDW Neutrophils # Lymphocytes # Potassium Chloride Carbon Dioxide BUN Creatinine Glucose POC Glucose (mg/dL) Calcium Magnesium Troponin I 0.718 H* Total Protein Albumin HDL Cholesterol 32 L Crossmatch See Detail 09/05/19 09/05/19 09/06/19 17:46 19:55 05:22 RBC 2.97 L Hgb 8.6 L D Hct 28.0 L MCHC 30.6 L RDW 18.0 H Neutrophils # 9.5 H Lymphocytes # 0.5 L Potassium Chloride Carbon Dioxide BUN Creatinine Glucose POC Glucose (mg/dL) 126 H Calcium Magnesium Troponin I 1.050 H* Total Protein Albumin HDL Cholesterol Crossmatch 09/06/19 05:22 RBC Hgb Hct MCHC RDW Neutrophils # Lymphocytes # Potassium 3.4 L Chloride Carbon Dioxide BUN 28 H Creatinine 1.05 H Glucose 129 H POC Glucose (mg/dL) Calcium 8.2 L Magnesium Troponin I Total Protein 5.5 L Albumin 3.0 L HDL Cholesterol Crossmatch - Diagnostic Findings CT scan - chest: image reviewed (As noted in HPI.) Assessment and Plan Assessment: Impression: Subacute or possibly chronic anemia most likely secondary to GI blood losses, and this will need to be further investigated. Worsened by the fact that the patient is on anticoagulation therapy. Bilateral pneumonia mostly involving the right upper lobe, I would be most concerned about the possibility of aspiration pneumonia, strongly doubt Covid 19 pneumonitis, however repeat PCR is pending. History of recent deep vein thrombosis, no evidence of pulmonary embolism, however considering the patient's anemia would not recommend anticoagulation therapy, I would strongly recommend a IVC filter placement by vascular surgery, vascular staff was notified History of coronary artery disease and previous stent placement. Symptomatic anemia contributing to her shortness of breath as noted in the history of the present illness. History of aortic valve replacement. History of fibromyalgia and Sjogren's syndrome History of vocal cord paralysis, left vocal cord. History of obstructive sleep apnea syndrome. History of diverticulosis. Previous history of pulmonary embolism History of basal cell carcinoma removed from right earlobe. Recommendation: Hold anticoagulation therapy. Vascular surgery consultation for IVC filter placement GI to evaluate and the patient will probably require EGD and colonoscopy looking into the source of her anemia. Antibiotics empirically for her bilateral pneumonia, await Covid the 19 PCR. Bronchodilators Continue to monitor in the ICU for the next 24 hours. Repeat hemoglobin and hematocrit in a.m. Patient received 2 units of packed RBCs since admission. Cardiology to evaluate elevated troponin and underlying history of coronary artery disease. As well as history of aortic valve replacement. We will continue to follow. Time with Patient: Greater than 30
[2019-09-06 12:21] LABS: Glucose,Whole Blood 157 mg/dL (75-99)
[2019-09-06] MEDS ORDERED: ENOXAPARIN 80 MG/0.8 ML SYRINGE SQ SCH (13:30)
--- NOTE | 2019-09-06 15:52 | P.CONS ---
History of Present Illness - Reason for Consult Consult date: 09/06/19 Severe anemia, recurrent VTE - History of Present Illness The patient is a 73-year-old white female, with a computed past medical history. She was previously seen in the office by Dr. Moreno and 2016 for left upper extremity DVT and PE. She had a hypercoagulable workup done at the time that was negative. She was anticoagulated for several months with treatment stopped subsequently. She was last seen in the office in 2015. At that time it was recommended that the patient should have lifelong anticoagulation if she developed recurrent venous thrombosis. The patient had presented to the hospital on 08/09/19 complaining of right lower except the pain and swelling. He was found to have DVT extending from the femo ral to the popliteal vein as well as a superficial thrombus. The patient was discharged on Eliquis. She came back to the hospital with complains of chest pain and shortness of breath. She had a CT of the chest on which was negative for PE, but did show some bilateral groundglass opacities and possible fibrosis. Patient was also noted to have a hemoglobin of 5.2. She was admitted to the ICU and transfuse with improvement in hemoglobin in the 8 range. The patient denied any history of obvious bleeding. Review of her EMR shows presence of anemia going back to 2017. At that time hemoglobin was in the 10 range and since then has dropped into the 8 range on a fairly regular basis. The patient appears to have had some anemia workup previously with ferritin in 2013 very low at 7. Protein electrophoresis studies in 2017 along with B12 and folate were within normal limits. She had an EGD in 02/21 for an esophageal strictures which was dilated. She also had a colonoscopy about 2 years ago. Review of Systems Constitutional: Reports fatigue, Reports weakness Eyes: denies blurred vision, denies pain Ears: deny: decreased hearing, ear discharge, earache, tinnitus Ears, nose, mouth and throat: Reports dysphagia, Denies headache, Denies sore throat Cardiovascular: Reports shortness of breath Respiratory: Reports dyspnea Gastrointestinal: Reports as per HPI (History of progressive dysphagia with nausea and vomiting, mostly relieved since esophageal stricture dilatation) Genitourinary: Denies dysuria, Denies hematuria Menstruation: Reports postmenopausal Musculoskeletal: Reports as per HPI, Reports muscle weakness, Reports shooting leg pain Integumentary: Denies pruritus, Denies rash Neurological: Reports weakness Psychiatric: Denies anxiety, Denies depression Endocrine: Reports fatigue Hematologic/Lymphatic: Reports as per HPI, Reports thrombophilia Past Medical History Past Medical History: Cancer, Deep Vein Thrombosis (DVT), Fibromyalgia, Hyperlipidemia, Hypertension, Myocardial Infarction ([place]), Pneumonia, Sleep Apnea/CPAP/BIPAP, Thyroid Disorder Additional Past Medical History / Comment(s): HX PARALYZED LT VOCAL CORD,SKIN CANCER RT EARLOBE, HEART MURMUR, Stent placement, DIVERTICULOSIS, ANEMIA, BLOOD CLOTS DALIA LUNGS AND LEFT AXILLA (NOV 2014) Last Myocardial Infarction Date:: 12-08-17 History of Any Multi-Drug Resistant Organisms: None Reported Past Surgical History: Appendectomy, Cardiac Valve Replacement, Heart Catheterization, Heart Catheterization With Stent, Hysterectomy, Orthopedic Surgery Additional Past Surgical History / Comment(s): COLONOSCOPY, REPAIR OF PATENT DUCTUS AT 18MOS OF AGE,LAMICECTOMY,UTERINE FIBROID REMOVED , Basal cell REMOVED FROM RIGHT EAR LOBE. RT KNEE SX, LASIK EYE SX, Past Anesthesia/Blood Transfusion Reactions: No Reported Reaction Date of Last Stent Placement:: 12-08-17 Past Psychological History: Anxiety, Depression Additional Psychological History / Comment(s): no medical equipment.pt lives alone in own home. stated [facility]. Smoking Status: Former smoker Past Alcohol Use History: None Reported Additional Past Alcohol Use History / Comment(s): QUIT SMOKING IN S SMOKED FOR APPROX. 10 YEARS. SMOKED 1PPD. 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 Past Drug Use History: None Reported - Past Family History Mother Family Medical History: No Reported History Father Family Medical History: Cancer Sister(s) Family Medical History: Cancer Medications and Allergies Home Medications Medication Instructions Recorded Confirmed Type Aspirin 81 mg PO DAILY #1 chewable 11/16/15 09/05/19 Rx Ferrous Sulfate [Iron (65 MG 325 mg PO DAILY 11/16/15 09/05/19 History Elemental)] Biotin 10 mg PO DAILY 06/02/17 09/05/19 History Levothyroxine Sodium [Synthroid] 75 mcg PO DAILY 09/25/17 09/05/19 History Nitroglycerin Sl Tabs [Nitrostat] 0.4 mg SUBLINGUAL Q5M PRN #25 tab 12/11/17 09/05/19 Rx Clopidogrel [Plavix] 75 mg PO DAILY 12/28/17 09/05/19 History Hemp Extract 1 cap PO BID 01/23/19 09/05/19 History Metoprolol Tartrate [Lopressor] 12.5 mg PO BID 01/23/19 09/05/19 History Mirtazapine [Remeron] 45 mg PO HS 01/23/19 09/05/19 History Pregabalin [Lyrica] 50 mg PO BID 01/23/19 09/05/19 History fentaNYL 50MCG/HR PATCH [Duragesic 1 patch TRANSDERM Q72H 02/20/19 09/05/19 History 50MCG/HR] Apixaban [Eliquis] 5 mg PO BID 09/05/19 09/05/19 History Atorvastatin Calcium [Lipitor] 80 mg PO HS 09/05/19 09/05/19 History Cevimeline [Evoxac] 30 mg PO BID 09/05/19 09/05/19 History Furosemide [Lasix] 20 mg PO DAILY 09/05/19 09/05/19 History Mirabegron [Myrbetriq] 50 mg PO HS 09/05/19 09/05/19 History Omeprazole [PriLOSEC] 20 mg PO DAILY 09/05/19 09/05/19 History Sertraline [Zoloft] 100 mg PO HS 09/05/19 09/05/19 History Allergies Allergy/AdvReac Type Severity Reaction Status Date / Time lidocaine [From LidoPatch] Allergy Rash/Hives Verified 09/05/19 16:27 menthol [From LidoPatch] Allergy Rash/Hives Verified 09/05/19 16:27 Physical Exam Vitals: Vital Signs Temp Pulse Resp BP Pulse Ox 09/06/19 13:00 83 20 89/63 97 09/06/19 12:00 97.5 F L 75 31 H 106/56 96 09/06/19 11:00 80 29 H 106/54 97 09/06/19 10:00 80 17 97/48 95 09/06/19 09:00 80 18 101/54 98 09/06/19 08:00 97.6 F 82 23 105/54 98 09/06/19 07:00 84 19 106/48 99 09/06/19 06:00 81 20 107/59 98 09/06/19 05:00 84 13 111/58 98 09/06/19 04:00 98.4 F 84 15 107/56 97 09/06/19 03:00 85 16 121/69 97 09/06/19 02:00 87 21 121/85 96 09/06/19 01:00 91 19 139/83 97 09/06/19 00:00 98.4 F 95 24 137/85 96 09/05/19 23:45 99 09/05/19 23:42 98.4 F 94 26 H 137/85 95 09/05/19 23:38 96 09/05/19 23:00 94 22 144/82 93 L 09/05/19 22:30 93 18 124/65 95 09/05/19 22:00 89 23 139/69 93 L 09/05/19 21:30 97 24 140/68 97 09/05/19 21:00 98 26 H 146/62 96 09/05/19 20:42 98.9 F 98 26 H 143/62 96 09/05/19 20:30 104 H 26 H 131/84 95 09/05/19 20:26 99 09/05/19 20:20 96 09/05/19 20:13 99.1 F 95 24 131/84 97 09/05/19 20:12 99.1 F 104 H 26 H 131/84 95 09/05/19 20:02 99.1 F 95 24 137/63 97 09/05/19 19:45 98.5 F 91 22 130/67 09/05/19 17:52 98.7 F 92 24 121/79 97 09/05/19 17:30 98.7 F 90 20 123/68 96 09/05/19 17:23 99.5 F 90 18 132/64 96 09/05/19 17:22 98.9 F 93 18 119/66 96 09/05/19 17:12 99.5 F 90 18 132/64 96 09/05/19 17:00 90 19 120/58 100 09/05/19 16:01 90 18 115/53 96 Intake and Output 09/06/19 09/06/19 09/06/19 06:59 14:59 22:59 Intake Total 0 100 Output Total 2700 360 Balance -2700 -260 Intake: IV 100 Piperacillin-Tazobactam 3 100 .375 gm In Sodium Chloride 0.9% 100 ml @ 25 mls/hr IVPB Q8HR [facility] Rx# :[id number] Blood Product 0 Rc As-1 Unit 0 [id number] Output: Urine 2700 360 Other: Voiding Method Indwelling Catheter Indwelling Catheter Weight 60.6 kg - Constitutional General appearance: no acute distress - EENT Eyes: EOMI, PERRLA ENT: hearing grossly normal, normal oropharynx - Neck Neck: no lymphadenopathy Thyroid: bilateral: normal size - Respiratory Respiratory: bilateral: CTA - Cardiovascular Rhythm: regular Heart sounds: normal: S1, S2 - Gastrointestinal General gastrointestinal: normal bowel sounds, soft - Integumentary Integumentary: normal - Neurologic Neurologic: CNII-XII intact - Musculoskeletal Musculoskeletal: generalized weakness, strength equal bilaterally - Psychiatric Psychiatric: A&O x's 3, appropriate affect Results CBC & Chem 7: 09/06/19 05:22 09/06/19 05:22 Labs: Abnormal Lab Results - Last 24 Hours (Table) 09/05/19 09/05/19 09/05/19 Range/Units 13:00 14:35 16:25 RBC (3.80-5.40) m/uL Hgb (11.4-16.0) gm/dL Hct (34.0-46.0) % MCHC (31.0-37.0) g/dL RDW (11.5-15.5) % Neutrophils # (1.3-7.7) k/uL Lymphocytes # (1.0-4.8) k/uL Potassium (3.5-5.1) mmol/L BUN (7-17) mg/dL Creatinine (0.52-1.04) mg/dL Glucose (74-99) mg/dL POC Glucose (mg/dL) (75-99) mg/dL Calcium (8.4-10.2) mg/dL Troponin I 0.718 H* (0.000-0.034) ng/mL Total Protein (6.3-8.2) g/dL Albumin (3.5-5.0) g/dL HDL Cholesterol 32 L (40-60) mg/dL Crossmatch See Detail 09/05/19 09/05/19 09/06/19 Range/Units 17:46 19:55 05:22 RBC 2.97 L (3.80-5.40) m/uL Hgb 8.6 L D (11.4-16.0) gm/dL Hct 28.0 L (34.0-46.0) % MCHC 30.6 L (31.0-37.0) g/dL RDW 18.0 H (11.5-15.5) % Neutrophils # 9.5 H (1.3-7.7) k/uL Lymphocytes # 0.5 L (1.0-4.8) k/uL Potassium (3.5-5.1) mmol/L BUN (7-17) mg/dL Creatinine (0.52-1.04) mg/dL Glucose (74-99) mg/dL POC Glucose (mg/dL) 126 H (75-99) mg/dL Calcium (8.4-10.2) mg/dL Troponin I 1.050 H* (0.000-0.034) ng/mL Total Protein (6.3-8.2) g/dL Albumin (3.5-5.0) g/dL HDL Cholesterol (40-60) mg/dL Crossmatch 09/06/19 09/06/19 Range/Units 05:22 12:20 RBC (3.80-5.40) m/uL Hgb (11.4-16.0) gm/dL Hct (34.0-46.0) % MCHC (31.0-37.0) g/dL RDW (11.5-15.5) % Neutrophils # (1.3-7.7) k/uL Lymphocytes # (1.0-4.8) k/uL Potassium 3.4 L (3.5-5.1) mmol/L BUN 28 H (7-17) mg/dL Creatinine 1.05 H (0.52-1.04) mg/dL Glucose 129 H (74-99) mg/dL POC Glucose (mg/dL) 157 H (75-99) mg/dL Calcium 8.2 L (8.4-10.2) mg/dL Troponin I (0.000-0.034) ng/mL Total Protein 5.5 L (6.3-8.2) g/dL Albumin 3.0 L (3.5-5.0) g/dL HDL Cholesterol (40-60) mg/dL Crossmatch Comments: EGD report and pathology report from 02/21 reviewed Chest x-ray: report reviewed CT scan - chest: report reviewed Venous US: report reviewed Assessment and Plan (1) Acute on chronic anemia Narrative/Plan: Agent has had a history of anemia since at least 2016. Given in 2013 she had low ferritin. He states that she has been taking ferrous sulfate twice a day chronically for some years now. Hemoglobin has been in the 8 range, but dropped to 5.2 on this admission. As noted she did start anticoagulation about 4 weeks ago In this situation ongoing anemia due to chronic blood loss, only partially responsive to oral iron, with acute exacerbation due to anticoagulation appears to be the most reasonable differential diagnosis. Other causes are not ruled out. At this time hemoglobin is improved with transfusion. -Continue to monitor and transfuse to keep hemoglobin greater than 7 -Hold anticoagulation -Anemia workup will be ordered -Given high possibility of blood loss anemia, GI workup was recommended. Patient has been seen by gastroenterology with plans for upper and lower endoscopy on 09/08/19 Current Visit: Yes Status: Acute Code(s): D64.9 - ANEMIA, UNSPECIFIED SNOMED Code(s): 765120468 (2) DVT (deep venous thrombosis) Narrative/Plan: The patient has a history of recurrent venous thrombosis. She initially had a left upper extremity DVT with PE in 2016 treated as described. She now has developed right lower extremity DVT which appears to be unprovoked. The patient should therefore, ideally be on lifelong antibiotic regulation. However she has developed severe anemia with antibiotic regulation with concerns for GI blood loss - In this situation the patient is not a candidate for anticoagulation currently at least. She has been recommended a GI workup. If she is found to have a reversible etiology she can potentially rechallenge with anticoagulation in the future. However she would be at increased risk of recurrence in the immediate future, given the very recent DVT. Therefore at this time the plan for vascular surgery consult with IVC filter placement appears to be quite reasonable. I would recommend placement of a reversible filter, as the patient could potentially be a candidate for resumption of anticoagulation in the future if she is found to have a reversible cause. - She is status post hypercoagulable workup in 2016 that was negative. Current Visit: No Status: Acute Code(s): I82.409 - ACUTE EMBOLISM AND THOMBOS UNSP DEEP VN UNSP LOWER EXTREMITY SNOMED Code(s): 023636454 Plan: Defer to the admitting service and other consultants for management of her multiple other medical problems
[2019-09-06 16:13] LABS: Reticulocyte % 6.9 % (0.5-2.0)
--- NOTE | 2019-09-06 17:45 | P.GSCN ---
History of Present Illness Consult date: 09/06/19 History of present illness: The patient is a 73-year-old female with a long-standing history of chronic anemia on iron who has a history of DVT in the upper extremities as well as PEs approximate 5-6 years ago as well as a more recent right lower extremity DVT diagnosis. She presented with shortness of breath and overall fatigue. Upon admission to the hospital was found to have a hemoglobin of 5. At this point we are consult with her for evaluation for possible IVC filter. The patient denies any hemoptysis, melanotic stools or keily blood. She denies any headaches, chest pains, abdominal pains Past Medical History Past Medical History: Cancer, Deep Vein Thrombosis (DVT), Fibromyalgia, Hyperlipidemia, Hypertension, Myocardial Infarction ([place]), Pneumonia, Sleep Apnea/CPAP/BIPAP, Thyroid Disorder Additional Past Medical History / Comment(s): HX PARALYZED LT VOCAL CORD,SKIN CANCER RT EARLOBE, HEART MURMUR, Stent placement, DIVERTICULOSIS, ANEMIA, BLOOD CLOTS DALIA LUNGS AND LEFT AXILLA (NOV 2014) Last Myocardial Infarction Date:: 12-08-17 History of Any Multi-Drug Resistant Organisms: None Reported Past Surgical History: Appendectomy, Cardiac Valve Replacement, Heart Catheterization, Heart Catheterization With Stent, Hysterectomy, Orthopedic Surgery Additional Past Surgical History / Comment(s): COLONOSCOPY, REPAIR OF PATENT DUCTUS AT 18MOS OF AGE,LAMICECTOMY,UTERINE FIBROID REMOVED , Basal cell REMOVED FROM RIGHT EAR LOBE. RT KNEE SX, LASIK EYE SX, Past Anesthesia/Blood Transfusion Reactions: No Reported Reaction Date of Last Stent Placement:: 12-08-17 Past Psychological History: Anxiety, Depression Additional Psychological History / Comment(s): no medical equipment.pt lives al one in own home. stated has [facility]. Smoking Status: Former smoker Past Alcohol Use History: None Reported Additional Past Alcohol Use History / Comment(s): QUIT SMOKING IN 1970'S SMOKED FOR APPROX. 10 YEARS. SMOKED 1PPD. 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 Past Drug Use History: None Reported - Past Family History Mother Family Medical History: No Reported History Father Family Medical History: Cancer Sister(s) Family Medical History: Cancer Medications and Allergies Home Medications Medication Instructions Recorded Confirmed Type Aspirin 81 mg PO DAILY #1 chewable 11/16/15 09/05/19 Rx Ferrous Sulfate [Iron (65 MG 325 mg PO DAILY 11/16/15 09/05/19 History Elemental)] Biotin 10 mg PO DAILY 06/02/17 09/05/19 History Levothyroxine Sodium [Synthroid] 75 mcg PO DAILY 09/25/17 09/05/19 History Nitroglycerin Sl Tabs [Nitrostat] 0.4 mg SUBLINGUAL Q5M PRN #25 tab 12/11/17 09/05/19 Rx Clopidogrel [Plavix] 75 mg PO DAILY 12/28/17 09/05/19 History Hemp Extract 1 cap PO BID 01/23/19 09/05/19 History Metoprolol Tartrate [Lopressor] 12.5 mg PO BID 01/23/19 09/05/19 History Mirtazapine [Remeron] 45 mg PO HS 01/23/19 09/05/19 History Pregabalin [Lyrica] 50 mg PO BID 01/23/19 09/05/19 History fentaNYL 50MCG/HR PATCH [Duragesic 1 patch TRANSDERM Q72H 02/20/19 09/05/19 History 50MCG/HR] Apixaban [Eliquis] 5 mg PO BID 09/05/19 09/05/19 History Atorvastatin Calcium [Lipitor] 80 mg PO HS 09/05/19 09/05/19 History Cevimeline [Evoxac] 30 mg PO BID 09/05/19 09/05/19 History Furosemide [Lasix] 20 mg PO DAILY 09/05/19 09/05/19 History Mirabegron [Myrbetriq] 50 mg PO HS 09/05/19 09/05/19 History Omeprazole [PriLOSEC] 20 mg PO DAILY 09/05/19 09/05/19 History Sertraline [Zoloft] 100 mg PO HS 09/05/19 09/05/19 History Allergies Allergy/AdvReac Type Severity Reaction Status Date / Time lidocaine [From LidoPatch] Allergy Rash/Hives Verified 09/05/19 16:27 menthol [From LidoPatch] Allergy Rash/Hives Verified 09/05/19 16:27 Surgical - Exam Vital Signs Temp Pulse Resp BP Pulse Ox 98.7 F 82 18 107/50 95 09/05/19 12:36 09/05/19 12:36 09/05/19 12:36 09/05/19 12:36 09/05/19 12:36 Genitals a pleasant cooperative female in no acute distress. HEENT is nor mocephalic, atraumatic, excellent motion intact. Heart is regular in rate and rhythm. Lungs are clear bilaterally. Abdomen is soft, nontender and nondistended. She has palpable radial femoral and pedal pulses bilaterally. On the right lower extremity there are some areas of superficial varicosities and a thrombosed. Calves are soft. Skin without rashes. Normal mood and affect. Results - Labs 09/06/19 05:22 09/06/19 05:22 Abnormal Lab Results - Last 24 Hours (Table) 09/05/19 09/05/19 09/05/19 Range/Units 13:00 14:35 17:46 RBC (3.80-5.40) m/uL Hgb (11.4-16.0) gm/dL Hct (34.0-46.0) % MCHC (31.0-37.0) g/dL RDW (11.5-15.5) % Neutrophils # (1.3-7.7) k/uL Lymphocytes # (1.0-4.8) k/uL Retic Count (0.5-2.0) % Potassium (3.5-5.1) mmol/L BUN (7-17) mg/dL Creatinine (0.52-1.04) mg/dL Glucose (74-99) mg/dL POC Glucose (mg/dL) 126 H (75-99) mg/dL Calcium (8.4-10.2) mg/dL Troponin I (0.000-0.034) ng/mL Total Protein (6.3-8.2) g/dL Albumin (3.5-5.0) g/dL HDL Cholesterol 32 L (40-60) mg/dL Crossmatch See Detail 09/05/19 09/06/19 09/06/19 Range/Units 19:55 05:22 05:22 RBC 2.97 L (3.80-5.40) m/uL Hgb 8.6 L D (11.4-16.0) gm/dL Hct 28.0 L (34.0-46.0) % MCHC 30.6 L (31.0-37.0) g/dL RDW 18.0 H (11.5-15.5) % Neutrophils # 9.5 H (1.3-7.7) k/uL Lymphocytes # 0.5 L (1.0-4.8) k/uL Retic Count (0.5-2.0) % Potassium 3.4 L (3.5-5.1) mmol/L BUN 28 H (7-17) mg/dL Creatinine 1.05 H (0.52-1.04) mg/dL Glucose 129 H (74-99) mg/dL POC Glucose (mg/dL) (75-99) mg/dL Calcium 8.2 L (8.4-10.2) mg/dL Troponin I 1.050 H* (0.000-0.034) ng/mL Total Protein 5.5 L (6.3-8.2) g/dL Albumin 3.0 L (3.5-5.0) g/dL HDL Cholesterol (40-60) mg/dL Crossmatch 09/06/19 09/06/19 Range/Units 05:22 12:20 RBC (3.80-5.40) m/uL Hgb (11.4-16.0) gm/dL Hct (34.0-46.0) % MCHC (31.0-37.0) g/dL RDW (11.5-15.5) % Neutrophils # (1.3-7.7) k/uL Lymphocytes # (1.0-4.8) k/uL Retic Count 6.9 H (0.5-2.0) % Potassium (3.5-5.1) mmol/L BUN (7-17) mg/dL Creatinine (0.52-1.04) mg/dL Glucose (74-99) mg/dL POC Glucose (mg/dL) 157 H (75-99) mg/dL Calcium (8.4-10.2) mg/dL Troponin I (0.000-0.034) ng/mL Total Protein (6.3-8.2) g/dL Albumin (3.5-5.0) g/dL HDL Cholesterol (40-60) mg/dL Crossmatch Diabetes panel 09/05/19 09/06/19 Range/Units 13:00 05:22 Sodium 141 (137-145) mmol/L Potassium 3.4 L (3.5-5.1) mmol/L Chloride 103 (98-107) mmol/L Carbon Dioxide 28 (22-30) mmol/L BUN 28 H (7-17) mg/dL Creatinine 1.05 H (0.52-1.04) mg/dL Glucose 129 H (74-99) mg/dL Calcium 8.2 L (8.4-10.2) mg/dL AST 34 (14-36) U/L ALT 13 (4-34) U/L Alkaline Phosphatase 62 (38-126) U/L Total Protein 5.5 L (6.3-8.2) g/dL Albumin 3.0 L (3.5-5.0) g/dL Triglycerides 93 (<150) mg/dL HDL Cholesterol 32 L (40-60) mg/dL Calcium panel 09/06/19 Range/Units 05:22 Calcium 8.2 L (8.4-10.2) mg/dL Albumin 3.0 L (3.5-5.0) g/dL Pituitary panel 09/06/19 Range/Units 05:22 Sodium 141 (137-145) mmol/L Potassium 3.4 L (3.5-5.1) mmol/L Chloride 103 (98-107) mmol/L Carbon Dioxide 28 (22-30) mmol/L BUN 28 H (7-17) mg/dL Creatinine 1.05 H (0.52-1.04) mg/dL Glucose 129 H (74-99) mg/dL Calcium 8.2 L (8.4-10.2) mg/dL Adrenal panel 09/06/19 Range/Units 05:22 Sodium 141 (137-145) mmol/L Potassium 3.4 L (3.5-5.1) mmol/L Chloride 103 (98-107) mmol/L Carbon Dioxide 28 (22-30) mmol/L BUN 28 H (7-17) mg/dL Creatinine 1.05 H (0.52-1.04) mg/dL Glucose 129 H (74-99) mg/dL Calcium 8.2 L (8.4-10.2) mg/dL Total Bilirubin 0.6 (0.2-1.3) mg/dL AST 34 (14-36) U/L ALT 13 (4-34) U/L Alkaline Phosphatase 62 (38-126) U/L Total Protein 5.5 L (6.3-8.2) g/dL Albumin 3.0 L (3.5-5.0) g/dL Assessment and Plan Assessment: #1 anemia, history of chronic #2 DVT on anticoagulation #3 history of upper extremity DVT, PE Plan: Patient seen and examined. Long discussion had with primary and intensive care as well as the patient. Would favor a more chronic type picture with drift, no active evidence of bleeding currently. No bright red blood or melanotic stool. No hemoptysis. At this point we will repeat hemoglobin and trial anticoagulation under surveillance, she has maintained clinically. She does have a long-standing history of chronic anemia in the past and has taken iron supplementation for many years. Given her history of upper extremity DVTs and PEs as well as her right lower extremity DVT, she needs anticoagulation and lifelong if possible. Await GI input for possible scope and planning. If the patient fails her trial anticoagulation or unable to maintain hemoglobin, at that point would consider a filter. Continue close monitoring.
[2019-09-06 18:26] LABS: Anisocytosis Slight; HCT 29.6 % (34.0-46.0); HGB 8.8 gm/dL (11.4-16.0); Hypochromasia Marked; MCH 27.9 pg (25.0-35.0); MCHC 29.8 g/dL (31.0-37.0); MCV 93.6 fL (80.0-100.0); Mean Platelet Volume 7.8; Platelet Count 369 k/uL (150-450); Poikilocytosis Moderate; RBC 3.16 m/uL (3.80-5.40); RDW 18.1 % (11.5-15.5); WBC 12.7 k/uL (3.8-10.6)
--- NOTE | 2019-09-06 20:25 | P.HPIM ---
History of Present Illness H&P Date: 09/06/19 Chief Complaint: Shortness of breath History of presenting complaint: This is a pleasant 73-year-old patient who follows with Dr. Gabriel. Chronic stable medical conditions include coronary artery with LAD stent, hypertensive heart disease, severe aortic stenosis with AV valve replacement., hyperlipidemia, hypothyroid, chronic left vocal cord paralysis, fibromyalgia, diverticulosis. Patient had multiple DVTs in the past. For which she has been eliquis. Patient has been progressively more and more short of breath. In the ER hemoglobin was found to be 5.2. Patient was negative Hemoccult for blood. Computed tomography scan did show some infiltrates. Negative for PE. Acute patient's Coumadin 19 testing in the office 3 days ago was negative. Patient was transfused 2 units of blood. Patient's had a slight cough and some wheezing.. Patient denies any dark stools. Admitted for the same. Patient's last documented hemoglobin was 10.1 back in March 2018. Patient denies any abdominal pain. Review of systems: GEN.: Tired EYES: None HEENT: None NECK: None RESPIRATORY: [As above, no fever no chills CARDIOVASCULAR: None GASTROINTESTINAL: None GENITOURINARY: None MUSCULOSKELETAL: None LYMPHATICS: None HEMATOLOGICAL: None PSYCHIATRY: None NEUROLOGICAL: None. Past medical history to include: DVT, fibromyalgia, hyperlipidemia, hypertension, obstructive sleep apnea, hypothyroid, left vocal cord paralysis, coronary artery disease with stent, diverticulosis, bilateral PE and left axilla clot, basal cell removed from the right ear anxiety depression Social history: Patient smoked for about 10 years stopped in 1970s. Smoked a pack a day. 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 Physical examination: VITAL SIGNS: 98.7, 82, 18, 107/50, 95% room air GENERAL: BMI 24.4, laying in bed, awake. EYES: [Pupils equal. Conjunctiva pale l. HEENT: External appearance of nose and ears normal, oral cavity grossly normal. NECK: JVD not raised; masses not palpable. HEART: First and second heart sounds are normal; no edema. LUNGS: Respiratory rate normal; clear to auscultation. ABDOMEN: Soft, nontender, liver spleen not palpable, no masses palpable. PSYCH: Alert and oriented x3; mood and affect normal. NEUROLOGICAL: Cranial nerves grossly intact; no facial asymmetry, power and sensation grossly intact. LYMPHATICS: No lymph nodes palpable in the axilla and neck INVESTIGATIONS, reviewed in the clinical context: White count 10.3 hemoglobin 5.2 platelets. 3 potassium 4.1 bun 36 creatinine 1.11 Troponin I 0.7, 0.7, 1.0 ProBNP 22,700 Fecal occult stool-negative EKG tracing personally reviewed by me-normal sinus rhythm, right bundle branch block pattern with a bifascicular block, Chest x-ray film personally reviewed by me-cardiomegaly, with possible infiltrates Chest CTA-she infiltrates, no PE Assessment: -Acute normocytic anemia with no history of GI bleed and occult negative stool. Patient is on eliquis hence a slow GI bleed is possible. Hemolysis needs to be ruled out. There is no evidence of overt bleeding. -Abnormal computed tomography scan of the chest with infiltrates and abnormal chest x-ray. Patient has a slight cough but denies any fever and chills. COVID 19 was negative in the office 3 days ago. Repeat PCR testing is pending. Patient has received 2 units of blood. -DVT and PE in the left upper extremity in 2015 treated for same. Subsequently right lower extremity DVT unprovoked in August 2019 in the right femoral popliteal vein. For which she has been on eliquis. -Chronic fibromyalgia Hyperlipidemia Essential hypertension -Coronary artery disease with stent to LAD -Obstructive sleep apnea -Hypothyroid -Chronic left vocal cord paralysis -Chronic diverticulosis -Acute type II SC from hemodynamic mismatch -Abnormal infiltrates on the computed tomography scan of the chest and checks x-ray.-Rule out COVID 19 Plan: Patient is status post 2 units of packed red blood cell. Hemolysis versus slow GI bleed is on the differential. Patient is being scheduled for endoscopy on Monday by Dr. Ledezma. Concern is about anticoagulation in the meantime. Risk of bleeding versus propagation of the DVT. Hence IVC filter as a possible option. Consultation is being done with vascular, GI, hematology and college service officer. Care was discussed with the patient question were answered. Past Medical History Past Medical History: Cancer, Deep Vein Thrombosis (DVT), Fibromyalgia, Hyperlipidemia, Hypertension, Myocardial Infarction ([place]), Pneumonia, Sleep Apnea/CPAP/BIPAP, Thyroid Disorder Additional Past Medical History / Comment(s): HX PARALYZED LT VOCAL CORD,SKIN CANCER RT EARLOBE, HEART MURMUR, Stent placement, DIVERTICULOSIS, ANEMIA, BLOOD CLOTS DALIA LUNGS AND LEFT AXILLA (NOV 2014) Last Myocardial Infarction Date:: 12-08-17 History of Any Multi-Drug Resistant Organisms: None Reported Past Surgical History: Appendectomy, Cardiac Valve Replacement, Heart Catheterization, Heart Catheterization With Stent, Hysterectomy, Orthopedic Surgery Additional Past Surgical History / Comment(s): COLONOSCOPY, REPAIR OF PATENT DUCTUS AT 18MOS OF AGE,LAMICECTOMY,UTERINE FIBROID REMOVED , Basal cell REMOVED FROM RIGHT EAR LOBE. RT KNEE SX, LASIK EYE SX, Past Anesthesia/Blood Transfusion Reactions: No Reported Reaction Date of Last Stent Placement:: 12-08-17 Past Psychological History: Anxiety, Depression Additional Psychological History / Comment(s): no medical equipment.pt lives alone in own home. stated has [facility] home care. Smoking Status: Former smoker Past Alcohol Use History: None Reported Additional Past Alcohol Use History / Comment(s): QUIT SMOKING IN S SMOKED FOR APPROX. 10 YEARS. SMOKED 1PPD. 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 Past Drug Use History: None Reported - Past Family History Mother Family Medical History: No Reported History Father Family Medical History: Cancer Sister(s) Family Medical History: Cancer Medications and Allergies Home Medications Medication Instructions Recorded Confirmed Type Aspirin 81 mg PO DAILY #1 chewable 11/16/15 09/05/19 Rx Ferrous Sulfate [Iron (65 MG 325 mg PO DAILY 11/16/15 09/05/19 History Elemental)] Biotin 10 mg PO DAILY 06/02/17 09/05/19 History Levothyroxine Sodium [Synthroid] 75 mcg PO DAILY 09/25/17 09/05/19 History Nitroglycerin Sl Tabs [Nitrostat] 0.4 mg SUBLINGUAL Q5M PRN #25 tab 12/11/17 09/05/19 Rx Clopidogrel [Plavix] 75 mg PO DAILY 12/28/17 09/05/19 History Hemp Extract 1 cap PO BID 01/23/19 09/05/19 History Metoprolol Tartrate [Lopressor] 12.5 mg PO BID 01/23/19 09/05/19 History Mirtazapine [Remeron] 45 mg PO HS 01/23/19 09/05/19 History Pregabalin [Lyrica] 50 mg PO BID 01/23/19 09/05/19 History fentaNYL 50MCG/HR PATCH [Duragesic 1 patch TRANSDERM Q72H 02/20/19 09/05/19 History 50MCG/HR] Apixaban [Eliquis] 5 mg PO BID 09/05/19 09/05/19 History Atorvastatin Calcium [Lipitor] 80 mg PO HS 09/05/19 09/05/19 History Cevimeline [Evoxac] 30 mg PO BID 09/05/19 09/05/19 History Furosemide [Lasix] 20 mg PO DAILY 09/05/19 09/05/19 History Mirabegron [Myrbetriq] 50 mg PO HS 09/05/19 09/05/19 History Omeprazole [PriLOSEC] 20 mg PO DAILY 09/05/19 09/05/19 History Sertraline [Zoloft] 100 mg PO HS 09/05/19 09/05/19 History Allergies Allergy/AdvReac Type Severity Reaction Status Date / Time lidocaine [From LidoPatch] Allergy Rash/Hives Verified 09/05/19 16:27 menthol [From LidoPatch] Allergy Rash/Hives Verified 09/05/19 16:27 Physical Exam Vitals: Vital Signs Temp Pulse Resp BP Pulse Ox 09/06/19 09:00 80 18 101/54 98 09/06/19 08:00 97.6 F 82 23 105/54 98 09/06/19 07:00 84 19 106/48 99 09/06/19 06:00 81 20 107/59 98 09/06/19 05:00 84 13 111/58 98 09/06/19 04:00 98.4 F 84 15 107/56 97 09/06/19 03:00 85 16 121/69 97 09/06/19 02:00 87 21 121/85 96 09/06/19 01:00 91 19 139/83 97 09/06/19 00:00 98.4 F 95 24 137/85 96 09/05/19 23:45 99 09/05/19 23:42 98.4 F 94 26 H 137/85 95 09/05/19 23:38 96 09/05/19 23:00 94 22 144/82 93 L 09/05/19 22:30 93 18 124/65 95 09/05/19 22:00 89 23 139/69 93 L 09/05/19 21:30 97 24 140/68 97 09/05/19 21:00 98 26 H 146/62 96 09/05/19 20:42 98.9 F 98 26 H 143/62 96 09/05/19 20:30 104 H 26 H 131/84 95 09/05/19 20:26 99 09/05/19 20:20 96 09/05/19 20:13 99.1 F 95 24 131/84 97 09/05/19 20:12 99.1 F 104 H 26 H 131/84 95 09/05/19 20:02 99.1 F 95 24 137/63 97 09/05/19 19:45 98.5 F 91 22 130/67 09/05/19 17:52 98.7 F 92 24 121/79 97 09/05/19 17:30 98.7 F 90 20 123/68 96 09/05/19 17:23 99.5 F 90 18 132/64 96 09/05/19 17:22 98.9 F 93 18 119/66 96 09/05/19 17:12 99.5 F 90 18 132/64 96 09/05/19 17:00 90 19 120/58 100 09/05/19 16:01 90 18 115/53 96 09/05/19 14:47 90 18 144/65 94 L 09/05/19 13:48 82 09/05/19 13:41 83 09/05/19 12:36 98.7 F 82 18 107/50 95 Intake and Output 09/05/19 09/06/19 09/06/19 22:59 06:59 14:59 Intake Total 550 0 100 Output Total 1150 2700 160 Balance -600 -2700 -60 Intake: IV 100 Piperacillin-Tazobactam 3 100 .375 gm In Sodium Chloride 0.9% 100 ml @ 25 mls/hr IVPB Q8HR COUNT INCLUDES THE [facility] Rx# :[id number] Oral 240 Blood Product 310 0 Rc As-1 Unit 310 [id number] Rc As-1 Unit 0 0 [id number] Output: Urine 1150 2700 160 Other: Voiding Method Bedpan Indwelling Catheter Indwelling Catheter Weight 60.781 kg 60.6 kg Results CBC & Chem 7: 09/06/19 18:02 07/03/20 05:22 Labs: Abnormal Lab Results - Last 24 Hours (Table) 09/05/19 09/05/19 09/05/19 Range/Units 13:00 13:00 13:00 RBC 1.86 L (3.80-5.40) m/uL Hgb 5.2 L* (11.4-16.0) gm/dL Hct 18.5 L* (34.0-46.0) % MCHC 28.1 L (31.0-37.0) g/dL RDW 17.6 H (11.5-15.5) % Neutrophils # 8.6 H (1.3-7.7) k/uL Lymphocytes # 0.7 L (1.0-4.8) k/uL Potassium (3.5-5.1) mmol/L Chloride 110 H (98-107) mmol/L Carbon Dioxide 20 L (22-30) mmol/L BUN 36 H (7-17) mg/dL Creatinine 1.11 H (0.52-1.04) mg/dL Glucose 112 H (74-99) mg/dL POC Glucose (mg/dL) (75-99) mg/dL Calcium (8.4-10.2) mg/dL Magnesium 2.5 H (1.6-2.3) mg/dL Troponin I 0.799 H* (0.000-0.034) ng/mL Total Protein 5.6 L (6.3-8.2) g/dL Albumin 3.1 L (3.5-5.0) g/dL HDL Cholesterol (40-60) mg/dL Crossmatch 09/05/19 09/05/19 09/05/19 Range/Units 13:00 14:35 16:25 RBC (3.80-5.40) m/uL Hgb (11.4-16.0) gm/dL Hct (34.0-46.0) % MCHC (31.0-37.0) g/dL RDW (11.5-15.5) % Neutrophils # (1.3-7.7) k/uL Lymphocytes # (1.0-4.8) k/uL Potassium (3.5-5.1) mmol/L Chloride (98-107) mmol/L Carbon Dioxide (22-30) mmol/L BUN (7-17) mg/dL Creatinine (0.52-1.04) mg/dL Glucose (74-99) mg/dL POC Glucose (mg/dL) (75-99) mg/dL Calcium (8.4-10.2) mg/dL Magnesium (1.6-2.3) mg/dL Troponin I 0.718 H* (0.000-0.034) ng/mL Total Protein (6.3-8.2) g/dL Albumin (3.5-5.0) g/dL HDL Cholesterol 32 L (40-60) mg/dL Crossmatch See Detail 09/05/19 09/05/19 09/06/19 Range/Units 17:46 19:55 05:22 RBC 2.97 L (3.80-5.40) m/uL Hgb 8.6 L D (11.4-16.0) gm/dL Hct 28.0 L (34.0-46.0) % MCHC 30.6 L (31.0-37.0) g/dL RDW 18.0 H (11.5-15.5) % Neutrophils # 9.5 H (1.3-7.7) k/uL Lymphocytes # 0.5 L (1.0-4.8) k/uL Potassium (3.5-5.1) mmol/L Chloride (98-107) mmol/L Carbon Dioxide (22-30) mmol/L BUN (7-17) mg/dL Creatinine (0.52-1.04) mg/dL Glucose (74-99) mg/dL POC Glucose (mg/dL) 126 H (75-99) mg/dL Calcium (8.4-10.2) mg/dL Magnesium (1.6-2.3) mg/dL Troponin I 1.050 H* (0.000-0.034) ng/mL Total Protein (6.3-8.2) g/dL Albumin (3.5-5.0) g/dL HDL Cholesterol (40-60) mg/dL Crossmatch 09/06/19 Range/Units 05:22 RBC (3.80-5.40) m/uL Hgb (11.4-16.0) gm/dL Hct (34.0-46.0) % MCHC (31.0-37.0) g/dL RDW (11.5-15.5) % Neutrophils # (1.3-7.7) k/uL Lymphocytes # (1.0-4.8) k/uL Potassium 3.4 L (3.5-5.1) mmol/L Chloride (98-107) mmol/L Carbon Dioxide (22-30) mmol/L BUN 28 H (7-17) mg/dL Creatinine 1.05 H (0.52-1.04) mg/dL Glucose 129 H (74-99) mg/dL POC Glucose (mg/dL) (75-99) mg/dL Calcium 8.2 L (8.4-10.2) mg/dL Magnesium (1.6-2.3) mg/dL Troponin I (0.000-0.034) ng/mL Total Protein 5.5 L (6.3-8.2) g/dL Albumin 3.0 L (3.5-5.0) g/dL HDL Cholesterol (40-60) mg/dL Crossmatch Thrombosis Risk Factor Assmnt - Choose All That Apply Each Factor Represents 1 point: Swollen legs (current) Other Risk Factors: Yes Each Risk Factor Represents 2 Points: Age 61-74 years Each Risk Factor Represents 3 Points: History of DVT/PE Thrombosis Risk Factor Assessment Total Risk Factor Score: 6 Thrombosis Risk Factor Assessment Level: High Risk
[2019-09-06] MEDS: NON FORMULARY DRUG (Mirabegron [Myrbetriq] 50 MG) PO SCH (20:44)
[2019-09-06] MEDS: ACETAMINOPHEN TAB 325 MG TAB PO PRN (20:52)
[2019-09-06] MEDS: ATORVASTATIN 80 MG TAB PO SCH (20:52)
[2019-09-06] MEDS: MIRTAZAPINE 45 MG TABLET PO SCH (21:43)
[2019-09-06 23:19] LABS: Protein, Total 5.3 g/dL (6.2-8.2)
[2019-09-06 23:22] LABS: Ferritin 23.1 ng/mL (10.0-291.0)
[2019-09-06 23:24] LABS: % Iron Saturation 2.79 (12.00-45.00)
[2019-09-07] MEDS: PANTOPRAZOLE 40 MG TABLET PO SCH ×2 (06:33→17:12)
[2019-09-07] MEDS: LEVOTHYROXINE 75 MCG TAB PO SCH (06:33)
[2019-09-07 08:21] LABS: Anisocytosis Slight; Basophils % (A) 0 %; Eosinophils # (A) 0.4 k/uL (0-0.7); Eosinophils % (A) 4 %; HCT 26.3 % (34.0-46.0); Hypochromasia Marked; Lymphocytes # (A) 1.3 k/uL (1.0-4.8); Lymphocytes % (A) 14 %; MCH 29.3 pg (25.0-35.0); MCHC 30.5 g/dL (31.0-37.0); MCV 96.1 fL (80.0-100.0); Macrocytosis Slight; Mean Platelet Volume 7.8; Monocytes # (A) 0.6 k/uL (0-1.0); Monocytes % (A) 7 %; Neutrophils # (A) 6.6 k/uL (1.3-7.7); Neutrophils % (A) 72 %; Platelet Count 323 k/uL (150-450); Poikilocytosis Moderate; RBC 2.73 m/uL (3.80-5.40); RDW 17.8 % (11.5-15.5); WBC 9.2 k/uL (3.8-10.6)
[2019-09-07 08:25] LABS: Albumin 2.6 g/dL (3.5-5.0); Calcium 7.7 mg/dL (8.4-10.2); Potassium 3.5 mmol/L (3.5-5.1); Total Bilirubin 0.5 mg/dL (0.2-1.3); Total Protein 4.8 g/dL (6.3-8.2)
[2019-09-07] MEDS: PIPERACILLIN-TAZOBACTAM 3.375 GM in SODIUM CHLORIDE 0.9% 100 ML IVPB SCH ×2 (08:57→15:16)
[2019-09-07] MEDS: METOPROLOL TARTRATE 12.5 MG TAB PO SCH ×2 (08:57→20:41)
[2019-09-07] MEDS: CEVIMELINE 30 MG CAP PO SCH ×2 (08:57→20:41)
[2019-09-07] MEDS: PREGABALIN 50 MG CAP PO SCH ×2 (08:57→20:41)
[2019-09-07] MEDS: SERTRALINE 100 MG TAB PO SCH (08:57)
--- NOTE | 2019-09-07 09:06 | P.CONS ---
History of Present Illness - Reason for Consult Consult date: 09/06/19 Anemia Requesting physician: Len Azar - Chief Complaint Shortness of breath - History of Present Illness 73-year-old female with a medical history significant for fibromyalgia, hypertension, prior [place], DVT 1 month ago on anticoagulation therapy as well as previously in 2016 who is seen for progressive shortness of breath. Patient reported shortness of breath worse with exertion. This is been occurring over the last 1-2 weeks. She also reports associated cough. On questioning the patient denies any signs or symptoms of GI bleeding with no hematemesis, hematoc hezia or melena. Stool testing was negative for occult blood. Patient was found to be acutely anemic on presentation with hemoglobin of 5.2 subsequently improved at 8.6 status post PRBCs. Other laboratory evaluation significant for to be BC 10.5, platelet count 356,000, INR 1, total bilirubin 0.6, alkaline phosphatase 62, AST 34 and ALT 13. Prior endoscopic evaluation was significant for EGD showing gastritis and gastric angiodysplasia in 12/27/2013 performed for anemia. She also had a colonoscopy at that time in 2013 which is normal per the patient's report. EGD in 2014 was also normal. She underwent recent endoscopic evaluation on 02/21/19 showing a distal esophageal stricture status post balloon dilation to 12 mm. She denies any abdominal pain and has been tolerating her diet. She denies any NSAID use. Review of Systems REVIEW OF SYSTEMS: CONSTITUTIONAL: Denies any fevers, chills, weight change but she does report fatigue. CARDIOVASCULAR: Denies any chest pain, palpitations high or low blood pressures RESPIRATORY: Denies any hemoptysis but has been having cough and shortness of breath worse with exertion. GENITOURINARY: No dysuria or hematuria. MUSCULOSKELETAL: No weakness reported. SKIN: Denies any new rashes or lesions, jaundice or pallor. PSYCHIATRIC: Denies any depression or anxiety. NEUROLOGY: Denies headache, denies any new focal deficits. EARS/NOSE/THROAT: No recent hearing change, congestion, nasal discharge or sore throat. EYES: No pain in eyes, discharge or change in vision. GASTROINTESTINAL: As per HPI. Past Medical History Past Medical History: Cancer, Deep Vein Thrombosis (DVT), Fibromyalgia, Hyperlipidemia, Hypertension, Myocardial Infarction ([place]), Pneumonia, Sleep Apnea/CPAP/BIPAP, Thyroid Disorder Additional Past Medical History / Comment(s): HX PARALYZED LT VOCAL CORD,SKIN CANCER RT EARLOBE, HEART MURMUR, Stent placement, DIVERTICULOSIS, ANEMIA, BLOOD CLOTS DALIA LUNGS AND LEFT AXILLA (NOV 2014) Last Myocardial Infarction Date:: 12-08-17 History of Any Multi-Drug Resistant Organisms: None Reported Past Surgical History: Appendectomy, Cardiac Valve Replacement, Heart Catheterization, Heart Catheterization With Stent, Hysterectomy, Orthopedic Surgery Additional Past Surgical History / Comment(s): COLONOSCOPY, REPAIR OF PATENT DUCTUS AT 18MOS OF AGE,LAMICECTOMY,UTERINE FIBROID REMOVED , Basal cell REMOVED FROM RIGHT EAR LOBE. RT KNEE SX, LASIK EYE SX, Past Anesthesia/Blood Transfusion Reactions: No Reported Reaction Date of Last Stent Placement:: 12-08-17 Past Psychological History: Anxiety, Depression Additional Psychological History / Comment(s): no medical equipment.pt lives alone in own home. stated has [facility] home [facility]. Smoking Status: Former smoker Past Alcohol Use History: None Reported Additional Past Alcohol Use History / Comment(s): QUIT SMOKING IN S SMOKED FOR APPROX. 10 YEARS. SMOKED 1PPD. 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 Past Drug Use History: None Reported - Past Family History Mother Family Medical History: No Reported History Father Family Medical History: Cancer Sister(s) Family Medical History: Cancer Medications and Allergies Home Medications Medication Instructions Recorded Confirmed Type Aspirin 81 mg PO DAILY #1 chewable 11/16/15 09/05/19 Rx Ferrous Sulfate [Iron (65 MG 325 mg PO DAILY 11/16/15 09/05/19 History Elemental)] Biotin 10 mg PO DAILY 06/02/17 09/05/19 History Levothyroxine Sodium [Synthroid] 75 mcg PO DAILY 09/25/17 09/05/19 History Nitroglycerin Sl Tabs [Nitrostat] 0.4 mg SUBLINGUAL Q5M PRN #25 tab 12/11/17 09/05/19 Rx Clopidogrel [Plavix] 75 mg PO DAILY 12/28/17 09/05/19 History Hemp Extract 1 cap PO BID 01/23/19 09/05/19 History Metoprolol Tartrate [Lopressor] 12.5 mg PO BID 01/23/19 09/05/19 History Mirtazapine [Remeron] 45 mg PO HS 01/23/19 09/05/19 History Pregabalin [Lyrica] 50 mg PO BID 01/23/19 09/05/19 History fentaNYL 50MCG/HR PATCH [Duragesic 1 patch TRANSDERM Q72H 02/20/19 09/05/19 History 50MCG/HR] Apixaban [Eliquis] 5 mg PO BID 09/05/19 09/05/19 History Atorvastatin Calcium [Lipitor] 80 mg PO HS 09/05/19 09/05/19 History Cevimeline [Evoxac] 30 mg PO BID 09/05/19 09/05/19 History Furosemide [Lasix] 20 mg PO DAILY 09/05/19 09/05/19 History Mirabegron [Myrbetriq] 50 mg PO HS 09/05/19 09/05/19 History Omeprazole [PriLOSEC] 20 mg PO DAILY 09/05/19 09/05/19 History Sertraline [Zoloft] 100 mg PO HS 09/05/19 09/05/19 History Allergies Allergy/AdvReac Type Severity Reaction Status Date / Time lidocaine [From LidoPatch] Allergy Rash/Hives Verified 09/05/19 16:27 menthol [From LidoPatch] Allergy Rash/Hives Verified 09/05/19 16:27 Physical Exam Vitals: Vital Signs Temp Pulse Resp BP Pulse Ox 09/06/19 07:00 84 19 106/48 99 09/06/19 06:00 81 20 107/59 98 09/06/19 05:00 84 13 111/58 98 09/06/19 04:00 98.4 F 84 15 107/56 97 09/06/19 03:00 85 16 121/69 97 09/06/19 02:00 87 21 121/85 96 09/06/19 01:00 91 19 139/83 97 09/06/19 00:00 98.4 F 95 24 137/85 96 09/05/19 23:45 99 09/05/19 23:42 98.4 F 94 26 H 137/85 95 09/05/19 23:38 96 09/05/19 23:00 94 22 144/82 93 L 09/05/19 22:30 93 18 124/65 95 07/02/20 22:00 89 23 139/69 93 L 09/05/19 21:30 97 24 140/68 97 09/05/19 21:00 98 26 H 146/62 96 09/05/19 20:42 98.9 F 98 26 H 143/62 96 09/05/19 20:30 104 H 26 H 131/84 95 09/05/19 20:26 99 02 20:20 96 09/05/19 20:13 99.1 F 95 24 131/84 97 09/05/19 20:12 99.1 F 104 H 26 H 131/84 95 09/05/19 20:02 99.1 F 95 24 137/63 97 09/05/19 19:45 98.5 F 91 22 130/67 09/05/19 17:52 98.7 F 92 24 121/79 97 09/05/19 17:30 98.7 F 90 20 123/68 96 09/05/19 17:23 99.5 F 90 18 132/64 96 09/05/19 17:22 98.9 F 93 18 119/66 96 09/05/19 17:12 99.5 F 90 18 132/64 96 09/05/19 17:00 90 19 120/58 100 09/05/19 16:01 90 18 115/53 96 09/05/19 14:47 90 18 144/65 94 L 09/05/19 13:48 82 09/05/19 13:41 83 09/05/19 12:36 98.7 F 82 18 107/50 95 Intake and Output 09/05/19 09/06/19 09/06/19 22:59 06:59 14:59 Intake Total 550 0 Output Total 1150 2700 Balance -600 -2700 Intake: Oral 240 Blood Product 310 0 Rc As-1 Unit 310 [id number] Rc As-1 Unit 0 0 [id number] Output: Urine 1150 2700 Other: Voiding Method Bedpan Indwelling Catheter Weight 60.781 kg 60.6 kg On physical examination, patient appears comfortable in no apparent distress. HEAD: Normocephalic, atraumatic. EYES: No scleral icterus. No conjunctival injection. MOUTH: No lesions, tongue midline. NECK: Trachea midline, no gross abnormalities. CHEST: Decreased air entry in all lung [place]. HEART: S1-S2 appreciated. ABDOMEN: Soft, nontender to palpation. Bowel sounds are positive. No organomegaly. No guarding or rigidity. EXTREMITIES: No pedal edema. SKIN: No rashes, no jaundice. NEUROLOGIC: Alert and oriented x3. Results CBC & Chem 7: 09/07/19 07:12 09/07/19 07:12 Labs: Abnormal Lab Results - Last 24 Hours (Table) 09/05/19 09/05/19 09/05/19 Range/Units 13:00 13:00 13:00 RBC 1.86 L (3.80-5.40) m/uL Hgb 5.2 L* (11.4-16.0) gm/dL Hct 18.5 L* (34.0-46.0) % MCHC 28.1 L (31.0-37.0) g/dL RDW 17.6 H (11.5-15.5) % Neutrophils # 8.6 H (1.3-7.7) k/uL Lymphocytes # 0.7 L (1.0-4.8) k/uL Potassium (3.5-5.1) mmol/L Chloride 110 H (98-107) mmol/L Carbon Dioxide 20 L (22-30) mmol/L BUN 36 H (7-17) mg/dL Creatinine 1.11 H (0.52-1.04) mg/dL Glucose 112 H (74-99) mg/dL POC Glucose (mg/dL) (75-99) mg/dL Calcium (8.4-10.2) mg/dL Magnesium 2.5 H (1.6-2.3) mg/dL Troponin I 0.799 H* (0.000-0.034) ng/mL Total Protein 5.6 L (6.3-8.2) g/dL Albumin 3.1 L (3.5-5.0) g/dL HDL Cholesterol (40-60) mg/dL Crossmatch 09/05/19 09/05/19 09/05/19 Range/Units 13:00 14:35 16:25 RBC (3.80-5.40) m/uL Hgb (11.4-16.0) gm/dL Hct (34.0-46.0) % MCHC (31.0-37.0) g/dL RDW (11.5-15.5) % Neutrophils # (1.3-7.7) k/uL Lymphocytes # (1.0-4.8) k/uL Potassium (3.5-5.1) mmol/L Chloride (98-107) mmol/L Carbon Dioxide (22-30) mmol/L BUN (7-17) mg/dL Creatinine (0.52-1.04) mg/dL Glucose (74-99) mg/dL POC Glucose (mg/dL) (75-99) mg/dL Calcium (8.4-10.2) mg/dL Magnesium (1.6-2.3) mg/dL Troponin I 0.718 H* (0.000-0.034) ng/mL Total Protein (6.3-8.2) g/dL Albumin (3.5-5.0) g/dL HDL Cholesterol 32 L (40-60) mg/dL Crossmatch See Detail 09/05/19 09/05/19 09/06/19 Range/Units 17:46 19:55 05:22 RBC 2.97 L (3.80-5.40) m/uL Hgb 8.6 L D (11.4-16.0) gm/dL Hct 28.0 L (34.0-46.0) % MCHC 30.6 L (31.0-37.0) g/dL RDW 18.0 H (11.5-15.5) % Neutrophils # 9.5 H (1.3-7.7) k/uL Lymphocytes # 0.5 L (1.0-4.8) k/uL Potassium (3.5-5.1) mmol/L Chloride (98-107) mmol/L Carbon Dioxide (22-30) mmol/L BUN (7-17) mg/dL Creatinine (0.52-1.04) mg/dL Glucose (74-99) mg/dL POC Glucose (mg/dL) 126 H (75-99) mg/dL Calcium (8.4-10.2) mg/dL Magnesium (1.6-2.3) mg/dL Troponin I 1.050 H* (0.000-0.034) ng/mL Total Protein (6.3-8.2) g/dL Albumin (3.5-5.0) g/dL HDL Cholesterol (40-60) mg/dL Crossmatch 09/06/19 Range/Units 05:22 RBC (3.80-5.40) m/uL Hgb (11.4-16.0) gm/dL Hct (34.0-46.0) % MCHC (31.0-37.0) g/dL RDW (11.5-15.5) % Neutrophils # (1.3-7.7) k/uL Lymphocytes # (1.0-4.8) k/uL Potassium 3.4 L (3.5-5.1) mmol/L Chloride (98-107) mmol/L Carbon Dioxide (22-30) mmol/L BUN 28 H (7-17) mg/dL Creatinine 1.05 H (0.52-1.04) mg/dL Glucose 129 H (74-99) mg/dL POC Glucose (mg/dL) (75-99) mg/dL Calcium 8.2 L (8.4-10.2) mg/dL Magnesium (1.6-2.3) mg/dL Troponin I (0.000-0.034) ng/mL Total Protein 5.5 L (6.3-8.2) g/dL Albumin 3.0 L (3.5-5.0) g/dL HDL Cholesterol (40-60) mg/dL Crossmatch CT scan - chest: report reviewed (No evidence of pulmonary embolism on chest CTA) Assessment and Plan (1) Acute on chronic anemia Narrative/Plan: 73-year-old female with multiple medical comorbidities including thrombosis currently on anticoagulation therapy who presented with increasing shortness of breath found to have an acute fall in her hemoglobin at 5.2 subsequently transfused to 8.6. She denied any signs or symptoms of GI bleeding with no hematemesis, hematochezia or melena. No change in bowel habits. She suffers from constipation at baseline. Stool testing was negative for occult blood. She's had extensive endoscopic evaluation in the past with her last EGD on 02/21/2019 significant for a distal esophageal stricture status post balloon dilation. Previously she was noted to have a gastric angiectasia in 2013 but not seen in subsequent EGDs in 2014 or 2018. Unclear etiology may be related to non-GI pathology as the patient had negative stool testing for occult blood in no signs or symptoms of GI bleed. However, we'll plan for endoscopic evaluation with EGD and colonoscopy to rule out any GI blood loss. Current Visit: Yes Status: Acute Code(s): D64.9 - ANEMIA, UNSPECIFIED SNOMED Code(s): 003455929 (2) Esophageal stricture Current Visit: Yes Status: Acute Code(s): K22.2 - ESOPHAGEAL OBSTRUCTION SNOMED Code(s): 67667252 Plan: Supportive care Okay for dinner tonight, patient should be on clear liquids tomorrow Plan for EGD and colonoscopy on 09/08/2019 Hematology consult to see the patient Continue monitor hemoglobin and hematocrit and transfuse as needed Continue Protonix therapy If the patient requires anticoagulation can consider heparin drip for Lovenox to bridge until endoscopic evaluation Continue to hold novel anticoagulant therapy Thank you for allowing us to participate in the care of the patient
--- NOTE | 2019-09-07 09:18 | XR ---
EXAMINATION TYPE: XR chest 1V portable DATE OF EXAM: 09/07/2019 COMPARISON: 09/06/2019 INDICATION: Pneumonia TECHNIQUE: Single frontal view of the chest is obtained. FINDINGS: The heart size is enlarged. The pulmonary vasculature is normal. There is a focal right upper lobe infiltrate. Correlate for pneumonia. Some increased lung markings a re present within the periphery. Consider atypical pneumonia. IMPRESSION: 1. Right upper lobe infiltrate. Mild increasing peripheral lung markings may be present. Consider aty pical pneumonia within the differential.
--- NOTE | 2019-09-07 11:04 | P.PN ---
Subjective Progress Note Date: 09/07/19 This is a 73-year-old female with history of previous DVT involving the axillary vein, pulmonary emboli, recent diagnosis of DVT involving the lower extremity on anticoagulation therapy along with Plavix, is admitted to the hospital with weakness, anemia and shortness of breath. Patient also wasn't CHF. Patient has history of previous cardiac intervention with follow-up stent placement and also aortic valve replacement. Patient is feeling better. GI is evaluating her for any source of GI bleeding. He is also felt that her anemia could be related to chronic iron insufficiency. Patient doesn't complain of any chest pain or shortness of breath. Clinically patient has systolic murmur. Lungs appeared to be clear. We'll continue current medical therapy. A right gastroenterology evaluation. Patient is to be started on anticoagulation as soon as possible Objective - Vital Signs Vital signs: Vital Signs Temp 98.7 F 09/07/19 08:00 Pulse 78 09/07/19 08:00 Resp 18 09/07/19 08:00 BP 116/58 09/07/19 08:00 Pulse Ox 98 09/07/19 08:00 Intake & Output 09/06/19 09/07/19 09/07/19 18:59 06:59 18:59 Intake Total 200 Output Total 520 Balance -320 Weight 60.5 kg Intake: IV 200 Piperacillin-Tazobactam 3 200 .375 gm In Sodium Chloride 0.9% 100 ml @ 25 mls/hr IVPB Q8HR [facility] Rx# :[id number] Output: Urine 520 Other: Voiding Method Indwelling Catheter Toilet # Voids 1 - Exam GENERAL EXAM: Patient is alert and oriented and doesn't appear to be in any acute distress HEENT: Normocephalic. Normal reaction of pupils, equal size, normal range of extraocular motion. No erythema or exudates in the throat. NECK: No masses, no nuchal rigidity. CHEST: No chest wall deformity. LUNGS: Equal air entry with no crackles or wheeze. HEART: S1 and S2 normal . Systolic murmur heard ABDOMEN: No hepatosplenomegaly, normal bowel sounds, no guarding or rigidity. SKIN: No rashes CENTRAL NERVOUS SYSTEM: No focal deficits. EXTREMITIES: No cyanosis, clubbing or edema. - Labs CBC & Chem 7: 09/07/19 07:12 09/07/19 07:12 Labs: Abnormal Lab Results - Last 24 Hours (Table) 09/06/19 09/06/19 09/06/19 Range/Units 05:22 05:22 05:22 WBC (3.8-10.6) k/uL RBC (3.80-5.40) m/uL Hgb (11.4-16.0) gm/dL Hct (34.0-46.0) % MCHC (31.0-37.0) g/dL RDW (11.5-15.5) % Retic Count 6.9 H (0.5-2.0) % BUN (7-17) mg/dL Creatinine (0.52-1.04) mg/dL POC Glucose (mg/dL) (75-99) mg/dL Calcium (8.4-10.2) mg/dL Iron 10 L (50-170) ug/dL % Saturation 2.79 L (12.00-45.00) Total Protein (6.3-8.2) g/dL Total Protein (PEP) 5.3 L (6.2-8.2) g/dL Albumin (3.5-5.0) g/dL 09/06/19 09/06/19 09/07/19 Range/Units 12:20 18:02 07:12 WBC 12.7 H (3.8-10.6) k/uL RBC 3.16 L 2.73 L (3.80-5.40) m/uL Hgb 8.8 L 8.0 L (11.4-16.0) gm/dL Hct 29.6 L 26.3 L (34.0-46.0) % MCHC 29.8 L 30.5 L (31.0-37.0) g/dL RDW 18.1 H 17.8 H (11.5-15.5) % Retic Count (0.5-2.0) % BUN (7-17) mg/dL Creatinine (0.52-1.04) mg/dL POC Glucose (mg/dL) 157 H (75-99) mg/dL Calcium (8.4-10.2) mg/dL Iron (50-170) ug/dL % Saturation (12.00-45.00) Total Protein (6.3-8.2) g/dL Total Protein (PEP) (6.2-8.2) g/dL Albumin (3.5-5.0) g/dL 09/07/19 Range/Units 07:12 WBC (3.8-10.6) k/uL RBC (3.80-5.40) m/uL Hgb (11.4-16.0) gm/dL Hct (34.0-46.0) % MCHC (31.0-37.0) g/dL RDW (11.5-15.5) % Retic Count (0.5-2.0) % BUN 34 H (7-17) mg/dL Creatinine 1.12 H (0.52-1.04) mg/dL POC Glucose (mg/dL) (75-99) mg/dL Calcium 7.7 L (8.4-10.2) mg/dL Iron (50-170) ug/dL % Saturation (12.00-45.00) Total Protein 4.8 L (6.3-8.2) g/dL Total Protein (PEP) (6.2-8.2) g/dL Albumin 2.6 L (3.5-5.0) g/dL Assessment and Plan (1) History of coronary artery disease Current Visit: Yes Status: Acute Code(s): Z86.79 - PERSONAL HISTORY OF OTHER DISEASES OF THE CIRCULATORY SYSTEM SNOMED Code(s): 565261721 (2) Elevated troponin Current Visit: Yes Status: Acute Code(s): R79.89 - OTHER SPECIFIED ABNORMAL FINDINGS OF BLOOD CHEMISTRY SNOMED Code(s): 468621801 (3) Symptomatic anemia Current Visit: Yes Status: Acute Code(s): D64.9 - ANEMIA, UNSPECIFIED SNOMED Code(s): 775768611 (4) DVT (deep venous thrombosis) Current Visit: No Status: Acute Code(s): I82.409 - ACUTE EMBOLISM AND THOMBOS UNSP DEEP VN UNSP LOWER EXTREMITY SNOMED Code(s): 732920803 (5) History of aortic valve replacement Current Visit: Yes Status: Acute Code(s): Z95.2 - PRESENCE OF PROSTHETIC HEART VALVE SNOMED Code(s): 3200772458302 Plan: Patient is critically stable. Denies any chest pain or shortness of breath. Waiting for GI evaluation. Patient also may benefit from iron infusion. Hematology consult also may be considered
[2019-09-07] MEDS ORDERED: HEPARIN SODIUM,PORCINE 5,000 UNIT/ML 1 ML VIAL IV PRN (12:16)
[2019-09-07] MEDS ORDERED: HEPARIN SOD,PORK IN 0.45% NACL 25,000 UNIT in 0.45% NACL 1 250ML.BAG IV SCH (12:30)
[2019-09-07 12:33] LABS: Anisocytosis Slight; Basophils % (A) 0 %; Eosinophils # (A) 0.3 k/uL (0-0.7); Eosinophils % (A) 4 %; HCT 27.9 % (34.0-46.0); HGB 8.2 gm/dL (11.4-16.0); Hypochromasia Marked; Lymphocytes # (A) 0.8 k/uL (1.0-4.8); Lymphocytes % (A) 9 %; MCH 27.7 pg (25.0-35.0); MCHC 29.3 g/dL (31.0-37.0); MCV 94.5 fL (80.0-100.0); Mean Platelet Volume 7.6; Monocytes # (A) 0.6 k/uL (0-1.0); Monocytes % (A) 6 %; Neutrophils # (A) 7.3 k/uL (1.3-7.7); Neutrophils % (A) 78 %; Platelet Count 335 k/uL (150-450); Poikilocytosis Moderate; RBC 2.95 m/uL (3.80-5.40); RDW 17.4 % (11.5-15.5); WBC 9.3 k/uL (3.8-10.6)
[2019-09-07 12:49] LABS: INR 0.9 (<1.2); Prothrombin Time 9.6 sec (9.0-12.0)
[2019-09-07 12:55] LABS: Partial Thromboplastin Time 21.6 sec (22.0-30.0)
--- NOTE | 2019-09-07 13:38 | P.PN ---
Subjective Progress Note Date: 09/07/19 Patient seen and examined. Doing well overall. No evidence of further bleeding. Some coughing. Feeling well otherwise. Vital signs stable. Abdomen remains soft. Nontender nondistended. Laboratories are reviewed. Hemoglobin stable above 8, heparin was restarted this morning at a low dose. We will recheck hemoglobin later today. Patient undergo GI evaluation tomorrow. Objective - Vital Signs Vital signs: Vital Signs Temp 98.7 F 09/07/19 08:00 Pulse 64 09/07/19 11:28 Resp 16 09/07/19 11:28 BP 118/57 09/07/19 11:25 Pulse Ox 98 09/07/19 11:25 Intake & Output 09/06/19 09/07/19 09/07/19 18:59 06:59 18:59 Intake Total 200 Output Total 520 Balance -320 Weight 60.5 kg Intake: IV 200 Piperacillin-Tazobactam 3 200 .375 gm In Sodium Chloride 0.9% 100 ml @ 25 mls/hr IVPB Q8HR [facility] Rx# :[id number] Output: Urine 520 Other: Voiding Method Indwelling Catheter Toilet # Voids 1 - Labs CBC & Chem 7: 09/07/19 12:20 09/07/19 07:12 Labs: Abnormal Lab Results - Last 24 Hours (Table) 09/06/19 09/06/19 09/06/19 Range/Units 05:22 05:22 05:22 WBC (3.8-10.6) k/uL RBC (3.80-5.40) m/uL Hgb (11.4-16.0) gm/dL Hct (34.0-46.0) % MCHC (31.0-37.0) g/dL RDW (11.5-15.5) % Lymphocytes # (1.0-4.8) k/uL Retic Count 6.9 H (0.5-2.0) % APTT (22.0-30.0) sec BUN (7-17) mg/dL Creatinine (0.52-1.04) mg/dL Calcium (8.4-10.2) mg/dL Iron 10 L (50-170) ug/dL % Saturation 2.79 L (12.00-45.00) Total Protein (6.3-8.2) g/dL Total Protein (PEP) 5.3 L (6.2-8.2) g/dL Albumin (3.5-5.0) g/dL 09/06/19 09/07/19 09/07/19 Range/Units 18:02 07:12 07:12 WBC 12.7 H (3.8-10.6) k/uL RBC 3.16 L 2.73 L (3.80-5.40) m/uL Hgb 8.8 L 8.0 L (11.4-16.0) gm/dL Hct 29.6 L 26.3 L (34.0-46.0) % MCHC 29.8 L 30.5 L (31.0-37.0) g/dL RDW 18.1 H 17.8 H (11.5-15.5) % Lymphocytes # (1.0-4.8) k/uL Retic Count (0.5-2.0) % APTT (22.0-30.0) sec BUN 34 H (7-17) mg/dL Creatinine 1.12 H (0.52-1.04) mg/dL Calcium 7.7 L (8.4-10.2) mg/dL Iron (50-170) ug/dL % Saturation (12.00-45.00) Total Protein 4.8 L (6.3-8.2) g/dL Total Protein (PEP) (6.2-8.2) g/dL Albumin 2.6 L (3.5-5.0) g/dL 09/07/19 09/07/19 Range/Units 12:20 12:20 WBC (3.8-10.6) k/uL RBC 2.95 L (3.80-5.40) m/uL Hgb 8.2 L (11.4-16.0) gm/dL Hct 27.9 L (34.0-46.0) % MCHC 29.3 L (31.0-37.0) g/dL RDW 17.4 H (11.5-15.5) % Lymphocytes # 0.8 L (1.0-4.8) k/uL Retic Count (0.5-2.0) % APTT 21.6 L (22.0-30.0) sec BUN (7-17) mg/dL Creatinine (0.52-1.04) mg/dL Calcium (8.4-10.2) mg/dL Iron (50-170) ug/dL % Saturation (12.00-45.00) Total Protein (6.3-8.2) g/dL Total Protein (PEP) (6.2-8.2) g/dL Albumin (3.5-5.0) g/dL
--- NOTE | 2019-09-07 13:43 | P.PN ---
Subjective Progress Note Date: 09/07/19 Principal diagnosis: Anemia This is a 73-year-old female with history of multiple medical problems including hypertension, fibromyalgia, previous CA, and about a month ago the patient was diagnosed with deep vein thrombosis. Patient was placed on Eliquis, patient presented yesterday with almost 1 week history of progressive dyspnea. Her dyspnea is described mostly dyspnea on exertion, minimal cough, no wheezing, no fever, no chills, no hemoptysis, no chest pain. Patient denied any nausea vomiting abdominal pain melena or hematemesis. Workup in the ER included a CBC that showed extremely low hemoglobin of 5.2. However patient had negative Hemoccult stools. CT angiogram of the chest was done, there was no evidence of thromboembolic disease, however there was evidence of moderate to groundglass infiltrate in the right upper lobe small bilateral pleural effusions, small area of groundglass infiltrate in the right middle lobe and left upper lobe. Considering the findings, the radiologist raised the possibility of Covid 19 pneumonia. Recent PCR for lynn virus was negative according to the patient and this was done by her primary care physician. Patient was admitted, given 2 units of packed RBCs for her low hemoglobin, and an hemoglobin today is 8.6. Last night, the patient had episodes of intermittent cough and wheezing, she is known to have history of vocal cord paralysis, and I recommended Decadron, patient was given Lasix after blood transfusion, however this morning the patient is feeling much better. Previous a lot easier, and she has no pulmonary complaints. No cough no wheezing no fever no chills no hemoptysis. Chest x-ray did show evidence of infiltrate in the right upper lobe. Otherwise no significant findings noted. Considering the patient has low hemoglobin, and obviously she has most likely some sort of GI bleeding, I recommended a vascular surgery consultation for a filter placement, patient obviously has absolute contraindication to anticoagulation. Looking back at her history, the patient is known to have history of aortic stenosis and coronary artery disease, she had previous stent placement of the LAD in 2018, and she had history of aortic valve replacement in 2019. The patient is seen today 09/07/2019 in follow-up on the selective care unit. She is awake and alert in no acute distress. Currently resting fairly comfortably in bed. She is maintaining O2 saturations in the upper 90s on 2 L/m per nasal cannula. She's been afebrile. Hemodynamically stable. She is status post 2 units of packed red blood cells this admission. Current hemoglobin 8.2. White count 9.3. Sodium 139. Potassium 3.5. Creatinine 1.12. Lynn virus not detected. She remains on bronchodilators and Zosyn. GI services are planning for EGD/colonoscopy in a.m. Vascular consultation noted. Objective - Vital Signs Vital signs: Vital Signs Temp 98.7 F 09/07/19 08:00 Pulse 64 09/07/19 11:28 Resp 16 09/07/19 11:28 BP 118/57 09/07/19 11:25 Pulse Ox 98 09/07/19 11:25 Intake & Output 09/06/19 09/07/19 09/07/19 18:59 06:59 18:59 Intake Total 200 Output Total 520 Balance -320 Weight 60.5 kg Intake: IV 200 Piperacillin-Tazobactam 3 200 .375 gm In Sodium Chloride 0.9% 100 ml @ 25 mls/hr IVPB Q8HR [facility] Rx# :[id number] Output: Urine 520 Other: Voiding Method Indwelling Catheter Toilet # Voids 1 - Exam Physical Exam: Revealed 73-year-old female, pleasant, in no distress. Head: Atraumatic, normocephalic. HEENT:[Neck is supple.] [No neck masses.] [No thyromegaly.] [No JVD.] Chest: [Clear throughout, no crackles, no rhonchi, no wheezes.] Symmetrical chest expansion. Cardiac Exam: [Normal S1 and S2, no S3 gallop, 2/6 systolic murmur thought the precordium. Abdomen: [Soft, nontender, no megaly, no rebound, no guarding, normal bowel sounds.] Extremities: [No clubbing, no edema, no cyanosis.] Neurological Exam: [No focal neurologic deficit.] Alert oriented 3. Psychiatric: Normal mood, affect and normal mental status examination - Labs CBC & Chem 7: 09/07/19 12:20 09/07/19 07:12 Labs: Abnormal Lab Results - Last 24 Hours (Table) 09/06/19 09/06/19 09/06/19 Range/Units 05:22 05:22 05:22 WBC (3.8-10.6) k/uL RBC (3.80-5.40) m/uL Hgb (11.4-16.0) gm/dL Hct (34.0-46.0) % MCHC (31.0-37.0) g/dL RDW (11.5-15.5) % Lymphocytes # (1.0-4.8) k/uL Retic Count 6.9 H (0.5-2.0) % APTT (22.0-30.0) sec BUN (7-17) mg/dL Creatinine (0.52-1.04) mg/dL Calcium (8.4-10.2) mg/dL Iron 10 L (50-170) ug/dL % Saturation 2.79 L (12.00-45.00) Total Protein (6.3-8.2) g/dL Total Protein (PEP) 5.3 L (6.2-8.2) g/dL Albumin (3.5-5.0) g/dL 09/06/19 09/07/19 09/07/19 Range/Units 18:02 07:12 07:12 WBC 12.7 H (3.8-10.6) k/uL RBC 3.16 L 2.73 L (3.80-5.40) m/uL Hgb 8.8 L 8.0 L (11.4-16.0) gm/dL Hct 29.6 L 26.3 L (34.0-46.0) % MCHC 29.8 L 30.5 L (31.0-37.0) g/dL RDW 18.1 H 17.8 H (11.5-15.5) % Lymphocytes # (1.0-4.8) k/uL Retic Count (0.5-2.0) % APTT (22.0-30.0) sec BUN 34 H (7-17) mg/dL Creatinine 1.12 H (0.52-1.04) mg/dL Calcium 7.7 L (8.4-10.2) mg/dL Iron (50-170) ug/dL % Saturation (12.00-45.00) Total Protein 4.8 L (6.3-8.2) g/dL Total Protein (PEP) (6.2-8.2) g/dL Albumin 2.6 L (3.5-5.0) g/dL 09/07/19 09/07/19 Range/Units 12:20 12:20 WBC (3.8-10.6) k/uL RBC 2.95 L (3.80-5.40) m/uL Hgb 8.2 L (11.4-16.0) gm/dL Hct 27.9 L (34.0-46.0) % MCHC 29.3 L (31.0-37.0) g/dL RDW 17.4 H (11.5-15.5) % Lymphocytes # 0.8 L (1.0-4.8) k/uL Retic Count (0.5-2.0) % APTT 21.6 L (22.0-30.0) sec BUN (7-17) mg/dL Creatinine (0.52-1.04) mg/dL Calcium (8.4-10.2) mg/dL Iron (50-170) ug/dL % Saturation (12.00-45.00) Total Protein (6.3-8.2) g/dL Total Protein (PEP) (6.2-8.2) g/dL Albumin (3.5-5.0) g/dL Assessment and Plan Assessment: Subacute or possibly chronic anemia most likely secondary to GI blood losses, and this will need to be further investigated. Worsened by the fact that the patient is on anticoagulation therapy. Bilateral pneumonia mostly involving the right upper lobe, I would be most concerned about the possibility of aspiration pneumonia, strongly doubt Covid 19 pneumonitis, however repeat PCR is pending. History of recent deep vein thrombosis, no evidence of pulmonary embolism, however considering the patient's anemia would not recommend anticoagulation therapy, would strongly recommend a IVC filter placement by vascular surgery, vascular staff was notified History of coronary artery disease and previous stent placement. Symptomatic anemia contributing to her shortness of breath as noted in the history of the present illness. History of aortic valve replacement. History of fibromyalgia and Sjogren's syndrome History of vocal cord paralysis, left vocal cord. History of obstructive sleep apnea syndrome. History of diverticulosis. Previous history of pulmonary embolism History of basal cell carcinoma removed from right earlobe. Plan: The patient was seen and evaluated by Dr. Julian She is currently stable from the pulmonary and critical care standpoint Hemoglobin stable Plan is for EGD/colonoscopy tomorrow Vascular consult noted Continue to monitor hemoglobin We'll continue to follow I, the cosigning physician, performed a history & physical examination of the patient. Lungs sounds are clear. Maintaining good O2 saturations in the 90s on 2L/min. I discussed the assessment and plan of care with my nurse practitioner, Claudia Lopez. I attest to the above note as dictated by her.
[2019-09-07] MEDS ORDERED: PEG 3350-NA SULF,BICARB,CL/KCL 4,000 ML BOTTLE PO ONE (16:00)
--- NOTE | 2019-09-07 17:12 | P.PN ---
Progress Note - Text Progress Note Date: 09/07/19 Chief Complaint: Shortness of breath History of presenting complaint: This is a pleasant 73-year-old patient who follows with Dr. Gabriel. Chronic stable medical conditions include coronary artery with LAD stent, hypertensive heart disease, severe aortic stenosis with AV valve replacement., hyperlipidemia, hypothyroid, chronic left vocal cord paralysis, fibromyalgia, diverticulosis. Patient had multiple DVTs in the past. For which she has been eliquis. Patient has been progressively more and more short of breath. In the ER hemoglobin was found to be 5.2. Patient was negative Hemoccult for blood. Computed tomography scan did show some infiltrates. Negative for PE. Acute patient's Coumadin 19 testing in the office 3 days ago was negative. Patient was transfused 2 units of blood. Patient's had a slight cough and some wheezing.. Patient denies any dark stools. Admitted for the same. Patient's last documented hemoglobin was 10.1 back in March 2018. Patient denies any abdominal pain. Admitted with symptomatic anemia-received 2 units of blood. Today-on the medical floor. Breathing stable. No chest pain. Awaiting EGD tomorrow. Review of systems: Was done for constitutional, cardiovascular, GI, pulmonary. relevant finding as above Active Medications Acetaminophen (Tylenol Tab) 650 mg PO Q4HR PRN PRN Reason: Fever and/or Mild Pain Last Admin: 09/06/19 20:52 Dose: 650 mg Documented by: Albuterol/Ipratropium (Duoneb 0.5 Mg-3 Mg/3 Ml Soln) 3 ml INHALATION RT-Q4H PRN PRN Reason: Shortness Of Breath Or Wheezing Last Admin: 09/05/19 23:35 Dose: 3 ml Documented by: Atorvastatin Calcium (Lipitor) 80 mg PO HS [facility] Last Admin: 09/06/19 20:52 Dose: 80 mg Documented by: Bisacodyl (Dulcolax) 10 mg PO ONCE ONE Stop: 09/07/19 18:01 Cevimeline HCl (Evoxac) 30 mg PO BID [facility] Last Admin: 09/07/19 08:57 Dose: 30 mg Documented by: Fentanyl (Duragesic 50mcg/Hr Patch) 1 patch TRANSDERM Q72H [facility] Last Admin: 09/06/19 16:20 Dose: Not Given Documented by: Heparin Sodium (Porcine) (Heparin) 0 unit IV PER PROTOCOL PRN; Protocol PRN Reason: Low PTT Piperacillin Sod/Tazobactam (Sod 3.375 gm/ Sodium Chloride) 100 mls @ 25 mls/hr IVPB Q8HR [facility] Last Admin: 09/07/19 15:16 Dose: 25 mls/hr Documented by: Heparin Sodium/Sodium Chloride (25,000 unit/ Sodium Chloride) 250 mls @ 7.26 mls/hr IV .Q24H [facility]; Protocol Last Admin: 09/07/19 13:19 Dose: 12 units/kg/hr, 7.26 mls/hr Documented by: Levothyroxine Sodium (Synthroid) 75 mcg PO DAILY@0630 [facility] Last Admin: 09/07/19 06:33 Dose: 75 mcg Documented by: Metoprolol Tartrate (Lopressor) 12.5 mg PO BID [facility] Last Admin: 09/07/19 08:57 Dose: 12.5 mg Documented by: Mirtazapine (Remeron) 45 mg PO [facility] Last Admin: 09/06/19 21:43 Dose: 45 mg Documented by: Naloxone HCl (Narcan) 0.2 mg IV Q2M PRN PRN Reason: Opioid Reversal Nitroglycerin (Nitrostat) 0.4 mg SUBLINGUAL Q5M PRN PRN Reason: Chest Pain Non-Formulary Medication (Mirabegron [Myrbetriq]) 50 mg PO [facility] Last Admin: 09/06/19 20:44 Dose: Not Given Documented by: Pantoprazole Sodium (Protonix) 40 mg PO AC-BID [facility] Last Admin: 09/07/19 06:33 Dose: 40 mg Documented by: Pregabalin (Lyrica) 50 mg PO BID [facility] Last Admin: 09/07/19 08:57 Dose: 50 mg Documented by: Sertraline HCl (Zoloft) 100 mg PO DAILY [facility] Last Admin: 09/07/19 08:57 Dose: 100 mg Documented by: Physical examination: VITAL SIGNS: 98.7, 78, 18, 160/58, 98% on 2 L GENERAL: Laying in bed, comfortable EYES: [Pupils equal. Conjunctiva pale l. HEENT: External appearance of nose and ears normal, oral cavity grossly normal. NECK: JVD not raised; masses not palpable. HEART: First and second heart sounds are normal; no edema. LUNGS: Respiratory rate normal; clear to auscultation. ABDOMEN: Soft, nontender, liver spleen not palpable, no masses palpable. PSYCH: Alert and oriented x3; mood and affect normal. INVESTIGATIONS, reviewed in the clinical context: White count 9.3 hemoglobin 8.2 bun 34 creatinine 1.1 to Previous testing White count 10.3 hemoglobin 5.2 platelets. 3 potassium 4.1 bun 36 creatinine 1.11 Troponin I 0.7, 0.7, 1.0 ProBNP 22,700 Fecal occult stool-negative EKG tracing personally reviewed by me-normal sinus rhythm, right bundle branch block pattern with a bifascicular block, Chest x-ray film personally reviewed by me-cardiomegaly, with possible infiltrates Chest CTA-she infiltrates, no PE Assessment: -Acute normocytic anemia with no history of GI bleed and occult negative stool. Patient is on eliquis hence a slow GI bleed is possible. Hemolysis needs to be ruled out. There is no evidence of overt bleeding. -Abnormal computed tomography scan of the chest with infiltrates and abnormal chest x-ray. Patient has a slight cough but denies any fever and chills. COVID 19 was negative in the office 3 days ago. COVID 19 PCR-not detected. Possible pneumonia -DVT and PE in the left upper extremity in 2015 treated for same. Subsequently right lower extremity DVT unprovoked in August 2019 in the right femoral popliteal vein. For which she has been on eliquis. -Chronic fibromyalgia Hyperlipidemia Essential hypertension -Coronary artery disease with stent to LAD -Obstructive sleep apnea -Hypothyroid -Chronic left vocal cord paralysis -Chronic diverticulosis -Acute type II ID from hemodynamic mismatch Plan: -Patient is on IV Zosyn. For EGD colonoscopy tomorrow. Other medications to continue. Dr. Briones started the patient and IV heparin. H&H to follow closely. Discussed with patient.
[2019-09-07] MEDS ORDERED: BISACODYL 5 MG TABLET.DR PO ONE (18:00)
[2019-09-07 19:47] LABS: Anisocytosis Slight; HCT 33.1 % (34.0-46.0); HGB 9.2 gm/dL (11.4-16.0); Hypochromasia Marked; MCH 26.8 pg (25.0-35.0); MCHC 27.7 g/dL (31.0-37.0); MCV 96.9 fL (80.0-100.0); Macrocytosis Slight; Mean Platelet Volume 7.6; Platelet Count 361 k/uL (150-450); Poikilocytosis Slight; RBC 3.41 m/uL (3.80-5.40); RDW 17.1 % (11.5-15.5); WBC 10.3 k/uL (3.8-10.6)
[2019-09-07] MEDS: ATORVASTATIN 80 MG TAB PO SCH (20:41)
[2019-09-07] MEDS: NON FORMULARY DRUG (Mirabegron [Myrbetriq] 50 MG) PO SCH (20:42)
[2019-09-07] MEDS: MIRTAZAPINE 45 MG TABLET PO SCH (20:42)
--- NOTE | 2019-09-07 23:10 | P.PN ---
Subjective Progress Note Date: 09/07/19 Principal diagnosis: Acute on chronic anemia, history of esophageal stricture Patient is seen sitting in bed today. No acute complaints. No signs or symptoms of GI bleed. She tolerated diet yesterday. Objective - Vital Signs Vital signs: Vital Signs Temp 98.7 F 09/07/19 08:00 Pulse 78 09/07/19 08:00 Resp 18 09/07/19 08:00 BP 116/58 09/07/19 08:00 Pulse Ox 98 09/07/19 08:00 Intake & Output 09/06/19 09/07/19 09/07/19 18:59 06:59 18:59 Intake Total 200 Output Total 520 Balance -320 Weight 60.5 kg Intake: IV 200 Piperacillin-Tazobactam 3 200 .375 gm In Sodium Chloride 0.9% 100 ml @ 25 mls/hr IVPB Q8HR [facility] Rx# :[id number] Output: Urine 520 Other: Voiding Method Indwelling Catheter Toilet # Voids 1 - Exam On physical examination, patient appears comfortable in no apparent distress. HEAD: Normocephalic, atraumatic. EYES: No scleral icterus. No conjunctival injection. MOUTH: No lesions, tongue midline. NECK: Trachea midline, no gross abnormalities. ABDOMEN: Soft, nontender. Bowel sounds are positive. No organomegaly. No guarding or rigidity. EXTREMITIES: No pedal edema. SKIN: No rashes, no jaundice. NEUROLOGIC: Alert and oriented x3. - Labs CBC & Chem 7: 09/07/19 19:23 09/07/19 07:12 Labs: Abnormal Lab Results - Last 24 Hours (Table) 09/06/19 09/06/19 09/06/19 Range/Units 05:22 05:22 05:22 WBC (3.8-10.6) k/uL RBC (3.80-5.40) m/uL Hgb (11.4-16.0) gm/dL Hct (34.0-46.0) % MCHC (31.0-37.0) g/dL RDW (11.5-15.5) % Retic Count 6.9 H (0.5-2.0) % BUN (7-17) mg/dL Creatinine (0.52-1.04) mg/dL POC Glucose (mg/dL) (75-99) mg/dL Calcium (8.4-10.2) mg/dL Iron 10 L (50-170) ug/dL % Saturation 2.79 L (12.00-45.00) Total Protein (6.3-8.2) g/dL Total Protein (PEP) 5.3 L (6.2-8.2) g/dL Albumin (3.5-5.0) g/dL 09/06/19 09/06/19 09/07/19 Range/Units 12:20 18:02 07:12 WBC 12.7 H (3.8-10.6) k/uL RBC 3.16 L 2.73 L (3.80-5.40) m/uL Hgb 8.8 L 8.0 L (11.4-16.0) gm/dL Hct 29.6 L 26.3 L (34.0-46.0) % MCHC 29.8 L 30.5 L (31.0-37.0) g/dL RDW 18.1 H 17.8 H (11.5-15.5) % Retic Count (0.5-2.0) % BUN (7-17) mg/dL Creatinine (0.52-1.04) mg/dL POC Glucose (mg/dL) 157 H (75-99) mg/dL Calcium (8.4-10.2) mg/dL Iron (50-170) ug/dL % Saturation (12.00-45.00) Total Protein (6.3-8.2) g/dL Total Protein (PEP) (6.2-8.2) g/dL Albumin (3.5-5.0) g/dL 09/07/19 Range/Units 07:12 WBC (3.8-10.6) k/uL RBC (3.80-5.40) m/uL Hgb (11.4-16.0) gm/dL Hct (34.0-46.0) % MCHC (31.0-37.0) g/dL RDW (11.5-15.5) % Retic Count (0.5-2.0) % BUN 34 H (7-17) mg/dL Creatinine 1.12 H (0.52-1.04) mg/dL POC Glucose (mg/dL) (75-99) mg/dL Calcium 7.7 L (8.4-10.2) mg/dL Iron (50-170) ug/dL % Saturation (12.00-45.00) Total Protein 4.8 L (6.3-8.2) g/dL Total Protein (PEP) (6.2-8.2) g/dL Albumin 2.6 L (3.5-5.0) g/dL Assessment and Plan (1) Acute on chronic anemia Narrative/Plan: 73-year-old female with multiple medical comorbidities including thrombosis currently on anticoagulation therapy who presented with increasing shortness of breath found to have an acute fall in her hemoglobin at 5.2 subsequently transfused to 8.6. She denied any signs or symptoms of GI bleeding with no hematemesis, hematochezia or melena. No change in bowel habits. She suffers from constipation at baseline. Stool testing was negative for occult blood. She's had extensive endoscopic evaluation in the past with her last EGD on 04/24/2018 significant for a distal esophageal stricture status post balloon dilation. Previously she was noted to have a gastric angiectasia in 2013 but not seen in subsequent EGDs in 2014 or 2018. Unclear etiology may be related to non-GI pathology as the patient had negative stool testing for occult blood in no signs or symptoms of GI bleed. However, we'll plan for endoscopic evaluation with EGD and colonoscopy to rule out any GI blood loss. Current Visit: Yes Status: Acute Code(s): D64.9 - ANEMIA, UNSPECIFIED SNOMED Code(s): 565056087 (2) Esophageal stricture Current Visit: Yes Status: Acute Code(s): K22.2 - ESOPHAGEAL OBSTRUCTION SNOMED Code(s): 29601345 Plan: Supportive care Okay for liquid diet and nothing by mouth after midnight Plan for EGD and colonoscopy on 09/08/2019 Continue monitor hemoglobin and hematocrit and transfuse as needed Continue Protonix therapy If the patient requires anticoagulation can consider heparin drip which was started by vascular surgery today and will be held 8 hours prior to colonoscopy and EGD tomorrow Iron studies suggestive of iron deficiency and IV Ferrlecit initiated today Thank you for allowing us to participate in the care of the patient
[2019-09-07] MEDS: SODIUM FERRIC GLUCONAT-SUCROSE 125 MG in SODIUM CHLORIDE 0.9% 100 ML IVPB SCH (23:16)
[2019-09-07] MEDS: ACETAMINOPHEN TAB 325 MG TAB PO PRN (23:28)
[2019-09-08] MEDS: PIPERACILLIN-TAZOBACTAM 3.375 GM in SODIUM CHLORIDE 0.9% 100 ML IVPB SCH ×4 (00:28→23:13)
[2019-09-08] MEDS: LEVOTHYROXINE 75 MCG TAB PO SCH (05:09)
[2019-09-08] MEDS: PANTOPRAZOLE 40 MG TABLET PO SCH ×2 (05:09→17:30)
[2019-09-08 07:38] LABS: Anisocytosis Slight; Basophils % (A) 0 %; Eosinophils # (A) 0.5 k/uL (0-0.7); Eosinophils % (A) 6 %; HCT 26.6 % (34.0-46.0); HGB 8.1 gm/dL (11.4-16.0); Hypochromasia Marked; Lymphocytes # (A) 1.5 k/uL (1.0-4.8); Lymphocytes % (A) 18 %; MCH 29.2 pg (25.0-35.0); MCHC 30.4 g/dL (31.0-37.0); MCV 95.9 fL (80.0-100.0); Macrocytosis Slight; Mean Platelet Volume 7.6; Monocytes # (A) 0.6 k/uL (0-1.0); Monocytes % (A) 7 %; Neutrophils # (A) 5.2 k/uL (1.3-7.7); Neutrophils % (A) 65 %; Platelet Count 325 k/uL (150-450); Poikilocytosis Moderate; RBC 2.77 m/uL (3.80-5.40); WBC 8.1 k/uL (3.8-10.6)
[2019-09-08 07:48] LABS: Albumin 2.4 g/dL (3.5-5.0); Calcium 7.3 mg/dL (8.4-10.2); Potassium 3.7 mmol/L (3.5-5.1); Total Bilirubin 0.6 mg/dL (0.2-1.3); Total Protein 4.4 g/dL (6.3-8.2)
[2019-09-08] MEDS ORDERED: PROPOFOL 10 MG/ML 20 ML VIAL IV ONE (08:43)
[2019-09-08] MEDS ORDERED: IV FLUID CONTINUATION 500 ML IV ONE (08:44)
[2019-09-08] MEDS ORDERED: SODIUM CHLORIDE 0.9% 500 ML 500 ML IV ONE (09:24)
--- NOTE | 2019-09-08 09:37 | P.PCN ---
Date of Procedure: 09/08/19 Description of Procedure: Brief history: 73-year-old female with multiple medical comorbidities including thrombosis currently on anticoagulation therapy who presented with increasing shortness of breath found to have an acute fall in her hemoglobin at 5.2 subsequently transfused to 8.6. She denied any signs or symptoms of GI bleeding with no hematemesis, hematochezia or melena. No change in bowel habits. She suffers from constipation at baseline. Stool testing was negative for occult blood. She's had extensive endoscopic evaluation in the past with her last EGD on 02/21/2019 significant for a distal esophageal stricture status post balloon dilation. Previously she was noted to have a gastric angiectasia in 2013 but not seen in subsequent EGDs in 2014 or 2018. Procedure performed: Esophagogastroduodenoscopy with gold probe ablation Colonoscopy with polypectomy Estimated blood loss: Minimal. Preoperative diagnosis: Anemia Anesthesia: MAC Procedure: After informed consent was obtained from the patient was brought into the endoscopy unit and IV sedation was administered by anesthesia under continuous monitoring. Initially upper endoscopy was done. The Olympus GF 190 video endoscope was inserted into the mouth and esophagus intubated without any difficulty and was gradually advanced into the stomach and duodenum and carefully examined. The bulb and second part of the duodenum appeared normal, except for a diminutive nonbleeding angiectasia in the third portion of the duodenum treated with gold probe ablation. The scope was then withdrawn into the stomach adequately insufflated with air and upon careful examination the antrum and body, cardia and fundus appeared normal. The scope was then withdrawn into the esophagus. The GE junction was located at 37 cm to the incisors, with a benign-appearing stricture just proximal to the GE junction w hich was able to be traversed with the gastroscope. It appeared regular with no erythema erosions or ulcerations. Rest of the esophagus appeared normal. Patient tolerated the procedure well. At this time the patient continued to remain sedation. Initial digital rectal examination was normal. Olympus CF 190 video colonoscope was then inserted into the rectum and gradually advanced to the cecum without any difficulty. Careful examination was performed as the scope was gradually being withdrawn. The prep was excellent. The cecum, ascending colon, transverse colon, descending colon, sigmoid colon and rectum appeared normal. A diminutive 2 mm transverse colon polyp was removed with cold forcep polypectomy. Multiple small and large mouth diverticula noted throughout the colon. Retroflexion was performed in the rectum and no lesions were noted, low-grade internal hemorrhoids seen. Patient tolerated the procedure well. Impression: 1. No active bleeding or old blood noted on EGD. 1 nonbleeding angioma ectasia in the third portion of the duodenum treated with gold probe ablation. Benign appearing distal esophageal stricture (previously dilated on 02/2019). 2. Diminutive transverse colon polyp removed with cold forcep polypectomy. Moderate pandiverticulosis. Low-grade internal hemorrhoids. Recommendations: Findings of this examination were discussed with the patient. Okay to resume diet. Continue to monitor hemoglobin and hematocrit. Okay to resume heparin in 2 hours. Further management of anticoagulation per primary team, and other consultants.
[2019-09-08] MEDS: PREGABALIN 50 MG CAP PO SCH ×2 (10:07→20:53)
[2019-09-08] MEDS: METOPROLOL TARTRATE 12.5 MG TAB PO SCH ×2 (10:07→20:52)
[2019-09-08] MEDS: SERTRALINE 100 MG TAB PO SCH (10:07)
[2019-09-08] MEDS: SODIUM FERRIC GLUCONAT-SUCROSE 125 MG in SODIUM CHLORIDE 0.9% 100 ML IVPB SCH (10:08)
[2019-09-08] MEDS: CEVIMELINE 30 MG CAP PO SCH ×2 (11:03→20:52)
[2019-09-08] MEDS: APIXABAN 5 MG TAB PO SCH ×2 (12:25→20:52)
--- NOTE | 2019-09-08 13:16 | P.PN ---
Subjective Progress Note Date: 09/08/19 Principal diagnosis: Anemia This is a 73-year-old female with history of multiple medical problems including hypertension, fibromyalgia, previous MD, and about a month ago the patient was diagnosed with deep vein thrombosis. Patient was placed on Eliquis, patient presented yesterday with almost 1 week history of progressive dyspnea. Her dyspnea is described mostly dyspnea on exertion, minimal cough, no wheezing, no fever, no chills, no hemoptysis, no chest pain. Patient denied any nausea vomiting abdominal pain melena or hematemesis. Workup in the ER included a CBC that showed extremely low hemoglobin of 5.2. However patient had negative Hemoccult stools. CT angiogram of the chest was done, there was no evidence of thromboembolic disease, however there was evidence of moderate to groundglass infiltrate in the right upper lobe small bilateral pleural effusions, small area of groundglass infiltrate in the right middle lobe and left upper lobe. Considering the findings, the radiologist raised the possibility of Covid 19 pneumonia. Recent PCR for lynn virus was negative according to the patient and this was done by her primary care physician. Patient was admitted, given 2 units of packed RBCs for her low hemoglobin, and an hemoglobin today is 8.6. Last night, the patient had episodes of intermittent cough and wheezing, she is known to have history of vocal cord paralysis, and I recommended Decadron, patient was given Lasix after blood transfusion, however this morning the patient is feeling much better. Previous a lot easier, and she has no pulmonary complaints. No cough no wheezing no fever no chills no hemoptysis. Chest x-ray did show evidence of infiltrate in the right upper lobe. Otherwise no significant findings noted. Considering the patient has low hemoglobin, and obviously she has most likely some sort of GI bleeding, I recommended a vascular surgery consultation for a filter placement, patient obviously has absolute contraindication to anticoagulation. Looking back at her history, the patient is known to have history of aortic stenosis and coronary artery disease, she had previous stent placement of the LAD in 2018, and she had history of aortic valve replacement in 2019. The patient is seen today 09/07/2019 in follow-up on the selective care unit. She is awake and alert in no acute distress. Currently resting fairly comfortably in bed. She is maintaining O2 saturations in the upper 90s on 2 L/m per nasal cannula. She's been afebrile. Hemodynamically stable. She is status post 2 units of packed red blood cells this admission. Current hemoglobin 8.2. White count 9.3. Sodium 139. Potassium 3.5. Creatinine 1.12. Lynn virus not detected. She remains on bronchodilators and Zosyn. GI services are planning for EGD/colonoscopy in a.m. Vascular consultation noted. Patient is seen today 09/08/2019 in follow-up on selective care unit. She is currently resting comfortably in bed. Awake and alert in no acute distress. She did undergo EGD and colonoscopy today. No active bleeding or old blood noted on EGD. There was one nonbleeding angioma ectasia in the third portion of duodenum treated with gold probe ablation. Benign-appearing distal esophageal stricture with previous dilatation February 2019. Colonoscopy revealed diminutive transverse colon polyp removed with cold forceps polypectomy. Moderate pandiverticulosis. Low-grade internal hemorrhoids. Her diet has been resumed. Objective - Vital Signs Vital signs: Vital Signs Temp 99.1 F 09/08/19 12:00 Pulse 83 09/08/19 12:00 Resp 8 L 09/08/19 12:00 BP 120/57 09/08/19 12:00 Pulse Ox 97 09/08/19 12:00 Intake & Output 09/07/19 09/08/19 09/08/19 18:59 06:59 18:59 Intake Total 4000 400 Balance 4000 400 Weight 62 kg Intake: IV 400 Oral 4000 Other: # Voids 3 2 # Bowel Movements 2 3 - Exam GENERAL EXAM: Alert, pleasant 73-year-old female, on 2 L nasal cannula, comfortable in no apparent distress. HEAD: Normocephalic. EYES: Normal reaction of pupils, equal size. NOSE: Clear with pink turbinates. THROAT: No erythema or exudates. NECK: No masses, no JVD. CHEST: No chest wall deformity. LUNGS: Equal air entry with no crackles, wheeze, rhonchi or dullness. CVS: S1 and S2 normal with no audible murmur, regular rhythm. ABDOMEN: No hepatosplenomegaly, normal bowel sounds, no guarding or rigidity. SPINE: No scoliosis or deformity SKIN: No rashes CENTRAL NERVOUS SYSTEM: No focal deficits, tone is normal in all 4 extremities. EXTREMITIES: There is no peripheral edema. No clubbing, no cyanosis. Peripheral pulses are intact. - Labs CBC & Chem 7: 09/08/19 06:44 09/08/19 06:44 Labs: Abnormal Lab Results - Last 24 Hours (Table) 09/07/19 09/08/19 09/08/19 Range/Units 19:23 06:44 06:44 RBC 3.41 L 2.77 L (3.80-5.40) m/uL Hgb 9.2 L 8.1 L (11.4-16.0) gm/dL Hct 33.1 L 26.6 L (34.0-46.0) % MCHC 27.7 L 30.4 L (31.0-37.0) g/dL RDW 17.1 H 17.0 H (11.5-15.5) % Carbon Dioxide 31 H (22-30) mmol/L Calcium 7.3 L (8.4-10.2) mg/dL Total Protein 4.4 L (6.3-8.2) g/dL Albumin 2.4 L (3.5-5.0) g/dL Assessment and Plan Assessment: Subacute or possibly chronic anemia most likely secondary to GI blood losses. Worsened by the fact that the patient is on anticoagulation therapy. EGD revealed no active bleeding or old blood noted. There was one nonbleeding angioma ectasia on the third portion of the duodenum treated with gold probe ablation. Benign-appearing distal esophageal stricture with previous dilatation February 2018. Colonoscopy revealed diminutive transverse colon polyp removed with cold forceps polypectomy. Moderate pandiverticulosis. Low-grade internal hemorrhoids. Bilateral pneumonia mostly involving the right upper lobe, most concerned about the possibility of aspiration pneumonia, Covid 19 negative History of recent deep vein thrombosis, no evidence of pulmonary embolism, however considering the patient's anemia would not recommend anticoagulation therapy, would strongly recommend a IVC filter placement by vascular surgery, History of coronary artery disease and previous stent placement. Symptomatic anemia contributing to her shortness of breath as noted in the history of the present illness. History of aortic valve replacement. History of fibromyalgia and Sjogren's syndrome History of vocal cord paralysis, left vocal cord. History of obstructive sleep apnea syndrome. History of diverticulosis. Previous history of pulmonary embolism History of basal cell carcinoma removed from right earlobe. Plan: The patient was seen and evaluated by Dr. Eliel She is currently stable from the pulmonary and critical care standpoint Repeat chest x-ray in a.m. Anticoagulation to be addressed per GI recommendations Currently on a heparin drip We'll continue to follow I, the cosigning physician, performed a history & physical examination of the patient. Lungs sounds are clear. Maintaining good O2 saturations in the 90s on 2L/min. I discussed the assessment and plan of care with my nurse practitioner, Claudia Lopez. I attest to the above note as dictated by her.
--- NOTE | 2019-09-08 15:45 | P.PN ---
Progress Note - Text Progress Note Date: 09/08/19 Chief Complaint: Shortness of breath History of presenting complaint: This is a pleasant 73-year-old patient who follows with Dr. Gabriel. Chronic stable medical conditions include coronary artery with LAD stent, hypertensive heart disease, severe aortic stenosis with AV valve replacement., hyperlipidemia, hypothyroid, chronic left vocal cord paralysis, fibromyalgia, diverticulosis. Patient had multiple DVTs in the past. For which she has been eliquis. Patient has been progressively more and more short of breath. In the ER hemoglobin was found to be 5.2. Patient was negative Hemoccult for blood. Computed tomography scan did show some infiltrates. Negative for PE. Acute patient's Coumadin 19 testing in the office 3 days ago was negative. Patient was transfused 2 units of blood. Patient's had a slight cough and some wheezing.. Patient denies any dark stools. Admitted for the same. Patient's last documented hemoglobin was 10.1 back in March 2018. Patient denies any abdominal pain. Patient does state that as a habit she always looks at this stools every morning. Has not noticed any dark stools. Admitted with symptomatic anemia-received 2 units of blood. Today-underwent endoscopy today. On nonbleeding angioma ectasia in the third portion of duodenum noted. Treated with Gold probe ablation. Benign distal esophageal stricture. Moderate pandiverticulosis. Stable.. Review of systems: Was done for constitutional, cardiovascular, GI, pulmonary. relevant finding as above Active Medications Acetaminophen (Tylenol Tab) 650 mg PO Q4HR PRN PRN Reason: Fever and/or Mild Pain Last Admin: 09/07/19 23:28 Dose: 650 mg Documented by: Albuterol/Ipratropium (Duoneb 0.5 Mg-3 Mg/3 Ml Soln) 3 ml INHALATION RT-Q4H PRN PRN Reason: Shortness Of Breath Or Wheezing Last Admin: 09/05/19 23:35 Dose: 3 ml Documented by: Apixaban (Eliquis) 5 mg PO BID COUNT INCLUDES THE [facility] Last Admin: 09/08/19 12:25 Dose: 5 mg Documented by: Atorvastatin Calcium (Lipitor) 80 mg PO HS COUNT INCLUDES THE [facility] Last Admin: 09/07/19 20:41 Dose: 80 mg Documented by: Cevimeline HCl (Evoxac) 30 mg PO BID COUNT INCLUDES THE [facility] Last Admin: 09/08/19 11:03 Dose: 30 mg Documented by: Fentanyl (Duragesic 50mcg/Hr Patch) 1 patch TRANSDERM Q72H COUNT INCLUDES THE [facility] Last Admin: 09/06/19 16:20 Dose: Not Given Documented by: Piperacillin Sod/Tazobactam (Sod 3.375 gm/ Sodium Chloride) 100 mls @ 25 mls/hr IVPB Q8HR COUNT INCLUDES THE [facility] Last Admin: 09/08/19 12:26 Dose: 25 mls/hr Documented by: Ferric Sodium Gluconate 125 mg (/ Sodium Chloride) 110 mls @ 100 mls/hr IVPB DAILY COUNT INCLUDES THE [facility] Stop: 09/10/19 23:01 Last Admin: 09/08/19 10:08 Dose: 100 mls/hr Documented by: Levothyroxine Sodium (Synthroid) 75 mcg PO DAILY@0630 COUNT INCLUDES THE [facility] Last Admin: 09/08/19 05:09 Dose: Not Given Documented by: Metoprolol Tartrate (Lopressor) 12.5 mg PO BID COUNT INCLUDES THE [facility] Last Admin: 09/08/19 10:07 Dose: 12.5 mg Documented by: Mirtazapine (Remeron) 45 mg PO [facility] Last Admin: 09/07/19 20:42 Dose: 45 mg Documented by: Naloxone HCl (Narcan) 0.2 mg IV Q2M PRN PRN Reason: Opioid Reversal Nitroglycerin (Nitrostat) 0.4 mg SUBLINGUAL Q5M PRN PRN Reason: Chest Pain Non-Formulary Medication (Mirabegron [Myrbetriq]) 50 mg PO [facility] Last Admin: 09/07/19 20:42 Dose: Not Given Documented by: Pantoprazole Sodium (Protonix) 40 mg PO AC-BID COUNT INCLUDES THE [facility] Last Admin: 09/08/19 05:09 Dose: Not Given Documented by: Pregabalin (Lyrica) 50 mg PO BID COUNT INCLUDES THE [facility] Last Admin: 09/08/19 10:07 Dose: 50 mg Documented by: Sertraline HCl (Zoloft) 100 mg PO DAILY COUNT INCLUDES THE [facility] Last Admin: 09/08/19 10:07 Dose: 100 mg Documented by: Physical examination: VITAL SIGNS: 99.1, 83, 16, 120/57, 97% on 2 L GENERAL: Laying in bed, comfortable EYES: [Pupils equal. Conjunctiva pale l. HEENT: External appearance of nose and ears normal, oral cavity grossly normal. NECK: JVD not raised; masses not palpable. HEART: First and second heart sounds are normal; no edema. LUNGS: Respiratory rate normal; clear to auscultation. ABDOMEN: Soft, nontender, liver spleen not palpable, no masses palpable. PSYCH: Alert and oriented x3; mood and affect normal. INVESTIGATIONS, reviewed in the clinical context: Hemoglobin 8.1 Previous testing White count 10.3 hemoglobin 5.2 platelets. 3 potassium 4.1 bun 36 creatinine 1.11 Troponin I 0.7, 0.7, 1.0 ProBNP 22,700 Fecal occult stool-negative EKG tracing personally reviewed by me-normal sinus rhythm, right bundle branch block pattern with a bifascicular block, Chest x-ray film personally reviewed by me-cardiomegaly, with possible infiltrates Chest CTA-she infiltrates, no PE Assessment: -Acute normocytic anemia with no history of GI bleed and occult negative stool. No obvious evidence of GI bleeding. Except for the angiectasia regarding plasma done today. Discussed with Dr Ledezma. Because of the esophageal stricture capsule study Cannot Be Done.. -Abnormal computed tomography scan of the chest with infiltrates and abnormal chest x-ray. Patient has a slight cough but denies any fever and chills. COVID 19 was negative in the office 3 days ago. COVID 19 PCR-not detected. Possible pneumonia -DVT and PE in the left upper extremity in 2016 treated for same. Subsequently right lower extremity DVT unprovoked in August 2019 in the right femoral popliteal vein. For which she has been on eliquis. -Chronic fibromyalgia Hyperlipidemia Essential hypertension -Coronary artery disease with stent to LAD -Obstructive sleep apnea -Hypothyroid -Chronic left vocal cord paralysis -Chronic diverticulosis -Acute type II UT from hemodynamic mismatch -Benign esophageal stricture. Last dilated in February 2019 Plan: -Patient is on IV Zosyn. Small bowel capsule study cannot be done because of benign esophageal stricture. Discussed with Dr. Ledezma, Dr. Briones from vascular surgery, and the patient. It was decided to proceed with resuming the eliquis today. The understanding if there is any keily bleeding then patient that case we will then need a filter. Patient understands the same. Repeat hemoglobin now morning. Check a haptoglobin level in the morning. Total time spent about 40 minutes with over 25 minutes of discussion.
[2019-09-08] MEDS: ATORVASTATIN 80 MG TAB PO SCH (20:53)
[2019-09-08] MEDS: MIRTAZAPINE 45 MG TABLET PO SCH (20:53)
[2019-09-08] MEDS: NON FORMULARY DRUG (Mirabegron [Myrbetriq] 50 MG) PO SCH (22:00)
[2019-09-09] MEDS: PANTOPRAZOLE 40 MG TABLET PO SCH ×2 (05:51→15:47)
[2019-09-09] MEDS: LEVOTHYROXINE 75 MCG TAB PO SCH (05:51)
[2019-09-09 07:13] LABS: Anisocytosis Slight; Basophils % (A) 0 %; Eosinophils # (A) 0.4 k/uL (0-0.7); Eosinophils % (A) 5 %; HCT 27.8 % (34.0-46.0); HGB 8.2 gm/dL (11.4-16.0); Hypochromasia Marked; Lymphocytes # (A) 1.5 k/uL (1.0-4.8); Lymphocytes % (A) 16 %; MCH 28.5 pg (25.0-35.0); MCHC 29.4 g/dL (31.0-37.0); MCV 97.1 fL (80.0-100.0); Macrocytosis Slight; Mean Platelet Volume 7.5; Monocytes # (A) 0.7 k/uL (0-1.0); Monocytes % (A) 8 %; Neutrophils # (A) 6.2 k/uL (1.3-7.7); Neutrophils % (A) 67 %; Platelet Count 345 k/uL (150-450); Poikilocytosis Slight; RBC 2.86 m/uL (3.80-5.40); RDW 16.3 % (11.5-15.5); WBC 9.2 k/uL (3.8-10.6)
--- NOTE | 2019-09-09 08:59 | XR ---
EXAMINATION TYPE: XR chest 1V portable DATE OF EXAM: 09/09/2019 COMPARISON: Prior chest x-ray 09/07/2019 HISTORY: Pneumonia TECHNIQUE: Single frontal view of the chest is obtained. FINDINGS: Airspace disease persists in the right upper lobe, hilar regions appear prominently. Patch y densities present at the lung bases, possible interval development of some airspace disease in the left midlung. No pneumothorax or evident effusion. Heart remains enlarged, patient is post aortic akila ve replacement. There are overlying cardiac leads. Coronary artery stent is noted. IMPRESSION: There may be some progression in airspace disease, consider pneumonia, edema, the could be underlying pulmonary artery hypertension.
[2019-09-09] MEDS: PIPERACILLIN-TAZOBACTAM 3.375 GM in SODIUM CHLORIDE 0.9% 100 ML IVPB SCH ×2 (09:33→15:47)
[2019-09-09] MEDS: APIXABAN 5 MG TAB PO SCH ×2 (09:33→20:34)
[2019-09-09] MEDS: METOPROLOL TARTRATE 12.5 MG TAB PO SCH ×2 (09:33→20:34)
[2019-09-09] MEDS: SERTRALINE 100 MG TAB PO SCH (09:33)
[2019-09-09] MEDS: PREGABALIN 50 MG CAP PO SCH ×2 (09:33→20:34)
[2019-09-09] MEDS: CEVIMELINE 30 MG CAP PO SCH ×2 (09:34→20:34)
[2019-09-09] MEDS: SODIUM FERRIC GLUCONAT-SUCROSE 125 MG in SODIUM CHLORIDE 0.9% 100 ML IVPB SCH (09:43)
--- NOTE | 2019-09-09 13:19 | CT ---
EXAMINATION TYPE: CT chest wo con DATE OF EXAM: 09/09/2019 COMPARISON: Prior chest x-ray 09/09/2019, CT 09/05/2019 HISTORY: possible pulmonary fibrosis, abnormal chest x-ray CT DLP: 363 mGycm. Automated Exposure Control for Dose Reduction was Utilized. TECHNIQUE: CT scan of the thorax is performed without IV contrast. FINDINGS: Lack of intravenous contrast could compromise sensitivity. LUNGS: Compared to prior CT there is been interval development of bilateral pleural effusions. The ai rspace disease, groundglass opacity seen in the right upper lobe has become somewhat more extensive i n the interval, there is been development of some lingular groundglass density and there are some thi ckened parenchymal bands at the lung bases. MEDIASTINUM: Lack of IV contrast is noted to limit evaluation for mediastinal and especially hilar ad enopathy. There are no definitive greater than 1 cm hilar or mediastinal lymph nodes. The heart is en larged. There is metallic density compatible with stent at the left heart border. Patient is status p ost TAVR procedure. Pulmonary artery is dilated. There are coronary artery calcifications present. OTHER: No additional significant abnormality is seen. IMPRESSION: Noncontrast exam. Progression in patient's airspace disease, pneumonia and pleural effusi ons have developed in the interval, congestive heart failure not excluded. Correlate for possible pul monary artery hypertension. Cardiomegaly, postprocedural changes.
--- NOTE | 2019-09-09 13:26 | P.PN ---
Subjective Progress Note Date: 09/09/19 Should seen and examined at the bedside. Patient is wearing O2 via nasal cannula. States that she had some increased shortness of breath through the night at rest and with exertion. The patient underwent EGD and colonoscopy yesterday patient was found to have no active bleeding however did have an chao hernando ectasia with ablation and pandiverticulosis. The patient's without any other concerns or complaints today. Objective - Vital Signs Vital signs: Vital Signs Temp 98.9 F 09/09/19 11:48 Pulse 81 09/09/19 11:48 Resp 20 09/09/19 11:48 BP 116/80 09/09/19 11:48 Pulse Ox 98 09/09/19 11:48 Intake & Output 09/08/19 09/09/19 09/09/19 18:59 06:59 18:59 Intake Total 600 100 440 Balance 600 100 440 Weight 61.9 kg Intake: IV 500 200 Piperacillin-Tazobactam 3 100 100 .375 gm In Sodium Chloride 0.9% 100 ml @ 25 mls/hr IVPB Q8HR [facility] Rx# :[id number] Sodium Ferric Gluconat- 100 Sucrose 125 mg In Sodium Chloride 0.9% 100 ml @ 100 mls/hr IVPB DAILY [facility] Rx#:[id number] Intake, IV Titration 100 100 Amount Piperacillin-Tazobactam 3 100 .375 gm In Sodium Chloride 0.9% 100 ml @ 25 mls/hr IVPB Q8HR [facility] Rx# :[id number] Sodium Ferric Gluconat- 100 Sucrose 125 mg In Sodium Chloride 0.9% 100 ml @ 100 mls/hr IVPB DAILY [facility] Rx#:[id number] Oral 240 Other: Voiding Method Toilet # Voids 1 1 # Bowel Movements 1 - Exam General appearance: The patient is alert, oriented, in no acute distress. HET: Head is normocephalic and atraumatic. Neck: Supple without lymphadenopathy. Trachea midline. Heart: S1 S2. Regular rate and rhythm. Lungs: No crackles or wheezes are heard. Abdomen: Soft, nontender, nondistended with bowel sounds. Extremities: Normal skin color and turgor. No cyanosis, rash, ulceration, clubbing, or edema. Radial and pedal pulses are 2/4 bilaterally. Neurological: No focal deficits. Strength and sensation are grossly intact. - Labs CBC & Chem 7: 09/09/19 06:38 09/08/19 06:44 Labs: Abnormal Lab Results - Last 24 Hours (Table) 09/06/19 09/08/19 09/09/19 Range/Units 05:22 06:44 06:38 RBC 2.86 L (3.80-5.40) m/uL Hgb 8.2 L (11.4-16.0) gm/dL Hct 27.8 L (34.0-46.0) % MCHC 29.4 L (31.0-37.0) g/dL RDW 16.3 H (11.5-15.5) % Haptoglobin 279.0 H (31.2-198.0) mg/dL Free [place] LC, Quant 2.70 H (0.33-1.94) mg/dL Assessment and Plan Assessment: #1 anemia, history of chronic #2 DVT on anticoagulation #3 history of upper extremity DVT, PE Plan: Eliquis was restarted on the patient yesterday. Dr. Briones had an extensive discussion with the patient regarding IVC filter placement, and patient wanted to hold off and try anticoagulation. Hemoglobin is stable, continue trial of anticoagulation. Patient underwent repeat CT angiogram of chest, results are pending. Will follow up out patient with Dr. Briones. The above dictated assessment and findings were discussed with Dr. Sheehan. The impression and plan of care have been directed as dictated.
--- NOTE | 2019-09-09 15:21 | P.PN ---
Subjective Progress Note Date: 09/09/19 Principal diagnosis: Chronic anemia, possibly subacute This is a 73-year-old female with history of multiple medical problems including hypertension, fibromyalgia, previous [place], and about a month ago the patient was diagnosed with deep vein thrombosis. Patient was placed on Eliquis, patient presented yesterday with almost 1 week history of progressive dyspnea. Her dyspnea is described mostly dyspnea on exertion, minimal cough, no wheezing, no fever, no chills, no hemoptysis, no chest pain. Patient denied any nausea vomiting abdominal pain melena or hematemesis. Workup in the ER included a CBC that showed extremely low hemoglobin of 5.2. However patient had negative H emoccult stools. CT angiogram of the chest was done, there was no evidence of thromboembolic disease, however there was evidence of moderate to groundglass infiltrate in the right upper lobe small bilateral pleural effusions, small area of groundglass infiltrate in the right middle lobe and left upper lobe. Considering the findings, the radiologist raised the possibility of Covid 19 pneumonia. Recent PCR for sheridan virus was negative according to the patient and this was done by her primary care physician. Patient was admitted, given 2 units of packed RBCs for her low hemoglobin, and an hemoglobin today is 8.6. Last night, the patient had episodes of intermittent cough and wheezing, she is known to have history of vocal cord paralysis, and I recommended Decadron, patient was given Lasix after blood transfusion, however this morning the patient is feeling much better. Previous a lot easier, and she has no pulmonary complaints. No cough no wheezing no fever no chills no hemoptysis. Chest x-ray did show evidence of infiltrate in the right upper lobe. Otherwise no significant findings noted. Considering the patient has low hemoglobin, and obviously she has most likely some sort of GI bleeding, I recommended a vascular surgery consultation for a filter placement, patient obviously has absolute contraindication to anticoagulation. Looking back at her history, the patient i s known to have history of aortic stenosis and coronary artery disease, she had previous stent placement of the LAD in 2018, and she had history of aortic valve replacement in 2019. The patient is seen today 09/07/2019 in follow-up on the selective care unit. She is awake and alert in no acute distress. Currently resting fairly comfortably in bed. She is maintaining O2 saturations in the upper 90s on 2 L/m per nasal cannula. She's been afebrile. Hemodynamically stable. She is status post 2 units of packed red blood cells this admission. Current hemoglobin 8.2. White count 9.3. Sodium 139. Potassium 3.5. Creatinine 1.12. Sheridan virus not detected. She remains on bronchodilators and Zosyn. GI services are planning for EGD/colonoscopy in a.m. Vascular consultation noted. Patient is seen today 09/08/2019 in follow-up on selective care unit. She is currently resting comfortably in bed. Awake and alert in no acute distress. She did undergo EGD and colonoscopy today. No active bleeding or old blood noted on EGD. There was one nonbleeding angioma ectasia in the third portion of duodenum treated with gold probe ablation. Benign-appearing distal esophageal stricture with previous dilatation February 2019. Colonoscopy revealed diminutive transverse colon polyp removed with cold forceps polypectomy. Moderate pandiverticulosis. Low-grade internal hemorrhoids. Her diet has been resumed. On 09/09/2019 patient seen in follow-up on selective care unit. She is awake and alert, she is currently resting in bed, she states she is still having exertional dyspnea, she is receiving iron transfusions, today's hemoglobin is 8.2, no signs of active bleeding, no complaints of chest pain, she is still complaining of generalized weakness, CT chest has been obtained and reviewed by Dr. Koehler, patient was seen and evaluated by Dr. Riley, which showed progression and patient's airspace disease, right-sided pneumonia and pleural effusions and congestive heart failure is not excluded. Objective - Vital Signs Vital signs: Vital Signs Temp 98.9 F 09/09/19 11:48 Pulse 81 09/09/19 11:48 Resp 20 09/09/19 11:48 BP 116/80 09/09/19 11:48 Pulse Ox 98 09/09/19 11:48 Intake & Output 09/08/19 09/09/19 09/09/19 18:59 06:59 18:59 Intake Total 600 100 680 Balance 600 100 680 Weight 61.9 kg Intake: IV 500 200 Piperacillin-Tazobactam 3 100 100 .375 gm In Sodium Chloride 0.9% 100 ml @ 25 mls/hr IVPB Q8HR [facility] Rx# :[id number] Sodium Ferric Gluconat- 100 Sucrose 125 mg In Sodium Chloride 0.9% 100 ml @ 100 mls/hr IVPB DAILY [facility] Rx#:[id number] Intake, IV Titration 100 100 Amount Piperacillin-Tazobactam 3 100 .375 gm In Sodium Chloride 0.9% 100 ml @ 25 mls/hr IVPB Q8HR [facility] Rx# :[id number] Sodium Ferric Gluconat- 100 Sucrose 125 mg In Sodium Chloride 0.9% 100 ml @ 100 mls/hr IVPB DAILY [facility] Rx#:[id number] Oral 480 Other: Voiding Method Toilet # Voids 1 1 # Bowel Movements 1 - Exam GENERAL EXAM: Alert, very pleasant, 73-year-old white female, on 2 L of oxygen and pulse ox of 98% comfortable in no apparent distress. HEAD: Normocephalic/atraumatic. EYES: Normal reaction of pupils, equal size. Conjunctiva pink, sclera white. NOSE: Clear with pink turbinates. THROAT: No erythema or exudates. NECK: No masses, no JVD, no thyroid enlargement, no adenopathy. CHEST: No chest wall deformity. Symmetrical expansion. LUNGS: Equal air entry with basilar crackles, no rhonchi, no wheezes CVS: Regular rate and rhythm, normal S1 and S2, no gallops, no murmurs, no rubs ABDOMEN: Soft, nontender. No hepatosplenomegaly, normal bowel sounds, no guarding or rigidity. EXTREMITIES: No clubbing, no edema, no cyanosis, 2+ pulses and upper and lower extremities. MUSCULOSKELETAL: Muscle strength and tone normal. SPINE: No scoliosis or deformity SKIN: No rashes CENTRAL NERVOUS SYSTEM: Alert and oriented -3. No focal deficits, tone is normal in all 4 extremities. PSYCHIATRIC: Alert and oriented -3. Appropriate affect. Intact judgment and insight. - Labs CBC & Chem 7: 09/09/19 06:38 09/08/19 06:44 Labs: Abnormal Lab Results - Last 24 Hours (Table) 09/06/19 09/06/19 09/08/19 Range/Units 05:22 05:22 06:44 RBC (3.80-5.40) m/uL Hgb (11.4-16.0) gm/dL Hct (34.0-46.0) % MCHC (31.0-37.0) g/dL RDW (11.5-15.5) % Haptoglobin 279.0 H (31.2-198.0) mg/dL RBC Folate 1,408 H (280 - 791) ng/mL Free [place] LC, Quant 2.70 H (0.33-1.94) mg/dL 09/09/19 Range/Units 06:38 RBC 2.86 L (3.80-5.40) m/uL Hgb 8.2 L (11.4-16.0) gm/dL Hct 27.8 L (34.0-46.0) % MCHC 29.4 L (31.0-37.0) g/dL RDW 16.3 H (11.5-15.5) % Haptoglobin (31.2-198.0) mg/dL RBC Folate (280 - 791) ng/mL Free [place] LC, Quant (0.33-1.94) mg/dL Assessment and Plan Plan: Assessment: Weakness, and shortness of breath, CT chest without contrast obtain today on 09/09/2019 reveals bilateral pleural effusions, groundglass opacity in the right upper lobe and airspace disease in the right upper lobe with development of lingular groundglass density and some thickened parenchymal bands at the lung bases, could be related to pneumonia and possibility of CHF Subacute or possibly chronic anemia most likely secondary to GI blood losses. Worsened by the fact that the patient is on anticoagulation therapy. EGD revealed no active bleeding or old blood noted. There was one nonbleeding angioma ectasia on the third portion of the duodenum treated with gold probe ablation. Benign-appearing distal esophageal stricture with previous dilatation February 2018. Colonoscopy revealed diminutive transverse colon polyp removed with cold forceps polypectomy. Moderate pandiverticulosis. Low-grade internal hemorrhoids. Bilateral pneumonia mostly involving the right upper lobe, most concerned about the possibility of aspiration pneumonia, Covid 19 negative History of recent deep vein thrombosis, no evidence of pulmonary embolism, however considering the patient's anemia would not recommend anticoagulation therapy, would strongly recommend a IVC filter placement by vascular surgery, History of coronary artery disease and previous stent placement. Symptomatic anemia contributing to her shortness of breath as noted in the history of the present illness. History of aortic valve replacement. History of fibromyalgia and Sjogren's syndrome History of vocal cord paralysis, left vocal cord. History of obstructive sleep apnea syndrome. History of diverticulosis. Previous history of pulmonary embolism History of basal cell carcinoma removed from right earlobe. Plan: We will add IV Lasix 40 milligram every 8 hours, continue with Zosyn, fosinopril calcitonin level, today's chest x-ray and CTA chest has been reviewed with Dr. Riley, patient has been seen and evaluated by Dr. Rliey, CT chest shows worsening airspace and groundglass opacities involving the right upper lobe and left lung lingular segment with bilateral pleural effusions. We'll and a proBNP. Follow-up chest x-ray in the morning, continue to closely follow I performed a history & physical examination of the patient and discussed their management with my nurse practitioner, Alena Vieira. I reviewed the nurse practitioner's note and agree with the documented findings and plan of care. Lung sounds are positive for diminsihed breath sounds. The findings and the impression was discussed with the patient. I attest to the documentation by the nurse practitioner. Time with Patient: Less than 30
[2019-09-09] MEDS: FUROSEMIDE 10 MG/ML 4 ML VIAL IV SCH (15:47)
[2019-09-09] MEDS: ACETAMINOPHEN TAB 325 MG TAB PO PRN (15:51)
--- NOTE | 2019-09-09 16:34 | PN ---
PROGRESS NOTE DATE OF SERVICE: 09/09/2019 Patient is a 73-year-old pleasant white female admitted to hospital with severe symptomatic anemia and hemoglobin of 5.2, requiring blood transfusion. Hemoglobin today is 8.2 g/dL. She was seen by Dr. Correia in consultation. She had an EGD and colonoscopy done on September 07 that showed evidence of mild gastritis, small nonbleeding arteriovenous malformation in the duodenum that was cauterized and small colon polyp as well as diverticulosis. She is complaining of severe shortness of breath, she is going for a CT of the chest. She denies any chest pain. PHYSICAL EXAMINATION: Appears comfortable, in no apparent distress. Vital signs are stable, blood pressure is 106/82, pulse rate is 81, temperature 98.9. HEENT: Examination unremarkable. Conjunctivae are pink. Sclerae nonicteric. Oral cavity no lesions. NECK: No JVD or lymph node encouragement. CHEST: Clear to auscultation. HEART: Regular rate and rhythm. ABDOMEN: Soft, bowel sounds are positive, no organomegaly. EXTREMITIES: No pedal edema. SKIN: No rashes. NEURO: She is alert and oriented x3. No focal deficits. LABS: From today WBC 9.2, hemoglobin 8.2, platelets normal. The rest of the labs are within normal limits. IMPRESSION: 1. Severe symptomatic anemia with a hemoglobin of 5.2, requiring 2 units of blood transfusion. Hemoglobin stable. Tayaquis is on hold, status post EGD colonoscopy by Dr. Correia yesterday that showed mild gastritis and nonbleeding arteriovenous malformation in the duodenum that was cauterized and colon polyp. Patient clinically has no active bleeding. 2. Severe shortness of breath. She is going for a CT of the chest this morning. 3. History of COPD and congestive heart failure. RECOMMENDATIONS: 1. Monitor hemoglobin on a daily basis. 2. Await biopsy results. 3. Eliquis has been restarted yesterday and at this time will monitor her closely. 4. Thank you for this consultation. MMODL / IJN: [id number] /
[2019-09-09] MEDS: ATORVASTATIN 80 MG TAB PO SCH (20:34)
[2019-09-09] MEDS: MIRTAZAPINE 45 MG TABLET PO SCH (20:35)
--- NOTE | 2019-09-09 20:40 | P.PN ---
Subjective Progress Note Date: 09/09/19 Principal diagnosis: GI bleeding Patient seen and evaluated in follow-up today. She was started back on anticoagulation on September 07May. Her hemoglobin appears stable, will co ntinue to monitor closely. Parental iron ordered Objective - Vital Signs Vital signs: Vital Signs Temp 98.9 F 09/09/19 11:48 Pulse 81 09/09/19 11:48 Resp 20 09/09/19 11:48 BP 116/80 09/09/19 11:48 Pulse Ox 98 09/09/19 11:48 Intake & Output 09/08/19 09/09/19 09/09/19 18:59 06:59 18:59 Intake Total 600 100 440 Balance 600 100 440 Weight 61.9 kg Intake: IV 500 200 Piperacillin-Tazobactam 3 100 100 .375 gm In Sodium Chloride 0.9% 100 ml @ 25 mls/hr IVPB Q8HR [facility] Rx# :[id number] Sodium Ferric Gluconat- 100 Sucrose 125 mg In Sodium Chloride 0.9% 100 ml @ 100 mls/hr IVPB DAILY [facility] Rx#:[id number] Intake, IV Titration 100 100 Amount Piperacillin-Tazobactam 3 100 .375 gm In Sodium Chloride 0.9% 100 ml @ 25 mls/hr IVPB Q8HR [facility] Rx# :[id number] Sodium Ferric Gluconat- 100 Sucrose 125 mg In Sodium Chloride 0.9% 100 ml @ 100 mls/hr IVPB DAILY [facility] Rx#:[id number] Oral 240 Other: Voiding Method Toilet # Voids 1 1 # Bowel Movements 1 - Exam - Constitutional General appearance: no acute distress - EENT Eyes: EOMI, PERRLA ENT: hearing grossly normal, normal oropharynx - Neck Neck: no lymphadenopathy Thyroid: bilateral: normal size - Respiratory Respiratory: bilateral: CTA - Cardiovascular Rhythm: regular Heart sounds: normal: S1, S2 - Gastrointestinal General gastrointestinal: normal bowel sounds, soft - Integumentary Integumentary: normal - Neurologic Neurologic: CNII-XII intact - Musculoskeletal Musculoskeletal: generalized weakness, strength equal bilaterally - Psychiatric Psychiatric: A&O x's 3, appropriate affect - Labs CBC & Chem 7: 09/09/19 06:38 09/08/19 06:44 Labs: Abnormal Lab Results - Last 24 Hours (Table) 09/06/19 09/06/1909/07/20 Range/Units 05:22 05:22 06:44 RBC (3.80-5.40) m/uL Hgb (11.4-16.0) gm/dL Hct (34.0-46.0) % MCHC (31.0-37.0) g/dL RDW (11.5-15.5) % Haptoglobin 279.0 H (31.2-198.0) mg/dL RBC Folate 1,408 H (280 - 791) ng/mL Free [place] LC, Quant 2.70 H (0.33-1.94) mg/dL 09/09/19 Range/Units 06:38 RBC 2.86 L (3.80-5.40) m/uL Hgb 8.2 L (11.4-16.0) gm/dL Hct 27.8 L (34.0-46.0) % MCHC 29.4 L (31.0-37.0) g/dL RDW 16.3 H (11.5-15.5) % Haptoglobin (31.2-198.0) mg/dL RBC Folate (280 - 791) ng/mL Free [place] LC, Quant (0.33-1.94) mg/dL Assessment and Plan Plan: Assessment and Plan (1) Acute on chronic anemia - History of anemia since at least 2016. Given in 2013 she had low ferritin. Has been adherent to ferrous sulfate twice a day for years per patient. - Hemoglobin has been in the 8 range, but dropped to 5.2 on this admission. Today 8.2 - Recent anticoagulation initiated about 4 weeks ago for new LE DVT and SVTs In this situation ongoing anemia due to chronic blood loss, only partially responsive to oral iron, with acute exacerbation due to anticoagulation appears to be the most reasonable differential diagnosis. Other causes are not ruled out. At this time hemoglobin is improved with transfusion. -Continue to monitor and transfuse to keep hemoglobin greater than 7 -initially anticoagulation held, although felt after GI evaluation if reversible cause of GI blood loss was able to be controlled/reversed than could slowly restart and monitor close/serial HH. Eliquis was restarted 09/07 per MAY. -No hemolysis noted in work-up -Given high possibility of blood loss anemia, GI workup was recommended. Patient seen by gastroenterology status post upper and lower endoscopy on 09/08/19 - Parental Iron Ordered and given (2) DVT (deep venous thrombosis) 2015 - The patient has a history of recurrent venous thrombosis. She initially had a left upper extremity DVT with PE in 2016 treated as described. 08/2019 - She now has developed right lower extremity DVT which appears to be unprovoked. The patient should therefore, ideally be on lifelong antibiotic regulation. However she has developed severe anemia with concerns for GI blood loss. Appears controlled, continued monitoring. Status post GI workup with reversible etiology. Currently rechallenging with anticoagulation. If any further s/s blood loss anemia while rechallenging on AC therapy would recommend vascular surgery consult with IVC filter placement. - She is status post hypercoagulable workup in 2015 that was negative. - Recurrent thrombolic events in lifetime, lifetime anticoagulation is recommended We discussed plan at discharge for close CBC monitoring and possible intermittent IV iron infusions. She is agreeable to plan. DIscussed with Cardiology as well, who was also at bedside. PLan for first CBC weekly x4, then if stable monthly.
[2019-09-09] MEDS: NON FORMULARY DRUG (Mirabegron [Myrbetriq] 50 MG) PO SCH (20:53)
--- NOTE | 2019-09-09 22:52 | P.PN ---
Progress Note - Text Progress Note Date: 09/09/19 Chief Complaint: Shortness of breath History of presenting complaint: This is a pleasant 73-year-old patient who follows with Dr. Gabriel. Chronic stable medical conditions include coronary artery with LAD stent, hypertensive heart disease, severe aortic stenosis with AV valve replacement., hyperlipidemia, hypothyroid, chronic left vocal cord paralysis, fibromyalgia, diverticulosis. Patient had multiple DVTs in the past. For which she has been eliquis. Patient has been progressively more and more short of breath. In the ER hemoglobin was found to be 5.2. Patient was negative Hemoccult for blood. Computed tomography scan did show some infiltrates. Negative for PE. Acute patient's COVID 19 testing in the office 3 days ago was negative. Patient was transfused 2 units of blood. Patient's had a slight cough and some wheezing.. Patient denies any dark stools. Admitted for the same. Patient's last documented hemoglobin was 10.1 back in March 2018. Patient denies any abdominal pain. Patient does state that as a habit she always looks at this st ools every morning. Has not noticed any dark stools. Admitted with symptomatic anemia-received 2 units of blood. 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 Treated with Gold probe ablation. Benign distal esophageal stricture. Moderate pandiverticulosis. After discussion with the patient, GI and vascular eliquis resumed. Pros and cons were discussed with the patient. Patient also being treated for pneumonia. Today-no GI bleed. Short of breath. Minimal cough. Review of systems: Was done for constitutional, cardiovascular, GI, pulmonary. relevant finding as above Active Medications Acetaminophen (Tylenol Tab) 650 mg PO Q4HR PRN PRN Reason: Fever and/or Mild Pain Last Admin: 09/09/19 15:51 Dose: 650 mg Documented by: Albuterol/Ipratropium (Duoneb 0.5 Mg-3 Mg/3 Ml Soln) 3 ml INHALATION RT-Q4H PRN PRN Reason: Shortness Of Breath Or Wheezing Last Admin: 09/05/19 23:35 Dose: 3 ml Documented by: Apixaban (Eliquis) 5 mg PO BID [facility] Last Admin: 09/09/19 20:34 Dose: 5 mg Documented by: Atorvastatin Calcium (Lipitor) 80 mg PO HS [facility] Last Admin: 09/09/19 20:34 Dose: 80 mg Documented by: Cevimeline HCl (Evoxac) 30 mg PO BID [facility] Last Admin: 09/09/19 20:34 Dose: 30 mg Documented by: Fentanyl (Duragesic 50mcg/Hr Patch) 1 patch TRANSDERM Q72H [facility] Last Admin: 09/08/19 16:17 Dose: 1 patch Documented by: Furosemide (Lasix) 40 mg IV Q8HR [facility] Last Admin: 09/09/19 15:47 Dose: 40 mg Documented by: Piperacillin Sod/Tazobactam (Sod 3.375 gm/ Sodium Chloride) 100 mls @ 25 mls/hr IVPB Q8HR [facility] Last Admin: 09/09/19 15:47 Dose: 25 mls/hr Documented by: Ferric Sodium Gluconate 125 mg (/ Sodium Chloride) 110 mls @ 100 mls/hr IVPB DAILY [facility] Stop: 09/10/19 23:01 Last Admin: 09/09/19 09:43 Dose: 100 mls/hr Documented by: Levothyroxine Sodium (Synthroid) 75 mcg PO DAILY@0630 [facility] Last Admin: 09/09/19 05:51 Dose: 75 mcg Documented by: Metoprolol Tartrate (Lopressor) 12.5 mg PO BID [facility] Last Admin: 09/09/19 20:34 Dose: 12.5 mg Documented by: Mirtazapine (Remeron) 45 mg PO [facility] Last Admin: 09/09/19 20:35 Dose: 45 mg Documented by: Naloxone HCl (Narcan) 0.2 mg IV Q2M PRN PRN Reason: Opioid Reversal Nitroglycerin (Nitrostat) 0.4 mg SUBLINGUAL Q5M PRN PRN Reason: Chest Pain Non-Formulary Medication (Mirabegron [Myrbetriq]) 50 mg PO [facility] Last Admin: 09/09/19 20:53 Dose: Not Given Documented by: Pantoprazole Sodium (Protonix) 40 mg PO AC-BID [facility] Last Admin: 09/09/19 15:47 Dose: 40 mg Documented by: Pregabalin (Lyrica) 50 mg PO BID [facility] Last Admin: 09/09/19 20:34 Dose: 50 mg Documented by: Sertraline HCl (Zoloft) 100 mg PO DAILY [facility] Last Admin: 09/09/19 09:33 Dose: 100 mg Documented by: Physical examination: VITAL SIGNS: 97.6, 83, 20, 03/27/1975, 97% on 3 L GENERAL: Laying in bed, slightly short of breath EYES: [Pupils equal. Conjunctiva pale l. HEENT: External appearance of nose and ears normal, oral cavity grossly normal. NECK: JVD not raised; masses not palpable. HEART: First and second heart sounds are normal; no edema. LUNGS: Respiratory rate increased; decreased breath sounds ABDOMEN: Soft, nontender, liver spleen not palpable, no masses palpable. PSYCH: Alert and oriented x3; mood and affect normal. INVESTIGATIONS, reviewed in the clinical context: Hemoglobin 8.2 Computed tomography scan of the chest-September 08-progression and air space disease pneumonia pleural effusion. Previous testing White count 10.3 hemoglobin 5.2 platelets. 3 potassium 4.1 bun 36 creatinine 1.11 Troponin I 0.7, 0.7, 1.0 ProBNP 22,700 Fecal occult stool-negative EKG tracing personally reviewed by me-normal sinus rhythm, right bundle branch block pattern with a bifascicular block, Chest x-ray film personally reviewed by me-cardiomegaly, with possible infiltrates Chest CTA-she infiltrates, no PE Assessment: -Acute normocytic anemia with no history of GI bleed and occult negative stool. No obvious evidence of GI bleeding. Except for the angiectasia regarding plasma done today. Discussed with Dr Ledezma. Because of the esophageal stricture capsule study Cannot Be Done.. Resumed on eliquis. - Possible pneumonia -DVT and PE in the left upper extremity in 2015 treated for same. Subsequently right lower extremity DVT unprovoked in August 2019 in the right femoral popliteal vein. For which she has been on eliquis. -Chronic fibromyalgia Hyperlipidemia Essential hypertension -Coronary artery disease with stent to LAD -Obstructive sleep apnea -Hypothyroid -Chronic left vocal cord paralysis -Chronic diverticulosis -Acute type II TX from hemodynamic mismatch -Benign esophageal stricture. Last dilated in February 2019 -Acute congestive heart failure-new diagnosis Plan: -Patient started on IV Lasix. Continue with IV Zosyn. Discussed with the patient. Continue with eliquis. Follow labs in the morning.
[2019-09-10] MEDS: FUROSEMIDE 10 MG/ML 4 ML VIAL IV SCH ×2 (00:15→08:52)
[2019-09-10] MEDS: PIPERACILLIN-TAZOBACTAM 3.375 GM in SODIUM CHLORIDE 0.9% 100 ML IVPB SCH ×3 (00:15→20:00)
[2019-09-10] MEDS: PANTOPRAZOLE 40 MG TABLET PO SCH ×2 (05:38→16:45)
[2019-09-10] MEDS: LEVOTHYROXINE 75 MCG TAB PO SCH (05:38)
[2019-09-10 06:14] LABS: Anisocytosis Slight; Basophils % (A) 0 %; Eosinophils # (A) 0.6 k/uL (0-0.7); Eosinophils % (A) 7 %; HGB 8.9 gm/dL (11.4-16.0); Hypochromasia Marked; Lymphocytes # (A) 1.1 k/uL (1.0-4.8); Lymphocytes % (A) 14 %; MCH 28.2 pg (25.0-35.0); MCHC 29.7 g/dL (31.0-37.0); MCV 95.1 fL (80.0-100.0); Mean Platelet Volume 7.4; Monocytes # (A) 0.5 k/uL (0-1.0); Monocytes % (A) 7 %; Neutrophils # (A) 5.6 k/uL (1.3-7.7); Neutrophils % (A) 69 %; Platelet Count 386 k/uL (150-450); Poikilocytosis Slight; RBC 3.15 m/uL (3.80-5.40); RDW 16.1 % (11.5-15.5)
[2019-09-10 06:23] LABS: Calcium 8.1 mg/dL (8.4-10.2); Magnesium 1.8 mg/dL (1.6-2.3); Potassium 3.3 mmol/L (3.5-5.1)
--- NOTE | 2019-09-10 07:30 | P.PN ---
Subjective Progress Note Date: 09/09/19 This is a 73-year-old female with history of previous DVT involving the axillary vein, pulmonary emboli, recent diagnosis of DVT involving the lower extremity on anticoagulation therapy along with Plavix, is admitted to the hospital with weakness, anemia and shortness of breath. Patient also wasn't CHF. Patient has history of previous cardiac intervention with follow-up stent placement and also aortic valve replacement. Patient is feeling better. GI is evaluating her for any source of GI bleeding. He is also felt that her anemia could be related to chronic iron insufficiency. Patient doesn't complain of any chest pain or shortness of breath. Clinically patient has systolic murmur. Lungs appeared to be clear. We'll continue current medical therapy. A right gastroenterology evaluation. Patient is to be started on anticoagulation as soon as possible. 09/09/2019: This patient with history of coronary artery disease and also aortic valve replacement and also history of previous DVT is admitted to the hospital with increasing shortness of breath and weakness. Patient was found to be anemic. Patient was evaluated by GI. Patient is back on anticoagulation therapy. Patient is complaining of increasing shortness of breath. Chest x-ray showed evidence of possible edema versus pneumonia, especially on the right side. Patient was started on IV Lasix. She is also being followed by pulmonary and the consideration is given for pneumonia and also. Patient seemed to be diuresing better. We'll continue current medical therapy. We'll follow. Lab values showed hemoglobin of 8.2 which is stable. Objective - Vital Signs Vital signs: Vital Signs Temp 98.4 F 09/10/19 05:03 Pulse 94 09/10/19 05:03 Resp 20 09/10/19 05:03 BP 136/70 09/10/19 05:03 Pulse Ox 97 09/10/19 05:03 Intake & Output 09/09/19 09/10/19 09/10/19 18:59 06:59 18:59 Intake Total 920 200 Output Total 1200 0585 Balance -127 -1135 Weight 58.5 kg Intake: IV 200 Piperacillin-Tazobactam 3 100 .375 gm In Sodium Chloride 0.9% 100 ml @ 25 mls/hr IVPB Q8HR [facility] Rx# :[id number] Sodium Ferric Gluconat- 100 Sucrose 125 mg In Sodium Chloride 0.9% 100 ml @ 100 mls/hr IVPB DAILY [facility] Rx#:[id number] Intake, IV Titration 200 Amount Piperacillin-Tazobactam 3 200 .375 gm In Sodium Chloride 0.9% 100 ml @ 25 mls/hr IVPB Q8HR [facility] Rx# :[id number] Oral 720 Output: Urine 1200 3825 Other: Voiding Method Toilet - Exam GENERAL EXAM: Patient is alert and oriented and doesn't appear to be in any acute distress HEENT: Normocephalic. Normal reaction of pupils, equal size, normal range of extraocular motion. No erythema or exudates in the throat. NECK: No masses, no nuchal rigidity. CHEST: No chest wall deformity. LUNGS: Equal air entry with no crackles or wheeze. HEART: S1 and S2 normal . Systolic murmur heard ABDOMEN: No hepatosplenomegaly, normal bowel sounds, no guarding or rigidity. SKIN: No rashes CENTRAL NERVOUS SYSTEM: No focal deficits. EXTREMITIES: No cyanosis, clubbing or edema. - Labs CBC & Chem 7: 09/10/19 05:23 09/10/19 05:23 Labs: Abnormal Lab Results - Last 24 Hours (Table) 09/06/19 09/06/19 09/08/19 Range/Units 05:22 05:22 06:44 RBC (3.80-5.40) m/uL Hgb (11.4-16.0) gm/dL Hct (34.0-46.0) % MCHC (31.0-37.0) g/dL RDW (11.5-15.5) % Haptoglobin 279.0 H (31.2-198.0) mg/dL Potassium (3.5-5.1) mmol/L Carbon Dioxide (22-30) mmol/L Calcium (8.4-10.2) mg/dL RBC Folate 1,408 H (280 - 791) ng/mL Free [place] LC, Quant 2.70 H (0.33-1.94) mg/dL 09/10/19 09/10/19 Range/Units 05:23 05:23 RBC 3.15 L (3.80-5.40) m/uL Hgb 8.9 L (11.4-16.0) gm/dL Hct 30.0 L (34.0-46.0) % MCHC 29.7 L (31.0-37.0) g/dL RDW 16.1 H (11.5-15.5) % Haptoglobin (31.2-198.0) mg/dL Potassium 3.3 L (3.5-5.1) mmol/L Carbon Dioxide 34 H (22-30) mmol/L Calcium 8.1 L (8.4-10.2) mg/dL RBC Folate (280 - 791) ng/mL Free [place] LC, Quant (0.33-1.94) mg/dL Assessment and Plan (1) History of coronary artery disease Current Visit: Yes Status: Acute Code(s): Z86.79 - PERSONAL HISTORY OF OTHER DISEASES OF THE CIRCULATORY SYSTEM SNOMED Code(s): 623463470 (2) Elevated troponin Current Visit: Yes Status: Acute Code(s): R79.89 - OTHER SPECIFIED ABNORMAL FINDINGS OF BLOOD CHEMISTRY SNOMED Code(s): 266707464 (3) Symptomatic anemia Current Visit: Yes Status: Acute Code(s): D64.9 - ANEMIA, UNSPECIFIED SNOMED Code(s): 029717101 (4) DVT (deep venous thrombosis) Current Visit: No Status: Inactive Code(s): I82.409 - ACUTE EMBOLISM AND THOMBOS UNSP DEEP VN UNSP LOWER EXTREMITY SNOMED Code(s): 556792827 (5) History of aortic valve replacement Current Visit: Yes Status: Acute Code(s): Z95.2 - PRESENCE OF PROSTHETIC HEART VALVE SNOMED Code(s): 6009511417240 Plan: Patient hemoglobin is stable. However, patient has evidence of CHF versus pneumonia. Continue with diuretics. Chest x-ray in the morning. Further recommendations depend upon the clinical course
[2019-09-10] MEDS ORDERED: POTASSIUM CHLORIDE ER 20 MEQ TAB.ER PO STA (07:39)
--- NOTE | 2019-09-10 08:37 | XR ---
EXAMINATION TYPE: XR chest 2V DATE OF EXAM: 09/10/2019 COMPARISON: 09/09/2019 HISTORY: 73-year-old female shortness of breath, dyspnea TECHNIQUE: PA and lateral views FINDINGS: Endovascular aortic valve replacement. Suggestion of a coronary artery stent. Asymmetric patchy and c onfluent airspace opacity right greater than left with hyperinflation. Findings relatively unchanged from prior. Heart remains mildly enlarged IMPRESSION: Continued patchy and confluent multifocal airspace disease, right greater than left without significa nt change. Consider atypical pulmonary edema versus multifocal pneumonia superimposed on COPD.
[2019-09-10 08:49] LABS: Methylmalonic Acid 0.39 umol/L (<0.40)
[2019-09-10] MEDS: CEVIMELINE 30 MG CAP PO SCH ×2 (08:52→20:04)
[2019-09-10] MEDS: APIXABAN 5 MG TAB PO SCH ×2 (08:52→20:04)
[2019-09-10] MEDS: PREGABALIN 50 MG CAP PO SCH ×2 (08:53→20:05)
[2019-09-10] MEDS: SERTRALINE 100 MG TAB PO SCH (08:53)
[2019-09-10] MEDS: SODIUM FERRIC GLUCONAT-SUCROSE 125 MG in SODIUM CHLORIDE 0.9% 100 ML IVPB SCH (08:53)
[2019-09-10] MEDS: METOPROLOL TARTRATE 12.5 MG TAB PO SCH ×2 (08:53→20:04)
--- NOTE | 2019-09-10 11:28 | PN ---
PROGRESS NOTE This is a patient who we saw yesterday. She had been complaining primarily of shortness of breath more so on exertion. She appeared to be tachypneic yesterday. We added some additional Lasix to her regimen. She has urinated about 4.5 to 5 L. She is feeling a 1000% better today. Anyway, she has no other complaints. She states that she is not having any chest pain or chest discomfort. No fever or chills. No cough or phlegm production. She has diffuse bilateral airspace disease which could be atypical pneumonia and which could be pneumonia or atypical pulmonary edema. It appears that much of her abnormalities were related to fluid overload. In addition, she has chronic anemia secondary to GI blood loss. In addition, she has evidence of pneumonia involving the right upper lobe with possible aspiration, DVT, CAD with previous stent placement, anemia, aortic valve replacement, fibromyalgia, Sjogren syndrome, vocal cord paralysis, sleep apnea syndrome, diverticular disease, pulmonary embolism, and history of basal cell cancer of the right earlobe. Currently, the patient again is doing much better. Vital signs are reviewed, temperature 98.7, heart rate 81, respiratory rate 20, blood pressure 114/54 mean 74, 2 L saturation 96%, room air saturation 91% to 92%. Appears in no acute distress. Much less tachypneic. HEENT: Examination is grossly unremarkable. Nasal O2 noted. NECK: Supple full range of motion. No adenopathy. Neck veins are flat. CARDIOVASCULAR: Examination reveals distant heart sounds. There is regular rhythm and rate. S1, S2 normal. There is no murmur. LUNGS: Reveal a few scattered rhonchi. No wheezes or crackles. ABDOMEN: Soft, bowel sounds are noted. EXTREMITIES: Intact. No cyanosis, clubbing, or significant edema. SKIN: Without rash. NEUROLOGIC: Examination is nonfocal. LABS: Reviewed. White count 8, hemoglobin 8.9, hematocrit 30.0, platelet count 386,000 sodium 140, potassium 3.3, chloride 102, CO2 is 34, anion gap is 4. BUN and creatinine 14 and 0.87. N terminal proBNP was 31,600. Procalcitonin level was 0.08. Microbiologic studies are negative. Medications are reviewed. Lasix was back to once a day 40 mg IV push. ASSESSMENT: 1. Shortness of breath, likely multifactorial in part related to underlying pneumonia and/or atypical pulmonary edema. The patient has had significant diuresis over the last 24 hours, and feels much improved. In addition, N terminal proBNP was quite elevated. 2. Chronic anemia, likely secondary to GI blood loss. In addition, there was a benign- appearing distal esophageal stricture. 3. Bilateral pneumonia, mostly involving the right upper lobe, with COVID-19 testing negative. 4. History of DVT without evidence of pulmonary embolism. 5. History of coronary artery disease with previous stent placement. 6. Chronic anemia. 7. History of aortic valve replacement. 8. Fibromyalgia. 9. Sjogren syndrome. 10.History of left vocal cord paralysis. 11.History of sleep apnea syndrome. 12.Diverticular disease. 13.Previous history of pulmonary embolism. 14.History of basal cell cancer involving the right earlobe. PLAN: Currently, the patient's Lasix has come back to 40 mg IV push daily. She is a bit more volume contracted with some increased bicarbonate concentration and worsening hypokalemia. BUN and creatinine though is actually stable. Lasix was cut back to once a day. Additional recommendations and suggestions are forthcoming. She is clinically much improved. MMODL / IJN: [id number] / MTDD
--- NOTE | 2019-09-10 15:07 | P.PN ---
Subjective Progress Note Date: 09/10/19 Patient was seen and examined at the bedside. Patient states breathing has improved greatly today, was given Lasix yesterday. Patient denies any signs of GI bleed. Hemoglobin stable at 8.9. Denies any chest pain or pain with inspiration. Objective - Vital Signs Vital signs: Vital Signs Temp 99 F 09/10/19 11:45 Pulse 84 09/10/19 11:45 Resp 20 09/10/19 11:45 BP 103/54 09/10/19 11:45 Pulse Ox 92 L 09/10/19 11:45 Intake & Output 09/09/19 09/10/19 09/10/19 18:59 06:59 18:59 Intake Total 920 200 Output Total 1200 3825 500 Balance -280 -8983 -500 Weight 58.5 kg Intake: IV 200 Piperacillin-Tazobactam 3 100 .375 gm In Sodium Chloride 0.9% 100 ml @ 25 mls/hr IVPB Q8HR [facility] Rx# :[id number] Sodium Ferric Gluconat- 100 Sucrose 125 mg In Sodium Chloride 0.9% 100 ml @ 100 mls/hr IVPB DAILY [facility] Rx#:[id number] Intake, IV Titration 200 Amount Piperacillin-Tazobactam 3 200 .375 gm In Sodium Chloride 0.9% 100 ml @ 25 mls/hr IVPB Q8HR [facility] Rx# :[id number] Oral 720 Output: Urine 1200 3825 500 Other: Voiding Method Toilet Toilet # Voids 2 # Bowel Movements 2 - Exam General appearance: The patient is alert, oriented, in no acute distress. HET: Head is normocephalic and atraumatic. Neck: Supple without lymphadenopathy. Trachea midline. Heart: S1 S2. Regular rate and rhythm. Lungs: No crackles or wheezes are heard. Abdomen: Soft, nontender, nondistended with bowel sounds. Extremities: Normal skin color and turgor. No cyanosis, rash, ulceration, clubbing, or edema. Radial and pedal pulses are 2/4 bilaterally. Neurological: No focal deficits. Strength and sensation are grossly intact. - Labs CBC & Chem 7: 09/10/19 05:23 09/10/19 05:23 Labs: Abnormal Lab Results - Last 24 Hours (Table) 09/06/19 09/10/19 09/10/19 Range/Units 05:22 05:23 05:23 RBC 3.15 L (3.80-5.40) m/uL Hgb 8.9 L (11.4-16.0) gm/dL Hct 30.0 L (34.0-46.0) % MCHC 29.7 L (31.0-37.0) g/dL RDW 16.1 H (11.5-15.5) % Potassium 3.3 L (3.5-5.1) mmol/L Carbon Dioxide 34 H (22-30) mmol/L Calcium 8.1 L (8.4-10.2) mg/dL RBC Folate 1,408 H (280 - 791) ng/mL Assessment and Plan Assessment: #1 anemia, history of chronic #2 DVT on anticoagulation #3 history of upper extremity DVT, PE #4 shortness of breath Plan: Hemoglobin continues to remain stable on Eliquis. Recommendation is to continue Eliquis for history of PE and DVT. There is no indication at this time for any vascular surgical interventions. Patient may follow up outpatient with Dr. Briones or Dr. Sheehan. Continue to monitor hemoglobin and signs for bleeding. The above dictated assessment and findings were discussed with Dr. Sheehan. The impression and plan of care have been directed as dictated.
--- NOTE | 2019-09-10 15:49 | P.PN ---
Subjective Progress Note Date: 09/10/19 This is a 73-year-old female with history of prior DVT, pulmonary emboli, recent diagnosis of DVT involving lower extremity on anticoagulation therapy along with Plavix, admitted to the hospital with symptoms of weakness, anemia, and associated shortness of breath. Patient does have history of coronary artery disease with prior stent placement and aortic valve replacement in the past as well. On presentation here the patient was also found to be anemic and was evaluated by GI service, she is back on anticoagulation therapy. Her white blood cell count today is 8.0, hemoglobin 8.9, platelet count 386. Sodium 140, potassium 3.3, BUN 14, creatinine 0.8, magnesium 1.8. BNP level came back at 31,600. Pro calcitonin 0.08. Patient continues to be on IV Lasix. Objective - Vital Signs Vital signs: Vital Signs Temp 99 F 09/10/19 11:45 Pulse 84 09/10/19 11:45 Resp 20 09/10/19 11:45 BP 103/54 09/10/19 11:45 Pulse Ox 92 L 09/10/19 11:45 Intake & Output 09/09/19 09/10/19 09/10/19 18:59 06:59 18:59 Intake Total 920 200 100 Output Total 1200 3825 1500 Balance -651 -7741 -1400 Weight 58.5 kg Intake: IV 200 Piperacillin-Tazobactam 3 100 .375 gm In Sodium Chloride 0.9% 100 ml @ 25 mls/hr IVPB Q8HR [facility] Rx# :[id number] Sodium Ferric Gluconat- 100 Sucrose 125 mg In Sodium Chloride 0.9% 100 ml @ 100 mls/hr IVPB DAILY [facility] Rx#:[id number] Intake, IV Titration 200 Amount Piperacillin-Tazobactam 3 200 .375 gm In Sodium Chloride 0.9% 100 ml @ 25 mls/hr IVPB Q8HR [facility] Rx# :[id number] Oral 720 100 Output: Urine 1200 3825 1500 Other: Voiding Method Toilet Toilet # Voids 2 # Bowel Movements 2 - Exam GENERAL EXAM: Patient is alert and oriented and doesn't appear to be in any acute distress HEENT: Normocephalic. Normal reaction of pupils, equal size, normal range of extraocular motion. No erythema or exudates in the throat. NECK: No masses, no nuchal rigidity. CHEST: No chest wall deformity. LUNGS: Equal air entry with no crackles or wheeze. HEART: S1 and S2 normal . Systolic murmur heard ABDOMEN: No hepatosplenomegaly, normal bowel sounds, no guarding or rigidity. SKIN: No rashes CENTRAL NERVOUS SYSTEM: No focal deficits. EXTREMITIES: No cyanosis, clubbing or edema. - Labs CBC & Chem 7: 09/10/19 05:23 09/10/19 05:23 Labs: Abnormal Lab Results - Last 24 Hours (Table) 09/05/19 09/10/19 09/10/19 Range/Units 14:35 05:23 05:23 RBC 3.15 L (3.80-5.40) m/uL Hgb 8.9 L (11.4-16.0) gm/dL Hct 30.0 L (34.0-46.0) % MCHC 29.7 L (31.0-37.0) g/dL RDW 16.1 H (11.5-15.5) % Potassium 3.3 L (3.5-5.1) mmol/L Carbon Dioxide 34 H (22-30) mmol/L Calcium 8.1 L (8.4-10.2) mg/dL Crossmatch See Detail Assessment and Plan Plan: Assessment and plan #1 acute anemia #2 congestive heart failure, systolic acute on chronic #3 history of recent DVT, back on anticoagulation therapy #4 coronary artery disease with prior PCI #5 history of aortic valve replacement #6 fibromyalgia #7 history of prior DVT and PE #8 history of basal cell carcinoma of the right earlobe Plan We will continue current dose of IV Lasix. Continue to monitor the patient's intake and output and daily weights. We will also add a small dose of LOPEZ inhibitor to the patient medication regime, add Aldactone. Check labs in the morning. DNP note has been reviewed, I agree with a documented findings and plan of care. Patient was seen and examined.
--- NOTE | 2019-09-10 16:09 | PN ---
PROGRESS NOTE DATE OF DICTATION: 09/10/2019 Patient is a 73-year-old pleasant white female who was admitted to the hospital because of severe symptomatic anemia and hemoglobin of 5.2. She got 2 units of blood transfusion. She had EGD and colonoscopy done by Dr. 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 She was also noted to have small colon polyp and diverticulosis. She is doing well. She was short of breath yesterday. She was given Lasix, and after that her symptoms are significantly improved. She denies any abdominal pain. No nausea, no vomiting. PHYSICAL EXAMINATION: Appears comfortable. VITAL SIGNS: Stable. Blood pressure is 103/54, pulse rate 84, temperature 99. HEENT examination unremarkable. Conjunctivae pink. Sclerae anicteric. Oral cavity no lesions. NECK: No JVD or lymph node enlargement. CHEST: Clear to auscultation. HEART: Regular rate and rhythm. ABDOMEN: Soft. Bowel sounds are positive. No organomegaly. NEUROLOGIC: Alert and oriented x3. No focal deficits. LABS: WBC 8, hemoglobin 8.9, platelets normal. Basic metabolic panel is within normal limits. IMPRESSION: 1. Severe symptomatic anemia with a hemoglobin of 5.2, requiring 2 units of blood transfusion, status post esophagogastroduodenoscopy and colonoscopy as mentioned above two days ago. Clinically no active bleeding. Hemoglobin remains stable. 2. History of deep venous thrombosis/pulmonary embolism in the past; was on Eliquis, which was restarted yesterday. Patient doing well. 3. Congestive heart failure, on IV Lasix. RECOMMENDATIONS: 1. Monitor CBC closely. 2. Await biopsy results. 3. Continue symptomatic and supportive care. 4. Will follow with you closely. Thank you for this consultation. MMODL / IJN: [id number] /
--- NOTE | 2019-09-10 16:22 | P.PN ---
Progress Note - Text Progress Note Date: 09/10/19 Chief Complaint: Shortness of breath History of presenting complaint: This is a pleasant 73-year-old patient who follows with Dr. Gabriel. Chronic stable medical conditions include coronary artery with LAD stent, hypertensive heart disease, severe aortic stenosis with AV valve replacement., hyperlipidemia, hypothyroid, chronic left vocal cord paralysis, fibromyalgia, diverticulosis. Patient had multiple DVTs in the past. For which she has been eliquis. Patient has been progressively more and more short of breath. In the ER hemoglobin was found to be 5.2. Patient was negative Hemoccult for blood. Computed tomography scan did show some infiltrates. Negative for PE. Acute patient's COVID 19 testing in the office 3 days ago was negative. Patient was transfused 2 units of blood. Patient's had a slight cough and some wheezing.. Patient denies any dark stools. Admitted for the same. Patient's last documented hemoglobin was 10.1 back in March 2018. Patient denies any abdominal pain. Patient does state that as a habit she always looks at this st ools every morning. Has not noticed any dark stools. Admitted with symptomatic anemia-received 2 units of blood. 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 Treated with Gold probe ablation. Benign distal esophageal stricture. Moderate pandiverticulosis. After discussion with the patient, GI and vascular eliquis resumed. Pros and cons were discussed with the patient. Patient also being treated for pneumonia. Patient went into CHF exacerbation. Given IV Lasix. Today-had a bowel movement. Brown stools. Breathing is better. On IV Lasix. Did tolerate some diet. Review of systems: Was done for constitutional, cardiovascular, GI, pulmonary. relevant finding as above Active Medications Acetaminophen (Tylenol Tab) 650 mg PO Q4HR PRN PRN Reason: Fever and/or Mild Pain Last Admin: 09/09/19 15:51 Dose: 650 mg Documented by: Albuterol/Ipratropium (Duoneb 0.5 Mg-3 Mg/3 Ml Soln) 3 ml INHALATION RT-Q4H PRN PRN Reason: Shortness Of Breath Or Wheezing Last Admin: 09/05/19 23:35 Dose: 3 ml Documented by: Apixaban (Eliquis) 5 mg PO BID [facility] Last Admin: 09/10/19 08:52 Dose: 5 mg Documented by: Atorvastatin Calcium (Lipitor) 80 mg PO [facility] Last Admin: 09/09/19 20:34 Dose: 80 mg Documented by: Cevimeline HCl (Evoxac) 30 mg PO BID [facility] Last Admin: 09/10/19 08:52 Dose: 30 mg Documented by: Fentanyl (Duragesic 50mcg/Hr Patch) 1 patch TRANSDERM Q72H [facility] Last Admin: 09/08/19 16:17 Dose: 1 patch Documented by: Furosemide (Lasix) 40 mg IV DAILY [facility] Piperacillin Sod/Tazobactam (Sod 3.375 gm/ Sodium Chloride) 100 mls @ 25 mls/hr IVPB Q8HR [facility] Last Admin: 09/10/19 08:52 Dose: 25 mls/hr Documented by: Ferric Sodium Gluconate 125 mg (/ Sodium Chloride) 110 mls @ 100 mls/hr IVPB DAILY [facility] Stop: 09/10/19 23:01 Last Admin: 09/10/19 08:53 Dose: 100 mls/hr Documented by: Levothyroxine Sodium (Synthroid) 75 mcg PO DAILY@0630 [facility] Last Admin: 09/10/19 05:38 Dose: 75 mcg Documented by: Lisinopril (Zestril) 2.5 mg PO DAILY [facility] Metoprolol Tartrate (Lopressor) 12.5 mg PO BID [facility] Last Admin: 09/10/19 08:53 Dose: 12.5 mg Documented by: Mirtazapine (Remeron) 45 mg PO [facility] Last Admin: 09/09/19 20:35 Dose: 45 mg Documented by: Naloxone HCl (Narcan) 0.2 mg IV Q2M PRN PRN Reason: Opioid Reversal Nitroglycerin (Nitrostat) 0.4 mg SUBLINGUAL Q5M PRN PRN Reason: Chest Pain Non-Formulary Medication (Mirabegron [Myrbetriq]) 50 mg PO [facility] Last Admin: 09/09/19 20:53 Dose: Not Given Documented by: Pantoprazole Sodium (Protonix) 40 mg PO AC-BID [facility] Last Admin: 09/10/19 05:38 Dose: 40 mg Documented by: Pregabalin (Lyrica) 50 mg PO BID [facility] Last Admin: 09/10/19 08:53 Dose: 50 mg Documented by: Sertraline HCl (Zoloft) 100 mg PO DAILY [facility] Last Admin: 09/10/19 08:53 Dose: 100 mg Documented by: Spironolactone (Aldactone) 25 mg PO DAILY [facility] Physical examination: VITAL SIGNS: , 84, 20, 103/54, 92% room air GENERAL: Laying in bed, breathing improved EYES: [Pupils equal. Conjunctiva pale l. HEENT: External appearance of nose and ears normal, oral cavity grossly normal. NECK: JVD not raised; masses not palpable. HEART: First and second heart sounds are normal; no edema. LUNGS: Respiratory rate increased; decreased breath sounds ABDOMEN: Soft, nontender, liver spleen not palpable, no masses palpable. PSYCH: Alert and oriented x3; mood and affect normal. INVESTIGATIONS, reviewed in the clinical context: White count 8 hemoglobin 8.9 potassium 3.3 creatinine 0.87 haptoglobin to 79 Computed tomography scan of the chest-September 08-progression and air space disease pneumonia pleural effusion. Previous testing White count 10.3 hemoglobin 5.2 platelets. 3 potassium 4.1 bun 36 creatinine 1.11 Troponin I 0.7, 0.7, 1.0 ProBNP 22,700 Fecal occult stool-negative EKG tracing personally reviewed by me-normal sinus rhythm, right bundle branch block pattern with a bifascicular block, Chest x-ray film personally reviewed by me-cardiomegaly, with possible infiltrates Chest CTA-she infiltrates, no PE BNP on September 08-17004, pro calcitonin 0.08 Assessment: -Acute normocytic anemia with no history of GI bleed and occult negative stool. No obvious evidence of GI bleeding. Except for the angiectasia regarding plasma done today. Discussed with Dr Ledezma. Because of the esophageal stricture capsule study Cannot Be Done.. Resumed on eliquis. - Possible pneumonia -DVT and PE in the left upper extremity in 2015 treated for same. Subsequently right lower extremity DVT unprovoked in August 2019 in the right femoral popliteal vein. For which she has been on eliquis. -Chronic fibromyalgia Hyperlipidemia Essential hypertension -Coronary artery disease with stent to LAD -Obstructive sleep apnea -Hypothyroid -Chronic left vocal cord paralysis -Chronic diverticulosis -Acute type II CT from hemodynamic mismatch -Benign esophageal stricture. Last dilated in February 2019 -Acute congestive heart failure-new diagnosis Plan: -Continue with IV Lasix though the doses been decreased. Patient getting close to being euvolemic. Patient has no white count no fever, pro calcitonin less than ).08, which changed to oral antibiotic. Discussed with patient. Pulse ox 92% on room air
--- NOTE | 2019-09-10 16:30 | P.PN ---
Subjective Progress Note Date: 09/10/19 Principal diagnosis: iron deficient anemia, lifelong anticoagulation In follow-up today patient denies any bleeding, she feels pretty well, she is ambulating back and forth to the bathroom. Objective - Vital Signs Vital signs: Vital Signs Temp 99 F 09/10/19 11:45 Pulse 84 09/10/19 11:45 Resp 20 09/10/19 11:45 BP 103/54 09/10/19 11:45 Pulse Ox 92 L 09/10/19 11:45 Intake & Output 09/09/19 09/10/19 09/10/19 18:59 06:59 18:59 Intake Total 920 200 Output Total 1200 3825 500 Balance -280 -1373 -500 Weight 58.5 kg Intake: IV 200 Piperacillin-Tazobactam 3 100 .375 gm In Sodium Chloride 0.9% 100 ml @ 25 mls/hr IVPB Q8HR [facility] Rx# :[id number] Sodium Ferric Gluconat- 100 Sucrose 125 mg In Sodium Chloride 0.9% 100 ml @ 100 mls/hr IVPB DAILY [facility] Rx#:[id number] Intake, IV Titration 200 Amount Piperacillin-Tazobactam 3 200 .375 gm In Sodium Chloride 0.9% 100 ml @ 25 mls/hr IVPB Q8HR [facility] Rx# :[id number] Oral 720 Output: Urine 1200 3825 500 Other: Voiding Method Toilet Toilet # Voids 2 # Bowel Movements 2 - Constitutional General appearance: Present: average body habitus, cooperative, no acute distress - EENT Eyes: Present: anicteric sclerae, EOMI ENT: Present: hearing grossly normal - Respiratory Details: respirations even and unlabored - Cardiovascular Details: skin warm and dry to touch, no swelling in the legs - Neurologic Neurologic: Present: CNII-XII intact - Musculoskeletal Musculoskeletal: Present: strength equal bilaterally - Psychiatric Psychiatric: Present: A&O x's 3, appropriate affect, intact judgment & insight - Labs CBC & Chem 7: 09/10/19 05:23 09/10/19 05:23 Labs: Abnormal Lab Results - Last 24 Hours (Table) 09/06/19 09/10/19 09/10/19 Range/Units 05:22 05:23 05:23 RBC 3.15 L (3.80-5.40) m/uL Hgb 8.9 L (11.4-16.0) gm/dL Hct 30.0 L (34.0-46.0) % MCHC 29.7 L (31.0-37.0) g/dL RDW 16.1 H (11.5-15.5) % Potassium 3.3 L (3.5-5.1) mmol/L Carbon Dioxide 34 H (22-30) mmol/L Calcium 8.1 L (8.4-10.2) mg/dL RBC Folate 1,408 H (280 - 791) ng/mL Assessment and Plan (1) Acute on chronic anemia Current Visit: Yes Status: Acute Priority: High Code(s): D64.9 - ANEMIA, UNSPECIFIED SNOMED Code(s): 535223577 (2) Right leg DVT Current Visit: Yes Status: Acute Priority: High Code(s): I82.401 - ACUTE EMBOLISM AND THOMBOS UNSP DEEP VEINS OF R LOW EXTREM SNOMED Code(s): 217655741 Plan: Small duodenal AVM, colon polyp, diverticulosis, could be contributing to the patient's iron deficiency anemia. Patient is been supplemented with iron. Weekly CBC monitoring has been scheduled. Recheck iron stores in 1 month. AVM was treated. Polyp biopsied, pending path. Anticoagulation resumed for RLE DVT diagnosed 1 mo ago. Recommendation is for lifelong anticoagulation due to 2 episodes of unprovoked DVT.
[2019-09-10] MEDS: ATORVASTATIN 80 MG TAB PO SCH (20:04)
[2019-09-10] MEDS: MIRTAZAPINE 45 MG TABLET PO SCH (20:04)
[2019-09-10] MEDS: ACETAMINOPHEN TAB 325 MG TAB PO PRN (20:05)
[2019-09-10] MEDS: NON FORMULARY DRUG (Mirabegron [Myrbetriq] 50 MG) PO SCH (20:07)
[2019-09-10] MEDS: AMOXIC-POT CLAV 875-125MG 1 EACH TAB PO SCH (21:13)
[2019-09-11] MEDS: ACETAMINOPHEN TAB 325 MG TAB PO PRN (03:29)
[2019-09-11] MEDS: LEVOTHYROXINE 75 MCG TAB PO SCH (06:09)
[2019-09-11] MEDS: PANTOPRAZOLE 40 MG TABLET PO SCH (06:09)
[2019-09-11 07:52] LABS: Anisocytosis Slight; HCT 32.5 % (34.0-46.0); HGB 9.3 gm/dL (11.4-16.0); Hypochromasia Marked; MCH 27.3 pg (25.0-35.0); MCHC 28.8 g/dL (31.0-37.0); Mean Platelet Volume 7.4; Platelet Count 390 k/uL (150-450); Poikilocytosis Slight; RBC 3.42 m/uL (3.80-5.40); WBC 7.9 k/uL (3.8-10.6)
[2019-09-11 08:01] LABS: Calcium 8.6 mg/dL (8.4-10.2); Potassium 3.7 mmol/L (3.5-5.1)
[2019-09-11] MEDS: SERTRALINE 100 MG TAB PO SCH (08:41)
[2019-09-11] MEDS: APIXABAN 5 MG TAB PO SCH (08:41)
[2019-09-11] MEDS: AMOXIC-POT CLAV 875-125MG 1 EACH TAB PO SCH (08:41)
[2019-09-11] MEDS: METOPROLOL TARTRATE 12.5 MG TAB PO SCH (08:41)
[2019-09-11] MEDS: CEVIMELINE 30 MG CAP PO SCH (08:41)
[2019-09-11] MEDS: PREGABALIN 50 MG CAP PO SCH (08:41)
[2019-09-11] MEDS ORDERED: FUROSEMIDE 10 MG/ML 4 ML VIAL IV SCH (09:00)
[2019-09-11] MEDS ORDERED: SPIRONOLACTONE 25 MG TAB PO SCH (09:00)
[2019-09-11] MEDS ORDERED: LISINOPRIL 2.5 MG TAB PO SCH (09:00)
--- NOTE | 2019-09-11 10:31 | CT ---
EXAMINATION TYPE: CT chest wo con DATE OF EXAM: 09/11/2019 COMPARISON: Prior CT chest 09/09/2019 HISTORY: Rule out pulmonary fibrosis CT DLP: 431.6 mGycm. Automated Exposure Control for Dose Reduction was Utilized. TECHNIQUE: CT scan of the thorax is performed without IV contrast. Limited scanning performed with h igh-resolution algorithm in both supine and prone positions through the chest FINDINGS: LUNGS: The lungs are showing a similar appearance. Groundglass opacity is somewhat less confluent in the upper lobes. The left pleural effusion is essentially resolved. There is residual right pleural e ffusion which has decreased in size. Thickened parenchymal bands are again noted at the lung bases. MEDIASTINUM: Lack of IV contrast is noted to limit evaluation for mediastinal and especially hilar ad enopathy. There are no definitive greater than 1 cm hilar or mediastinal lymph nodes. No pericardia l effusion is seen, heart remains enlarged, patient is status post TAVR procedure. Proximal descendin g aorta is 3.7 cm, ascending aorta 3.9 cm. Prominent pulmonary artery persists, there may be underlyi ng pulmonary artery hypertension. OTHER: No additional significant abnormality is seen. IMPRESSION: There is marked improvement in aeration within the lungs. Resolution of patient's left pl eural effusion, improved right pleural effusion. Aortic aneurysm. Additional follow-up recommended.
[2019-09-11 12:51] LABS: Albumin 2.75 g/dL (3.80-4.90); Gamma Globulin 0.38 g/dL (0.70-1.50)
--- NOTE | 2019-09-11 13:17 | P.PN ---
Subjective Progress Note Date: 09/11/19 Patient was seen and examined at the bedside. Patient states breathing has improved greatly today, was given Lasix. Patient denies any signs of GI bleed. Hemoglobin stable at 9.3. Denies any chest pain or pain with inspiration. Objective - Vital Signs Vital signs: Vital Signs Temp 98.6 F 09/11/19 12:00 Pulse 78 09/11/19 12:00 Resp 16 09/11/19 12:00 BP 129/60 09/11/19 12:00 Pulse Ox 95 09/11/19 12:00 Intake & Output 09/10/19 09/11/19 09/11/19 18:59 06:59 18:59 Intake Total 340 480 Output Total 1800 Balance -1460 480 Weight 57.9 kg Intake: IV 0 Sodium Ferric Gluconat- 0 Sucrose 125 mg In Sodium Chloride 0.9% 100 ml @ 100 mls/hr IVPB DAILY [facility] Rx#:[id number] Oral 340 480 Output: Urine 1800 Other: Voiding Method Toilet Toilet # Voids 2 1 # Bowel Movements 2 - Exam General appearance: The patient is alert, oriented, in no acute distress. HET: Head is normocephalic and atraumatic. Neck: Supple without lymphadenopathy. Trachea midline. Heart: S1 S2. Regular rate and rhythm. Lungs: No crackles or wheezes are heard. Abdomen: Soft, nontender, nondistended with bowel sounds. Extremities: Normal skin color and turgor. No cyanosis, rash, ulceration, clu bbing, or edema. Radial and pedal pulses are 2/4 bilaterally. Neurological: No focal deficits. Strength and sensation are grossly intact. - Labs CBC & Chem 7: 09/11/19 07:32 09/11/19 07:32 Labs: Abnormal Lab Results - Last 24 Hours (Table) 09/05/19 09/06/19 09/11/19 Range/Units 14:35 05:22 07:32 RBC 3.42 L (3.80-5.40) m/uL Hgb 9.3 L (11.4-16.0) gm/dL Hct 32.5 L (34.0-46.0) % MCHC 28.8 L (31.0-37.0) g/dL RDW 16.0 H (11.5-15.5) % BUN (7-17) mg/dL Albumin (PEP) 2.75 L (3.80-4.90) g/dL Ekjkv-[id number] 0.52 H (0.10-0.40) g/dL Gamma Globulins 0.38 L (0.70-1.50) g/dL Crossmatch See Detail 09/11/19 Range/Units 07:32 RBC (3.80-5.40) m/uL Hgb (11.4-16.0) gm/dL Hct (34.0-46.0) % MCHC (31.0-37.0) g/dL RDW (11.5-15.5) % BUN 24 H (7-17) mg/dL Albumin (PEP) (3.80-4.90) g/dL [id number]-[id number]-Ciisdugmb (0.10-0.40) g/dL Gamma Globulins (0.70-1.50) g/dL Crossmatch Assessment and Plan Assessment: #1 anemia, history of chronic #2 DVT on anticoagulation #3 history of upper extremity DVT, PE #4 shortness of breath Plan: Hemoglobin continues to remain stable on Eliquis. Recommendation is to continue Eliquis for history of PE and DVT. There is no indication at this time for any vascular surgical interventions. Patient may follow up outpatient with Dr. Briones or Dr. Sheehan. Continue to monitor hemoglobin and signs for bleeding. Patient will need close monitoring by her primary care physician after discharge regarding anemia. The above dictated assessment and findings were discussed with Dr. Briones. The impression and plan of care have been directed as dictated.
--- NOTE | 2019-09-11 15:12 | PN ---
PROGRESS NOTE DATE OF SERVICE: 09/11/2019 This is a very pleasant 73-year-old female patient who was seen again today in followup on the selective unit. She is awake and alert, in no acute distress. She is tolerating a diet. She has not had any further GI bleeding. She currently denies any worsening shortness of breath, cough, possible congestion. She is maintaining O2 saturation in the 90's on room air On physical exam alert pleasant 73-year-old female on room air in no acute distress Her head is normocephalic, sclera anicteric Neck is supple trachea midline Lungs are clear anteriorly posteriorly Heart is regular S1-S2 Abdomen is soft nontender bowel sounds are present Extremities with no significant edema, peripheral pulses intact Neurologic alert and oriented 3, no focal deficits LABS: Reviewed. MEDICATIONS: Reviewed. IMPRESSION: 1. GI bleed with symptomatic anemia, recovered. 2. Multiple medical problems as mentioned in previous note. PLAN: The patient was seen and evaluated by Dr. Riley . She is cleared for discharge from a pulmonary standpoint. Follow up closely with her PCP and GI services. I, the cosigning physician, performed a history and physical examination. Lung sounds are clear, maintaining O2 saturations in the 90s on room air. I discussed the assessment and plan of care with my nurse practitioner, Claudia Lopez. I attest to the above note as dictated by her. MMEFRENL / IJN: [id number] / MTDD
--- NOTE | 2019-09-11 15:15 | P.PN ---
Subjective Progress Note Date: 09/11/19 This is a 73-year-old female with history of prior DVT, pulmonary emboli, recent diagnosis of DVT involving lower extremity on anticoagulation therapy along with Plavix, admitted to the hospital with symptoms of weakness, anemia, and associated shortness of breath. Patient does have history of coronary artery disease with prior stent placement and aortic valve replacement in the past as well. On presentation here the patient was also found to be anemic and was evaluated by GI service, she is back on anticoagulation therapy. Her white blood cell count today is 8.0, hemoglobin 8.9, platelet count 386. Sodium 140, potassium 3.3, BUN 14, creatinine 0.8, magnesium 1.8. BNP level came back at 31,600. Pro calcitonin 0.08. Patient continues to be on IV Lasix. 09/11/2019 Patient seen and examined this morning, she feels well, breathing is stable. Underwent a CT of the chest today which revealed marked improvement in aeration within the lungs. Resolution of the patient's left pleural effusion, improved right pleural effusion. Blood pressure 128/60 with a heart rate in the 70s, 95% on room air. White blood cell count 7.9, hemoglobin 9.3, platelet count 390. Sodium 140, potassium 3.7, BUN 24, creatinine 0.8. Objective - Vital Signs Vital signs: Vital Signs Temp 98.6 F 09/11/19 12:00 Pulse 78 09/11/19 12:00 Resp 16 09/11/19 12:00 BP 129/60 09/11/19 12:00 Pulse Ox 95 09/11/19 12:00 Intake & Output 09/10/19 09/11/19 09/11/19 18:59 06:59 18:59 Intake Total 340 480 Output Total 1800 Balance -1460 480 Weight 57.9 kg 57.9 kg Intake: IV 0 Sodium Ferric Gluconat- 0 Sucrose 125 mg In Sodium Chloride 0.9% 100 ml @ 100 mls/hr IVPB DAILY [facility] Rx#:[id number] Oral 340 480 Output: Urine 1800 Other: Voiding Method Toilet Toilet # Voids 2 1 # Bowel Movements 2 - Exam GENERAL EXAM: Patient is alert and oriented and doesn't appear to be in any acute distress HEENT: Normocephalic. Normal reaction of pupils, equal size, normal range of extraocular motion. No erythema or exudates in the throat. NECK: No masses, no nuchal rigidity. CHEST: No chest wall deformity. LUNGS: Equal air entry with no crackles or wheeze. HEART: S1 and S2 normal . Systolic murmur heard ABDOMEN: No hepatosplenomegaly, normal bowel sounds, no guarding or rigidity. SKIN: No rashes CENTRAL NERVOUS SYSTEM: No focal deficits. EXTREMITIES: No cyanosis, clubbing or edema. - Labs CBC & Chem 7: 09/11/19 07:32 09/11/19 07:32 Labs: Abnormal Lab Results - Last 24 Hours (Table) 09/06/19 09/11/19 09/11/19 Range/Units 05:22 07:32 07:32 RBC 3.42 L (3.80-5.40) m/uL Hgb 9.3 L (11.4-16.0) gm/dL Hct 32.5 L (34.0-46.0) % MCHC 28.8 L (31.0-37.0) g/dL RDW 16.0 H (11.5-15.5) % BUN 24 H (7-17) mg/dL Albumin (PEP) 2.75 L (3.80-4.90) g/dL Zhziy-5-Jmuttvame 0.52 H (0.10-0.40) g/dL Gamma Globulins 0.38 L (0.70-1.50) g/dL Assessment and Plan Plan: Assessment and plan #1 acute anemia #2 congestive heart failure, systolic acute on chronic #3 history of recent DVT, back on anticoagulation therapy #4 coronary artery disease with prior PCI #5 history of aortic valve replacement #6 fibromyalgia #7 history of prior DVT and PE #8 history of basal cell carcinoma of the right earlobe Plan From cardiology's perspective, we'll discontinue the IV Lasix and change patient over to oral diuretics. She may be able to be discharged home once cleared by primary and pulmonary. Follow-up appointment in the office post discharge. DNP note has been reviewed, I agree with a documented findings and plan of care. Patient was seen and examined.
--- NOTE | 2019-09-11 16:00 | ECHOF ---
Referral Reason:CHF MEASUREMENTS -------- HEIGHT: 157.5 cm WEIGHT: 60.3 kg BP: 106/54 RVIDd: 3.7 cm (< 3.3) IVSd: 1.0 cm (0.6 - 1.1) LVIDd: 4.6 cm (3.9 - 5.3) LVPWd: 1.2 cm (0.6 - 1.1) IVSs: 1.1 cm LVIDs: 3.7 cm LVPWs: 1.4 cm LAESV Index (A-L): 66.81 ml/m Ao Diam: 2.4 cm (2.0 - 3.7) MV EXCURSION: 14.054 mm (> 18.000) MV EF SLOPE: 48 mm/s (70 - 150) EPSS: 1.1 cm MV E Dandre: 1.31 m/s MV DecT: 152 ms MV A Dandre: 0.99 m/s MV E/A Ratio: 1.33 RAP: 20.00 mmHg RVSP: 49.07 mmHg FINDINGS -------- This was a technically difficult study with suboptimal apical views. The left ventricular size is normal. Left ventricular wall thickness is normal. Overall left vent ricular systolic function is mild-moderately impaired with, an EF between 40 - 45 %. Increased Lap Grade II Diastolic Dysfunction. Septal wall motion is delayed and consistent with prior cardiac ban yohana. Anterseptal Hypokinesis [place] Hypokinesis. The right ventricle is mildly enlarged. LA is severely dilated >40 ml/m2 The right atrium was not well visualized. 5.0mg of Lumason was utilized for enhancement of images Interatrial and interventricular septum intact. Normally functioning bioprosthetic valve. Moderate mitral annular calcification present. Severe mitral regurgitation is present. Moderate tricuspid regurgitation present. There is moderate pulmonary hypertension. The right chad tricular systolic pressure, as measured by Doppler, is 49.07mmHg. There is no pulmonic regurgitation present. The aortic root size is normal. The inferior vena cava is dilated with no significant inspiratory collapse which is consistent estima star right atrial pressure of >20 mmHg. There is no pericardial effusion. CONCLUSIONS -------- 1. This was a technically difficult study with suboptimal apical views. 2. The left ventricular size is normal. 3. Left ventricular wall thickness is normal. 4. Overall left ventricular systolic function is mild-moderately impaired with, an EF between 40 - 45 %. 5. Increased Lap Grade II Diastolic Dysfunction. 6. Septal wall motion is delayed and consistent with prior cardiac surgery. 7. Anterseptal Hypokinesis 8. [place] Hypokinesis. 9. The right ventricle is mildly enlarged. 10. LA is severely dilated >40 ml/m2 11. The right atrium was not well visualized. 12. 5.0mg of Lumason was utilized for enhancement of images 13. Interatrial and interventricular septum intact. 14. Normally functioning bioprosthetic valve. 15. Moderate mitral annular calcification present. 16. Severe mitral regurgitation is present. 17. Moderate tricuspid regurgitation present. 18. There is moderate pulmonary hypertension. 19. The right ventricular systolic pressure, as measured by Doppler, is 49.07mmHg. 20. There is no pulmonic regurgitation present. 21. The aortic root size is normal. 22. The inferior vena cava is dilated with no significant inspiratory collapse which is consistent es timated right atrial pressure of >20 mmHg. 23. There is no pericardial effusion. ROAD SIGN INSTALLER: Tamia Gonzalez RDCS
--- NOTE | 2019-09-11 23:39 | P.DS ---
Providers Date of admission: 09/05/19 15:17 Expected date of discharge: 09/11/19 Attending physician: Len Azar Consults: 09/05/19 15:20 Consult Physician Stat Consulting Provider: Anson Ernandez Consult Reason/Comments: GI bleed, symptomatic anemia, elevated troponin, possible covid Do you want consulting provider notified?: Yes Consult Physician Urgent Consulting Provider: Kelly Lynn Consult Reason/Comments: GI bleed, symptomatic anemia, elevated troponin, possible covid Do you want consulting provider notified?: Yes 09/05/19 16:32 Consult Physician Urgent Consulting Provider: Tariq Sheehan Consult Reason/Comments: dvt Do you want consulting provider notified?: Yes 09/06/19 13:25 Consult Physician Urgent Consulting Provider: Sohail Hernandez Consult Reason/Comments: anemia Do you want consulting provider notified?: Yes Primary care physician: Mario [facility] Course: Chief Complaint: Shortness of breath History of presenting complaint: This is a pleasant 73-year-old patient who follows with Dr. Gabriel. Chronic stable medical conditions include coronary artery with LAD stent, hypertensive heart disease, severe aortic stenosis with AV valve replacement., hyperlipidemia, hypothyroid, chronic left vocal cord paralysis, fibromyalgia, diverticulosis. Patient had multiple DVTs in the past. For which she has been eliquis. Patient has been progressively more and more short of breath. In the ER hemoglobin was found to be 5.2. Patient was negative Hemoccult for blood. Computed tomography scan did show some infiltrates. Negative for PE. Acute patient's COVID 19 testing in the office 3 days ago was negative. Patient was transfused 2 units of blood. Patient's had a slight cough and some wheezing.. Patient denies any dark stools. Admitted for the same. Patient's last documented hemoglobin was 10.1 back in March 2018. Patient denies any abdominal pain. Patient does state that as a habit she always looks at this stools every morning. Has not noticed any dark stools. Admitted with symptomatic anemia-received 2 units of blood. 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 Treated with Gold probe ablation. Benign distal esophageal stricture. Moderate pandiverticulosis. After discussion with the patient, GI and vascular eliquis resumed. Pros and cons were discussed with the patient. Patient also being treated for pneumonia. Patient went into CHF exacerbation. Given IV Lasix. Put back on eliquis. Had a brown bowel movement. Today-feeling well. No respiratory symptoms. High resolution computed tomography scan results discussed with the radiologist. Minimal pulmonary fibrosis if any. Discussed with the patient. Questions answered. Discussion and discharge planning more than 35 minutes Consultations: [facility] Dr. Julian from [facility] -Dr. Dwayne Ernandez from [facility] Physical examination: VITAL SIGNS: 98.1, 73, 16, 110/56, 92% room air GENERAL: Sitting up, comfortable EYES: [Pupils equal. Conjunctiva pale l. HEENT: External appearance of nose and ears normal, oral cavity grossly normal. NECK: JVD not raised; masses not palpable. HEART: First and second heart sounds are normal; no edema. LUNGS: Respiratory rate normal, lungs clear ABDOMEN: Soft, nontender, liver spleen not palpable, no masses palpable. PSYCH: Alert and oriented x3; mood and affect normal. INVESTIGATIONS, reviewed in the clinical context: White count 8 hemoglobin 8.9 potassium 3.3 creatinine 0.87 haptoglobin to 79 High-resolution computed tomography scan-mild pleural effusion. Minimal pulmonary fibrosis upper lobes Previous testing White count 10.3 hemoglobin 5.2 platelets. 3 potassium 4.1 bun 36 creatinine 1.11 Troponin I 0.7, 0.7, 1.0 ProBNP 22,700 Fecal occult stool-negative EKG tracing personally reviewed by me-normal sinus rhythm, right bundle branch block pattern with a bifascicular block, Chest x-ray film personally reviewed by me-cardiomegaly, with possible infiltrates Chest CTA-she infiltrates, no PE BNP on September [id number], pro calcitonin 0.08 Computed tomography scan of the chest-September 08-progression and air space disease pneumonia pleural effusion. 2-D echocardiogram-EF 40-45%., Moderate TR, moderate pulmonary hypertension, severe mitral regurgitation, moderate TR Assessment: -Acute normocytic anemia with possible GI bleed from the angiectasia, argon plasma done .Discussed with Dr Ledezma. Because of the esophageal stricture capsule study Cannot Be Done.. Resumed on eliquis. No further bleeding. -Pneumonia, suspect gram-negative organism. -DVT and PE in the left upper extremity in 2015 treated for same. Subsequently right lower extremity DVT unprovoked in August 2019 in the right femoral popliteal vein. For which she has been on eliquis. -Chronic fibromyalgia Hyperlipidemia Essential hypertension -Coronary artery disease with stent to LAD -Obstructive sleep apnea -Hypothyroid -Chronic left vocal cord paralysis -Chronic diverticulosis -Acute type II AL from hemodynamic mismatch -Benign esophageal stricture. Last dilated in February 2019 -Acute congestive heart failure from systolic dysfunction EF 40-45% - moderate tricuspid regurgitation, severe mitral regurgitation- -Secondary pulmonary hypertension Disposition: Home Labs CBC BMP-5 days Patient Condition at Discharge: Stable Plan - Discharge Summary Discharge Rx Participant: Yes New Discharge Prescriptions: New Spironolactone [Aldactone] 25 mg PO DAILY #30 tab Amoxic-Pot Clav 875-125Mg [Augmentin 875-125] 1 each PO Q12HR #6 tab Lisinopril [Zestril] 2.5 mg PO DAILY #30 tab Continue Aspirin 81 mg PO DAILY #1 chewable Levothyroxine Sodium [Synthroid] 75 mcg PO DAILY Nitroglycerin Sl Tabs [Nitrostat] 0.4 mg SUBLINGUAL Q5M PRN #25 tab PRN Reason: Chest Pain Pregabalin [Lyrica] 50 mg PO BID Mirtazapine [Remeron] 45 mg PO HS Metoprolol Tartrate [Lopressor] 12.5 mg PO BID fentaNYL 50MCG/HR PATCH [Duragesic 50MCG/HR] 1 patch TRANSDERM Q72H Apixaban [Eliquis] 5 mg PO BID Atorvastatin Calcium [Lipitor] 80 mg PO HS Cevimeline [Evoxac] 30 mg PO BID Furosemide [Lasix] 20 mg PO DAILY Mirabegron [Myrbetriq] 50 mg PO HS Sertraline [Zoloft] 100 mg PO HS Changed Omeprazole [PriLOSEC] 20 mg PO BID #0 Discontinued Ferrous Sulfate [Iron (65 MG Elemental)] 325 mg PO DAILY Clopidogrel [Plavix] 75 mg PO DAILY No Action Biotin 10 mg PO DAILY Hemp Extract 1 cap PO BID Discharge Medication List Aspirin 81 mg PO DAILY #1 chewable 11/16/15 [Rx] Biotin 10 mg PO DAILY 06/02/17 [History] Levothyroxine Sodium [Synthroid] 75 mcg PO DAILY 09/25/17 [History] Nitroglycerin Sl Tabs [Nitrostat] 0.4 mg SUBLINGUAL Q5M PRN #25 tab 12/11/17 [Rx] Hemp Extract 1 cap PO BID 01/23/19 [History] Metoprolol Tartrate [Lopressor] 12.5 mg PO BID 01/23/19 [History] Mirtazapine [Remeron] 45 mg PO HS 01/23/19 [History] Pregabalin [Lyrica] 50 mg PO BID 01/23/19 [History] fentaNYL 50MCG/HR PATCH [Duragesic 50MCG/HR] 1 patch TRANSDERM Q72H 02/20/19 [History] Apixaban [Eliquis] 5 mg PO BID 09/05/19 [History] Atorvastatin Calcium [Lipitor] 80 mg PO HS 09/05/19 [History] Cevimeline [Evoxac] 30 mg PO BID 09/05/19 [History] Furosemide [Lasix] 20 mg PO DAILY 09/05/19 [History] Mirabegron [Myrbetriq] 50 mg PO HS 09/05/19 [History] Sertraline [Zoloft] 100 mg PO HS 09/05/19 [History] Amoxic-Pot Clav 875-125Mg [Augmentin 875-125] 1 each PO Q12HR #6 tab 09/11/19 [Rx] Lisinopril [Zestril] 2.5 mg PO DAILY #30 tab 09/11/19 [Rx] Omeprazole [PriLOSEC] 20 mg PO BID #0 09/11/19 [Rx] Spironolactone [Aldactone] 25 mg PO DAILY #30 tab 09/11/19 [Rx] Follow up Appointment(s)/Referral(s): cardiology, [Other] - 1 Week (dr amezquita on september 17 at 1045. cancel appt that is for october) Jaye Bustamante NPC [Nurse Practitioner] - 09/18/19 2:15 pm Patricia Briones DO [STAFF PHYSICIAN] - 1 Week (need to call and set up appt) Mario Gabriel DO [Primary Care Provider] - 09/13/19 11:15 am Patient Instructions/Handouts: Anemia (DC) Activity/Diet/Wound Care/Special Instructions: cbc/bmp - 5 days Discharge Disposition: HOME SELF-CARE
[2019-09-12] MEDS ORDERED: FUROSEMIDE 40 MG TAB PO SCH (09:00)
[2019-09-13 06:09] VITALS: BP 129/60; PULSE 78; RESP 16; TEMP 98.6
[2019-09-13 06:40] VITALS: BMI 23.3
== END 2019-09-11 14:53 | disposition home or self-care (01) | DRG 377 ==
LOC: EC 12:29 → 2SICU 15:17 → 3SCARD 09-06 18:53
PROVIDERS: ADMIT Hospitalist; ATTEND Hospitalist
PROC: 0W3P8ZZ Control Bleeding in Gastrointestinal Tract, Via Natural or Artificial Opening Endoscopic (ICD-10-PCS; principal; 2019-09-08 07:30)
PROC: 0DBL8ZX Excision of Transverse Colon, Via Natural or Artificial Opening Endoscopic, Diagnostic (ICD-10-PCS; principal; 2019-09-08 07:30)
PROC: 30233N1 Transfusion of Nonautologous Red Blood Cells into Peripheral Vein, Percutaneous Approach (ICD-10-PCS; 2019-09-08 07:30)
DX: K31.811 Angiodysplasia of stomach and duodenum with bleeding (principal); I21.A1 Myocardial infarction type 2; I50.23 Acute on chronic systolic (congestive) heart failure; J15.6 Pneumonia due to other Gram-negative bacteria; I82.401 Acute embolism and thrombosis of unspecified deep veins of right lower extremity; J44.0 Chronic obstructive pulmonary disease with (acute) lower respiratory infection; D62 Acute posthemorrhagic anemia; E78.5 Hyperlipidemia, unspecified; F32.9 Major depressive disorder, single episode, unspecified; F41.9 Anxiety disorder, unspecified; G47.33 Obstructive sleep apnea (adult) (pediatric); E03.9 Hypothyroidism, unspecified; I27.29 Other secondary pulmonary hypertension; M35.00 Sjogren syndrome, unspecified; M79.7 Fibromyalgia; I08.3 Combined rheumatic disorders of mitral, aortic and tricuspid valves; I11.0 Hypertensive heart disease with heart failure; J38.01 Paralysis of vocal cords and larynx, unilateral; K57.90 Diverticulosis of intestine, part unspecified, without perforation or abscess without bleeding; Z20.828 Contact with and (suspected) exposure to other viral communicable diseases; K22.2 Esophageal obstruction; K29.70 Gastritis, unspecified, without bleeding; K59.00 Constipation, unspecified; K63.5 Polyp of colon; K64.8 Other hemorrhoids; D50.9 Iron deficiency anemia, unspecified; I25.10 Atherosclerotic heart disease of native coronary artery without angina pectoris; I25.2 Old myocardial infarction; Z79.899 Other long term (current) drug therapy; Z79.890 Hormone replacement therapy; Z79.82 Long term (current) use of aspirin; Z79.02 Long term (current) use of antithrombotics/antiplatelets; Z88.4 Allergy status to anesthetic agent; Z88.8 Allergy status to other drugs, medicaments and biological substances; Z86.718 Personal history of other venous thrombosis and embolism; Z85.828 Personal history of other malignant neoplasm of skin; Z86.711 Personal history of pulmonary embolism; Z90.710 Acquired absence of both cervix and uterus; Z95.5 Presence of coronary angioplasty implant and graft; Z95.2 Presence of prosthetic heart valve; Z87.19 Personal history of other diseases of the digestive system; Z79.01 Long term (current) use of anticoagulants; Z87.891 Personal history of nicotine dependence; Z87.01 Personal history of pneumonia (recurrent)
CPT/HCPCS: 36415; 36430; 43270; 45380; 71045; 71046; 71250; 71275; 80048; 80053; 80061; 82272; 82607; 82728; 82747; 83010; 83540; 83550; 83735; 83880; 83883; 83921; 84145; 84165; 84484; 85025; 85027; 85045; 85610; 85730; 86334; 86850; 86900; 86901; 86920; 88305; 93005; 93306; 94640; 99285

== ENCOUNTER 2019-09-30 14:57 | Inpatient (IN) | payer MEDICARE ==
--- NOTE | 2019-09-30 15:21 | ED ---
General Adult HPI - General Chief complaint: Dizziness Stated complaint: increased weakness Time Seen by Provider: 09/30/19 15:00 Source: patient, EMS Mode of arrival: EMS Limitations: no limitations - History of Present Illness Initial comments: Dictation was produced using [employer] dictation software. please excuse any grammatical, word or spelling errors. This patient was cared for during a federal and state declared state of emergency secondary to Covid 19 Chief Complaint: 73-year-old female with past medical history of the venous thrombosis, fibromyalgia, cardiac infarction, thyroid disease presents with generalized weakness times one week History of Present Illness: Patient is a 73-year-old female presents today with generalized weakness times one week. Patient states that her symptoms began 7 days ago. Patient reports that she really started to notice her symptoms 3 days ago. This morning her symptoms were so severe that she called EMS and came to the emergency department. Patient states that after ambulating for approximately 15 seconds she would become shaky in her arms and legs. States she has not felt but feels like she is about to fall down. Patient has any pain complaints whenever she ambulates. She does report some mild dyspnea. Patient is a history of heart failure. On last admission she reports that she had aggressive diuresis. Patient states she feels well at rest. Patient lives alone. She has a fentanyl patch in her left upper extremity that she needs for her fibromyalgia. The ROS documented in this emergency department record has been reviewed and confirmed by me. Those systems with pertinent positive or negative responses have been documented in the HPI. All other systems are other negative and/or noncontributory. PHYSICAL EXAM: General Impression: Alert and oriented x3, not in acute distress HEENT: Normocephalic atraumatic, extra-ocular movements intact, pupils equal and reactive to light bilaterally, mucous membranes moist, pupils 4 mm reactive Cardiovascular: Heart regular rate and rhythm Chest: Able to complete full sentences, no retractions, no tachypnea Abdomen: abdomen soft, non-tender, non-distended, no organomegaly Musculoskeletal: Pulses present and equal in all extremities, no peripheral edema Motor: no focal deficits noted Neurological: CN II-XII grossly intact, no focal motor or sensory deficits noted Skin: Intact with no visualized rashes, no patch to the left lateral upper extremity Psych: Normal affect and mood ED course: 73-year-old female presents with generalized weakness times one week. Vital signs upon arrival shows blood pressure 9152 cumbersome vital signs within acceptable limits. Patient has multiple cardiac or morbidities including recent coronary artery stent and valve. EKG shows right bundle branch block. Ventricular rate 79,. 160, QRS 1:30, QTc 458. EKG appears to be similar compared to 09/05/2019. Chart review shows that patient was recently admitted on 09/06/2019. Patient was admitted for GI bleed, DVT. She is on anticoagulation for DVT.Repeat EKG shows no dynamic changes. Sinus rhythm 70, right bundle branch block, NE interval 174, QRS 1:30. Laboratory evaluation obtained. Hemoglobin 7.6. This is appears to be decreased compared to patient's recent CBCs. Her hemoglobin on September 10 this month was 9.3. Coag panel is unremarkable. Metabolic panel shows K acidosis 3.2. There does appear to be some elevated renal markers concerning for starvation lactic acidosis versus lactic acidosis from dehydration. Rest of labs are grossly unremarkable. Urinalysis is negative. There is suspicion that patient is suffering from GI bleed that is intermittent. Chart review shows that patient had recent endoscopy showing possible sources of bleeding. Patient be admitted for symptom medical anemia. Discussed patient case with Dr. Azar who recommends the patient be ordered for a unit transfusion for symptomatic anemia. Patient agreeable for admission. GI on consult. Patient's blood pressures are trended with improvement. - Related Data Home Medications Medication Instructions Recorded Confirmed Biotin 10 mg PO DAILY 06/02/17 09/05/19 Levothyroxine Sodium [Synthroid] 75 mcg PO DAILY 09/25/17 09/05/19 Hemp Extract 1 cap PO BID 01/23/19 09/05/19 Metoprolol Tartrate [Lopressor] 12.5 mg PO BID 01/23/19 09/05/19 Mirtazapine [Remeron] 45 mg PO HS 01/23/19 09/05/19 Pregabalin [Lyrica] 50 mg PO BID 01/23/19 09/05/19 fentaNYL 50MCG/HR PATCH [Duragesic 1 patch TRANSDERM Q72H 02/20/19 09/05/19 50MCG/HR] Apixaban [Eliquis] 5 mg PO BID 09/05/19 09/05/19 Atorvastatin Calcium [Lipitor] 80 mg PO HS 09/05/19 09/05/19 Cevimeline [Evoxac] 30 mg PO BID 09/05/19 09/05/19 Furosemide [Lasix] 20 mg PO DAILY 09/05/19 09/05/19 Mirabegron [Myrbetriq] 50 mg PO HS 09/05/19 09/05/19 Sertraline [Zoloft] 100 mg PO HS 09/05/19 09/05/19 Previous Rx's Medication Instructions Recorded Aspirin 81 mg PO DAILY #1 chewable 11/16/15 Nitroglycerin Sl Tabs [Nitrostat] 0.4 mg SUBLINGUAL Q5M PRN #25 tab 12/11/17 Amoxic-Pot Clav 875-125Mg 1 each PO Q12HR #6 tab 09/11/19 [Augmentin 875-125] Omeprazole [PriLOSEC] 20 mg PO BID #0 09/11/19 Spironolactone [Aldactone] 25 mg PO DAILY #30 tab 09/11/19 lisinopriL [Zestril] 2.5 mg PO DAILY #30 tab 09/11/19 Allergies Allergy/AdvReac Type Severity Reaction Status Date / Time lidocaine [From LidoPatch] Allergy Rash/Hives Verified 09/30/19 17:08 menthol [From LidoPatch] Allergy Rash/Hives Verified 09/30/19 17:08 Review of Systems ROS Statement: Those systems with pertinent positive or pertinent negative responses have been documented in the HPI. ROS Other: All systems not noted in ROS Statement are negative. Past Medical History Past Medical History: Cancer, Deep Vein Thrombosis (DVT), Fibromyalgia, Hyperlipidemia, Hypertension, Myocardial Infarction (HI), Pneumonia, Sleep Apnea/CPAP/BIPAP, Thyroid Disorder Additional Past Medical History / Comment(s): HX PARALYZED LT VOCAL CORD,SKIN CANCER RT EARLOBE, HEART MURMUR, Stent placement, DIVERTICULOSIS, ANEMIA, BLOOD CLOTS DALIA LUNGS AND LEFT AXILLA (NOV 2014) Last Myocardial Infarction Date:: 12-08-17 History of Any Multi-Drug Resistant Organisms: None Reported Past Surgical History: Appendectomy, Cardiac Valve Replacement, Heart Cathet erization, Heart Catheterization With Stent, Hysterectomy, Orthopedic Surgery Additional Past Surgical History / Comment(s): COLONOSCOPY, REPAIR OF PATENT DUCTUS AT 18MOS OF AGE,LAMICECTOMY,UTERINE FIBROID REMOVED , Basal cell REMOVED FROM RIGHT EAR LOBE. RT KNEE SX, LASIK EYE SX, Past Anesthesia/Blood Transfusion Reactions: No Reported Reaction Date of Last Stent Placement:: 12-08-17 Past Psychological History: Anxiety, Depression Smoking Status: Former smoker Past Alcohol Use History: None Reported Past Drug Use History: None Reported - Past Family History Mother Family Medical History: No Reported History Father Family Medical History: Cancer Sister(s) Family Medical History: Cancer General Exam Limitations: no limitations Course Vital Signs 09/30/19 09/30/19 09/30/19 15:08 15:11 15:31 Temperature 98.4 F Pulse Rate 80 80 Pulse Rate [ 76 Sitting] Pulse Rate [ 85 Standing] Pulse Rate [ 76 Supine] Respiratory 18 18 Rate Blood Pressure 91/52 86/46 Blood Pressure 97/48 [Sitting] Blood Pressure 88/43 [Standing] Blood Pressure 86/43 [Supine] O2 Sat by Pulse 97 97 Oximetry 09/30/19 16:40 Temperature Pulse Rate 80 Pulse Rate [ Sitting] Pulse Rate [ Standing] Pulse Rate [ Supine] Respiratory 16 Rate Blood Pressure 114/51 Blood Pressure [Sitting] Blood Pressure [Standing] Blood Pressure [Supine] O2 Sat by Pulse 97 Oximetry Medical Decision Making - Lab Data Result diagrams: 09/30/19 15:31 09/30/19 15:31 Lab Results 09/30/19 09/30/19 09/30/19 Range/Units 15:31 15:31 15:31 WBC 9.8 (3.8-10.6) k/uL RBC 2.53 L (3.80-5.40) m/uL Hgb 7.6 L D (11.4-16.0) gm/dL Hct 23.7 L (34.0-46.0) % MCV 93.9 (80.0-100.0) fL MCH 29.9 (25.0-35.0) pg MCHC 31.9 (31.0-37.0) g/dL RDW 15.4 (11.5-15.5) % Plt Count 346 (150-450) k/uL Neutrophils % 85 % Lymphocytes % 9 % Monocytes % 4 % Eosinophils % 1 % Basophils % 0 % Neutrophils # 8.3 H (1.3-7.7) k/uL Lymphocytes # 0.9 L (1.0-4.8) k/uL Monocytes # 0.4 (0-1.0) k/uL Eosinophils # 0.1 (0-0.7) k/uL Basophils # 0.0 (0-0.2) k/uL Hypochromasia Marked PT 10.4 (9.0-12.0) sec INR 1.0 (<1.2) APTT 20.5 L (22.0-30.0) sec Sodium (137-145) mmol/L Potassium (3.5-5.1) mmol/L Chloride (98-107) mmol/L Carbon Dioxide (22-30) mmol/L Anion Gap mmol/L BUN (7-17) mg/dL Creatinine (0.52-1.04) mg/dL Est GFR (CKD-EPI)AfAm (>60 ml/min/1.73 sqM) Est GFR (CKD-EPI)NonAf (>60 ml/min/1.73 sqM) Glucose (74-99) mg/dL Plasma Lactic Acid Rudy 3.2 H* (0.7-2.0) mmol/L Calcium (8.4-10.2) mg/dL Ionized Calcium Sam (4.5-5.3) mg/dL Magnesium (1.6-2.3) mg/dL Total Bilirubin (0.2-1.3) mg/dL AST (14-36) U/L ALT (4-34) U/L Alkaline Phosphatase (38-126) U/L Ammonia <9 (<30) umol/L Creatine Kinase (30-135) U/L Troponin I (0.000-0.034) ng/mL C-Reactive Protein (<10.0) mg/L NT-Pro-B Natriuret Pep pg/mL Total Protein (6.3-8.2) g/dL Albumin (3.5-5.0) g/dL Urine Color Urine Appearance (Clear) Urine pH (5.0-8.0) Ur Specific [place] (1.001-1.035) Urine Protein (Negative) Urine Glucose (UA) (Negative) Urine Ketones (Negative) Urine Blood (Negative) Urine Nitrite (Negative) Urine Bilirubin (Negative) Urine Urobilinogen (<2.0) mg/dL Ur Leukocyte Esterase (Negative) 09/30/19 09/30/19 09/30/19 Range/Units 15:31 15:31 15:31 WBC (3.8-10.6) k/uL RBC (3.80-5.40) m/uL Hgb (11.4-16.0) gm/dL Hct (34.0-46.0) % MCV (80.0-100.0) fL MCH (25.0-35.0) pg MCHC (31.0-37.0) g/dL RDW (11.5-15.5) % Plt Count (150-450) k/uL Neutrophils % % Lymphocytes % % Monocytes % % Eosinophils % % Basophils % % Neutrophils # (1.3-7.7) k/uL Lymphocytes # (1.0-4.8) k/uL Monocytes # (0-1.0) k/uL Eosinophils # (0-0.7) k/uL Basophils # (0-0.2) k/uL Hypochromasia PT (9.0-12.0) sec INR (<1.2) APTT (22.0-30.0) sec Sodium 138 (137-145) mmol/L Potassium 4.8 (3.5-5.1) mmol/L Chloride 102 (98-107) mmol/L Carbon Dioxide 26 (22-30) mmol/L Anion Gap 10 mmol/L BUN 53 H (7-17) mg/dL Creatinine 1.65 H (0.52-1.04) mg/dL Est GFR (CKD-EPI)AfAm 35 (>60 ml/min/1.73 sqM) Est GFR (CKD-EPI)NonAf 31 (>60 ml/min/1.73 sqM) Glucose 115 H (74-99) mg/dL Plasma Lactic Acid Rudy (0.7-2.0) mmol/L Calcium 9.3 (8.4-10.2) mg/dL Ionized Calcium Sam 5.1 (4.5-5.3) mg/dL Magnesium 2.3 (1.6-2.3) mg/dL Total Bilirubin 0.3 (0.2-1.3) mg/dL AST 40 H (14-36) U/L ALT 25 (4-34) U/L Alkaline Phosphatase 50 (38-126) U/L Ammonia (<30) umol/L Creatine Kinase 97 (30-135) U/L Troponin I 0.016 (0.000-0.034) ng/mL C-Reactive Protein <5.0 (<10.0) mg/L NT-Pro-B Natriuret Pep 2230 pg/mL Total Protein 5.8 L (6.3-8.2) g/dL Albumin 3.6 (3.5-5.0) g/dL Urine Color Urine Appearance (Clear) Urine pH (5.0-8.0) Ur Specific [place] (1.001-1.035) Urine Protein (Negative) Urine Glucose (UA) (Negative) Urine Ketones (Negative) Urine Blood (Negative) Urine Nitrite (Negative) Urine Bilirubin (Negative) Urine Urobilinogen (<2.0) mg/dL Ur Leukocyte Esterase (Negative) 09/30/19 Range/Units 16:40 WBC (3.8-10.6) k/uL RBC (3.80-5.40) m/uL Hgb (11.4-16.0) gm/dL Hct (34.0-46.0) % MCV (80.0-100.0) fL MCH (25.0-35.0) pg MCHC (31.0-37.0) g/dL RDW (11.5-15.5) % Plt Count (150-450) k/uL Neutrophils % % Lymphocytes % % Monocytes % % Eosinophils % % Basophils % % Neutrophils # (1.3-7.7) k/uL Lymphocytes # (1.0-4.8) k/uL Monocytes # (0-1.0) k/uL Eosinophils # (0-0.7) k/uL Basophils # (0-0.2) k/uL Hypochromasia PT (9.0-12.0) sec INR (<1.2) APTT (22.0-30.0) sec Sodium (137-145) mmol/L Potassium (3.5-5.1) mmol/L Chloride (98-107) mmol/L Carbon Dioxide (22-30) mmol/L Anion Gap mmol/L BUN (7-17) mg/dL Creatinine (0.52-1.04) mg/dL Est GFR (CKD-EPI)AfAm (>60 ml/min/1.73 sqM) Est GFR (CKD-EPI)NonAf (>60 ml/min/1.73 sqM) Glucose (74-99) mg/dL Plasma Lactic Acid Rudy (0.7-2.0) mmol/L Calcium (8.4-10.2) mg/dL Ionized Calcium Sam (4.5-5.3) mg/dL Magnesium (1.6-2.3) mg/dL Total Bilirubin (0.2-1.3) mg/dL AST (14-36) U/L ALT (4-34) U/L Alkaline Phosphatase (38-126) U/L Ammonia (<30) umol/L Creatine Kinase (30-135) U/L Troponin I (0.000-0.034) ng/mL C-Reactive Protein (<10.0) mg/L NT-Pro-B Natriuret Pep pg/mL Total Protein (6.3-8.2) g/dL Albumin (3.5-5.0) g/dL Urine Color Colorless Urine Appearance Clear (Clear) Urine pH 7.0 (5.0-8.0) Ur Specific [place] 1.006 (1.001-1.035) Urine Protein Negative (Negative) Urine Glucose (UA) Negative (Negative) Urine Ketones Negative (Negative) Urine Blood Negative (Negative) Urine Nitrite Negative (Negative) Urine Bilirubin Negative (Negative) Urine Urobilinogen <2.0 (<2.0) mg/dL Ur Leukocyte Esterase Negative (Negative) Disposition Clinical Impression: Anemia, Dehydration Disposition: ADMITTED IP TO THIS HOSP Condition: Fair Referrals: Mario Gabriel DO [Primary Care Provider] - 1-2 days Decision Time: 17:16
[2019-09-30] MEDS ORDERED: SODIUM CHLORIDE 0.9% 1,000 ML IV ONE (15:32)
[2019-09-30 15:42] LABS: Ionized Calcium 5.1 mg/dL (4.5-5.3)
[2019-09-30 15:47] LABS: Prothrombin Time 10.4 sec (9.0-12.0)
[2019-09-30 15:49] LABS: Basophils % (A) 0 %; Eosinophils # (A) 0.1 k/uL (0-0.7); Eosinophils % (A) 1 %; HCT 23.7 % (34.0-46.0); Hypochromasia Marked; Lymphocytes # (A) 0.9 k/uL (1.0-4.8); Lymphocytes % (A) 9 %; MCH 29.9 pg (25.0-35.0); MCHC 31.9 g/dL (31.0-37.0); MCV 93.9 fL (80.0-100.0); Mean Platelet Volume 7.6; Monocytes # (A) 0.4 k/uL (0-1.0); Monocytes % (A) 4 %; Neutrophils # (A) 8.3 k/uL (1.3-7.7); Neutrophils % (A) 85 %; Platelet Count 346 k/uL (150-450); RBC 2.53 m/uL (3.80-5.40); RDW 15.4 % (11.5-15.5); WBC 9.8 k/uL (3.8-10.6)
[2019-09-30 15:52] LABS: ALT 25 U/L (4-34); AST 40 U/L (14-36); African American GFR (CKD) 35 (>60 ml/min/1.73 sqM); Albumin 3.6 g/dL (3.5-5.0); Alkaline Phosphatase 50 U/L (38-126); Anion Gap 10 mmol/L; Blood Urea Nitrogen 53 mg/dL (7-17); C Reactive Protein <5.0 mg/L (<10.0); Calcium 9.3 mg/dL (8.4-10.2); Carbon Dioxide 26 mmol/L (22-30); Chloride 102 mmol/L (98-107); Creatine Kinase 97 U/L (30-135); Glucose 115 mg/dL (74-99); Magnesium 2.3 mg/dL (1.6-2.3); Non-African American GFR(CKD) 31 (>60 ml/min/1.73 sqM); Potassium 4.8 mmol/L (3.5-5.1); Sodium 138 mmol/L (137-145); Total Bilirubin 0.3 mg/dL (0.2-1.3); Total Protein 5.8 g/dL (6.3-8.2)
[2019-09-30 15:58] LABS: Lactic Acid, Venous 3.2 mmol/L (0.7-2.0)
[2019-09-30 16:09] LABS: HGB 7.6 gm/dL (11.4-16.0)
[2019-09-30 16:29] LABS: Partial Thromboplastin Time 20.5 sec (22.0-30.0)
[2019-09-30 17:04] LABS: Appearance,Urine Clear (Clear); Bilirubin,Urine Negative (Negative); Blood,Urine Negative (Negative); Color,Urine Colorless; Glucose,Urine (UA) Negative (Negative); Ketones,Urine Negative (Negative); Leukocyte Esterase,Urine Negative (Negative); Nitrite,Urine Negative (Negative); Protein,Urine Negative (Negative); Specific Gravity,Urine 1.006 (1.001-1.035); Urobilinogen,Urine <2.0 mg/dL (<2.0)
[2019-09-30] MEDS ORDERED: ONDANSETRON 4 MG/2 ML VIAL IVP PRN (17:12)
[2019-09-30] MEDS ORDERED: ACETAMINOPHEN TAB 325 MG TAB PO PRN (17:12)
[2019-09-30] MEDS ORDERED: NALOXONE 0.4 MG/ML 1 ML VIAL IV PRN (17:12)
--- NOTE | 2019-09-30 17:24 | XR ---
EXAMINATION TYPE: XR chest 2V DATE OF EXAM: 09/30/2019 COMPARISON: 09/10/2019 HISTORY: Weakness TECHNIQUE: 2 views FINDINGS: Heart is enlarged. There is no heart failure. There is coarsening of the interstitial breann ngs. There is no definite pleural effusion. There are chest leads. Thoracic aorta is atheromatous. Th ere is stent at the aortic valve. IMPRESSION: Cardiomegaly. Mild fibrotic changes. Heart failure and pleural fluid are essentially josh red compared to old exam.
[2019-09-30] MEDS: PANTOPRAZOLE 40 MG/10 ML VIAL IV SCH (18:35)
[2019-09-30] MEDS: SODIUM CHLORIDE 0.9% 1,000 ML IV SCH (20:26)
[2019-09-30] MEDS ORDERED: NITROGLYCERIN SL TABS 0.4 MG TAB SUBLINGUAL PRN (21:02)
[2019-09-30] MEDS: ATORVASTATIN 80 MG TAB PO SCH (21:45)
[2019-09-30] MEDS: SERTRALINE 100 MG TAB PO SCH (21:45)
[2019-09-30] MEDS: PREGABALIN 50 MG CAP PO SCH (21:46)
[2019-09-30] MEDS: MIRTAZAPINE 45 MG TABLET PO SCH (21:46)
[2019-09-30] MEDS: METOPROLOL TARTRATE 25 MG TAB PO SCH (21:46)
[2019-09-30] MEDS: CEVIMELINE 30 MG CAP PO SCH (21:47)
[2019-09-30] MEDS: Mirabegron [Myrbetriq] 50 MG PO SCH (21:53)
[2019-10-01 02:29] LABS: HCT 24.5 % (34.0-46.0); HGB 7.5 gm/dL (11.4-16.0); Hypochromasia Marked; MCH 28.4 pg (25.0-35.0); MCHC 30.6 g/dL (31.0-37.0); MCV 92.7 fL (80.0-100.0); Mean Platelet Volume 7.3; Platelet Count 255 k/uL (150-450); RBC 2.64 m/uL (3.80-5.40); RDW 15.9 % (11.5-15.5); WBC 8.7 k/uL (3.8-10.6)
[2019-10-01] MEDS: SODIUM CHLORIDE 0.9% 1,000 ML IV SCH ×2 (05:48→12:11)
[2019-10-01] MEDS: LEVOTHYROXINE 75 MCG TAB PO SCH (05:48)
[2019-10-01] MEDS: PREGABALIN 50 MG CAP PO SCH ×2 (07:50→20:26)
[2019-10-01] MEDS: METOPROLOL TARTRATE 25 MG TAB PO SCH ×2 (07:50→20:25)
[2019-10-01] MEDS: PANTOPRAZOLE 40 MG/10 ML VIAL IV SCH (07:50)
[2019-10-01] MEDS: CEVIMELINE 30 MG CAP PO SCH ×2 (07:50→20:25)
[2019-10-01] MEDS ORDERED: SPIRONOLACTONE 25 MG TAB PO SCH (09:00)
[2019-10-01] MEDS ORDERED: BIOTIN 10 MG PO SCH (09:00)
[2019-10-01 09:06] LABS: Anisocytosis Slight; HCT 23.8 % (34.0-46.0); HGB 7.2 gm/dL (11.4-16.0); Hypochromasia Marked; MCH 28.1 pg (25.0-35.0); MCHC 30.3 g/dL (31.0-37.0); MCV 92.7 fL (80.0-100.0); Mean Platelet Volume 7.1; Platelet Count 259 k/uL (150-450); RBC 2.57 m/uL (3.80-5.40); RDW 16.1 % (11.5-15.5); WBC 6.6 k/uL (3.8-10.6)
[2019-10-01] MEDS ORDERED: PROPOFOL 10 MG/ML 20 ML VIAL IV ONE (10:36)
[2019-10-01] MEDS ORDERED: IV FLUID CONTINUATION 1,000 ML IV ONE (10:36)
[2019-10-01] MEDS ORDERED: fentaNYL (PF) 50 MCG/ML 2 ML AMP ONE (10:36)
[2019-10-01] MEDS ORDERED: LIDOCAINE 1% INJ 10MG/ML (20 ML MDV) ONE (10:36)
--- NOTE | 2019-10-01 11:28 | P.CONS ---
History of Present Illness - Reason for Consult Consult date: 10/01/19 Anemia Requesting physician: Len Azar - Chief Complaint Weakness - History of Present Illness 73-year-old female with multiple medical comorbidities including recurrent episodes of anemia requiring hospitalization who presented to the hospital with complaints of shortness of breath and weakness. The patient has been following up with the hematology service since her last discharge earlier in the month, previously she was on iron supplementation therapy but reports that currently she is not taking any oral iron. The patient reports she had been feeling increasing shortness of breath and weakness and presents to the hospital for further evaluation. Patient has a history of esophageal stricture treated with balloon dilation in 02/2019 as well as a prior history of gastric angiectasia in 2013. On her last hospitalization she was taken for EGD and colonoscopy with no active bleeding noted on EGD however there was one angioectasia seen in the third portion of the duodenum which was treated with gold probe ablation, she had colonoscopy at that time which was also significant for diminutive transverse colon polyp removed with cold forcep polypectomy as well as low-grade internal hemorrhoids and moderate pandiverticulosis. She denies any signs or symptoms of GI bleeding at this time. On her last hospitalization was not felt that it was safe for her to proceed with capsule endoscopy due to her severe stricturing of the distal esophagus. She reports that she has problems getting large pills and solids down her esophagus. She denies any nausea, vomiting, hematemesis or coffee-ground emesis and melena. Review of Systems REVIEW OF SYSTEMS: CONSTITUTIONAL: Denies any fevers, chills, weight change but she is reporting fatigue and shortness of breath. CARDIOVASCULAR: Denies any chest pain, palpitations high or low blood pressures RESPIRATORY: Denies any hemoptysis or cough but that she does have shortness of breath worsened with exacerbation. GENITOURINARY: No dysuria or hematuria. MUSCULOSKELETAL: No weakness reported. SKIN: Denies any new rashes or lesions, jaundice or pallor. PSYCHIATRIC: Denies any depression or anxiety. NEUROLOGY: Denies headache, denies any new focal deficits. EARS/NOSE/THROAT: No recent hearing change, congestion, nasal discharge or sore throat. EYES: No pain in eyes, discharge or change in vision. GASTROINTESTINAL: As per HPI. Past Medical History Past Medical History: Cancer, Deep Vein Thrombosis (DVT), Fibromyalgia, Hyperlipidemia, Hypertension, Myocardial Infarction ([place]), Pneumonia, Sleep Apne a/CPAP/BIPAP, Thyroid Disorder Additional Past Medical History / Comment(s): HX PARALYZED LT VOCAL CORD,SKIN CANCER RT EARLOBE, HEART MURMUR, Stent placement, DIVERTICULOSIS, ANEMIA, BLOOD CLOTS DALIA LUNGS AND LEFT AXILLA (NOV 2014) Last Myocardial Infarction Date:: 12-08-17 History of Any Multi-Drug Resistant Organisms: None Reported Past Surgical History: Appendectomy, Cardiac Valve Replacement, Heart Catheterization, Heart Catheterization With Stent, Hysterectomy, Orthopedic Surgery Additional Past Surgical History / Comment(s): COLONOSCOPY, REPAIR OF PATENT DUCTUS AT 18MOS OF AGE,LAMICECTOMY,UTERINE FIBROID REMOVED , Basal cell REMOVED FROM RIGHT EAR LOBE. RT KNEE SX, LASIK EYE SX, Past Anesthesia/Blood Transfusion Reactions: No Reported Reaction Date of Last Stent Placement:: 12-08-17 Past Psychological History: Anxiety, Depression Additional Psychological History / Comment(s): no medical equipment.pt lives alone in own home. stated has [facility] care. Smoking Status: Former smoker Past Alcohol Use History: None Reported Additional Past Alcohol Use History / Comment(s): QUIT SMOKING IN SMOKED FOR APPROX. 10 YEARS. SMOKED 1PPD. 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 Past Drug Use History: None Reported - Past Family History Mother Family Medical History: No Reported History Father Family Medical History: Cancer Sister(s) Family Medical History: Cancer Medications and Allergies Home Medications Medication Instructions Recorded Confirmed Type Aspirin 81 mg PO DAILY #1 chewable 11/16/15 09/30/19 Rx Biotin 10 mg PO DAILY 06/02/17 09/30/19 History Levothyroxine Sodium [Synthroid] 75 mcg PO DAILY 09/25/17 09/30/19 History Nitroglycerin Sl Tabs [Nitrostat] 0.4 mg SUBLINGUAL Q5M PRN #25 tab 12/11/17 09/30/19 Rx Hemp Extract 1 cap PO BID 01/23/19 09/30/19 History Metoprolol Tartrate [Lopressor] 12.5 mg PO BID 01/23/19 09/30/19 History Mirtazapine [Remeron] 45 mg PO HS 01/23/19 09/30/19 History Pregabalin [Lyrica] 50 mg PO BID 01/23/19 09/30/19 History fentaNYL 50MCG/HR PATCH [Duragesic 1 patch TRANSDERM Q72H 02/20/19 09/30/19 History 50MCG/HR] Apixaban [Eliquis] 5 mg PO BID 09/05/19 09/30/19 History Atorvastatin Calcium [Lipitor] 80 mg PO HS 09/05/19 09/30/19 History Cevimeline [Evoxac] 30 mg PO BID 09/05/19 09/30/19 History Furosemide [Lasix] 20 mg PO DAILY 09/05/19 09/30/19 History Mirabegron [Myrbetriq] 50 mg PO HS 09/05/19 09/30/19 History Sertraline [Zoloft] 100 mg PO HS 09/05/19 09/30/19 History Omeprazole [PriLOSEC] 20 mg PO BID #0 09/11/19 09/30/19 Rx Spironolactone [Aldactone] 25 mg PO DAILY #30 tab 09/11/19 09/30/19 Rx lisinopriL [Zestril] 2.5 mg PO DAILY #30 tab 09/11/19 09/30/19 Rx Allergies Allergy/AdvReac Type Severity Reaction Status Date / Time lidocaine [From LidoPatch] Allergy Rash/Hives Verified 09/30/19 17:08 menthol [From LidoPatch] Allergy Rash/Hives Verified 09/30/19 17:08 Physical Exam Vitals: Vital Signs Temp Pulse Pulse Pulse Pulse Resp BP 10/01/19 04:30 98.1 F 76 14 09/30/19 23:45 16 09/30/19 20:10 98.4 F 76 16 103/61 09/30/19 19:20 98.3 F 80 16 09/30/19 19:09 98.7 F 79 16 111/51 09/30/19 18:39 98.8 F 78 18 108/50 09/30/19 18:29 98.8 F 78 16 109/58 09/30/19 16:40 80 16 114/51 09/30/19 15:31 76 85 76 09/30/19 15:11 80 18 86/46 09/30/19 15:08 98.4 F 80 18 91/52 BP BP BP Pulse Ox 10/01/19 04:30 129/66 96 09/30/19 23:45 09/30/19 20:10 97 09/30/19 19:20 113/63 09/30/19 19:09 09/30/19 18:39 96 09/30/19 18:29 97 09/30/19 16:40 97 09/30/19 15:31 97/48 88/43 86/43 09/30/19 15:11 97 09/30/19 15:08 97 Intake and Output 09/30/19 10/01/19 10/01/19 22:59 06:59 14:59 Intake Total 630 640 Output Total 400 Balance 630 640 -400 Intake: Intake, IV Titration 320 640 Amount Sodium Chloride 0.9% 1, 320 640 000 ml @ 80 mls/hr IV . [id number] Rx#:[id number] Blood Product 310 Rc As-1 Unit 310 [id number] Output: Urine 400 Other: Voiding Method Bedside Commode Bedside Commode # Voids 1 1 Weight 57.153 kg On physical examination, patient appears comfortable in no apparent distress. HEAD: Normocephalic, atraumatic. EYES: No scleral icterus. No conjunctival injection. MOUTH: No lesions, tongue midline. NECK: Trachea midline, no gross abnormalities. CHEST: Clear to auscultation with no wheezing or rhonchi appreciated. HEART: S1-S2 appreciated. ABDOMEN: Soft, thin and nontender to palpation. Bowel sounds are positive. No organomegaly. No guarding or rigidity. EXTREMITIES: No pedal edema. SKIN: No rashes, no jaundice. NEUROLOGIC: Alert and oriented x3. No focal deficits. Results CBC & Chem 7: 10/01/19 08:13 09/30/19 15:31 Labs: Abnormal Lab Results - Last 24 Hours (Table) 09/30/19 09/30/19 09/30/19 Range/Units 15:17 15:31 15:31 RBC 2.53 L (3.80-5.40) m/uL Hgb 7.6 L D (11.4-16.0) gm/dL Hct 23.7 L (34.0-46.0) % MCHC (31.0-37.0) g/dL RDW (11.5-15.5) % Neutrophils # 8.3 H (1.3-7.7) k/uL Lymphocytes # 0.9 L (1.0-4.8) k/uL APTT (22.0-30.0) sec BUN (7-17) mg/dL Creatinine (0.52-1.04) mg/dL Glucose (74-99) mg/dL Plasma Lactic Acid Rudy 3.2 H* (0.7-2.0) mmol/L AST (14-36) U/L Total Protein (6.3-8.2) g/dL Crossmatch See Detail 09/30/19 09/30/19 10/01/19 Range/Units 15:31 15:31 02:06 RBC 2.64 L (3.80-5.40) m/uL Hgb 7.5 L (11.4-16.0) gm/dL Hct 24.5 L (34.0-46.0) % MCHC 30.6 L (31.0-37.0) g/dL RDW 15.9 H (11.5-15.5) % Neutrophils # (1.3-7.7) k/uL Lymphocytes # (1.0-4.8) k/uL APTT 20.5 L (22.0-30.0) sec BUN 53 H (7-17) mg/dL Creatinine 1.65 H (0.52-1.04) mg/dL Glucose 115 H (74-99) mg/dL Plasma Lactic Acid Rudy (0.7-2.0) mmol/L AST 40 H (14-36) U/L Total Protein 5.8 L (6.3-8.2) g/dL Crossmatch 10/01/19 Range/Units 08:13 RBC 2.57 L (3.80-5.40) m/uL Hgb 7.2 L (11.4-16.0) gm/dL Hct 23.8 L (34.0-46.0) % MCHC 30.3 L (31.0-37.0) g/dL RDW 16.1 H (11.5-15.5) % Neutrophils # (1.3-7.7) k/uL Lymphocytes # (1.0-4.8) k/uL APTT (22.0-30.0) sec BUN (7-17) mg/dL Creatinine (0.52-1.04) mg/dL Glucose (74-99) mg/dL Plasma Lactic Acid Rudy (0.7-2.0) mmol/L AST (14-36) U/L Total Protein (6.3-8.2) g/dL Crossmatch Chest x-ray: report reviewed (Cardiomegaly and mild fibrotic changes of the lungs noted on chest x-ray) Assessment and Plan (1) Normocytic anemia Narrative/Plan: 73-year-old female with multiple medical comorbidities who presented to the hospital due to weakness and shortness of breath. Recently hospitalized for similar complaints earlier in September at which time EGD showed a benign-appearing distal esophageal stricture with a small nonbleeding angiectasia in the third portion of the duodenum treated with gold probe ablation therapy. She also had colonoscopy at that time with polypectomy and diverticulosis noted. She has been followed up by the hematology service and is currently not on any iron therapy. She does report she is on Eliquis. Video capsule endoscopy has not been performed as the patient has a severe narrowing of her distal esophagus prohibiting the procedure. Suspicion is for small bowel angiectasia with associated blood loss, however at this time she denies any signs or symptoms of GI bleeding. Current Visit: Yes Status: Acute Code(s): D64.9 - ANEMIA, UNSPECIFIED SNOMED Code(s): 841391364 (2) Esophageal stricture Current Visit: No Status: Acute Code(s): K22.2 - ESOPHAGEAL OBSTRUCTION SNOMED Code(s): 05536364 Plan: Supportive care Nothing by mouth Continue Protonix therapy Continue to monitor hemoglobin and hematocrit and transfuse as needed Plan for EGD for further evaluation Further endoscopic evaluation with video capsule endoscopy likely prohibited by distal esophageal stricture Hematology consult to see the patient Thank you for allowing us to participate in the care of the patient
--- NOTE | 2019-10-01 11:34 | P.PCN ---
Date of Procedure: 10/01/19 Description of Procedure: Brief history: 73-year-old female with multiple medical comorbidities including recurrent episodes of anemia requiring hospitalization who presented to the hospital with complaints of shortness of breath and weakness. The patient has been following up with the hematology service since her last discharge earlier in the month, previously she was on iron supplementation therapy but reports that currently she is not taking any oral iron. The patient reports she had been feeling increasing shortness of breath and weakness and presents to the hospital for further evaluation. Patient has a history of esophageal stricture treated with balloon dilation in 02/2019 as well as a prior history of gastric angiectasia in 2013. On her last hospitalization she was taken for EGD and colonoscopy with no active bleeding noted on EGD however there was one angioectasia seen in the third portion of the duodenum which was treated with gold probe ablation, she had colonoscopy at that time which was also significant for diminutive transverse colon polyp removed with cold forcep polypectomy as well as low-grade internal hemorrhoids and moderate pandiverticulosis. She denies any signs or symptoms of GI bleeding at this time. Procedure performed: Esophagogastroduodenoscopy with qqtgbvb-[id number] balloon dilation of the distal esophagus/esophageal stricture . Estimated blood loss: Minimal. Preoperative diagnosis: Anemia Anesthesia: MAC Procedure: After informed consent was obtained from the patient was brought into the endoscopy unit and IV sedation was administered by anesthesia under continuous monitoring. Initially upper endoscopy was done. The Olympus GF 190 video endoscope was inserted into the mouth and esophagus intubated without any difficulty and was gradually advanced into the stomach and duodenum and carefully examined. The bulb and second part of the duodenum appeared normal, with no active bleeding, old blood or angiectasia noted. The scope was then withdrawn into the stomach adequately insufflated with air and upon careful e xamination the antrum and body, cardia and fundus appeared normal. The scope was then withdrawn into the esophagus. The GE junction was located at 37 cm to the incisors, with a benign-appearing stricture just proximal to the GE junction which wa serially dilated with a vapqtws-yzn-mwzpo balloon dilator to 8 mm9 mm10 mm. The esophagus otherwise appeared regular with no erythema erosions or ulcerations. Rest of the esophagus appeared normal. Patient tolerated the procedure well. Impression: 1. No active bleeding or old blood noted on EGD. 1 2. Benign appearing distal esophageal stricture (previously dilated on 02/2019) which was serially dilated with a qxteuxn-oac-igmcq balloon dilator. Recommendations: Findings of this examination were discussed with the patient. Okay toresume full liquid diet and then advance to regular diet if no signs or symptoms of bleeding and hemoglobin remains stable. Suspicion is for small bowel angiectasia given prior history of gastric and small bowel angiectasia, however given severe narrowing of the distal esophagus proceeding with video capsule endoscopy not felt to be safe at this time.
[2019-10-01 20:04] VITALS: RESP 16
[2019-10-01] MEDS: Mirabegron [Myrbetriq] 50 MG PO SCH (20:25)
[2019-10-01] MEDS: SERTRALINE 100 MG TAB PO SCH (20:26)
[2019-10-01] MEDS: ATORVASTATIN 80 MG TAB PO SCH (20:26)
[2019-10-01] MEDS: MIRTAZAPINE 45 MG TABLET PO SCH (22:51)
--- NOTE | 2019-10-01 23:36 | P.HPIM ---
History of Present Illness H&P Date: 10/01/19 Chief Complaint: V and tired History of presenting complaint: This is a pleasant 73-year-old patient who follows with Dr. Gabriel. Chronic stable medical conditions include coronary artery with LAD stent, hypertensive heart disease, severe aortic stenosis with AV valve replacement., hyperlipidemia, hypothyroid, chronic left vocal cord paralysis, fibromyalgia, diverticulosis. Patient had multiple DVTs in the past. For which she has been eliquis. I reviewed this month admitted with symptomatic anemia. EGD showed nonbleeding angioma ectasia in the third portion of duodenum. Gold probe ablation done. Also benign distal esophageal stricture. Moderate pandiverticul osis. Eliquis was resumed and patient was discharged. Patient now presents feeling very tired and short of breath. Appetite is good. All stools. No fever no chills..hemoglobin was found to be 7.6. It was 9.3 on September 10.being symptomatic one unit of blood was given. Review of systems: GEN.: Tired EYES: None HEENT: None NECK: None RESPIRATORY: [As above, no fever no chills CARDIOVASCULAR: None GASTROINTESTINAL: None GENITOURINARY: None MUSCULOSKELETAL: None LYMPHATICS: None HEMATOLOGICAL: None PSYCHIATRY: None NEUROLOGICAL: None. Past medical history to include: DVT, fibromyalgia, hyperlipidemia, hypertension, obstructive sleep apnea, hypothyroid, left vocal cord paralysis, coronary artery disease with stent, diverticulosis, bilateral PE and left axilla clot, basal cell removed from the right ear anxiety depression, nonbleeding angioma Tacy a the duodenum, benign distal esophagus and stricture, pandiverticulosis-clonic Social history: Patient smoked for about 10 years stopped in . Smoked a pack a day. 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 Physical examination: VITAL SIGNS: 98.4,18, 18, 86/46, 97% on room air GENERAL: BMI 23, laying in bed, rate. EYES: [Pupils equal. Conjunctiva pale . HEENT: External appearance of nose and ears normal, oral cavity grossly normal. NECK: JVD not raised; masses not palpable. HEART: First and second heart sounds are normal; no edema. LUNGS: Respiratory rate normal; clear to auscultation. ABDOMEN: Soft, nontender, liver spleen not palpable, no masses palpable. PSYCH: Alert and oriented x3; mood and affect normal. NEUROLOGICAL: Cranial nerves grossly intact; no facial asymmetry, power and sensation grossly intact. LYMPHATICS: No lymph nodes palpable in the axilla and neck INVESTIGATIONS, reviewed in the clinical context: white count 9.8 hemoglobin 7.6 platelets 346 potassium 4.8 bun 53 creatinine 1.6 5 lactic acid 3.2 Previous testing: Bun 24 creatinine 0.81 on September 10 Assessment: -Acute kidney injury likely prerenal from patient being on Lasix and LOPEZ inhibitor. Causing patient's symptoms. 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 Subsequently right lower extremity DVT unprovoked in August 2019 in the right femoral popliteal vein. For which she has been on eliquis. -Chronic fibromyalgia Hyperlipidemia Essential hypertension -Coronary artery disease with stent to LAD -Obstructive sleep apnea -Hypothyroid -Chronic left vocal cord paralysis -Chronic diverticulosis -Benign esophageal stricture. Last dilated in February 2019 -chronic congestive heart failure from systolic dysfunction EF 40-45% - moderate tricuspid regurgitation, severe mitral regurgitation- -Secondary pulmonary hypertension -Benign esophageal stricture Plan: patient received a unit of blood.later this afternoon underwent EGD that showed no evidence of active bleeding. Dilatation of the stricture was conducted. Patient started liquid diet. Hold Lasix and lopez inhibitor. Gently hydrate the patient. Repeat labs in the morning. Past Medical History Past Medical History: Cancer, Deep Vein Thrombosis (DVT), Fibromyalgia, Hype rlipidemia, Hypertension, Myocardial Infarction ([place]), Pneumonia, Sleep Apnea/CPAP/BIPAP, Thyroid Disorder Additional Past Medical History / Comment(s): HX PARALYZED LT VOCAL CORD,SKIN CANCER RT EARLOBE, HEART MURMUR, Stent placement, DIVERTICULOSIS, ANEMIA, BLOOD CLOTS DALIA LUNGS AND LEFT AXILLA (NOV 2014) Last Myocardial Infarction Date:: 12-08-17 History of Any Multi-Drug Resistant Organisms: None Reported Past Surgical History: Appendectomy, Cardiac Valve Replacement, Heart Catheterization, Heart Catheterization With Stent, Hysterectomy, Orthopedic Surgery Additional Past Surgical History / Comment(s): COLONOSCOPY, REPAIR OF PATENT DUCTUS AT 18MOS OF AGE,LAMICECTOMY,UTERINE FIBROID REMOVED , Basal cell REMOVED FROM RIGHT EAR LOBE. RT KNEE SX, LASIK EYE SX, Past Anesthesia/Blood Transfusion Reactions: No Reported Reaction Date of Last Stent Placement:: 12-08-17 Past Psychological History: Anxiety, Depression Additional Psychological History / Comment(s): no medical equipment.pt lives alone in own home. stated has [facility] home care. Smoking Status: Former smoker Past Alcohol Use History: None Reported Additional Past Alcohol Use History / Comment(s): QUIT SMOKING IN SMOKED FOR APPROX. 10 YEARS. SMOKED 1PPD. 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 Past Drug Use History: None Reported - Past Family History Mother Family Medical History: No Reported History Father Family Medical History: Cancer Sister(s) Family Medical History: Cancer Medications and Allergies Home Medications Medication Instructions Recorded Confirmed Type Aspirin 81 mg PO DAILY #1 chewable 11/16/15 09/30/19 Rx Biotin 10 mg PO DAILY 06/02/17 09/30/19 History Levothyroxine Sodium [Synthroid] 75 mcg PO DAILY 09/25/17 09/30/19 History Nitroglycerin Sl Tabs [Nitrostat] 0.4 mg SUBLINGUAL Q5M PRN #25 tab 12/11/17 09/30/19 Rx Hemp Extract 1 cap PO BID 01/23/19 09/30/19 History Metoprolol Tartrate [Lopressor] 12.5 mg PO BID 01/23/19 09/30/19 History Mirtazapine [Remeron] 45 mg PO HS 01/23/19 09/30/19 History Pregabalin [Lyrica] 50 mg PO BID 01/23/19 09/30/19 History fentaNYL 50MCG/HR PATCH [Duragesic 1 patch TRANSDERM Q72H 02/20/19 09/30/19 History 50MCG/HR] Apixaban [Eliquis] 5 mg PO BID 09/05/19 09/30/19 History Atorvastatin Calcium [Lipitor] 80 mg PO HS 09/05/19 09/30/19 History Cevimeline [Evoxac] 30 mg PO BID 09/05/19 09/30/19 History Furosemide [Lasix] 20 mg PO DAILY 09/05/19 09/30/19 History Mirabegron [Myrbetriq] 50 mg PO HS 09/05/19 09/30/19 History Sertraline [Zoloft] 100 mg PO HS 09/05/19 09/30/19 History Omeprazole [PriLOSEC] 20 mg PO BID #0 09/11/19 09/30/19 Rx Spironolactone [Aldactone] 25 mg PO DAILY #30 tab 09/11/19 09/30/19 Rx lisinopriL [Zestril] 2.5 mg PO DAILY #30 tab 09/11/19 09/30/19 Rx Allergies Allergy/AdvReac Type Severity Reaction Status Date / Time lidocaine [From LidoPatch] Allergy Rash/Hives Verified 09/30/19 17:08 menthol [From LidoPatch] Allergy Rash/Hives Verified 09/30/19 17:08 Physical Exam Vitals: Vital Signs Temp Pulse Pulse Pulse Pulse Resp BP 10/01/19 04:30 98.1 F 76 14 09/30/19 23:45 16 09/30/19 20:10 98.4 F 76 16 103/61 09/30/19 19:20 98.3 F 80 16 09/30/19 19:09 98.7 F 79 16 111/51 09/30/19 18:39 98.8 F 78 18 108/50 09/30/19 18:29 98.8 F 78 16 109/58 09/30/19 16:40 80 16 114/51 09/30/19 15:31 76 85 76 09/30/19 15:11 80 18 86/46 09/30/19 15:08 98.4 F 80 18 91/52 BP BP BP Pulse Ox 10/01/19 04:30 129/66 96 09/30/19 23:45 09/30/19 20:10 97 09/30/19 19:20 113/63 09/30/19 19:09 09/30/19 18:39 96 09/30/19 18:29 97 09/30/19 16:40 97 09/30/19 15:31 97/48 88/43 86/43 09/30/19 15:11 97 09/30/19 15:08 97 Intake and Output 09/30/19 10/01/19 10/01/19 22:59 06:59 14:59 Intake Total 630 640 Output Total 400 Balance 630 640 -400 Intake: Intake, IV Titration 320 640 Amount Sodium Chloride 0.9% 1, 320 640 000 ml @ 80 mls/hr IV . [id number] [facility] Rx#:[id number] Blood Product 310 Rc As-1 Unit 310 [id number] Output: Urine 400 Other: Voiding Method Bedside Commode Bedside Commode # Voids 1 1 Weight 57.153 kg Results CBC & Chem 7: 10/01/19 08:13 09/30/19 15:31 Labs: Abnormal Lab Results - Last 24 Hours (Table) 09/30/19 09/30/19 09/30/19 Range/Units 15:17 15:31 15:31 RBC 2.53 L (3.80-5.40) m/uL Hgb 7.6 L D (11.4-16.0) gm/dL Hct 23.7 L (34.0-46.0) % MCHC (31.0-37.0) g/dL RDW (11.5-15.5) % Neutrophils # 8.3 H (1.3-7.7) k/uL Lymphocytes # 0.9 L (1.0-4.8) k/uL APTT (22.0-30.0) sec BUN (7-17) mg/dL Creatinine (0.52-1.04) mg/dL Glucose (74-99) mg/dL Plasma Lactic Acid Rudy 3.2 H* (0.7-2.0) mmol/L AST (14-36) U/L Total Protein (6.3-8.2) g/dL Crossmatch See Detail 09/30/19 09/30/19 10/01/19 Range/Units 15:31 15:31 02:06 RBC 2.64 L (3.80-5.40) m/uL Hgb 7.5 L (11.4-16.0) gm/dL Hct 24.5 L (34.0-46.0) % MCHC 30.6 L (31.0-37.0) g/dL RDW 15.9 H (11.5-15.5) % Neutrophils # (1.3-7.7) k/uL Lymphocytes # (1.0-4.8) k/uL APTT 20.5 L (22.0-30.0) sec BUN 53 H (7-17) mg/dL Creatinine 1.65 H (0.52-1.04) mg/dL Glucose 115 H (74-99) mg/dL Plasma Lactic Acid Rudy (0.7-2.0) mmol/L AST 40 H (14-36) U/L Total Protein 5.8 L (6.3-8.2) g/dL Crossmatch 10/01/19 Range/Units 08:13 RBC 2.57 L (3.80-5.40) m/uL Hgb 7.2 L (11.4-16.0) gm/dL Hct 23.8 L (34.0-46.0) % MCHC 30.3 L (31.0-37.0) g/dL RDW 16.1 H (11.5-15.5) % Neutrophils # (1.3-7.7) k/uL Lymphocytes # (1.0-4.8) k/uL APTT (22.0-30.0) sec BUN (7-17) mg/dL Creatinine (0.52-1.04) mg/dL Glucose (74-99) mg/dL Plasma Lactic Acid Rudy (0.7-2.0) mmol/L AST (14-36) U/L Total Protein (6.3-8.2) g/dL Crossmatch Thrombosis Risk Factor Assmnt - Choose All That Apply Any of the Below Risk Factors Present?: Yes Each Factor Represents 1 point: Medical pt on bed rest Other Risk Factors: Yes Each Risk Factor Represents 2 Points: Age 61-74 years Each Risk Factor Represents 3 Points: History of DVT/PE Other congenital or acquired thrombophilia - If yes, enter type in comment: No Thrombosis Risk Factor Assessment Total Risk Factor Score: 6 Thrombosis Risk Factor Assessment Level: High Risk
[2019-10-02] MEDS: SODIUM CHLORIDE 0.9% 1,000 ML IV SCH (03:35)
[2019-10-02] MEDS: LEVOTHYROXINE 75 MCG TAB PO SCH (05:30)
[2019-10-02] MEDS: METOPROLOL TARTRATE 25 MG TAB PO SCH (07:28)
[2019-10-02] MEDS: PREGABALIN 50 MG CAP PO SCH (07:28)
[2019-10-02] MEDS: CEVIMELINE 30 MG CAP PO SCH (07:28)
[2019-10-02] MEDS: PANTOPRAZOLE 40 MG/10 ML VIAL IV SCH (07:28)
[2019-10-02 11:48] LABS: Potassium 4.7 mmol/L (3.5-5.1)
[2019-10-02 11:56] LABS: HCT 25.2 % (34.0-46.0); HGB 7.6 gm/dL (11.4-16.0); Hypochromasia Marked; MCH 28.6 pg (25.0-35.0); MCV 95.5 fL (80.0-100.0); Mean Platelet Volume 7.2; Platelet Count 238 k/uL (150-450); RBC 2.64 m/uL (3.80-5.40); RDW 15.8 % (11.5-15.5); WBC 5.1 k/uL (3.8-10.6)
--- NOTE | 2019-10-02 12:03 | P.CONS ---
History of Present Illness - Reason for Consult Consult date: 10/02/19 Anemia Requesting physician: Lynda Mcclain - Chief Complaint Shortness of breath, weakness - History of Present Illness Ms. Walls is a very pleasant 73-year-old female, who has seen Dr. Yancey in the past for left upper extremity DVT and PE in 2016. Hypercoagulable workup was done at that time and it was negative. She was treated for several months and it was subsequently stopped. She was last seen in 2016 and at that time it was recommended that the patient should have lifelong anticoagulation if she developed recurrent venous thrombosis. She then presented to the hospital on 08/09/19 complaining of right lower extremity pain and swelling, found to have DVT extending from the femoral to the popliteal vein as well as a superficial thrombus. The patient was discharged on Eliquis. She came back to the hospital with complains of chest pain and shortness of breath. CT of the chest on which was negative for PE, but did show some bilateral groundglass opacities and possible fibrosis. Patient was also noted to have a hemoglobin of 5.2. She was admitted to the ICU and transfused with improvement in hemoglobin in the 8 range. Patient denied history of gross bleeding, EMR review shows presence of anemia back to 2017. History of gastric angiectasia is in 2013. EGD in 02/21 for an esophageal stricture, which was dilated. She also had a colonoscopy about 2 years ago. Has a history of iron deficiency and was noted to be iron deficient at her hospitalization early September 2019. She had an EGD and colonoscopy early September 2019 with treatment of an angioectasia in the distal duodenum and cold forcep polypectomy in the transverse colon, patient also had low-grade internal hemorrhoids and moderate pandiverticulosis. She was resumed on her anticoagulation after treatment and evaluation, with weekly follow-up in the vision rehabilitation therapist office. Patient's hemoglobin was in the 9 range in the 2 weeks following hospitalization. She presents to the hospital after the weekend with complaints of shortness of breath, orthopnea, she denied chest pain or bilateral lower extremity swelling, she denied any bleeding, black or bloody stools, hematuria. She has had another EGD which was negative, capsule endoscopy not recommended, increased risk versus benefit. Review of Systems 14 point review of systems is negative except as stated in HPI Past Medical History Past Medical History: Cancer, Deep Vein Thrombosis (DVT), Fibromyalgia, Hyperli pidemia, Hypertension, Myocardial Infarction ([place]), Pneumonia, Sleep Apnea/CPAP/BIPAP, Thyroid Disorder Additional Past Medical History / Comment(s): HX PARALYZED LT VOCAL CORD,SKIN CANCER RT EARLOBE, HEART MURMUR, Stent placement, DIVERTICULOSIS, ANEMIA, BLOOD CLOTS DALIA LUNGS AND LEFT AXILLA (NOV 2014) Last Myocardial Infarction Date:: 12-08-17 History of Any Multi-Drug Resistant Organisms: None Reported Past Surgical History: Appendectomy, Cardiac Valve Replacement, Heart Catheterization, Heart Catheterization With Stent, Hysterectomy, Orthopedic Surgery Additional Past Surgical History / Comment(s): COLONOSCOPY, REPAIR OF PATENT DUCTUS AT 18MOS OF AGE,LAMICECTOMY,UTERINE FIBROID REMOVED , Basal cell REMOVED FROM RIGHT EAR LOBE. RT KNEE SX, LASIK EYE SX, Past Anesthesia/Blood Transfusion Reactions: No Reported Reaction Date of Last Stent Placement:: 12-08-17 Past Psychological History: Anxiety, Depression Additional Psychological History / Comment(s): no medical equipment.pt lives alone in own home. stated has [facility]. Smoking Status: Former smoker Past Alcohol Use History: None Reported Additional Past Alcohol Use History / Comment(s): QUIT SMOKING IN S SMOKED FOR APPROX. 10 YEARS. SMOKED 1PPD. 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 Past Drug Use History: None Reported - Past Family History Mother Family Medical History: No Reported History Father Family Medical History: Cancer Sister(s) Family Medical History: Cancer Medications and Allergies Home Medications Medication Instructions Recorded Confirmed Type Aspirin 81 mg PO DAILY #1 chewable 11/16/15 09/30/19 Rx Biotin 10 mg PO DAILY 06/02/17 09/30/19 History Levothyroxine Sodium [Synthroid] 75 mcg PO DAILY 09/25/17 09/30/19 History Nitroglycerin Sl Tabs [Nitrostat] 0.4 mg SUBLINGUAL Q5M PRN #25 tab 12/11/17 09/30/19 Rx Hemp Extract 1 cap PO BID 01/23/19 09/30/19 History Metoprolol Tartrate [Lopressor] 12.5 mg PO BID 01/23/19 09/30/19 History Mirtazapine [Remeron] 45 mg PO HS 01/23/19 09/30/19 History Pregabalin [Lyrica] 50 mg PO BID 01/23/19 09/30/19 History fentaNYL 50MCG/HR PATCH [Duragesic 1 patch TRANSDERM Q72H 02/20/19 09/30/19 History 50MCG/HR] Apixaban [Eliquis] 5 mg PO BID 09/05/19 09/30/19 History Atorvastatin Calcium [Lipitor] 80 mg PO HS 09/05/19 09/30/19 History Cevimeline [Evoxac] 30 mg PO BID 09/05/19 09/30/19 History Furosemide [Lasix] 20 mg PO DAILY 09/05/19 09/30/19 History Mirabegron [Myrbetriq] 50 mg PO HS 09/05/19 09/30/19 History Sertraline [Zoloft] 100 mg PO HS 09/05/19 09/30/19 History Omeprazole [PriLOSEC] 20 mg PO BID #0 09/11/19 09/30/19 Rx Spironolactone [Aldactone] 25 mg PO DAILY #30 tab 09/11/19 09/30/19 Rx lisinopriL [Zestril] 2.5 mg PO DAILY #30 tab 09/11/19 09/30/19 Rx Allergies Allergy/AdvReac Type Severity Reaction Status Date / Time lidocaine [From LidoPatch] Allergy Rash/Hives Verified 09/30/19 17:08 menthol [From LidoPatch] Allergy Rash/Hives Verified 09/30/19 17:08 Physical Exam Vitals: Vital Signs Temp Pulse Pulse Resp BP BP Pulse Ox 10/02/19 04:15 97.7 F 75 16 110/66 93 L 10/01/19 23:40 16 10/01/19 20:03 98.3 F 74 16 110/56 96 10/01/19 11:43 98.5 F 70 17 99/52 94 L Intake and Output 10/01/19 10/02/19 10/02/19 22:59 06:59 14:59 Intake Total 520 840 Balance 520 840 Intake: Intake, IV Titration 320 640 Amount Sodium Chloride 0.9% 1, 320 640 000 ml @ 80 mls/hr IV . [id number] [facility] Rx#:[id number] Oral 200 200 Other: Voiding Method Toilet # Voids 1 1 - Constitutional General appearance: cooperative, no acute distress, thin - EENT Eyes: anicteric sclerae, EOMI ENT: hearing grossly normal, normal oropharynx - Neck Neck: no lymphadenopathy - Respiratory Respiratory: bilateral: CTA - Cardiovascular Rhythm: regular Heart sounds: normal: S1, S2 Abnormal Heart Sounds: systolic murmur leg Peripheral Edema: bilateral: None - Gastrointestinal General gastrointestinal: no absent bowel sounds, no decreased bowel sounds, no distended, no hepatomegaly, no hyperactive bowel sounds, normal bowel sounds, no organomegaly, no rigid, no scaphoid, soft, no splenomegaly, no tenderness, no umbilical hernia, no ventral hernia - Integumentary Integumentary: pale - Neurologic Neurologic: CNII-XII intact - Musculoskeletal Musculoskeletal: generalized weakness, strength equal bilaterally - Psychiatric Psychiatric: A&O x's 3, appropriate affect, intact judgment & insight Results CBC & Chem 7: 10/02/19 11:30 10/02/19 11:28 Labs: Microbiology - Last 24 Hours (Table) 09/30/19 16:54 Blood Culture - Preliminary Blood No Growth after 24 hours Chest x-ray: report reviewed Assessment and Plan (1) Iron deficiency anemia Narrative/Plan: Patient's visit at the beginning of this month showed iron deficiency. She is status post EGD now 2 and colonoscopy with polyp removal. She received 4 doses of parenteral iron earlier this month. Will recheck iron studies. Current Visit: Yes Status: Chronic Priority: Medium Code(s): D50.9 - IRON DEFICIENCY ANEMIA, UNSPECIFIED SNOMED Code(s): 50287134 (2) DVT of left axillary vein, acute Current Visit: Yes Status: Chronic Priority: High Code(s): I82.A12 - ACUTE EMBOLISM AND THROMBOSIS OF LEFT AXILLARY VEIN SNOMED Code(s): 000219156341258 (3) Right leg DVT Current Visit: No Status: Chronic Priority: Medium Code(s): I82.401 - ACUTE EMBOLISM AND THOMBOS UNSP DEEP VEINS OF R LOW EXTREM SNOMED Code(s): 013786607 Plan: Reviewed Gastroenterology notes. Due to patient's anatomy/esophageal stricture felt that risk of capsule endoscopy outweighs the benefits. Dr. Hernandez explained to pt that in the bigger picture of the patient's CBC, it is felt that transfused blood was contributing to patient's higher hemoglobin around her recent discharge. Now that transfused blood is no longer in circulation and patient's hemoglobin is still above 7-higher than the 5 range that she came into the hospital with earlier this month-which would be most consistent with the patient making blood. Recommendation is for repeat iron studies, which have been ordered. Parenteral iron can be administered inpatient or outpatient. Recommend continuing to hold anticoagulation for at least another 24 hours. If there is stability of patient's hemoglobin in the 7 range can cautiously begin anticoagulation treatment again. Patient has an acute DVT of the upper extremity and history of DVT and lower extremity, both unprovoked. She does understand risks versus benefit. We will continue to monitor her very closely. Plan for follow-up weekly in the Global Transportation Manager office. Doctor attests: I performed a history and physical examination of this patient, developed impression and plan of care. Discussed with dictator. I agree with dictators note, documented as a scribe.
[2019-10-02 12:11] VITALS: BP 91/50; PULSE 70; TEMP 98.2
[2019-10-02 17:25] LABS: Ferritin 51.5 ng/mL (10.0-291.0)
[2019-10-02 17:33] LABS: % Iron Saturation 4.59 (12.00-45.00)
--- NOTE | 2019-10-03 18:52 | P.DS ---
Providers Date of admission: 09/30/19 17:12 Expected date of discharge: 10/02/19 Attending physician: Len Azar Consults: 09/30/19 16:15 Consult Physician Routine Consulting Provider: Terrence Correia Consult Reason/Comments: history of GI bleed Do you want consulting provider notified?: Yes 10/01/19 09:48 Consult Physician Routine Consulting Provider: Sohail Hernandez Consult Reason/Comments: anemia, known to you (Linda Bustamante) Do you want consulting provider notified?: Yes Primary care physician: Mario Gabriel [facility] Course: Chief Complaint: V and tired History of presenting complaint: This is a pleasant 73-year-old patient who follows with Dr. Gabriel. Chronic stable medical conditions include coronary artery with LAD stent, hypertensive heart disease, severe aortic stenosis with AV valve replacement., hyperlipidemia, hypothyroid, chronic left vocal cord paralysis, fibromyalgia, diverticulosis. Patient had multiple DVTs in the past. For which she has been eliquis. I reviewed this month admitted with symptomatic anemia. EGD showed nonbleeding angioma ectasia in the third portion of duodenum. Gold probe ablation done. Also benign distal esophageal stricture. Moderate pandiverticulosis. Eliquis was resumed and patient was discharged. Patient now presents feeling very tired and short of breath. Appetite is good. All stools. No fever no chills..hemoglobin was found to be 7.6. It was 9.3 on September 10. being symptomatic one unit of blood was given. EGD was done. Showed benign-appearing distal esophagus stricture. That was serially dilated. Patient's presentation was felt to be from acute kidney injury. Creatinine was 1.65. Diuretics were cut back. Given IV fluids. Creatinine did come back to 0.98 Care was discussed with the patient, questions answered. Patient feels back to baseline. Consultation: Dr. Ledezma from GI Physical examination: VITAL SIGNS: 98.2, 70, 16, 91/60, 94% room air GENERAL: Sitting up, comfortable EYES: [Pupils equal. Conjunctiva pale . HEENT: External appearance of nose and ears normal, oral cavity grossly normal. NECK: JVD not raised; masses not palpable. HEART: First and second heart sounds are normal; no edema. LUNGS: Respiratory rate normal; clear to auscultation. ABDOMEN: Soft, nontender, liver spleen not palpable, no masses palpable. PSYCH: Alert and oriented x3; mood and affect normal. INVESTIGATIONS, reviewed in the clinical context: Hemoglobin 7.6. Creatinine 0.98 Admission testing: white count 9.8 hemoglobin 7.6 platelets 346 potassium 4.8 bun 53 creatinine 1.65 lactic acid 3.2 Previous testing: Bun 24 creatinine 0.81 on September 10 Assessment: -Acute kidney injury likely prerenal from patient being on Lasix and LOPEZ inhibitor. 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 Subsequently right lower extremity DVT unprovoked in August 2019 in the right femoral popliteal vein. For which she has been on eliquis. -Chronic fibromyalgia Hyperlipidemia Essential hypertension -Coronary artery disease with stent to LAD -Obstructive sleep apnea -Hypothyroid -Chronic left vocal cord paralysis -Chronic diverticulosis -chronic congestive heart failure from systolic dysfunction EF 40-45% - moderate tricuspid regurgitation, severe mitral regurgitation- -Secondary pulmonary hypertension -Benign esophageal stricture-dilated. Previously [place] in February 2019 Disposition: Home Patient Condition at Discharge: Stable Plan - Discharge Summary Discharge Rx Participant: No New Discharge Prescriptions: Continue Aspirin 81 mg PO DAILY #1 chewable Biotin 10 mg PO DAILY Levothyroxine Sodium [Synthroid] 75 mcg PO DAILY Nitroglycerin Sl Tabs [Nitrostat] 0.4 mg SUBLINGUAL Q5M PRN #25 tab PRN Reason: Chest Pain Pregabalin [Lyrica] 50 mg PO BID Mirtazapine [Remeron] 45 mg PO HS Hemp Extract 1 cap PO BID Metoprolol Tartrate [Lopressor] 12.5 mg PO BID fentaNYL 50MCG/HR PATCH [Duragesic 50MCG/HR] 1 patch TRANSDERM Q72H Apixaban [Eliquis] 5 mg PO BID Atorvastatin Calcium [Lipitor] 80 mg PO HS Cevimeline [Evoxac] 30 mg PO BID Mirabegron [Myrbetriq] 50 mg PO HS Sertraline [Zoloft] 100 mg PO HS lisinopriL [Zestril] 2.5 mg PO DAILY #30 tab Omeprazole [PriLOSEC] 20 mg PO BID #0 Changed Spironolactone [Aldactone] 12.5 mg PO DAILY #30 tab Discontinued Furosemide [Lasix] 20 mg PO DAILY Discharge Medication List Aspirin 81 mg PO DAILY #1 chewable 11/16/15 [Rx] Biotin 10 mg PO DAILY 06/02/17 [History] Levothyroxine Sodium [Synthroid] 75 mcg PO DAILY 09/25/17 [History] Nitroglycerin Sl Tabs [Nitrostat] 0.4 mg SUBLINGUAL Q5M PRN #25 tab 12/11/17 [Rx] Hemp Extract 1 cap PO BID 01/23/19 [History] Metoprolol Tartrate [Lopressor] 12.5 mg PO BID 01/23/19 [History] Mirtazapine [Remeron] 45 mg PO HS 01/23/19 [History] Pregabalin [Lyrica] 50 mg PO BID 01/23/19 [History] fentaNYL 50MCG/HR PATCH [Duragesic 50MCG/HR] 1 patch TRANSDERM Q72H 02/20/19 [History] Apixaban [Eliquis] 5 mg PO BID 09/05/19 [History] Atorvastatin Calcium [Lipitor] 80 mg PO HS 09/05/19 [History] Cevimeline [Evoxac] 30 mg PO BID 09/05/19 [History] Mirabegron [Myrbetriq] 50 mg PO HS 09/05/19 [History] Sertraline [Zoloft] 100 mg PO HS 09/05/19 [History] Omeprazole [PriLOSEC] 20 mg PO BID #0 09/11/19 [Rx] lisinopriL [Zestril] 2.5 mg PO DAILY #30 tab 09/11/19 [Rx] Spironolactone [Aldactone] 12.5 mg PO DAILY #30 tab 10/02/19 [Rx] Follow up Appointment(s)/Referral(s): cardiology,dy [Other] - 10/09/19 10:45 am (Follow up with management professionals that patient sees regularly (ask patient) - Dr. Azar cut back on Aldactone and discontinued Lasix and patient needs to see her management professionals.) Mario Gabriel DO [Primary Care Provider] - 10/07/19 1:30 pm Terrence Correia MD [STAFF PHYSICIAN] - 10/14/19 1:30 pm (Appointment is with .) Patient Instructions/Handouts: Anemia (DC) Activity/Diet/Wound Care/Special Instructions: CBC/BMP in 7 days Discharge Disposition: HOME SELF-CARE
--- NOTE | 2019-10-04 19:33 | P.PN ---
Subjective Progress Note Date: 10/02/19 Principal diagnosis: Esophageal stricture, anemia Patient is seen lying in bed reporting she is tolerating diet. No abdominal pain.. Objective - Vital Signs Vital signs: Vital Signs Temp 98.2 F 10/02/19 12:11 Pulse 70 10/02/19 12:11 Resp 16 10/02/19 12:11 BP 91/50 10/02/19 12:11 Pulse Ox 94 L 10/02/19 12:11 Intake & Output 10/01/19 10/02/19 10/02/19 18:59 06:59 18:59 Intake Total 1590 1360 560 Output Total 400 Balance 1190 1360 560 Intake: IV 350 Intake, IV Titration 640 960 560 Amount Sodium Chloride 0.9% 1, 640 960 560 000 ml @ 80 mls/hr IV . [id number] [facility] Rx#:[id number] Oral 600 400 Output: Urine 400 Other: Voiding Method Toilet # Voids 4 1 4 - Exam On physical examination, patient appears comfortable in no apparent distress. HEAD: Normocephalic, atraumatic. EYES: No scleral icterus. No conjunctival injection. MOUTH: No lesions, tongue midline. NECK: Trachea midline, no gross abnormalities. ABDOMEN: Soft, nontender to palpation. Bowel sounds are positive. No organomegaly. No guarding or rigidity. EXTREMITIES: No pedal edema. SKIN: No rashes, no jaundice. NEUROLOGIC: Alert and oriented x3. No focal deficits. - Labs CBC & Chem 7: 10/02/19 11:30 10/02/19 11:28 Labs: Abnormal Lab Results - Last 24 Hours (Table) 10/02/19 10/02/19 Range/Units 11:28 11:30 RBC 2.64 L (3.80-5.40) m/uL Hgb 7.6 L (11.4-16.0) gm/dL Hct 25.2 L (34.0-46.0) % MCHC 30.0 L (31.0-37.0) g/dL RDW 15.8 H (11.5-15.5) % Chloride 113 H (98-107) mmol/L Glucose 130 H (74-99) mg/dL Calcium 8.0 L (8.4-10.2) mg/dL Microbiology - Last 24 Hours (Table) 09/30/19 16:54 Blood Culture - Preliminary Blood No Growth after 24 hours Assessment and Plan (1) Normocytic anemia Narrative/Plan: 73-year-old female with multiple medical comorbidities who presented to the hospital due to weakness and shortness of breath. Recently hospitalized for similar complaints earlier in September at which time EGD showed a benign-appearing distal esophageal stricture with a small nonbleeding angiectasia in the third portion of the duodenum treated with gold probe ablation therapy. She also had colonoscopy at that time with polypectomy and diverticulosis noted. She has bee n followed up by the hematology service and is currently not on any iron therapy. She does report she is on Eliquis. Video capsule endoscopy has not been performed as the patient has a severe narrowing of her distal esophagus prohibiting the procedure. Suspicion is for small bowel angiectasia with associated blood loss, however at this time she denies any signs or symptoms of GI bleeding. EGD for further evaluation significant for esophageal stricture with no active bleeding noted. Status: Acute Code(s): D64.9 - ANEMIA, UNSPECIFIED SNOMED Code(s): 041709219 (2) Esophageal stricture Status: Acute Code(s): K22.2 - ESOPHAGEAL OBSTRUCTION SNOMED Code(s): 08877702 Plan: Supportive care Okay for diet as tolerated Continue Protonix therapy Continue to monitor hemoglobin and hematocrit and transfuse as needed No active bleeding on EGD Further endoscopic evaluation with video capsule endoscopy likely prohibited by distal esophageal stricture Hematology consult to see the patient Thank you for allowing us to participate in the care of the patient
== END 2019-10-02 16:16 | disposition home or self-care (01) | DRG 683 ==
LOC: EC 14:57 → 5NMEDONC 17:12
PROVIDERS: ADMIT Hospitalist; ATTEND Hospitalist
PROC: 30233N1 Transfusion of Nonautologous Red Blood Cells into Peripheral Vein, Percutaneous Approach (ICD-10-PCS; 2019-09-30)
PROC: 0D738ZZ Dilation of Lower Esophagus, Via Natural or Artificial Opening Endoscopic (ICD-10-PCS; principal; 2019-10-01 07:50)
DX: N17.9 Acute kidney failure, unspecified (principal); I82.A12 Acute embolism and thrombosis of left axillary vein; E87.2 Acidosis; I50.22 Chronic systolic (congestive) heart failure; Z11.59 Encounter for screening for other viral diseases; J38.01 Paralysis of vocal cords and larynx, unilateral; I27.29 Other secondary pulmonary hypertension; K22.2 Esophageal obstruction; I11.0 Hypertensive heart disease with heart failure; F10.21 Alcohol dependence, in remission; E86.0 Dehydration; D50.9 Iron deficiency anemia, unspecified; M79.7 Fibromyalgia; E03.9 Hypothyroidism, unspecified; I45.10 Unspecified right bundle-branch block; K57.90 Diverticulosis of intestine, part unspecified, without perforation or abscess without bleeding; E78.5 Hyperlipidemia, unspecified; F41.9 Anxiety disorder, unspecified; F32.9 Major depressive disorder, single episode, unspecified; I25.10 Atherosclerotic heart disease of native coronary artery without angina pectoris; G47.33 Obstructive sleep apnea (adult) (pediatric); I08.1 Rheumatic disorders of both mitral and tricuspid valves; K64.8 Other hemorrhoids; K55.20 Angiodysplasia of colon without hemorrhage; T50.1X5A Adverse effect of loop [high-ceiling] diuretics, initial encounter; T46.4X5A Adverse effect of angiotensin-converting-enzyme inhibitors, initial encounter; I25.2 Old myocardial infarction; Z79.899 Other long term (current) drug therapy; Z79.01 Long term (current) use of anticoagulants; Z79.82 Long term (current) use of aspirin; Z86.718 Personal history of other venous thrombosis and embolism; Z95.5 Presence of coronary angioplasty implant and graft; Z85.828 Personal history of other malignant neoplasm of skin; Z87.01 Personal history of pneumonia (recurrent); Z86.711 Personal history of pulmonary embolism; Z90.49 Acquired absence of other specified parts of digestive tract; Z95.2 Presence of prosthetic heart valve; Z90.710 Acquired absence of both cervix and uterus; Z98.890 Other specified postprocedural states; Z87.891 Personal history of nicotine dependence; Z79.890 Hormone replacement therapy; Z86.010 Personal history of colon polyps; Z87.19 Personal history of other diseases of the digestive system; Z88.8 Allergy status to other drugs, medicaments and biological substances; Z80.9 Family history of malignant neoplasm, unspecified
CPT/HCPCS: 36415; 36430; 43249; 71046; 80048; 80053; 81003; 82140; 82330; 82550; 82728; 83540; 83550; 83605; 83735; 83880; 84484; 85025; 85027; 85610; 85730; 86140; 86850; 86900; 86901; 86920; 87040; 93005; 96360; 96374; 99285

== ENCOUNTER 2019-10-14 17:22 | Inpatient (IN) | payer MEDICARE ==
[2019-10-14] MEDS ORDERED: NITROGLYCERIN SL TABS 0.4 MG TAB SUBLINGUAL PRN (19:04)
[2019-10-14] MEDS: ATORVASTATIN 80 MG TAB PO SCH (20:57)
[2019-10-14] MEDS: SERTRALINE 100 MG TAB PO SCH (20:57)
[2019-10-14] MEDS: METOPROLOL TARTRATE 12.5 MG TAB PO SCH (20:57)
[2019-10-14] MEDS: PREGABALIN 50 MG CAP PO SCH (20:57)
[2019-10-14] MEDS ORDERED: HEMP EXTRACT PO SCH (21:00)
[2019-10-14 21:06] LABS: Calcium 8.8 mg/dL (8.4-10.2); Potassium 5.1 mmol/L (3.5-5.1)
[2019-10-14] MEDS: IOPAMIDOL CONTRAST (ORAL USE) VIAL PO PRN ×2 (23:06→23:56)
[2019-10-15] MEDS: MIRTAZAPINE 45 MG TABLET PO SCH ×2 (01:11→23:02)
[2019-10-15] MEDS: CEVIMELINE 30 MG CAP PO SCH ×3 (01:11→21:04)
[2019-10-15] MEDS: NON FORMULARY DRUG (Mirabegron [Myrbetriq] 50 MG) PO SCH ×2 (01:14→21:06)
--- NOTE | 2019-10-15 01:25 | CT ---
EXAMINATION TYPE: CT abdomen pelvis wo/w con DATE OF EXAM: 10/15/2019 COMPARISON: 11/21/2014 HISTORY: Bleeding CT DLP: 819.60 mGycm Automated exposure control for dose reduction was used. CONTRAST: Performed with IV Contrast, patient injected with 80 mL of Isovue 300. Images were obtained from the diaphragm to the floor the pelvis without and subsequently with IV cont rast. There is oral contrast. Heart is enlarged. There is no pericardial effusion. Lung bases are clear of consolidation. There is no pleural effusion. There is no focal liver defect. Gallbladder shows multiple gallstones in the dep endent portion. Stomach is intact. Spleen is intact. There is no pancreatic mass. There is no adrenal mass. Kidneys have normal size. There is satisfactory contrast opacification of t he kidneys. There is no hydronephrosis. Ureters are not dilated. Delayed images show normal renal exc retion. Bladder distends smoothly. There is no inguinal hernia. There is no evidence of a renal calcu neeta. There is no retroperitoneal adenopathy. There is no evidence of a pelvic mass. There is hysterec stanton. There is no mesenteric edema. There is no ascites or free air. There is no bowel obstruction. There i s normal contrast opacification of the large and small bowel. Appendix is not definitely seen. There is no sign of thickened appendix. Lumbar vertebra have normal spacing and alignment. There is no comp ression fracture. Posterior elements are intact. The bony pelvis appears intact. Hip joints appear in tact. Abdominal aorta is atheromatous. There is no evidence of aneurysm or dissection. IMPRESSION: Atherosclerotic vascular disease. No sign of acute abdomen and pelvis. Cholelithiasis. Abdomen and pelvis unchanged compared to old exam.
[2019-10-15] MEDS: PANTOPRAZOLE 40 MG TABLET PO SCH ×2 (04:50→15:23)
[2019-10-15] MEDS: LEVOTHYROXINE 75 MCG TAB PO SCH (06:08)
[2019-10-15] MEDS: METOPROLOL TARTRATE 12.5 MG TAB PO SCH ×2 (07:30→21:04)
[2019-10-15 08:53] LABS: Basophils % (A) 1 %; Eosinophils # (A) 0.2 k/uL (0-0.7); Eosinophils % (A) 3 %; HCT 26.2 % (34.0-46.0); HGB 8.3 gm/dL (11.4-16.0); Hypochromasia Marked; Lymphocytes # (A) 1.7 k/uL (1.0-4.8); Lymphocytes % (A) 28 %; MCH 29.1 pg (25.0-35.0); MCHC 31.5 g/dL (31.0-37.0); MCV 92.5 fL (80.0-100.0); Mean Platelet Volume 7.5; Monocytes # (A) 0.4 k/uL (0-1.0); Monocytes % (A) 6 %; Neutrophils # (A) 3.4 k/uL (1.3-7.7); Neutrophils % (A) 58 %; Platelet Count 307 k/uL (150-450); Poikilocytosis Slight; RBC 2.84 m/uL (3.80-5.40); RDW 14.4 % (11.5-15.5); WBC 5.9 k/uL (3.8-10.6)
[2019-10-15] MEDS ORDERED: BIOTIN 10 MG PO SCH (09:00)
[2019-10-15 09:02] LABS: Calcium 8.3 mg/dL (8.4-10.2); Potassium 4.6 mmol/L (3.5-5.1)
[2019-10-15] MEDS: PREGABALIN 50 MG CAP PO SCH ×2 (11:29→21:05)
[2019-10-15] MEDS ORDERED: IV FLUID CONTINUATION 1,000 ML IV ONE (14:26)
[2019-10-15] MEDS ORDERED: LIDOCAINE 1% INJ 10MG/ML (20 ML MDV) SQ ONE (14:26)
[2019-10-15] MEDS ORDERED: IOPAMIDOL-300 50ML BTL INJ ONE (14:36)
[2019-10-15] MEDS: SPIRONOLACTONE 25 MG TAB PO SCH (15:23)
--- NOTE | 2019-10-15 16:21 | IR ---
EXAMINATION TYPE: IR IVC filter placement DATE OF EXAM: 10/15/2019 COMPARISON: NONE HISTORY: Failed anticoagulant therapy, deep venous thrombosis FINDINGS: Maximal barrier technique was utilized. After informed consent, the skin overlying the eighth groin was prepped and draped in a sterile fashion and Lidocaine used for local anesthesia. A skin lashaun was made with a scalpel. Standard retrograde venotomy was performed in the common femoral vein using st andard Seldinger technique with a 21-gauge needle under direct ultrasound guidance with [employer] k it. The right common femoral vein was noted to be compressible and patent by ultrasound, and ultraso und images obtained and submitted on patient's chart. A 0.035 inch wire was advanced centrally SIZE of the access site and subsequently the tulip sheath was advanced over the wire into the region of th e confluence of the iliac veins. Digital subtraction inferior venacavography was performed. Based o n the findings the filter was deployed in the infrarenal location. Spot image obtained verified plac ement. Sheath was withdrawn and hemostasis achieved. There is no immediate complication; the patien t is discharged in stable condition. Findings: No filling defect to suggest thrombus. 57 images obtained, 1.7 minutes fluoroscopy time IMPRESSION: STATUS POST INFRARENAL INFERIOR VENA CAVA FILTER PLACEMENT. THIS PROCEDURE WAS PERFORMED BY THE ANTONY QUILES.
--- NOTE | 2019-10-15 16:46 | P.HPIM ---
History of Present Illness H&P Date: 10/15/19 Chief Complaint: Anemia Patient is a 73-year-old female with a known history of multiple DVT currently on anticoagulation, fibromyalgia, hypertension, hyperlipidemia, history of OK, history of cardiac valve replacement, coronary disease with history of stent placement, obstructive sleep apnea, hypothyroidism diverticulosis and anxiety/depression presented to hospital from Dr. Moreno's office due to recurrent anemia. Patient had work-up done including EGD and colonoscopy which did not reveal any source of bleeding. GI is planning for capsule endoscopy. Patient was sent to hospital for IVC filter placement and possibly holding anticoagulation due to recurrent anemia. Patient otherwise denies any complaints of chest pain or shortness of breath. No hematemesis or melena. No nausea vomiting or diarrhea. Denied any dark- colored stools. No cough or sputum production. No fever no chills. No headache or dizziness or lightheadedness. Patient felt very weak otherwise. Hemoglobin is 8.3 today. WBC 5.9, MCV 92.5 and platelets 307 Sodium 139, potassium 4.6, BUN 28 and creatinine 0.95 calcium 8.3 hemodynamically stable. patient had recent EGD showed nonbleeding telangiectasia in the third portion of duodenum and also distal esophageal stricture. Moderate pandiverticulosis. Eliquis was patient was discharged home. Review of Systems Constitutional: Patient denies any fever or chills . No generalized weakness or weight loss. Abdomen: Patient denied nausea vomiting and diarrhea and abdominal pain. Cardiovascular: Patient denies any chest pain or short of breath no palpitations. Respiratory: patient denied any cough is from production. No shortness of breath Neurologic: Patient denied any numbness or tingling headache. Musculoskeletal: Patient denies any complaints of joint swelling or deformity. Skin: Negative Psychiatric: Negative Endocrine: No heat or cold intolerance. No recent weight gain. Genitourinary: No dysuria or hematuria. All other 14 point ROS negative except the above Past Medical History Past Medical History: Cancer, Deep Vein Thrombosis (DVT), Fibromyalgia, Hyperlipidemia, Hypertension, Myocardial Infarction (OK), Pneumonia, Sleep Apnea/CPAP/BIPAP, Thyroid Disorder Additional Past Medical History / Comment(s): HX PARALYZED LT VOCAL CORD,SKIN CANCER RT EARLOBE, HEART MURMUR, Stent placement, DIVERTICULOSIS, ANEMIA, BLOOD CLOTS DALIA LUNGS AND LEFT AXILLA (NOV 2014) Last Myocardial Infarction Date:: 12-08-17 History of Any Multi-Drug Resistant Organisms: None Reported Past Surgical History: Appendectomy, Cardiac Valve Replacement, Heart Catheterization, Heart Catheterization With Stent, Hysterectomy, Orthopedic Surgery Additional Past Surgical History / Comment(s): COLONOSCOPY, REPAIR OF PATENT DUCTUS AT 18MOS OF AGE,LAMICECTOMY,UTERINE FIBROID REMOVED , Basal cell REMOVED FROM RIGHT EAR LOBE. RT KNEE SX, LASIK EYE SX, Past Anesthesia/Blood Transfusion Reactions: No Reported Reaction Date of Last Stent Placement:: 12-08-17 Past Psychological History: Anxiety, Depression Additional Psychological History / Comment(s): no medical equipment.pt lives alone in own home. stated has formerly [facility]. Smoking Status: Never smoker Past Alcohol Use History: None Reported Additional Past Alcohol Use History / Comment(s): QUIT SMOKING IN S SMOKED FOR APPROX. 10 YEARS. SMOKED 1PPD. 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 Past Drug Use History: None Reported - Past Family History Mother Family Medical History: No Reported History Father Family Medical History: Cancer Sister(s) Family Medical History: Cancer Medications and Allergies Home Medications Medication Instructions Recorded Confirmed Type Aspirin 81 mg PO DAILY #1 chewable 11/16/15 10/14/19 Rx Biotin 10 mg PO DAILY 06/02/17 10/14/19 History Levothyroxine Sodium [Synthroid] 75 mcg PO DAILY 09/25/17 10/14/19 History Nitroglycerin Sl Tabs [Nitrostat] 0.4 mg SUBLINGUAL Q5M PRN #25 tab 12/11/17 10/14/19 Rx Hemp Extract 1 cap PO BID 01/23/19 10/14/19 History Metoprolol Tartrate [Lopressor] 12.5 mg PO BID 01/23/19 10/14/19 History Mirtazapine [Remeron] 45 mg PO HS 01/23/19 10/14/19 History Pregabalin [Lyrica] 50 mg PO BID 01/23/19 10/14/19 History fentaNYL 50MCG/HR PATCH [Duragesic 1 patch TRANSDERM Q72H 02/20/19 10/14/19 History 50MCG/HR] Apixaban [Eliquis] 5 mg PO BID 09/05/19 10/14/19 History Atorvastatin Calcium [Lipitor] 80 mg PO HS 09/05/19 10/14/19 History Cevimeline [Evoxac] 30 mg PO BID 09/05/19 10/14/19 History Mirabegron [Myrbetriq] 50 mg PO HS 09/05/19 10/14/19 History Sertraline [Zoloft] 100 mg PO HS 09/05/19 10/14/19 History Omeprazole [PriLOSEC] 20 mg PO BID #0 09/11/19 10/14/19 Rx lisinopriL [Zestril] 2.5 mg PO DAILY #30 tab 09/11/19 10/14/19 Rx Spironolactone [Aldactone] 12.5 mg PO DAILY #30 tab 10/02/19 10/14/19 Rx Allergies Allergy/AdvReac Type Severity Reaction Status Date / Time lidocaine [From LidoPatch] Allergy Rash/Hives Verified 10/14/19 21:06 menthol [From LidoPatch] Allergy Rash/Hives Verified 10/14/19 21:06 Physical Exam Vitals: Vital Signs Temp Pulse Pulse Resp BP BP Pulse Ox 10/15/19 07:11 98.2 F 69 18 116/48 10/15/19 05:20 98.3 F 67 14 93/53 10/15/19 04:50 98.3 F 67 98/57 10/15/19 04:40 97.9 F 72 20 137/65 100 10/15/19 04:36 97.9 F 72 20 137/65 100 10/15/19 04:15 98.6 F 66 18 90/51 10/15/19 02:21 98.5 F 65 16 105/61 10/15/19 01:51 98.4 F 63 16 95/51 10/15/19 01:41 98.4 F 64 18 97/57 94 L 10/14/19 20:33 98.5 F 73 18 121/63 99 Intake and Output 10/14/19 10/15/19 10/15/19 22:59 06:59 14:59 Intake Total 0 310 310 Balance 0 310 310 Intake: Oral 0 0 Blood Product 310 310 Rc Pheresis 2 As3 Unit 0 310 [id number] Rc Pheresis 2 As3 Unit 310 [id number] Other: Voiding Method Toilet # Voids 2 2 Weight 56.699 kg PHYSICAL EXAMINATION: Patient is lying in the bed comfortably, no acute distress, awake alert and oriented.. HEENT: Normocephalic. Neck is supple. Pupils reactive. Nostrils clear. Oral cavity is moist. Ears reveal no drainage. Neck reveals no JVD, carotid bruits, or thyromegaly. CHEST EXAMINATION: Trachea is central. Symmetrical expansion. Lung mcghee clear to auscultation and percussion. CARDIAC: Normal S1, S2 with no gallops. No murmurs ABDOMEN: Soft. Bowel sounds normal. No organomegaly. No abdominal bruits. Extremities: reveal no edema. No clubbing or cyanosis Neurologically awake, alert, oriented x3 with well-coordinated movements. No focal deficits noted Skin: No rash or skin lesions. Psychiatric: Coperative. Nonsuicidal Musculoskeletal: No joint swelling or deformity. Normal range of motion. Results CBC & Chem 7: 10/15/19 08:11 10/15/19 08:11 Labs: Abnormal Lab Results - Last 24 Hours (Table) 10/14/19 10/14/19 10/15/19 Range/Units 20:01 20:01 08:11 RBC 2.84 L (3.80-5.40) m/uL Hgb 8.3 L (11.4-16.0) gm/dL Hct 26.2 L (34.0-46.0) % BUN 34 H (7-17) mg/dL Creatinine 1.14 H (0.52-1.04) mg/dL Calcium (8.4-10.2) mg/dL Crossmatch See Detail 10/15/19 Range/Units 08:11 RBC (3.80-5.40) m/uL Hgb (11.4-16.0) gm/dL Hct (34.0-46.0) % BUN 28 H (7-17) mg/dL Creatinine (0.52-1.04) mg/dL Calcium 8.3 L (8.4-10.2) mg/dL Crossmatch Thrombosis Risk Factor Assmnt - DVT/VTE Prophylaxis DVT/VTE Prophylaxis: Mechanical Prophylaxis ordered - Choose All That Apply Any of the Below Risk Factors Present?: Yes Each Factor Represents 1 point: Minor surgery planned Other Risk Factors: No Thrombosis Risk Factor Assessment Total Risk Factor Score: 1 Thrombosis Risk Factor Assessment Level: Low Risk Assessment and Plan Assessment: Recurrent acute blood loss anemia secondary to GI bleed. Status post EGD on 10/01/19 and colonoscopy without revealing a source of bleeding at this time. Planning for capsule endoscopy as an outpatient. Recurrent DVTs .anticoagulation with apixaban. Currently on hold. iVC filter placed on 10/15/19 Hypertension Hyperlipidemia Hypothyroidism Anxiety/depression Obstructive sleep apnea on CPAP History of diverticulosis Coronary artery disease with history of stent placement and also Heart valve replacement DVT prophylaxis with SCDs Plan: Due to recurrent anemia and GI bleed anticoagulation is on hold at this time. Patient had IVC filter placement done today. Continue to monitor H&H. Patient will be following with GI for work-up of anemia including capsule endoscopy. Continue with home medications. Further recommendations based on clinical course. Time with Patient: Greater than 30
[2019-10-15] MEDS: ATORVASTATIN 80 MG TAB PO SCH (21:04)
[2019-10-15] MEDS: SERTRALINE 100 MG TAB PO SCH (21:05)
--- NOTE | 2019-10-15 22:48 | P.CONS ---
History of Present Illness - Reason for Consult Consult date: 10/15/19 Anemia Requesting physician: Veronique Gillespie - Chief Complaint Symptomatic Anemia - History of Present Illness Ms. Walls is a very pleasant 73-year-old female, who has seen Dr. Yancey in the past for left upper extremity DVT and PE in 2016. Hypercoagulable workup was done at that time and it was negative. She was treated for several months and it was subsequently stopped. She was last seen in 2016 and at that time it was recommended that the patient should have lifelong anticoagulation if she developed recurrent venous thrombosis. She then presented to the hospital on 08/09/19 complaining of right lower extremity pain and swelling, found to have DVT extending from the femoral to the popliteal vein as well as a superficial thrombus. The patient was discharged on Eliquis. She came back to the hospital with complains of chest pain and shortness of breath. CT of the chest on which was negative for PE, but did show some bilateral groundglass opacities and possible fibrosis. Patient was also noted to have a hemoglobin of 5.2. She was admitted to the ICU and transfused with improvement in hemoglobin in the 8 range. Patient denied history of gross bleeding, EMR review shows presence of anemia back to 2017. History of gastric angiectasia is in 2013. EGD in 02/21 for an esophageal stricture, which was dilated. She also had a colonoscopy about 2 years ago. Has a history of iron deficiency and was noted to be iron deficient at her hospitalization early September 2019. She had an EGD and colonoscopy early September 2019 with treatment of an an gioectasia in the distal duodenum and cold forcep polypectomy in the transverse colon, patient also had low-grade internal hemorrhoids and moderate pandiverticulosis. She was resumed on her anticoagulation after treatment and evaluation, with weekly follow-up in the [facility]. Patient's hemoglobin was in the 9 range in the 2 weeks following hospitalization. Unfortunately, shortly after discharge she was re-admitted with complaints of shortness of breath, orthopnea. She has had another EGD which was negative, capsule endoscopy not recommended, increased risk versus benefit. She has now been admitted for IVC filter and CT abdomen and pelvis. She has not yet been able to receive Parental iron as outpatient Review of Systems All systems: negative (hpi) Past Medical History Past Medical History: Cancer, Deep Vein Thrombosis (DVT), Fibromyalgia, Hyperlipidemia, Hypertension, Myocardial Infarction (MD), Pneumonia, Sleep Apnea/CPAP/BIPAP, Thyroid Disorder Additional Past Medical History / Comment(s): HX PARALYZED LT VOCAL CORD,SKIN CANCER RT EARLOBE, HEART MURMUR, Stent placement, DIVERTICULOSIS, ANEMIA, BLOOD CLOTS DALIA LUNGS AND LEFT AXILLA (NOV 2014) Last Myocardial Infarction Date:: 12-08-17 History of Any Multi-Drug Resistant Organisms: None Reported Past Surgical History: Appendectomy, Cardiac Valve Replacement, Heart Catheterization, Heart Catheterization With Stent, Hysterectomy, Orthopedic Surgery Additional Past Surgical History / Comment(s): COLONOSCOPY, REPAIR OF PATENT DUCTUS AT 18MOS OF AGE,LAMICECTOMY,UTERINE FIBROID REMOVED , Basal cell REMOVED FROM RIGHT EAR LOBE. RT KNEE SX, LASIK EYE SX, Past Anesthesia/Blood Transfusion Reactions: No Reported Reaction Date of Last Stent Placement:: 12-08-17 Past Psychological History: Anxiety, Depression Additional Psychological History / Comment(s): no medical equipment.pt lives alone in own home. stated has [facility]. Smoking Status: Never smoker Past Alcohol Use History: None Reported Additional Past Alcohol Use History / Comment(s): QUIT SMOKING IN S SMOKED FOR APPROX. 10 YEARS. SMOKED 1PPD. 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 Past Drug Use History: None Reported - Past Family History Mother Family Medical History: No Reported History Father Family Medical History: Cancer Sister(s) Family Medical History: Cancer Medications and Allergies Home Medications Medication Instructions Recorded Confirmed Type Aspirin 81 mg PO DAILY #1 chewable 11/16/15 10/14/19 Rx Biotin 10 mg PO DAILY 06/02/17 10/14/19 History Levothyroxine Sodium [Synthroid] 75 mcg PO DAILY 09/25/17 10/14/19 History Nitroglycerin Sl Tabs [Nitrostat] 0.4 mg SUBLINGUAL Q5M PRN #25 tab 12/11/17 10/14/19 Rx Hemp Extract 1 cap PO BID 01/23/19 10/14/19 History Metoprolol Tartrate [Lopressor] 12.5 mg PO BID 01/23/19 10/14/19 History Mirtazapine [Remeron] 45 mg PO HS 01/23/19 10/14/19 History Pregabalin [Lyrica] 50 mg PO BID 01/23/19 10/14/19 History fentaNYL 50MCG/HR PATCH [Duragesic 1 patch TRANSDERM Q72H 02/20/19 10/14/19 History 50MCG/HR] Apixaban [Eliquis] 5 mg PO BID 09/05/19 10/14/19 History Atorvastatin Calcium [Lipitor] 80 mg PO HS 09/05/19 10/14/19 History Cevimeline [Evoxac] 30 mg PO BID 09/05/19 10/14/19 History Mirabegron [Myrbetriq] 50 mg PO HS 09/05/19 10/14/19 History Sertraline [Zoloft] 100 mg PO HS 09/05/19 10/14/19 History Omeprazole [PriLOSEC] 20 mg PO BID #0 09/11/19 10/14/19 Rx lisinopriL [Zestril] 2.5 mg PO DAILY #30 tab 09/11/19 10/14/19 Rx Spironolactone [Aldactone] 12.5 mg PO DAILY #30 tab 10/02/19 10/14/19 Rx Allergies Allergy/AdvReac Type Severity Reaction Status Date / Time lidocaine [From LidoPatch] Allergy Rash/Hives Verified 10/14/19 21:06 menthol [From LidoPatch] Allergy Rash/Hives Verified 10/14/19 21:06 Physical Exam Vitals: Vital Signs Temp Pulse Pulse Resp BP BP Pulse Ox 10/15/19 20:45 98.6 F 18 112/62 97 10/15/19 11:29 98.9 F 63 18 99/50 96 10/15/19 07:11 98.2 F 69 18 116/48 10/15/19 05:20 98.3 F 67 14 93/53 10/15/19 04:50 98.3 F 67 98/57 10/15/19 04:40 97.9 F 72 20 137/65 100 10/15/19 04:36 97.9 F 72 20 137/65 100 10/15/19 04:15 98.6 F 66 18 90/51 10/15/19 02:21 98.5 F 65 16 105/61 10/15/19 01:51 98.4 F 63 16 95/51 10/15/19 01:41 98.4 F 64 18 97/57 94 L Intake and Output 10/15/19 10/15/19 10/15/19 06:59 14:59 22:59 Intake Total 310 360 Balance 310 360 Intake: IV 50 Oral 0 Blood Product 310 310 Rc Pheresis 2 As3 Unit 0 310 [id number] Rc Pheresis 2 As3 Unit 310 [id number] Other: Voiding Method Toilet # Voids 2 1 # Bowel Movements 0 - Constitutional General appearance: cooperative, no acute distress, thin - EENT Eyes: anicteric sclerae, EOMI ENT: hearing grossly normal, normal oropharynx - Neck Neck: no lymphadenopathy - Respiratory Respiratory: bilateral: CTA - Cardiovascular Rhythm: regular Heart sounds: normal: S1, S2 Abnormal Heart Sounds: systolic murmur leg Peripheral Edema: bilateral: None - Gastrointestinal General gastrointestinal: no absent bowel sounds, no decreased bowel sounds, no distended, no hepatomegaly, no hyperactive bowel sounds, normal bowel sounds, no organomegaly, no rigid, no scaphoid, soft, no splenomegaly, no tenderness, no umbilical hernia, no ventral hernia - Integumentary Integumentary: pale - Neurologic Neurologic: CNII-XII intact - Musculoskeletal Musculoskeletal: generalized weakness, strength equal bilaterally - Psychiatric Psychiatric: A&O x's 3, appropriate affect, intact judgment & insight Results CBC & Chem 7: 10/15/19 08:11 10/15/19 08:11 Labs: Abnormal Lab Results - Last 24 Hours (Table) 10/14/19 10/15/19 10/15/19 Range/Units 20:01 08:11 08:11 RBC 2.84 L (3.80-5.40) m/uL Hgb 8.3 L (11.4-16.0) gm/dL Hct 26.2 L (34.0-46.0) % BUN 28 H (7-17) mg/dL Calcium 8.3 L (8.4-10.2) mg/dL Crossmatch See Detail CT scan - abdomen: report reviewed CT scan - pelvis: report reviewed Assessment and Plan Plan: Iron deficiency anemia - Secondary to blood loss, worsening on Anticoagulation Patient's visit at the beginning of this month showed iron deficiency. She is status post EGD now 2 and colonoscopy with polyp removal. She received 4 doses of parenteral iron earlier in [place] inpatient. - Recheck Iron studies continues to show Iron deficiency and parental iron will be set up as outpatient with [facility] DVT of left axillary vein, acute Current Visit: Yes Status: Chronic Priority: High Code(s): I82.A12 - ACUTE EMBOLISM AND THROMBOSIS OF LEFT AXILLARY VEIN SNOMED Code(s): 615962363822341 Right leg DVT Current Visit: No Status: Chronic Priority: Medium Code(s): I82.401 - ACUTE EMBOLISM AND THOMBOS UNSP DEEP VEINS OF R LOW EXTREM SNOMED Code(s): 033708626 Plan: HIgh risk for bleeding while on Anticoagualtion, therefore IVC Filter placed today Patient has an acute DVT of the upper extremity and history of DVT and lower extremity, both unprovoked. With a history of PE/DVT in past. She does understand risks versus benefit. With the complications of continued bleeding resulting in transfusions and hospital admission IVC filter was recommended Monitor Daily CBC CT abdomen and Pelvis Negative. Doctor attests: I performed a history and physical examination of this patient, developed impression and plan of care. Discussed with dictator. I agree with dictators note, documented as a scribe.
[2019-10-16] MEDS: LEVOTHYROXINE 75 MCG TAB PO SCH (05:49)
[2019-10-16] MEDS: PREGABALIN 50 MG CAP PO SCH (08:29)
[2019-10-16] MEDS: CEVIMELINE 30 MG CAP PO SCH (08:29)
[2019-10-16] MEDS: METOPROLOL TARTRATE 12.5 MG TAB PO SCH (08:29)
[2019-10-16] MEDS: SPIRONOLACTONE 25 MG TAB PO SCH (08:29)
[2019-10-16] MEDS: PANTOPRAZOLE 40 MG TABLET PO SCH (08:29)
[2019-10-16 08:47] LABS: Basophils % (A) 1 %; Eosinophils # (A) 0.2 k/uL (0-0.7); Eosinophils % (A) 3 %; HCT 30.7 % (34.0-46.0); HGB 9.4 gm/dL (11.4-16.0); Hypochromasia Marked; Lymphocytes # (A) 1.5 k/uL (1.0-4.8); Lymphocytes % (A) 21 %; MCH 28.3 pg (25.0-35.0); MCHC 30.7 g/dL (31.0-37.0); MCV 92.1 fL (80.0-100.0); Mean Platelet Volume 7.2; Monocytes # (A) 0.4 k/uL (0-1.0); Monocytes % (A) 6 %; Neutrophils # (A) 4.8 k/uL (1.3-7.7); Neutrophils % (A) 66 %; Platelet Count 370 k/uL (150-450); Poikilocytosis Slight; RBC 3.33 m/uL (3.80-5.40); RDW 14.5 % (11.5-15.5); WBC 7.2 k/uL (3.8-10.6)
[2019-10-16 11:59] VITALS: BP 106/50; PULSE 72; RESP 17; TEMP 98
[2019-10-16 12:58] LABS: Albumin 3.2 g/dL (3.5-5.0); Bilirubin, Delta 0.2 mg/dL (0.0-0.2); Bilirubin,Unconjugated 0.1 mg/dL (0.0-1.1); Total Bilirubin 0.3 mg/dL (0.2-1.3); Total Protein 5.3 g/dL (6.3-8.2)
--- NOTE | 2019-10-16 21:55 | P.PN ---
Subjective Progress Note Date: 10/16/19 Principal diagnosis: Symptomatic Anemia Feeling better today, Status POst IVC filter and plan for Parental Iron as outpatient Objective - Vital Signs Vital signs: Vital Signs Temp 98 F 10/16/19 11:58 Pulse 72 10/16/19 11:58 Resp 17 10/16/19 11:58 BP 106/50 10/16/19 11:58 Pulse Ox 94 L 10/16/19 11:58 Intake & Output 10/16/19 10/16/19 10/17/19 06:59 18:59 06:59 Intake Total 580 Balance 580 Intake: Oral 580 Other: Voiding Method Toilet Toilet # Voids 1 # Bowel Movements 0 - Exam - Constitutional General appearance: cooperative, no acute distress, thin - EENT Eyes: anicteric sclerae, EOMI ENT: hearing grossly normal, normal oropharynx - Neck Neck: no lymphadenopathy - Respiratory Respiratory: bilateral: CTA - Cardiovascular Rhythm: regular Heart sounds: normal: S1, S2 Abnormal Heart Sounds: systolic murmur leg Peripheral Edema: bilateral: None - Gastrointestinal General gastrointestinal: no absent bowel sounds, no decreased bowel sounds, no distended, no hepatomegaly, no hyperactive bowel sounds, normal bowel sounds, no organomegaly, no rigid, no scaphoid, soft, no splenomegaly, no tenderness, no umbilical hernia, no ventral hernia - Integumentary Integumentary: pale - Neurologic Neurologic: CNII-XII intact - Musculoskeletal Musculoskeletal: generalized weakness, strength equal bilaterally - Psychiatric Psychiatric: A&O x's 3, appropriate affect, intact judgment & insight - Labs CBC & Chem 7: 10/16/19 07:33 10/15/19 08:11 Labs: Abnormal Lab Results - Last 24 Hours (Table) 10/16/19 10/16/19 Range/Units 07:33 07:33 RBC 3.33 L (3.80-5.40) m/uL Hgb 9.4 L (11.4-16.0) gm/dL Hct 30.7 L (34.0-46.0) % MCHC 30.7 L (31.0-37.0) g/dL AST 51 H (14-36) U/L Total Protein 5.3 L (6.3-8.2) g/dL Albumin 3.2 L (3.5-5.0) g/dL Assessment and Plan Plan: Iron deficiency anemia - Secondary to blood loss, worsening on Anticoagulation Patient's visit at the beginning of this month showed iron deficiency. She is status post EGD now 2 and colonoscopy with polyp removal. She received 4 doses of parenteral iron earlier in [place] inpatient. - Recheck Iron studies continues to show Iron deficiency and parental iron will be set up as outpatient with [facility] DVT of left axillary vein, acute Current Visit: Yes Status: Chronic Priority: High Code(s): I82.A12 - ACUTE EMBOLISM AND THROMBOSIS OF LEFT AXILLARY VEIN SNOMED Code(s): 443976465443189 Right leg DVT Current Visit: No Status: Chronic Priority: Medium Code(s): I82.401 - A CUTE EMBOLISM AND THOMBOS UNSP DEEP VEINS OF R LOW EXTREM SNOMED Code(s): 035845489 Plan: HIgh risk for bleeding while on Anticoagualtion, therefore IVC Filter placed today Patient has an acute DVT of the upper extremity and history of DVT and lower extremity, both unprovoked. With a history of PE/DVT in past. She does understand risks versus benefit. With the complications of continued bleeding resulting in transfusions and hospital admission IVC filter was recommended Monitor Daily CBC CT abdomen and Pelvis Negative. PLan to follow-up in office to receive parental Iron and CBC monitoring
== END 2019-10-16 16:52 | disposition home or self-care (01) | DRG 253 ==
LOC: UNDOADMIN 18:28 → 5NMEDONC 18:28 → UNDODISIN 10-16 16:52
PROVIDERS: ADMIT Hospitalist; ATTEND Hospitalist
PROC: 06H03DZ Insertion of Intraluminal Device into Inferior Vena Cava, Percutaneous Approach (ICD-10-PCS; principal; 2019-10-15 09:50)
DX: I82.A12 Acute embolism and thrombosis of left axillary vein (principal); D62 Acute posthemorrhagic anemia; M79.7 Fibromyalgia; I10 Essential (primary) hypertension; E78.5 Hyperlipidemia, unspecified; I25.10 Atherosclerotic heart disease of native coronary artery without angina pectoris; G47.33 Obstructive sleep apnea (adult) (pediatric); E03.9 Hypothyroidism, unspecified; F32.9 Major depressive disorder, single episode, unspecified; F41.9 Anxiety disorder, unspecified; K22.2 Esophageal obstruction; K31.819 Angiodysplasia of stomach and duodenum without bleeding; K57.90 Diverticulosis of intestine, part unspecified, without perforation or abscess without bleeding; Z60.2 Problems related to living alone; I82.402 Acute embolism and thrombosis of unspecified deep veins of left lower extremity; I25.2 Old myocardial infarction; Z87.01 Personal history of pneumonia (recurrent); Z90.49 Acquired absence of other specified parts of digestive tract; Z95.5 Presence of coronary angioplasty implant and graft; Z90.710 Acquired absence of both cervix and uterus; Z95.2 Presence of prosthetic heart valve; Z87.891 Personal history of nicotine dependence; Z80.9 Family history of malignant neoplasm, unspecified; Z79.01 Long term (current) use of anticoagulants; Z79.82 Long term (current) use of aspirin; Z79.890 Hormone replacement therapy; Z79.899 Other long term (current) drug therapy; Z88.4 Allergy status to anesthetic agent; Z91.09 Other allergy status, other than to drugs and biological substances
CPT/HCPCS: 37191; 74178; 80048; 80076; 85025; 86850; 86900; 86901; 86920

== ENCOUNTER → 2019-10-25 | Day surgery (SDC) | payer MEDICARE ==
[2019-10-24 14:11] VITALS: BMI 23.0
[~2019-10-25] MED LIST changes: -LACTATED RINGERS 1,000 ML IV SCH; -LIDOCAINE 1% 20 ML VIAL (10MG/ML) FOR IV START INTRADERMA PRN; +SIMETHICONE 40 MG/0.6 ML DROPS 2,000 MG/30 ML BOTTLE PO ONE
[2019-10-25 06:56] VITALS: BP 121/56; PULSE 73; RESP 16; TEMP 97.7
== END ==
LOC: ORWHC2ENDO 06:33
PROVIDERS: ATTEND Internal Medicine Gastroenterology
DX: D50.9 Iron deficiency anemia, unspecified (principal)
CPT/HCPCS: 91110

== ENCOUNTER 2020-01-02 14:07 | Emergency (ER) | payer MEDICARE ==
[2020-01-02 14:27] VITALS: TEMP 99.1
--- NOTE | 2020-01-02 15:08 | ED ---
General Adult HPI - General Source: patient, RN notes reviewed Mode of arrival: ambulatory Limitations: no limitations <Wilfred Fabian - Last Filed: 01/02/20 17:01> <Becky Lewis - Last Filed: 01/05/20 22:02> - General Chief complaint: Recheck/Abnormal Lab/Rx Stated complaint: SOB, Swelling in Legs, sent from [facility] Time Seen by Provider: 01/02/20 14:33 - History of Present Illness Initial comments: This a 74-year-old female presents emergency Department from [facility] for an ultrasound of her right leg. She's been having increasing leg pain and swelling. Patient recent increase her diuretics from PCP. Patient was offered Eliquis and was restarted on lower dose and is concerned she may have developed a DVT in her right leg she's had prior DVTs and PE. Patient denies any chest pain. Patient sates that she's closely monitored for her hemoglobin as she had anemia she states she had a check today and was 9.0. Patient states that she appears and sent over for an ultrasound and x-ray. She denies any fevers coughs she's had intermittent shortness of breath but states only with her anemia. Patient offers no other complaints. Patient states that she's has follow-up appointments (Wilfred Fabian) - Related Data Home Medications Medication Instructions Recorded Confirmed Levothyroxine Sodium [Synthroid] 75 mcg PO DAILY 09/25/17 10/24/19 Hemp Extract 1 cap PO BID 01/23/19 10/24/19 Metoprolol Tartrate [Lopressor] 12.5 mg PO BID 01/23/19 10/24/19 Mirtazapine [Remeron] 45 mg PO HS 01/23/19 10/24/19 Pregabalin [Lyrica] 50 mg PO BID 01/23/19 10/24/19 fentaNYL 50MCG/HR PATCH [Duragesic 1 patch TRANSDERM Q72H 02/20/19 10/25/19 50MCG/HR] Atorvastatin Calcium [Lipitor] 80 mg PO HS 09/05/19 10/24/19 Cevimeline [Evoxac] 30 mg PO BID 09/05/19 10/24/19 Mirabegron [Myrbetriq] 50 mg PO HS 09/05/19 10/24/19 Sertraline [Zoloft] 100 mg PO HS 09/05/19 10/24/19 Ferrous Sulfate [Feosol] 35 mg PO BID 10/24/19 10/24/19 Previous Rx's Medication Instructions Recorded Aspirin 81 mg PO DAILY #1 chewable 11/16/15 Nitroglycerin Sl Tabs [Nitrostat] 0.4 mg SUBLINGUAL Q5M PRN #25 tab 12/11/17 Omeprazole [PriLOSEC] 20 mg PO BID #0 09/11/19 Allergies Allergy/AdvReac Type Severity Reaction Status Date / Time lidocaine [From LidoPatch] Allergy Rash/Hives Verified 01/02/20 14:27 menthol [From LidoPatch] Allergy Rash/Hives Verified 01/02/20 14:27 Review of Systems ROS Other: All systems not noted in ROS Statement are negative. <Wilfred Fabian - Last Filed: 01/02/20 17:01> ROS Other: All systems not noted in ROS Statement are negative. <Becky Lewis - Last Filed: 01/05/20 22:02> ROS Statement: Those systems with pertinent positive or pertinent negative responses have been documented in the HPI. Past Medical History Past Medical History: Cancer, Deep Vein Thrombosis (DVT), Fibromyalgia, Hyperlipidemia, Hypertension, Myocardial Infarction (NH), Pneumonia, Sleep Apnea/CPAP/BIPAP, Thyroid Disorder Additional Past Medical History / Comment(s): HX PARALYZED LT VOCAL CORD,SKIN CANCER RT EARLOBE, HEART MURMUR, Stent placement, DIVERTICULOSIS, ANEMIA, BLOOD CLOTS DALIA LUNGS AND LEFT AXILLA (NOV 2014) Last Myocardial Infarction Date:: 12-08-17 History of Any Multi-Drug Resistant Organisms: None Reported Past Surgical History: Appendectomy, Cardiac Valve Replacement, Heart Catheterization, Heart Catheterization With Stent, Hysterectomy, Orthopedic Surgery Additional Past Surgical History / Comment(s): COLONOSCOPY, REPAIR OF PATENT DUCTUS AT 18MOS OF AGE,LAMICECTOMY,UTERINE FIBROID REMOVED , Basal cell REMOVED FROM RIGHT EAR LOBE. RT KNEE SX, LASIK EYE SX, Past Anesthesia/Blood Transfusion Reactions: No Reported Reaction Additional Past Anesthesia/Blood Transfusion Reaction / Comment(s): had some ringing in ears when given some medication prior to EGD-not sure what the med was Date of Last Stent Placement:: 12-08-17 Past Psychological History: Anxiety, Depression Smoking Status: Never smoker Past Alcohol Use History: None Reported Past Drug Use History: None Reported - Past Family History Mother Family Medical History: No Reported History Father Family Medical History: Cancer Sister(s) Family Medical History: Cancer <Wilfred Fabian - Last Filed: 01/02/20 17:01> General Exam Limitations: no limitations General appearance: alert, in no apparent distress Head exam: Present: atraumatic, normocephalic, normal inspection Eye exam: Present: normal appearance, PERRL, EOMI. Absent: scleral icterus, conjunctival injection, periorbital swelling ENT exam: Present: normal exam, normal oropharynx, mucous membranes moist Neck exam: Present: normal inspection, full ROM. Absent: tenderness, meningismus, lymphadenopathy Respiratory exam: Present: normal lung sounds bilaterally. Absent: respiratory distress, wheezes, rales, rhonchi, stridor GI/Abdominal exam: Present: soft, normal bowel sounds. Absent: distended, tenderness, guarding, rebound, rigid Extremities exam: Present: other (Right calf there is moderate tenderness, pulses equal bilaterally there is mild swelling of the lower extremity.) Neurological exam: Present: alert, oriented X3, reflexes normal. Absent: motor sensory deficit Skin exam: Present: warm, dry, intact, normal color. Absent: rash <Wilfred Fabian - Last Filed: 01/02/20 17:01> Course Vital Signs 01/02/20 01/02/20 14:24 17:20 Temperature 99.1 F 99.1 F Pulse Rate 66 60 Respiratory 16 12 Rate Blood Pressure 117/65 140/69 O2 Sat by Pulse 96 97 Oximetry Medical Decision Making <Wilfred Fabian - Last Filed: 01/02/20 17:01> <Becky Lewis - Last Filed: 01/05/20 22:02> - Medical Decision Making Ultrasound shows chronic DVT no acute DVT. Patient is close to moderate hemoglobin was 9.0 today. Patient will be discharged she has follow-up and return parameters were discussed. (Wilfred Fabian) I was available for consultation in the emergency department. The history and physical exam were done by the midlevel provider. I was consulted for this patients care. I reviewed the case with the midlevel provider and based on their presentation of the patient, I agree with the assessment, medical decision making and plan of care as documented. Chart was dictated using Submittable dictation software. Attempts were made to correct any dictation errors however some typographical errors may persist. Patient was seen during a national state of emergency due to the Covid-19 pandemic. (Becky Lewis) Disposition Is patient prescribed a controlled substance at d/c from ED?: No Time of Disposition: 17:03 <Wilfred Fabian - Last Filed: 01/02/20 17:01> <Becky Lewis - Last Filed: 01/05/20 22:02> Clinical Impression: Right leg pain, Chronic deep vein thrombosis (DVT) Disposition: HOME SELF-CARE Condition: Stable Instructions (If sedation given, give patient instructions): Leg Pain (ED) Additional Instructions: Please return to the Emergency Department if symptoms worsen or any other concerns. Referrals: Mario Gabriel DO [Primary Care Provider] - 1-2 days
--- NOTE | 2020-01-02 16:18 | US ---
EXAMINATION TYPE: US venous doppler duplex LE RT DATE OF EXAM: 01/02/2020 3:56 PM COMPARISON: 08/09/2019 CLINICAL HISTORY: 74-year-old female pain. According to patient, she was diagnosed with a DVT 3 months ago. Recently she was taken off her blood thinner due to bleeding. SIDE PERFORMED: Right TECHNIQUE: The lower extremity deep venous system is examined utilizing real time linear array sonog thais with graded compression, doppler sonography and color-flow sonography. FINDINGS: VESSELS IMAGED: External Iliac Vein (EIV) Common Femoral Vein Deep Femoral Vein Greater Saphenous Vein * Femoral Vein Popliteal Vein Small Saphenous Vein * Proximal Calf Veins (* superficial vessels) Right Leg: Positive for DVT. Upper femoral vein is small and shows thready flow. The vein becomes non-visualized with an anterior branch showing flow. Popliteal vein shows thready flow and isn't compressible. This is indicative of chronic DVT. IMPRESSION: Exam remains positive for right lower extremity DVT. The upper femoral vein now appears small with ar eas of thready flow. Other portions are nonvisualized or a separate patent anterior branch is now see n suggesting some collateral vessel formation. The popliteal vein also shows thready flow and incompl ete compressibility. These findings are compatible with chronic DVT.
--- NOTE | 2020-01-02 16:22 | XR ---
EXAMINATION TYPE: XR chest 2V DATE OF EXAM: 01/02/2020 COMPARISON: 09/30/2019 HISTORY: 74 year-old female shortness of breath TECHNIQUE: PA and lateral views FINDINGS: Heart remains borderline to mildly enlarged. Lower ascending aortic stent graft. Right hilar soft tis keyla prominence is unchanged. Hyperinflation. Mild interstitial prominence is unchanged. No consolidat ion or pleural effusion seen. IMPRESSION: COPD and chronic appearing changes. Right hilar prominence is unchanged likely reflecting pulmonary a rtery hypertension. No definite acute process.
[2020-01-02 17:21] VITALS: BP 140/69; PULSE 60; RESP 12
== END 2020-01-02 17:29 | disposition home or self-care (01) ==
LOC: EC 14:07
DX: M79.604 Pain in right leg (principal); R22.41 Localized swelling, mass and lump, right lower limb; F41.9 Anxiety disorder, unspecified; F42.9 Obsessive-compulsive disorder, unspecified; G47.33 Obstructive sleep apnea (adult) (pediatric); I25.2 Old myocardial infarction; Z79.899 Other long term (current) drug therapy; Z88.8 Allergy status to other drugs, medicaments and biological substances; Z95.5 Presence of coronary angioplasty implant and graft; Z85.828 Personal history of other malignant neoplasm of skin; Z80.9 Family history of malignant neoplasm, unspecified
CPT/HCPCS: 71046; 99285

== ENCOUNTER 2020-03-03 05:54 | Day surgery (SDC) | payer MEDICARE ==
[2020-02-26 12:20] VITALS: BMI 26.5
[2020-03-03] MEDS ORDERED: LACTATED RINGERS 1,000 ML IV SCH (06:15)
[2020-03-03] MEDS ORDERED: LIDOCAINE 1% (10MG/ML) FOR IV START INTRADERMA PRN (06:15)
[2020-03-03 06:50] VITALS: TEMP 98.6
[2020-03-03] MEDS ORDERED: PROPOFOL 10 MG/ML 20 ML VIAL IV ONE (07:05)
[2020-03-03 07:35] VITALS: RESP 16
[2020-03-03 07:51] VITALS: BP 143/71; PULSE 76
[2020-03-03 08:12] LABS: Basophils % (A) 1 %; Eosinophils # (A) 0.2 k/uL (0-0.7); Eosinophils % (A) 2 %; HCT 30.4 % (34.0-46.0); HGB 9.3 gm/dL (11.4-16.0); Hypochromasia Moderate; Lymphocytes # (A) 1.1 k/uL (1.0-4.8); Lymphocytes % (A) 17 %; MCH 29.4 pg (25.0-35.0); MCHC 30.7 g/dL (31.0-37.0); MCV 95.9 fL (80.0-100.0); Monocytes # (A) 0.4 k/uL (0-1.0); Monocytes % (A) 7 %; Neutrophils # (A) 4.5 k/uL (1.3-7.7); Neutrophils % (A) 72 %; Platelet Count 375 k/uL (150-450); RBC 3.17 m/uL (3.80-5.40); RDW 14.6 % (11.5-15.5); Reticulocyte % 5.2 % (0.5-2.0); WBC 6.4 k/uL (3.8-10.6)
--- NOTE | 2020-03-03 08:29 | PCN ---
PROCEDURE NOTE DATE OF PROCEDURE: 03/03/2020. PREOPERATIVE DIAGNOSIS: Anemia. POSTOPERATIVE DIAGNOSIS: Anemia. ANESTHESIA: Local with IV systemic sedation. SITE: Right iliac crest. DETAILS: Utilizing sterile technique, the skin overlying the right iliac crest was prepared with Betadine and alcohol. After adequate sterile draping, local anesthesia and systemic sedation, a size 11, 4-inch Jamshidi needle was utilized to access the periosteum with ease. A total of 16 mL of aspirate and 1 cm bone core biopsy were obtained. The patient tolerated the procedure very well. There was no immediate procedure related complications. TOTAL BLOOD LOSS: Less than 1 mL. RESULTS: Pending. MMODL / IJN: [id number] /
== END 2020-03-03 08:06 | disposition home or self-care (01) ==
LOC: OR 05:54
PROVIDERS: ATTEND Internal Medicine Hematology & Oncology
DX: D50.8 Other iron deficiency anemias (principal); E03.9 Hypothyroidism, unspecified; E78.5 Hyperlipidemia, unspecified; I12.9 Hypertensive chronic kidney disease with stage 1 through stage 4 chronic kidney disease, or unspecified chronic kidney disease; N18.9 Chronic kidney disease, unspecified; M79.7 Fibromyalgia; I25.2 Old myocardial infarction; G47.33 Obstructive sleep apnea (adult) (pediatric); Z99.89 Dependence on other enabling machines and devices; F41.9 Anxiety disorder, unspecified; F32.9 Major depressive disorder, single episode, unspecified; Z86.718 Personal history of other venous thrombosis and embolism; Z86.711 Personal history of pulmonary embolism; Z95.5 Presence of coronary angioplasty implant and graft; Z95.2 Presence of prosthetic heart valve; Z87.891 Personal history of nicotine dependence; Z90.710 Acquired absence of both cervix and uterus; Z86.19 Personal history of other infectious and parasitic diseases; Z90.89 Acquired absence of other organs; Z80.41 Family history of malignant neoplasm of ovary; Z80.8 Family history of malignant neoplasm of other organs or systems; Z83.2 Family history of diseases of the blood and blood-forming organs and certain disorders involving the immune mechanism; Z79.890 Hormone replacement therapy; Z79.01 Long term (current) use of anticoagulants; Z79.82 Long term (current) use of aspirin; Z79.899 Other long term (current) drug therapy; Z91.048 Other nonmedicinal substance allergy status; Z88.4 Allergy status to anesthetic agent; Z88.8 Allergy status to other drugs, medicaments and biological substances
CPT/HCPCS: 85025; 85045; 38222; J2704

== ENCOUNTER → 2020-06-18 | Outpatient (CLI) | payer MEDICARE ==
--- NOTE | 2020-06-18 22:45 | SFUN ---
SLEEP CENTER FOLLOW UP NOTE DATE OF SERVICE: 06/18/2020 This 74-year-old lady has been followed in Sleep Center for treatment of obstructive sleep apnea-hypopnea syndrome. Patient continues to use her CPAP equipment every night. She sleeps well with the machine. She is getting her supplies on time. [place] Sleepiness Scale is 3. When I asked the patient when was the last time she changed filters in her machine, she told me that she never changes it. I checked her CPAP unit. CPAP pressure is 11 cm of water. Usage is 30/30 nights for more than 4 hours, average 8.8 hours per night. Leak is 30 L/minutes, which is slightly high. Apnea-hypopnea index is only 0.3, which is totally normal. MEDICATIONS: 1. Aspirin 81 mg once a day. 2. Atorvastatin 80 mg once a day. 3. Eliquis 2.5 mg once a day. 4. Evoxac 30 mg once a day. 5. Fentanyl patch 25 mcg. 6. Lyrica 50 mg once a day. 7. Metoprolol 25 mg once a day. 8. Mirtazepine 45 mg once a day. 9. Omeprazole 20 mg once a day. 10.Spironolactone 25 mg once a day. 11.Synthroid 75 mcg once a day. 12.Zoloft 100 mg once a day. 13.Requip 0.5 mg once a day. 14.Furosemide once a day. PHYSICAL EXAMINATION: GENERAL: A pleasant patient in no distress. VITAL SIGNS: BP 147/59, HR 71, RR 12, height 5 feet 2 inches, weight 144, body mass index 26.3, temperature 97.2, oxygen saturation at room air 94%. HEENT: PERRLA, EOMI. Evaluation of oropharynx showed tongue protrudes midline. Extremely low position of soft palate. Mallampati IV. Significant retrognathia; about 5 mm. NECK: Supple. No JVD. Thyroid is not palpable. LUNGS: Clear to percussion and to auscultation. Good air exchange. No wheezing or rhonchi. HEART: S1, S2 regular. No murmurs, gallops or rubs. ABDOMEN: Soft and nontender. Bowel sounds are present. No organomegaly appreciated. EXTREMITIES: No clubbing or cyanosis. 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 Cranial nerves 2 to 7 intact. There is no fasciculation or atrophy. noted. No focal deficits observed. IMPRESSION: 1. Extremely severe obstructive sleep apnea-hypopnea syndrome; apnea-hypopnea index 114.1 with oxygen desaturation to 74.6%. The patient demonstrated 100% compliance with the treatment, benefitting from treatment. 2. Hypertension. 3. Coronary artery disease, status post heart attack in 2018, status post center's stent insertion. 4. Status post aortic valve replacement in March 2018. 5. History of deep venous thrombosis and several episodes of pulmonary embolism. 6. History of fibromyalgia. 7. History of skin carcinoma of right ear, status post surgical treatment, including reconstruction of right ear. 8. Status post total hysterectomy. 9. Status post laminectomy. 10.Status post surgery of the left knee. 11.Status post tonsillectomy. 12.Status post cardiac surgery for ductus arteriosus at the age of 18 months. PLAN: 1. I showed the patient how to replace filter in CPAP unit. 2. Patient will continue to use PAP equipment every night for the whole night. 3. Sleep hygiene with regular time in bed for at least 7-1/2 to 8 hours. 4. Precautions related to driving. No driving if feeling sleepiness. 5. I will maintain all necessary prescription for PAP supplies including mask, tube, filters. 6. Watching weight. 7. Follow-up visit in 6 months or earlier if patient has any problems. Thank you very much for allowing me to participate in the management of your patient. Sincerely, Darion Salomon MD, PhD, FAASM Diplomat of [place] [employer] [place] [employer] of [facility] [place] MMODL / MAYN: [id number] /

== ENCOUNTER → 2020-08-11 | Outpatient (CLI) | payer MEDICARE ==
--- NOTE | 2020-08-12 07:51 | BD ---
EXAMINATION TYPE: Axial Bone Density DATE OF EXAM: 08/11/2020 COMPARISON: NONE CLINICAL HISTORY: Postmenopausal female. Disorder of bone. Height: 5 FT 1 1/2 IN Weight: 144 FRAX RISK QUESTIONS: Alcohol (3 or more units per day): NO Family History (Parent hip fracture): NO Glucocorticoids (More than 3mos): NO (Ex: prednisone, prednisolone, methylprednisolone, dexamethasone, and hydrocortisone). History of Fracture in Adulthood: YES Secondary Osteoporosis: 1. Type 1 Diabetes: NO 2. Hyperthyroidism: NO 3. Menopause before 45: UNSURE 4. Malnutrition: NO 5. Chronic liver disease: NO Rheumatoid Arthritis: NO Current Tobacco Use: NO RISK FACTORS HISTORY OF: Surgery to Spine/Hip(right/left)/Wrist (right/left): NO Family History of Osteoporosis: NO Active: NO Diet low in dairy products/other sources of calcium: NO Postmenopausal woman: TOTAL HYST UNSURE WHAT AGE LONG AGO Take estrogen and/or progesterone medications: NO Lost more than 2 inches in height since high school: NO Poor Health: FAIR MEDICATIONS: Thyroid Medications: YES Which medication: SYNTHROID How Long: UNSURE Additional Medications: ASPIRIN, ATORVASTATIN, BIOTIN, ELIQUIS, EVOXAC, FENTANYL, FUROSEMIDE, LYRICA, METOPROLOL, MIRTAZAPINE, MYRBETRIQ,NITROSTAT, OMEPRAZOLE, ROPINIROLE, SPIRONOLACTONE, SYNTHROID,ZOLOFT Additional History: POOR HISTORIAN EXAM MEASUREMENTS: Bone mineral densitometry was performed using the [email or web address] System. Bone mineral density as measured about the Lumbar spine is: ----- L1-L4(G/cm2): 1.089 T Score Values are as follows: ----- L2: -0.5 ----- L3: -0.8 ----- L4: -0.7 ----- L1-L4: -0.8 SPINE NOT DONE 2013 Bone mineral density about the R hip (g/cm2): 0.807 Bone mineral density about the L hip (g/cm2): 0.810 T Score values are as follows: -----R Neck: -1.7 -----L Neck: -1.6 -----R Total: -1.5 -----L Total: -1.4 Bone mineral density has: DECREASED -4.2 % since study of: 2014 IMPRESSION: Osteopenia (T Score between -2.5 and -1). There is slightly increased risk of fracture and the patient may be considered for treatment. Re-Screen 2-5 years. NOTE: T-SCORE=SD OF THE YOUNG ADULT MEAN.
--- NOTE | 2020-08-13 09:00 | MM ---
Reason for exam: screening (asymptomatic). Last mammogram was performed 2 years and 3 months ago. History: Patient is postmenopausal, history of other cancer, and is nulliparous. Took estrogen for 10 years. Physical Findings: A clinical breast exam by your physician is recommended on an annual basis and results should be correlated with mammographic findings. MG 3D Screening Mammo W/Cad Bilateral CC and MLO view(s) were taken. Prior study comparison: May 04, 2018, bilateral MG 3d screening mammo w/cad. May 05, 2015, bilateral MG 3d screening mammo w/cad. The breast tissue is heterogeneously dense. This may lower the sensitivity of mammography. No significant changes when compared with prior studies. ASSESSMENT: Benign, BI-RAD 2 RECOMMENDATION: Routine screening mammogram of both breasts in 1 year.
== END | disposition home or self-care (01) ==
LOC: RADMAMWWP 15:55
PROVIDERS: ATTEND Family Medicine
DX: Z12.31 Encounter for screening mammogram for malignant neoplasm of breast (principal); Z13.820 Encounter for screening for osteoporosis; M85.89 Other specified disorders of bone density and structure, multiple sites; Z78.0 Asymptomatic menopausal state
CPT/HCPCS: 77063; 77067; 77080

== ENCOUNTER → 2020-08-11 | Outpatient (CLI) | payer MEDICARE ==
[2020-08-12 05:45] LABS: Albumin 4.3 g/dL (3.80-4.90); Albumin/Globulin Ratio 2.39 (1.60-3.17); Anion Gap 10.5 mmol/L (4.00-12.00); Calcium 9.4 mg/dL (8.7-10.3); Carbon Dioxide 22.5 mmol/L (21.6-31.8); Chol/HDL Ratio 2.91; Globulin 1.8 g/dL (1.6-3.3); LDL Cholesterol,Calculated 71.2 mg/dL (0.0-131.0); Potassium 4.5 mmol/L (3.5-5.5); Total Bilirubin 0.3 mg/dL (0.2-1.2); Total Protein 6.1 g/dL (6.2-8.2); VLDL Calculation 14.8 mg/dL (5.00-40.00)
== END | disposition home or self-care (01) ==
LOC: LABWHC1 16:02
PROVIDERS: ATTEND Nurse Practitioner Adult Health
DX: I12.9 Hypertensive chronic kidney disease with stage 1 through stage 4 chronic kidney disease, or unspecified chronic kidney disease (principal); N18.9 Chronic kidney disease, unspecified; E78.2 Mixed hyperlipidemia
CPT/HCPCS: 36415; 80053; 80061

== ENCOUNTER → 2020-12-04 | Outpatient (CLI) | payer MEDICARE ==
[~2020-12-04] MED LIST changes: +DENOSUMAB 60 MG/ML 1 ML SYRINGE SQ NR; -SIMETHICONE 40 MG/0.6 ML DROPS 2,000 MG/30 ML BOTTLE PO ONE
[2020-12-04 13:52] VITALS: BP 134/61; PULSE 69; RESP 16; TEMP 98.7
== END ==
LOC: PROCWHC3 13:32
PROVIDERS: ATTEND Family Medicine
DX: M81.0 Age-related osteoporosis without current pathological fracture (principal); Z87.891 Personal history of nicotine dependence; Z88.4 Allergy status to anesthetic agent; Z88.8 Allergy status to other drugs, medicaments and biological substances
CPT/HCPCS: 96372; J0897

== ENCOUNTER → 2021-01-14 | Outpatient (CLI) | payer MEDICARE ==
--- NOTE | 2021-01-14 15:24 | SFUN ---
SLEEP CENTER FOLLOW UP NOTE DATE OF SERVICE: 01/14/2021 This 75-year-old lady has been followed in Sleep Center for treatment of obstructive sleep apnea/hypopnea syndrome. The patient continues to use her CPAP equipment every night. Sometimes there are nights when she falls asleep before putting her mask on. [place] Sleepiness Scale today is 7. I checked her CPAP unit. Pressure is 11 cm of water. Usage is 22/30 nights and 20/30 nights for more than 4 hours, average 7.2 hours per night. Leak is 36 L/minute, which is borderline. Apnea-hypopnea index is only 0.3, which is absolutely normal. MEDICATIONS: 1. Atorvastatin 80 mg once a day. 2. Eliquis 2.5 mg once a day. 3. 30 mg twice a day. 4. Lyrica 50 mg twice a day. 5. Metoprolol 25 mg twice a day. 6. Mirtazapine 45 mg once a day. 7. Omeprazole 20 mg twice a day. 8. Ropinirole 1 mg once a day. 9. Spironolactone 25 mg once a day. 10.Synthroid 75 mcg once a day. 11.Zoloft 100 mg once a day. 12.Myrbetriq 50 mg once a day. 13.Furosemide 20 mg as needed. 14.Nitrostat. PHYSICAL EXAMINATION: GENERAL: Pleasant lady without distress. VITAL SIGNS: BP 138/66, HR 75, RR 16, height 5 feet 1-1/2 inches, weight 154.6 pounds, temperature 97.2, oxygen saturation at room air 99%. HEENT: PERRLA, EOMI, evaluation of oropharynx showed tongue protrudes midline. Extremely low position of soft palate; Mallampati IV. Significant retrognathia, about 5 mm. NECK: Supple, no JVD. Thyroid is not palpable. LUNGS: Clear to percussion and to auscultation. Good air exchange. No wheezing or rhonchi. HEART: S1, S2 regular. No murmurs, gallops, or rubs. ABDOMEN: Soft and nontender. Bowel sounds are present. No organomegaly appreciated. EXTREMITIES: No clubbing or cyanosis. 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 Cranial nerves 2 to 7 intact. There is no fasciculation or atrophy. noted. No focal deficits observed. IMPRESSION: 1. Extremely severe obstructive sleep apnea-hypopnea syndrome; apnea-hypopnea index 114.1 with oxygen desaturation to 74.6%. Patient demonstrated good compliance with treatment, benefitting from treatment. 2. Coronary artery disease, status post heart attack in 2018, status post stent insertion. 3. Hypertension. 4. Status post aortic valve replacement in March of 2018. 5. History of DVT with several episodes of pulmonary embolism. 6. History of fibromyalgia. 7. History of skin carcinoma of right ear, status post surgical treatment, including reconstruction of right ear. 8. Status post total hysterectomy. 9. Status post laminectomy. 10.Status post surgery of left knee. 11.Status post tonsillectomy. 12.Status post cardiac surgery for ductus arteriosis at the age of 18 months. PLAN: 1. Replace air filter. The patient told me that it has stayed there for 6 months. 2. Patient will continue to use PAP equipment every night for the whole night. 3. Sleep hygiene with regular time in bed for at least 7-1/2 to 8 hours. 4. Precautions related to driving. No driving if feeling sleepiness. 5. I will maintain all necessary prescription for PAP supplies including mask, tube, filters. 6. Watching weight. 7. Follow-up visit in 6 months or earlier if patient has any problems. Thank you very much for allowing me to participate in the management of your patient. Sincerely, Darion Salomon MD, PhD, FAASM Diplomat of [employer] Sleep Medicine Board of [employer] Bilingual Teacher Assistant of [facility] [place] MMODL / JENNIFER: [id number] /
== END ==
LOC: SLEEP 14:21
PROVIDERS: ATTEND Internal Medicine
DX: G47.33 Obstructive sleep apnea (adult) (pediatric) (principal); I25.10 Atherosclerotic heart disease of native coronary artery without angina pectoris; I25.2 Old myocardial infarction; Z95.5 Presence of coronary angioplasty implant and graft; I10 Essential (primary) hypertension; Z95.2 Presence of prosthetic heart valve; Z86.711 Personal history of pulmonary embolism; Z86.718 Personal history of other venous thrombosis and embolism; Z87.39 Personal history of other diseases of the musculoskeletal system and connective tissue; Z90.710 Acquired absence of both cervix and uterus; Z98.890 Other specified postprocedural states; Z90.89 Acquired absence of other organs; Z85.828 Personal history of other malignant neoplasm of skin; Z88.4 Allergy status to anesthetic agent; Z88.8 Allergy status to other drugs, medicaments and biological substances; Z87.891 Personal history of nicotine dependence

== ENCOUNTER → 2021-01-15 | Outpatient (CLI) | payer MEDICARE ==
--- NOTE | 2021-01-16 15:26 | XR ---
EXAMINATION TYPE: XR chest 2V DATE OF EXAM: 01/15/2021 COMPARISON: 01/02/2020 INDICATION: Cough congestion TECHNIQUE: Frontal and lateral views of the chest are obtained. FINDINGS: The heart size is prominent. Prior cardiac surgery is evident. The pulmonary vasculature is normal. The lungs are clear. IMPRESSION: 1. No acute pulmonary process.
== END | disposition home or self-care (01) ==
LOC: RADXRMAIN 16:21
PROVIDERS: ATTEND Family Medicine
DX: I50.9 Heart failure, unspecified (principal); R09.89 Other specified symptoms and signs involving the circulatory and respiratory systems; R50.9 Fever, unspecified
CPT/HCPCS: 71046

== ENCOUNTER → 2021-03-18 | Outpatient (CLI) | payer MEDICARE ==
[2021-03-18 15:58] LABS: ALT 14 U/L (8-44); AST 25 U/L (13-35); African American GFR (CKD) 56.9 (60.0-200.0); Albumin 4.1 g/dL (3.8-4.9); Albumin/Globulin Ratio 1.95 (1.60-3.17); Alkaline Phosphatase 53 U/L (41-126); BUN/Creat Ratio 21.64 Ratio (12.00-20.00); Blood Urea Nitrogen 23.8 mg/dL (9.0-27.0); Calcium 9.1 mg/dL (8.7-10.3); Carbon Dioxide 19.5 mmol/L (20.0-27.5); Chloride 108 mmol/L (96-109); Chol/HDL Ratio 2.93 Ratio; Globulin 2.1 g/dL (1.6-3.3); Glucose 120 mg/dL (70-110); LDL Cholesterol,Calculated 59.5 mg/dL (0.0-131.0); Non-African American GFR(CKD) 49.1 (60.0-200.0); Potassium 3.7 mmol/L (3.5-5.5); Sodium 144 mmol/L (135-145); Total Bilirubin <0.20 mg/dL (0.30-1.20); Total Protein 6.2 g/dL (6.2-8.2)
== END | disposition home or self-care (01) ==
LOC: LABWHC1 09:10
PROVIDERS: ATTEND Nurse Practitioner Adult Health
DX: I10 Essential (primary) hypertension (principal); E78.2 Mixed hyperlipidemia
CPT/HCPCS: 36415; 80053; 80061